=== PATIENT | male | born 1975 ===

== ENCOUNTER 2020-04-09 13:36 | Outpatient (REF) | payer OTHER, SELFPAY | END 2020-04-09 13:37 | disposition home or self-care (01) | LOC: HO.LAB 13:36 | PROVIDERS: PCP Internal Medicine; Visit Provider Internal Medicine | DX: Z20.828 Contact with and (suspected) exposure to other viral communicable diseases (principal) | CPT/HCPCS: C9803; U0003 ==

== ENCOUNTER 2020-05-11 08:52 | Outpatient (REF) | payer OTHER, SELFPAY ==
[2020-05-11 09:25] LABS: MANUAL DIFF FLAG NO
[2020-05-11 09:30] LABS: Basophils Percent Auto 0.3 % (0-2); Eosinophils Absolute Auto 0.1 X10*3/uL (0.0-0.4); Hematocrit 48.1 % (42-52); Hemoglobin 15.2 g/dl (14.0-18.0); Imm Gran Abs Auto 0.05 X10*3/uL (0.00-0.03); Imm Gran Pct Auto 0.6 % (0.0-0.4); Lymphocytes Absolute Auto 3.7 X10*3/uL (1.2-4.9); Lymphocytes Percent Auto 42.3 % (20-40); Mean Corpuscular HGB Conc 31.6 g/dl (31.0-36.0); Mean Corpuscular Hemoglobin 26.2 pg (27.0-33.0); Mean Corpuscular Volume 82.8 fL (80-98); Mean Platelet Volume 9.8 fL (9.4-12.4); Monocytes Absolute Auto 0.7 X10*3/uL (0.1-1.2); Monocytes Percent Auto 7.4 % (2-11); Neutrophils Absolute Auto 4.2 X10*3/uL (2.0-8.3); Neutrophils Percent Auto 48.4 % (45-73); Platelet Count 246 X10*3/uL (160-400); Red Blood Count 5.81 X10*6/uL (4.60-5.80); White Blood Count 8.7 X10*3/uL (4.8-10.8)
[2020-05-11 09:58] LABS: Alanine Aminotransferase 38 U/L (0-40); Albumin Level 4.7 g/dL (3.5-5.0); Alkaline Phosphatase 82 U/L (39-117); Anion Gap 16 (12-20); Aspartate Amino Transferase 23 U/L (5-37); Bilirubin Total 0.7 mg/dL (0.0-1.0); Blood Urea Nitrogen 15 mg/dL (9-16); Calcium 9.5 mg/dL (8.4-10.2); Carbon Dioxide 27 mmol/L (22-29); Chloride 100 mmol/L (96-108); Cholesterol 162 mg/dL; Estimated Glomerular Filt Rate > 60; Glucose Fasting 211 mg/dL (60-99); HDL Cholesterol 37 mg/dL; LDL Cholesterol Calculated 98 mg/dl; Potassium 4.6 mmol/l (3.3-5.1); Sodium 138 mmol/L (135-145); Total Protein 7.3 g/dL (6.5-8.0); Triglycerides 138 mg/dL
[2020-05-11 10:28] LABS: Folate 16.6 ng/mL (> or = 4.0); Vitamin B12 340 pg/mL (200-900)
== END 2020-05-11 08:53 | disposition home or self-care (01) ==
LOC: HO.LAB 08:52
PROVIDERS: Absent Provider Internal Medicine Hypertension Specialist; PCP Internal Medicine; Visit Provider Internal Medicine
DX: E53.8 Deficiency of other specified B group vitamins (principal); E78.00 Pure hypercholesterolemia, unspecified; E11.9 Type 2 diabetes mellitus without complications
CPT/HCPCS: 36415; 80053; 80061; 82607; 82746; 85025

== ENCOUNTER 2020-05-25 08:56 | Outpatient (REF) | payer OTHER, SELFPAY ==
--- NOTE | 2020-05-25 08:59 | US_ITS ---
EXAMINATION: US RETROPERITONEAL LIMITED (RENAL ONLY) CLINICAL INFORMATION: Calculi of kidney. COMPARISON: Ultrasound abdomen 04/17/2019 TECHNIQUE: Routine grayscale imaging of kidneys was performed FINDINGS: RIGHT KIDNEY: 11.3 x 6.1 x 6.5 cm (SAG x AP x TRV). The kidney is normal in size, contour, and echogenicity. Renal cortical thickness is normal. No calculi or focal parenchymal lesions. No hydronephrosis. LEFT KIDNEY: 10.9 x 5.7 x 4.3 cm (SAG x AP x TRV). The kidney is normal in size, contour, and echogenicity. Renal cortical thickness is normal. No calculi or focal parenchymal lesions. No hydronephrosis. US/US renal BI IMPRESSION: Unremarkable renal ultrasound. Echogenic stone seen previously in the lower pole right kidney is not visualized at this time.
== END 2020-05-25 08:57 | disposition home or self-care (01) ==
LOC: HO.US 08:56
PROVIDERS: PCP Internal Medicine; Visit Provider Nurse Practitioner Family
DX: N20.0 Calculus of kidney (principal)
CPT/HCPCS: 76775

== ENCOUNTER → 2020-07-29 09:02 | Outpatient (BNVA) | payer OTHER, SELFPAY | PROVIDERS: PCP Internal Medicine; Visit Provider Nurse Practitioner Gerontology | DX: E11.65 Type 2 diabetes mellitus with hyperglycemia (principal); I10 Essential (primary) hypertension; E78.00 Pure hypercholesterolemia, unspecified; E66.01 Morbid (severe) obesity due to excess calories; Z68.36 Body mass index [BMI] 36.0-36.9, adult | CPT/HCPCS: 82947; 99212 ==

== ENCOUNTER → 2020-08-26 09:42 | Outpatient (REF) | payer OTHER, SELFPAY ==
--- NOTE | 2020-08-26 09:45 | ECG_ITS ---
Test Reason : UNSPEC CHEST PAIN Blood Pressure : / mmHG Vent. Rate : 080 BPM Atrial Rate : 080 BPM P-R Int : 140 ms QRS Dur : 084 ms QT Int : 372 ms P-R-T Axes : 051 058 034 degrees QTc Int : 429 ms Sinus rhythm with marked sinus arrhythmia Otherwise normal ECG When compared with ECG of 22-APR-2018 09:45, No significant change was found Referred By: Alba Coley Electronically Signed By:Tommy Del Valle
--- NOTE | 2020-08-26 09:45 | CA_ITS ---
Transthoracic Echocardiogram Patient (Last, First, Middle): Goyo Silva, Gender: Male Date of : 1975 Age: 45 Procedure Date: 08/26/2020 Procedure Type: Transthoracic Echocardiogram Location: OP Height: 170.18 cm Weight: 103.42 kg BSA: 2.14 m2 Heart Rate: bpm BP: 124 / 82 mmHg Senior Logistics Manager: LESVIA Referring MD: Alba Coley MD Section Supervisor: Malik Solorio MD Symptoms: R06.02 - Shortness of breath Study Quality: Technically Difficult ECG Rhythm: Sinus Conclusions: - Essentially normal study Findings Left Ventricle Normal left ventricular size, thickness, and systolic function. The visually estimated ejection fraction is between 55-60%. Diastolic function is normal for age. Right Ventricle The right ventricle was not well visualized. Atria The left atrium is normal in size. Interatrial shunt cannot be excluded. The right atrium was not well visualized. Aortic Valve The aortic valve was not well visualized. There is no aortic valve stenosis. There is no aortic valve regurgitation. Mitral Valve Likely normal mitral valve structure and function. There is no mitral valve regurgitation. There is no mitral valve stenosis. Pulmonic Valve The pulmonic valve was not well visualized. Tricuspid Valve Likely normal tricuspid valve structure and function. The right ventricular systolic pressure is normal. The right ventricular systolic pressure is 23 mmHg. There is no evidence of pulmonary hypertension. Great Vessels All visible segments of the aorta are normal in size. The pulmonary artery was not well visualized. Venous The inferior vena cava was not well visualized. Pericardium/Pleural There is no evidence of pericardial effusion. Prior Study Comparison No significant change compared to prior study dated: 04/26/2018. Measurements 2D Linear Measurements IVSd: 0.95 0.6-0.9/0.6-1.0 cm LVIDd: 5.06 3.9-5.3/4.2-5.9 cm LVIDd Index: 2.36 2.4-3.2/2.2-3.1 cm/m2 LVIDs: 3.40 2.0-3.6 cm LVPWd: 1.12 0.7-1.1 cm Ao Root: 2.90 2.1-3.5 cm LA Diam: 3.60 2.7-3.8/3.0-4.0 cm LAIDs Index: 1.68 1.5-2.3 cm/m2 LV Mass: 242.07 67-162/88-224 g LV Mass Index: 113.12 43-95/49-115 g/m2 LVOT Diam: 2.00 3.0+(-)1.3 cm 2D Systolic Function EF 4C: 64.00 >55% EF 2C: 49.00 >55% EF BiP: 58.10 >55% Mitral Valve MV Pk E: 0.84 MV PK A: 0.70 MV Decel Time: 153.00 E/A: 1.20 E'Lateral: 9.48 E'Medial: 10.30 E/E' Med: 8.20 E/E' Lat: 8.90 PHT: 45.00 MVA PHT: 4.89 Decel Walker: 5.51 Aortic Valve AoV Pk Aman: 1.28 AoV Pk Grad: 7.00 LVOT LVOT Pk Aman: 0.70 LVOT Mn Aman: 0.46 LVOT VTI: 0.13 LVOT Pk Grad: 2.00 LVOT Mn Grad: 1.00 LVOT Diam: 2.00 LVOT Area: 3.14 Diastolic Function MV Pk E: 0.84 MV Pk A: 0.70 E/A: 1.20 E'Medial: 10.30 E/E' Med: 8.20 E' Laterial: 9.48 E/E' Lat: 8.90 Tricuspid Valve TR Pk Aman: 2.24 TR Pk Grad: 20.00 RA Press: 3.00 RVSP: 23.00 Great Vessels Aorta Ao Root-2D: 2.90 2.0-3.7 cm Ao Asc: 2.90 2.1-3.4 cm Ao Arch: 2.60 Updated in Other Vendor System with Status of Final Malik Solorio MD electronically signed on 08/29/2020 12:19:30 PM with status of Final
== END ==
LOC: HO.CARD 09:42
PROVIDERS: Visit Provider Internal Medicine
DX: R07.9 Chest pain, unspecified (principal); R06.02 Shortness of breath
CPT/HCPCS: 93005; 93306

== ENCOUNTER 2020-09-02 08:36 | Outpatient (REF) | payer OTHER, SELFPAY ==
--- NOTE | ~2020-09-02 | XR_ITS ---
EXAMINATION: XR CHEST CLINICAL INFORMATION: Shortness of breath COMPARISON: None TECHNIQUE: 2 views of the chest were obtained. FINDINGS: The cardiomediastinal silhouette is within normal limits. The lungs are well expanded. There is no focal consolidation, edema, or effusion. No pneumothorax. No acute osseous abnormality. XR/XR chest 2V IMPRESSION: No evidence of acute process.
[2020-09-02 09:45] LABS: Glucose Urine UA NEG (NEG); Leukocyte Esterase Urine NEG (NEG); Nitrite Urine NEG (NEG); Urine Blood NEG (NEG); Urine Ketones NEG (NEG); Urine Protein NEG (NEG-TRACE)
[2020-09-02 09:48] LABS: Appearance Urine CLEAR; Color Urine YELLOW
[2020-09-02 09:49] LABS: Alanine Aminotransferase 28 U/L (0-40); Albumin Level 4.5 g/dL (3.5-5.0); Alkaline Phosphatase 80 U/L (39-117); Anion Gap 12 (12-20); Aspartate Amino Transferase 23 U/L (5-37); Bilirubin Total 1.2 mg/dL (0.0-1.0); Blood Urea Nitrogen 16 mg/dL (9-16); Calcium 9.5 mg/dL (8.4-10.2); Carbon Dioxide 28 mmol/L (22-29); Chloride 102 mmol/L (96-108); Cholesterol 143 mg/dL; Estimated Glomerular Filt Rate > 60; Glucose Fasting 163 mg/dL (60-99); HDL Cholesterol 33 mg/dL; LDL Cholesterol Calculated 92 mg/dl; Potassium 4.7 mmol/L (3.3-5.1); Sodium 137 mmol/L (135-145); Total Protein 7.1 g/dL (6.5-8.0); Triglycerides 94 mg/dL
[2020-09-02 09:56] LABS: Estimated Average Glucose 163 mg/dL; Hemoglobin A1c % 7.3 %
[2020-09-02 10:03] LABS: Prostate Specific Antigen Scr 0.52 ng/mL (<0.05-4.0)
[2020-09-02 10:26] LABS: Creatinine Urine 150.44 mg/dL; Microalbum/Creatinine Ratio Ur 16.6 ug/mg cr
== END 2020-09-02 08:37 | disposition home or self-care (01) ==
LOC: HO.LAB 08:36
PROVIDERS: Nurse Practitioner Family; PCP Internal Medicine; Visit Provider Internal Medicine
DX: E11.9 Type 2 diabetes mellitus without complications (principal); E78.5 Hyperlipidemia, unspecified; E11.40 Type 2 diabetes mellitus with diabetic neuropathy, unspecified; R06.02 Shortness of breath; R31.9 Hematuria, unspecified; N20.0 Calculus of kidney
CPT/HCPCS: 36415; 71046; 80053; 80061; 81003; 82043; 83036; 84153

== ENCOUNTER → 2020-09-09 08:29 | Outpatient (BNVA) | payer OTHER, SELFPAY | PROVIDERS: PCP Internal Medicine; Visit Provider Nurse Practitioner Gerontology | DX: E11.65 Type 2 diabetes mellitus with hyperglycemia (principal); E66.01 Morbid (severe) obesity due to excess calories; E78.00 Pure hypercholesterolemia, unspecified; I10 Essential (primary) hypertension; Z68.36 Body mass index [BMI] 36.0-36.9, adult | CPT/HCPCS: 82947; Q3014 ==

== ENCOUNTER → 2020-09-24 08:31 | Outpatient (BNVA) | payer OTHER, SELFPAY | PROVIDERS: PCP Internal Medicine; Visit Provider Nurse Practitioner Gerontology | DX: E11.65 Type 2 diabetes mellitus with hyperglycemia (principal); I10 Essential (primary) hypertension; E78.00 Pure hypercholesterolemia, unspecified; E66.01 Morbid (severe) obesity due to excess calories; Z68.36 Body mass index [BMI] 36.0-36.9, adult | CPT/HCPCS: 82947; 99212 ==

== ENCOUNTER → 2020-09-27 10:00 | Outpatient (BNVA) | payer OTHER, SELFPAY | PROVIDERS: PCP Internal Medicine; Visit Provider Dietitian, Registered | DX: E11.65 Type 2 diabetes mellitus with hyperglycemia (principal) | CPT/HCPCS: 97802 ==

== ENCOUNTER → 2020-11-11 08:59 | Outpatient (BNVA) | payer OTHER, SELFPAY | PROVIDERS: PCP Internal Medicine; Visit Provider Dietitian, Registered | DX: E11.65 Type 2 diabetes mellitus with hyperglycemia (principal) | CPT/HCPCS: 97803 ==

== ENCOUNTER 2021-01-03 08:57 | Outpatient (REF) | payer OTHER, SELFPAY ==
--- NOTE | ~2021-01-03 | XR_ITS ---
EXAMINATION: CERVICAL SPINE 3 VIEWS CLINICAL INFORMATION: Cervicalgia. COMPARISON: Radiographs dated 12/31/2015. TECHNIQUE: Frontal, lateral, swimmer's and odontoid views are obtained. FINDINGS: Vertebral body heights and alignment are normal. The disc spaces are well-maintained. No acute fracture or spondylolisthesis is seen. There is minimal anterior spondylosis of the C5 lower endplate. The posterior elements are intact. There is no prevertebral soft tissue swelling. The dens and C7-T1 interface are normal. XR/XR cervical spine 2V IMPRESSION: There is minimal anterior spondylosis of the C5 lower endplate. The examination is otherwise unremarkable.
== END 2021-01-03 08:58 | disposition home or self-care (01) ==
LOC: HO.XRAY 08:57
PROVIDERS: Absent Provider Internal Medicine; PCP Internal Medicine; Visit Provider Nurse Practitioner Gerontology
DX: E11.65 Type 2 diabetes mellitus with hyperglycemia (principal); E66.01 Morbid (severe) obesity due to excess calories; Z68.36 Body mass index [BMI] 36.0-36.9, adult; I10 Essential (primary) hypertension; M54.2 Cervicalgia
CPT/HCPCS: 72040; 82947; 99212

== ENCOUNTER → 2021-01-13 08:57 | Outpatient (BNVA) | payer OTHER, SELFPAY | PROVIDERS: PCP Internal Medicine; Visit Provider Dietitian, Registered | DX: E11.65 Type 2 diabetes mellitus with hyperglycemia (principal); Z71.3 Dietary counseling and surveillance | CPT/HCPCS: 97803 ==

== ENCOUNTER → 2021-03-17 09:22 | Outpatient (BNVA) | payer OTHER, SELFPAY | PROVIDERS: PCP Internal Medicine; Visit Provider Dietitian, Registered | DX: E11.65 Type 2 diabetes mellitus with hyperglycemia (principal) | CPT/HCPCS: 97803 ==

== ENCOUNTER → 2021-04-07 12:57 | Outpatient (BNVA) | payer OTHER, SELFPAY | PROVIDERS: PCP Internal Medicine; Visit Provider Nurse Practitioner Family | DX: M51.36 Other intervertebral disc degeneration, lumbar region (principal); M79.18 Myalgia, other site; M96.1 Postlaminectomy syndrome, not elsewhere classified; M46.1 Sacroiliitis, not elsewhere classified | CPT/HCPCS: 99202 ==

== ENCOUNTER 2021-05-06 09:02 | Outpatient (REF) | payer OTHER, SELFPAY ==
[2021-05-06 09:11] LABS: MANUAL DIFF FLAG NO
[2021-05-06 09:56] LABS: Basophils Percent Auto 0.4 % (0-2); Eosinophils Absolute Auto 0.2 X10*3/uL (0.0-0.4); Eosinophils Percent Auto 1.8 % (0-4); Hematocrit 46.7 % (42.0-52.0); Hemoglobin 14.4 g/dl (14.0-18.0); Imm Gran Abs Auto 0.05 X10*3/uL (0.00-0.03); Imm Gran Pct Auto 0.6 % (0.0-0.4); Lymphocytes Absolute Auto 3.7 X10*3/uL (1.2-4.9); Lymphocytes Percent Auto 44.7 % (20-40); Mean Corpuscular HGB Conc 30.8 g/dl (31.0-36.0); Mean Corpuscular Hemoglobin 25.7 pg (27.0-33.0); Mean Corpuscular Volume 83.4 fL (80.0-98.0); Mean Platelet Volume 9.9 fL (9.4-12.4); Monocytes Absolute Auto 0.7 X10*3/uL (0.1-1.2); Monocytes Percent Auto 8.1 % (2-11); Neutrophils Absolute Auto 3.7 x10*3/uL (2.0-8.3); Neutrophils Percent Auto 44.4 % (45-73); Platelet Count 249 X10*3/uL (160-400); White Blood Count 8.3 X10*3/uL (4.8-10.8)
[2021-05-06 10:18] LABS: Alanine Aminotransferase 27 U/L (0-40); Albumin Level 4.4 g/dL (3.5-5.0); Alkaline Phosphatase 72 U/L (39-117); Anion Gap 10 (12-20); Aspartate Amino Transferase 18 U/L (5-37); Bilirubin Total 0.8 mg/dL (0.0-1.0); Blood Urea Nitrogen 20 mg/dL (9-16); Calcium 9.6 mg/dL (8.4-10.2); Carbon Dioxide 30 mmol/L (22-29); Chloride 103 mmol/L (96-108); Cholesterol 151 mg/dL; Estimated Glomerular Filt Rate > 60; Glucose Fasting 157 mg/dL (60-99); HDL Cholesterol 33 mg/dL; LDL Cholesterol Calculated 95 mg/dl; Potassium 4.7 mmol/L (3.3-5.1); Sodium 138 mmol/L (135-145); Triglycerides 115 mg/dL
[2021-05-06 10:52] LABS: Folate 13.5 ng/mL (> or = 4.0); Vitamin B12 282 pg/mL (200-900)
[2021-05-06 12:14] LABS: Microalbum/Creatinine Ratio Ur 36.2 ug/mg cr
[2021-05-10 16:41] LABS: Vitamin D 25-OH, D2 <4 ng/mL; Vitamin D 25-OH, D3 9 ng/mL; Vitamin D 25-OH, Total 9 ng/mL (30-100)
== END 2021-05-06 09:03 | disposition home or self-care (01) ==
LOC: HO.LAB 09:02
PROVIDERS: PCP Internal Medicine; Visit Provider Internal Medicine
DX: E55.9 Vitamin D deficiency, unspecified (principal); D64.9 Anemia, unspecified; E53.8 Deficiency of other specified B group vitamins; E78.5 Hyperlipidemia, unspecified; E11.65 Type 2 diabetes mellitus with hyperglycemia
CPT/HCPCS: 36415; 80053; 80061; 82043; 82306; 82607; 82746; 85025

== ENCOUNTER → 2021-06-08 09:31 | Outpatient (BNVA) | payer OTHER, SELFPAY | PROVIDERS: PCP Internal Medicine; Visit Provider Dietitian, Registered | DX: E11.65 Type 2 diabetes mellitus with hyperglycemia (principal) | CPT/HCPCS: 97803 ==

== ENCOUNTER → 2021-06-13 09:34 | Outpatient (BNVA) | payer OTHER, SELFPAY | PROVIDERS: PCP Internal Medicine; Visit Provider Nurse Practitioner Family | DX: M51.36 Other intervertebral disc degeneration, lumbar region (principal); M79.18 Myalgia, other site; M96.1 Postlaminectomy syndrome, not elsewhere classified; M46.1 Sacroiliitis, not elsewhere classified; M54.16 Radiculopathy, lumbar region; M48.062 Spinal stenosis, lumbar region with neurogenic claudication | CPT/HCPCS: 99212 ==

== ENCOUNTER 2021-06-21 06:04 | Outpatient (REF) | payer OTHER, SELFPAY ==
--- NOTE | ~2021-06-21 | FL_ITS ---
EXAMINATION: XR FLUOROSCOPY WITH IMAGES CLINICAL INFORMATION: Right SI joint injection. COMPARISON: None. TECHNIQUE: Fluoroscopy performed by Gladis Riddle NP. Fluoroscopy time: 0.1 minutes DAP: 0.963 Gy-cm2 Images: 1 FINDINGS: A single image demonstrates a needle overlying the lower portion of the SI joint with some surrounding contrast. FL/FL guidance in treatment room IMPRESSION: Fluoroscopy and spot films provided during SI joint injection.
== END 2021-06-21 06:05 | disposition home or self-care (01) ==
LOC: HO.RADIR 06:04
PROVIDERS: Visit Provider Anesthesiology
DX: M46.1 Sacroiliitis, not elsewhere classified (principal); M51.36 Other intervertebral disc degeneration, lumbar region; M79.18 Myalgia, other site; M96.1 Postlaminectomy syndrome, not elsewhere classified; M54.16 Radiculopathy, lumbar region; M48.062 Spinal stenosis, lumbar region with neurogenic claudication
CPT/HCPCS: 27096; J3300; Q9967

== ENCOUNTER 2021-06-28 06:02 | Outpatient (REF) | payer OTHER, SELFPAY ==
--- NOTE | ~2021-06-28 | FL_ITS ---
EXAMINATION: XR FLUOROSCOPY WITH IMAGES CLINICAL INFORMATION: Spinal stenosis, neurogenic claudication. COMPARISON: None. TECHNIQUE: Fluoroscopy performed by Gladis Riddle Fluoroscopy time: 0.5 minutes DAP: 10.8 Gycm2 Images: 1 FINDINGS: On a single PA view of lumbar spine there are bilateral L5 and S1 pedicular screws and interconnecting rods. There is needle placed adjacent to right L4 pedicle with contrast opacifying the soft tissues. FL/FL guidance in treatment room IMPRESSION: Fluoroscopy was provided to referring physician for pain management.
== END 2021-06-28 06:03 | disposition home or self-care (01) ==
LOC: HO.RADIR 06:02
PROVIDERS: Visit Provider Anesthesiology
DX: M48.062 Spinal stenosis, lumbar region with neurogenic claudication (principal); M51.36 Other intervertebral disc degeneration, lumbar region; M79.18 Myalgia, other site; M96.1 Postlaminectomy syndrome, not elsewhere classified; M46.1 Sacroiliitis, not elsewhere classified; M54.16 Radiculopathy, lumbar region
CPT/HCPCS: 64483; 64484; J3300; Q9967

== ENCOUNTER → 2021-07-04 08:27 | Outpatient (BNVA) | payer OTHER, SELFPAY | PROVIDERS: PCP Internal Medicine; Visit Provider Nurse Practitioner Gerontology | DX: E11.65 Type 2 diabetes mellitus with hyperglycemia (principal); E78.00 Pure hypercholesterolemia, unspecified; I10 Essential (primary) hypertension; E66.01 Morbid (severe) obesity due to excess calories; E55.9 Vitamin D deficiency, unspecified; Z68.36 Body mass index [BMI] 36.0-36.9, adult | CPT/HCPCS: 82947; 83036; 99212 ==

== ENCOUNTER → 2021-07-26 09:49 | Outpatient (BNVA) | payer OTHER, SELFPAY | PROVIDERS: PCP Internal Medicine; Visit Provider Nurse Practitioner Family | DX: M48.062 Spinal stenosis, lumbar region with neurogenic claudication (principal); M96.1 Postlaminectomy syndrome, not elsewhere classified; M54.16 Radiculopathy, lumbar region; M46.1 Sacroiliitis, not elsewhere classified; Z98.890 Other specified postprocedural states | CPT/HCPCS: 99212 ==

== ENCOUNTER → 2021-09-05 08:57 | Outpatient (BNVA) | payer OTHER, SELFPAY | PROVIDERS: PCP Internal Medicine; Visit Provider Dietitian, Registered | DX: E11.65 Type 2 diabetes mellitus with hyperglycemia (principal) | CPT/HCPCS: 97803 ==

== ENCOUNTER 2021-09-12 09:26 | Outpatient (REF) | payer OTHER, SELFPAY ==
--- NOTE | ~2021-09-12 | XR_ITS ---
EXAMINATION: XR SHOULDER, RIGHT CLINICAL INFORMATION: Pain right COMPARISON: None TECHNIQUE: AP external rotation, Grashey, scapular Y, and axillary views of the right shoulder. FINDINGS: The bones and soft tissues are normal. No fracture. Glenohumeral and acromioclavicular alignment is anatomic with normal joint space. No abnormal soft tissue calcifications. XR/XR shoulder RT min 2V IMPRESSION: Unremarkable right shoulder exam.
== END 2021-09-12 09:27 | disposition home or self-care (01) ==
LOC: HO.XRAY 09:26
PROVIDERS: PCP Internal Medicine; Visit Provider Nurse Practitioner Family
DX: M25.511 Pain in right shoulder (principal); M96.1 Postlaminectomy syndrome, not elsewhere classified; M54.16 Radiculopathy, lumbar region; M46.1 Sacroiliitis, not elsewhere classified; M51.36 Other intervertebral disc degeneration, lumbar region
CPT/HCPCS: 73030; 99212

== ENCOUNTER → 2021-09-22 08:30 | Outpatient (BNVA) | payer OTHER, SELFPAY | PROVIDERS: PCP Internal Medicine; Visit Provider Nurse Practitioner Family | DX: Z13.89 Encounter for screening for other disorder (principal) | CPT/HCPCS: Q3014 ==

== ENCOUNTER → 2021-09-27 08:31 | Outpatient (BNVA) | payer OTHER, SELFPAY | PROVIDERS: PCP Internal Medicine; Visit Provider Nurse Practitioner Gerontology | DX: E11.65 Type 2 diabetes mellitus with hyperglycemia (principal); E78.00 Pure hypercholesterolemia, unspecified; E55.9 Vitamin D deficiency, unspecified; E66.01 Morbid (severe) obesity due to excess calories; I10 Essential (primary) hypertension; Z68.35 Body mass index [BMI] 35.0-35.9, adult | CPT/HCPCS: 82947; 83036; 99212 ==

== ENCOUNTER 2021-09-28 09:08 | Outpatient (REF) | payer OTHER, SELFPAY ==
[2021-09-28 12:01] LABS: Vitamin D 25-OH Total 21.3 ng/mL (>30)
== END 2021-09-28 09:09 | disposition home or self-care (01) ==
LOC: HO.HMGCLDS 09:08
PROVIDERS: PCP Internal Medicine; Visit Provider Nurse Practitioner Gerontology
DX: E55.9 Vitamin D deficiency, unspecified (principal)
CPT/HCPCS: 36415; 82306

== ENCOUNTER 2021-11-16 11:43 | Day surgery (SDC) | payer OTHER, SELFPAY ==
--- NOTE | 2021-11-15 09:32 | P.CONAN_ITS ---
Documented by User: Desi Gutierrez NP 11/15/21 09:35 HPI - Anesthesia Eval Consult details Narrative: 46yo M for Lumbar Spinal Cord Stimulation Trial Chronic opioids [facility] Active Problems Active Problems: All Active Problems (Updated 09/12/21 @ 09:42 by KAHLIL Rodriguez) Right shoulder pain (Acute) Mild recurrent major depression (Acute) Vitamin D deficiency (Acute) Spinal stenosis, lumbar region with neurogenic claudication (Acute) Pre-procedural examination (Acute) Sacroiliitis (Acute) Post laminectomy syndrome (Acute) Myofascial pain (Acute) Lumbar radiculopathy (Acute) Neck pain (Acute) Diabetes mellitus (Acute) Essential hypertension (Acute) Pure hypercholesterolemia (Acute) Obesity due to excess calories (Acute) Shortness of breath (Acute) Chest pain (Acute) UTI (urinary tract infection) (Acute) Hematuria (Acute) Renal calculi (Acute) B12 deficiency due to diet (Acute) Insomnia (Acute) Depression with anxiety (Acute) GERD (gastroesophageal reflux disease) (Acute) Lumbar degenerative disc disease (Acute) Past Medical History Medical History B12 deficiency due to diet Chest pain Depression with anxiety Diabetes mellitus Essential hypertension GERD (gastroesophageal reflux disease) Hematuria Insomnia Lumbar degenerative disc disease Mild recurrent major depression Neck pain Obesity due to excess calories Pure hypercholesterolemia Renal calculi Shortness of breath UTI (urinary tract infection) Vitamin D deficiency Family History Family History Father Diabetes Mother Diabetes Hypertension Son No problems noted. Surgical History Surgical History History of lumbar laminectomy Social History Social History Household Members: None Housing: Apartment Alcohol intake: current Alcohol intake frequency: does not drink Alcohol type: beer Patient Tobacco Use Status: Never used Tobacco e-Cigarette/Vaping Use: Never Used Second Hand Smoke Exposure: No Use of substances other than those prescribed or required for medical reasons: No Are you DNR?: No Advance Directives: No Advance Directives Information Provided: Yes Advance Directives on File: No service: No Current occupational status: disabled Cognitive needs: No Hearing needs: No Vision needs: No Meds Allergies Allergy/AdvReac Type Severity Reaction Status Date / Time atorvastatin Allergy Intermediate stomach Verified 09/27/21 09:00 upset metformin Allergy Intermediate diarrhea Verified 09/27/21 09:00 latex Allergy Unknown Verified 09/27/21 09:00 Home Medications Medication Instructions Recorded Confirmed Last Taken Type blood sugar diagnostic #10 ea 03/01/20 08/03/21 Unknown History lisinopril 5 mg tablet 5 mg PO DAILY 03/01/20 09/27/21 Unknown History escitalopram oxalate 20 mg tablet 20 mg PO DAILY 09/09/20 08/03/21 Unknown History zolpidem 10 mg tablet 10 mg PO BEDTIME PRN 09/09/20 08/03/21 Unknown History gabapentin 600 mg tablet 600 mg PO TID PRN 09/24/20 09/27/21 Unknown History clonazepam 1 mg tablet 1 mg PO BID PRN 01/03/21 08/03/21 Unknown History Exam Exam Date and Time: November 15, 2021 0932 Pertinent Lab Results Pertinent Lab Results: Laboratory Tests 05/06/21 05/06/21 09:00 09:00 WBC 8.3 Hgb 14.4 Hct 46.7 Plt Count 249 Sodium 138 Potassium 4.7 Chloride 103 Carbon Dioxide 30 H BUN 20 H Creatinine 1.24 Narrative Narrative: ECHO 2020 Conclusions: - Essentially normal study ? Findings Left Ventricle Normal left ventricular size, thickness, and systolic function. The visually estimated ejection fraction is between 55-60%.? Diastolic function is normal for age. Assessment and Plan Assessment Anesthesia Assessment: Chart Reviewed Documented by User: Ingrid Solitario MD 11/16/21 12:42 [facility] Past Medical History Medical History B12 deficiency due to diet Chest pain Depression with anxiety Diabetes mellitus Essential hypertension GERD (gastroesophageal reflux disease) Hematuria Insomnia Lumbar degenerative disc disease Mild recurrent major depression Neck pain Obesity due to excess calories Pure hypercholesterolemia Renal calculi Shortness of breath UTI (urinary tract infection) Vitamin D deficiency Family History Family History Father Diabetes Mother Diabetes Hypertension Son No problems noted. Family history of problems with anesthesia: No Surgical History Surgical History History of lumbar laminectomy History of Problems with Anesthesia: No Social History Social History Household Members: None Housing: Apartment Alcohol intake: current Alcohol intake frequency: does not drink Alcohol type: beer Patient Tobacco Use Status: Never used Tobacco e-Cigarette/Vaping Use: Never Used Second Hand Smoke Exposure: No Use of substances other than those prescribed or required for medical reasons: No Are you DNR?: No Advance Directives: No Advance Directives Information Provided: Yes Advance Directives on File: No service: No Current occupational status: disabled Cognitive needs: No Hearing needs: No Vision needs: No Meds Allergies Allergy/AdvReac Type Severity Reaction Status Date / Time atorvastatin Allergy Intermediate stomach Verified 09/27/21 09:00 upset metformin Allergy Intermediate diarrhea Verified 09/27/21 09:00 latex Allergy Unknown Verified 09/27/21 09:00 Home Medications Medication Instructions Recorded Confirmed Last Taken Type blood sugar diagnostic #10 ea 03/01/20 08/03/21 Unknown History lisinopril 5 mg tablet 5 mg PO DAILY 03/01/20 09/27/21 Unknown History escitalopram oxalate 20 mg tablet 20 mg PO DAILY 09/09/20 08/03/21 Unknown History zolpidem 10 mg tablet 10 mg PO BEDTIME PRN 09/09/20 08/03/21 Unknown History gabapentin 600 mg tablet 600 mg PO TID PRN 09/24/20 09/27/21 Unknown History clonazepam 1 mg tablet 1 mg PO BID PRN 01/03/21 08/03/21 Unknown History Exam Airway Mallampati Class: II (Missing multiple teeth) TM Dist: >3cm Neck ROM: Full Heart: rrr Lungs: cta Assessment and Plan Assessment Anesthesia Assessment: Anesthesia Plan Discussed and Chart Reviewed Final Anesthetic Review Family History of Problems with Anesthesia: No History of Problems with Anesthesia: No NPO: Yes ASA Class: III Final Preanesthetic Review: No Changes in Pt Med Stat, Meds/Allgs Chart Reviewed and Consent Obtained/Reviewed Patient Risk: Intermediate Procedure Risk: Intermediate Anesthetic Plan Anesthetic Plan: MAC: Disposition: Standard PACU
--- NOTE | ~2021-11-16 | FL_ITS ---
EXAMINATION: XR FLUOROSCOPY WITH IMAGES CLINICAL INFORMATION: Stimulator. Pain management. COMPARISON: Chest radiographs 09/02/2020 TECHNIQUE: Fluoroscopy performed by Dr. Ervin Curry. Fluoroscopy time: 4.4 minutes. Cumulative Dose: 111 mGy. DAP: 16.7 Gycm2. Images: 3. FINDINGS: There are 2 spinal stimulator electrodes seen ascending the posterior spinal canal. The electrode tips are at level of mid thoracic spine. Specific spinal level difficult to accurately discern on the smaller field of view. There is no visible kinking or defect of the leads. FL/FL guidance in OR IMPRESSION: Fluoroscopy for pain management procedure.
[2021-11-16 08:48] VITALS: BMI 36.3
[2021-11-16 12:13] VITALS: BP 124/80; PULSE 88; RESP 16; TEMP 36.4; O2SAT 97
[2021-11-16 12:31] LABS: Glucose, Whole Blood 123 mg/dL (60-115)
[2021-11-16] MEDS: Lactated Ringers 1,000 ML 100 ML IVCONT (12:37)
--- NOTE | 2021-11-16 12:39 | PC.NURSE ---
per Dr. Curry MRSA result is not needed prior to procedure start.
[2021-11-16 13:42] LABS: MRSA Nasal PCR NEGATIVE (Negative); SA Nasal PCR NEGATIVE (Negative)
[2021-11-16 15:02] VITALS: BP 100/51; PULSE 91; RESP 16; TEMP 36.4; O2SAT 98
[2021-11-16 15:17] VITALS: BP 108/65; PULSE 70; RESP 16; O2SAT 98
[2021-11-16 15:33] VITALS: BP 117/65; PULSE 68; RESP 16; O2SAT 98
[2021-11-16 15:45] VITALS: BP 110/50; PULSE 73; RESP 16; O2SAT 98
[2021-11-16 16:02] VITALS: BP 115/68; PULSE 64; RESP 16; TEMP 36.3; O2SAT 98
--- NOTE | 2021-11-16 16:43 | MHC.SHP ---
Pre-Procedural Eval Section A Date of Service: 11/16/21 The patient is an INPATIENT: No Changes since office visit: Yes Patient answered all questions The History & Physical has been completed within 30 days and I have reviewed it.: Yes Section B Chief Complaint: Postlaminectomy syndrome, not elsewhere classified Present Medications: see Short Stay Collaborative assessment History of Previous Operations: Relevant previous surgery/procedure and date(s) (Lumbar fusion) Allergies: Allergies Allergy/AdvReac Type Severity Reaction Status Date / Time atorvastatin Allergy Intermediate stomach Verified 09/27/21 09:00 upset metformin Allergy Intermediate diarrhea Verified 09/27/21 09:00 latex Allergy Unknown Verified 09/27/21 09:00 Review of Systems Sugical H&P ROS: Negative: Constitution, Cardiovascular and Respiratory Exam Surgical H&P Exam: Normal: HEENT, Normal: Heart and Normal: Lungs Plan Diagnosis/Plan: Unchanged I have reviewed the history and physical and performed a pertinent physical examination on my patient. No changes have occurred unless specified.
--- NOTE | 2021-11-16 16:44 | P.BOP_ITS ---
Brief Operative Note Date of Service: 11/16/21 Pre-op diagnosis: Post-laminectomy syndrome Post-op diagnosis: same Procedure: Lumbar spinal cord stimulation trial Implants: Temporary trial leads - [employer] Surgeon: Ervin Curry MD Anesthesia: MAC Was an Java [id number] Software Engineer used for this Procedure?: No Estimated blood loss (mL): 1 Pathology: none sent Condition: stable Disposition: PACU
--- NOTE | 2021-11-16 16:45 | W.PM.OPN ---
Operative Note Operative Note Date of Service: 11/16/21 Narrative: Percutaneous Spinal Cord Stimulator Trial, Lumbar After obtaining written consent, pre-procedure blood pressure and heart rate were recorded and are in the nursing record for review. A peripheral IV was started. Antibiotics, cefazolin 2 gram, were given intraoperatively. The patient was placed in a prone position.? The patient was sedated by the anesthesiologist. The thoracolumbar area was widely prepped with ChloraPrep, allowed to dry and draped in sterile fashion. Fluoroscopy was used to identify the target interlaminar spaces and appropriate needle insertion sites. The skin and subcutaneous tissue was anesthetized with 0.5% lidocaine with epinephrine mixed with 0.25% ropivacaine. Two separate 14 gauge Tuohy epidural needles were then advanced from this point in a paramedian approach to the epidural space opening at T12/L1 interspace, where lost of resistance was found using air. No paresthesias were elicited with needle placement. No CSF or heme was present upon needle placement. The 1x8 stimulator lead wire was then threaded to the top of T8 in the right parasagittal position and in the left parasagittal position under live fluoroscopy. The leads advanced posteriorly and in midline.?The patient confirmed adequate intraoperative paresthesia coverage. The Tuohy needles were then completely removed under live fluoroscopy. The stimulator wires were then secured with 2-0 silk sutures, sterile strips, gauze and tegaderm for skin dressing. The patient tolerated the procedure well and no complications were encountered. Following the procedure the patient was brought to the PACU where his vital signs were stable. Adequate paresthesia coverage was reprogrammed and reconfirmed in the PACU. The patient was discharged home in good condition after being given discharge instructions. Time Out: Immediately prior to the procedure, the following was verbally confirmed that there is a signed consent form and that the correct patient, planned procedure, site and side are consistent with documentation and that necessary equipment and/or blood products are available prior to the start of the case. Complications: none EBL: <2 cc
== END 2021-11-16 17:14 | disposition home or self-care (01) ==
PROVIDERS: Nurse Practitioner Family; PCP Internal Medicine; Visit Provider Internal Medicine
PROC: (CPT 63650; principal; 2021-11-16 13:10)
DX: M96.1 Postlaminectomy syndrome, not elsewhere classified (principal); M51.36 Other intervertebral disc degeneration, lumbar region; M48.062 Spinal stenosis, lumbar region with neurogenic claudication; M25.511 Pain in right shoulder; M54.16 Radiculopathy, lumbar region; M79.18 Myalgia, other site; F11.20 Opioid dependence, uncomplicated; I10 Essential (primary) hypertension; E11.9 Type 2 diabetes mellitus without complications; E55.9 Vitamin D deficiency, unspecified; D51.3 Other dietary vitamin B12 deficiency anemia; F33.0 Major depressive disorder, recurrent, mild; E66.09 Other obesity due to excess calories; Z68.36 Body mass index [BMI] 36.0-36.9, adult; Z79.899 Other long term (current) drug therapy; Z88.8 Allergy status to other drugs, medicaments and biological substances; Z91.040 Latex allergy status
CPT/HCPCS: 63650 ×2; 82947; 87640; 87641; C1778; J0690; J2250; J2405; J3010

== ENCOUNTER → 2021-11-22 10:54 | Outpatient (BNVA) | payer OTHER, SELFPAY | PROVIDERS: PCP Internal Medicine; Visit Provider Nurse Practitioner Family | DX: M96.1 Postlaminectomy syndrome, not elsewhere classified (principal) | CPT/HCPCS: 99212 ==

== ENCOUNTER 2021-12-27 08:41 | Outpatient (REF) | payer OTHER, SELFPAY ==
--- NOTE | ~2021-12-27 | XR_ITS ---
EXAMINATION: XR SHOULDER, LEFT XR SHOULDER, RIGHT CLINICAL INFORMATION: Pain COMPARISON: 09/12/2021 TECHNIQUE: 4 views of each shoulder. FINDINGS: Left shoulder: No fracture or dislocation. The glenohumeral joint is well aligned. The acromioclavicular joint is intact. The visualized lung is clear. The visualized ribs are intact. Right shoulder: No fracture or dislocation. The glenohumeral joint is well aligned. The acromioclavicular joint is intact. The visualized ribs are intact. The visualized lung is clear. XR/XR shoulder RT min 2V IMPRESSION: Unremarkable appearance of both shoulders.
--- NOTE | ~2021-12-27 | XR_ITS ---
EXAMINATION: XR SHOULDER, LEFT XR SHOULDER, RIGHT CLINICAL INFORMATION: Pain COMPARISON: 09/12/2021 TECHNIQUE: 4 views of each shoulder. FINDINGS: Left shoulder: No fracture or dislocation. The glenohumeral joint is well aligned. The acromioclavicular joint is intact. The visualized lung is clear. The visualized ribs are intact. Right shoulder: No fracture or dislocation. The glenohumeral joint is well aligned. The acromioclavicular joint is intact. The visualized ribs are intact. The visualized lung is clear. XR/XR shoulder LT min 2V IMPRESSION: Unremarkable appearance of both shoulders.
[2021-12-27 09:50] LABS: Appearance Urine Clear; Color Urine Yellow; Glucose Urine UA 500 mg/dL (Negative); Leukocyte Esterase Urine Negative (Negative); Nitrite Urine Negative (Negative); PH 5.5 (5.0-8.0); Urine Blood Negative (Negative); Urine Ketones Negative (Negative); Urine Protein Negative (Neg-Trace)
[2021-12-27 10:09] LABS: Alanine Aminotransferase 28 U/L (0-40); Albumin Level 4.5 g/dL (3.5-5.0); Alkaline Phosphatase 85 U/L (39-117); Anion Gap 15 (12-20); Aspartate Amino Transferase 16 U/L (5-37); Blood Urea Nitrogen 20 mg/dL (9-16); Calcium 9.1 mg/dL (8.4-10.2); Carbon Dioxide 26 mmol/L (22-29); Chloride 101 mmol/L (96-108); Cholesterol 144 mg/dL; Estimated Glomerular Filt Rate > 60; Glucose Fasting 181 mg/dL (60-99); HDL Cholesterol 37 mg/dL; LDL Cholesterol Calculated 84 mg/dl; Potassium 4.6 mmol/L (3.3-5.1); Sodium 137 mmol/L (135-145); Total Protein 7.2 g/dL (6.5-8.0); Triglycerides 115 mg/dL
[2021-12-27 10:41] LABS: Folate 13.9 ng/mL (> or = 4.0); Vitamin B12 266 pg/mL (200-900)
[2021-12-27 11:32] LABS: Creatinine Urine 114.55 mg/dL; Microalbum/Creatinine Ratio Ur 12.2 ug/mg cr
== END 2021-12-27 08:42 | disposition home or self-care (01) ==
LOC: HO.XRAY 08:41
PROVIDERS: PCP Internal Medicine; Visit Provider Internal Medicine
DX: E11.65 Type 2 diabetes mellitus with hyperglycemia (principal); E53.8 Deficiency of other specified B group vitamins; E78.5 Hyperlipidemia, unspecified; E55.9 Vitamin D deficiency, unspecified; N20.0 Calculus of kidney; R30.0 Dysuria; M25.512 Pain in left shoulder; M25.511 Pain in right shoulder
CPT/HCPCS: 36415; 73030; 80053; 80061; 81003; 82043; 82306; 82607; 82746

== ENCOUNTER → 2022-03-08 08:56 | Outpatient (BNVA) | payer OTHER, SELFPAY | PROVIDERS: PCP Internal Medicine; Visit Provider Dietitian, Registered | DX: E11.65 Type 2 diabetes mellitus with hyperglycemia (principal) | CPT/HCPCS: 97803 ==

== ENCOUNTER 2022-03-17 07:56 | Outpatient (REF) | payer OTHER, SELFPAY ==
--- NOTE | ~2022-03-17 | US_ITS ---
EXAMINATION: US RETROPERITONEAL LIMITED (RENAL ONLY) CLINICAL INFORMATION: UTI. COMPARISON: Renal ultrasound 05/25/2020. Ultrasound abdomen complete 04/17/2019. TECHNIQUE: Real-time imaging of the kidneys. FINDINGS: RIGHT KIDNEY: 11.3 x 6.1 x 6.4 cm (SAG x AP x TRV). The kidney is normal in size, contour, and echogenicity. Renal cortical thickness is normal. No focal parenchymal lesions or hydronephrosis. There is a 0.8 cm nonobstructive calculus in the lower pole. LEFT KIDNEY: 10.9 x 6.1 x 5.5 cm (SAG x AP x TRV). The kidney is normal in size, contour, and echogenicity. Renal cortical thickness is normal. No calculi or focal parenchymal lesions. No hydronephrosis. US/US renal BI IMPRESSION: Nonobstructive 0.8 cm calculus in the lower pole of the right kidney.
== END 2022-03-17 07:57 | disposition home or self-care (01) ==
LOC: HO.US 07:56
PROVIDERS: Visit Provider Internal Medicine Hypertension Specialist
DX: N39.0 Urinary tract infection, site not specified (principal)
CPT/HCPCS: 76775

== ENCOUNTER 2022-04-27 08:12 | Outpatient (REF) | payer OTHER, SELFPAY ==
[2022-04-27 09:51] LABS: Alanine Aminotransferase 30 U/L (0-40); Albumin Level 4.4 g/dL (3.5-5.0); Alkaline Phosphatase 78 U/L (39-117); Anion Gap 12 (12-20); Aspartate Amino Transferase 18 U/L (5-37); Bilirubin Total 1.1 mg/dL (0.0-1.0); Blood Urea Nitrogen 18 mg/dL (9-16); Calcium 9.3 mg/dL (8.4-10.2); Carbon Dioxide 29 mmol/L (22-29); Chloride 103 mmol/L (96-108); Cholesterol 146 mg/dL; Estimated Glomerular Filt Rate > 60; Glucose Fasting 181 mg/dL (60-99); Glucose Random 183 mg/dL (60-115); HDL Cholesterol 34 mg/dL; LDL Cholesterol Calculated 92 mg/dl; Potassium 4.5 mmol/L (3.3-5.1); Sodium 139 mmol/L (135-145); Total Protein 6.8 g/dL (6.5-8.0); Triglycerides 100 mg/dL
[2022-04-27 10:06] LABS: Creatinine Urine 160.87 mg/dL; Protein/Creatinine Ratio, Ur 0.07 (<0.2); Total Protein Urine Random 11 mg/dL (<12)
[2022-04-27 10:07] LABS: Creatinine Urine 158.26 mg/dL; Microalbum/Creatinine Ratio Ur 20.2 ug/mg cr
[2022-04-27 10:12] LABS: Vitamin D 25-OH Total 19.6 ng/mL (>30)
== END 2022-04-27 08:13 | disposition home or self-care (01) ==
LOC: HO.LAB 08:12
PROVIDERS: Absent Provider Internal Medicine; PCP Internal Medicine; Visit Provider Internal Medicine Hypertension Specialist
DX: E55.9 Vitamin D deficiency, unspecified (principal); E78.5 Hyperlipidemia, unspecified; E11.65 Type 2 diabetes mellitus with hyperglycemia; R80.9 Proteinuria, unspecified
CPT/HCPCS: 36415; 80048; 80053; 80061; 82043; 82306; 84156

== ENCOUNTER → 2022-05-10 13:28 | Outpatient (BNVA) | payer OTHER, SELFPAY | PROVIDERS: PCP Internal Medicine; Visit Provider Internal Medicine | DX: R19.5 Other fecal abnormalities (principal) | CPT/HCPCS: 99202 ==

== ENCOUNTER 2022-06-08 16:01 | Outpatient (REF) | payer OTHER, SELFPAY | END 2022-06-08 16:02 | disposition home or self-care (01) | LOC: HO.LAB 16:01 | PROVIDERS: Visit Provider Nurse Practitioner Family | DX: N20.0 Calculus of kidney (principal); R30.0 Dysuria | CPT/HCPCS: 87086 ==

== ENCOUNTER → 2022-06-21 13:20 | Outpatient (BNVA) | payer OTHER, SELFPAY | PROVIDERS: PCP Internal Medicine; Visit Provider Surgery | DX: K42.9 Umbilical hernia without obstruction or gangrene (principal); E53.8 Deficiency of other specified B group vitamins; E55.9 Vitamin D deficiency, unspecified | CPT/HCPCS: 99202 ==

== ENCOUNTER 2022-07-06 07:00 | Day surgery (SDC) | payer OTHER, SELFPAY ==
--- NOTE | 2022-07-05 11:43 | P.CONAN_ITS ---
Documented by User: Desi Gutierrez NP 07/05/22 11:44 HPI - Anesthesia Eval Consult details Narrative: 47yo M for Colonoscopy Chronic opioids PMFSH Active Problems Active Problems: All Active Problems (Updated 06/08/22 @ 15:56 by KAHLIL Breaux) Bilateral inguinal hernia (Acute) Umbilical hernia (Acute) Bilateral hydrocele (Acute) Positive FIT (fecal immunochemical test) (Acute) Renal calculi (Acute) Fecal occult blood test positive (Acute) Left shoulder pain (Acute) Right shoulder pain (Acute) Mild recurrent major depression (Acute) Vitamin D deficiency (Acute) Spinal stenosis, lumbar region with neurogenic claudication (Acute) Pre-procedural examination (Acute) Sacroiliitis (Acute) Post laminectomy syndrome (Acute) Myofascial pain (Acute) Lumbar radiculopathy (Acute) Neck pain (Acute) Diabetes mellitus (Acute) Essential hypertension (Acute) Pure hypercholesterolemia (Acute) Obesity due to excess calories (Acute) Shortness of breath (Acute) Chest pain (Acute) UTI (urinary tract infection) (Acute) Hematuria (Acute) Renal calculi (Acute) B12 deficiency due to diet (Acute) Insomnia (Acute) Depression with anxiety (Acute) GERD (gastroesophageal reflux disease) (Acute) Lumbar degenerative disc disease (Acute) Past Medical History Medical History B12 deficiency due to diet Chest pain Depression with anxiety Diabetes mellitus Essential hypertension GERD (gastroesophageal reflux disease) Hematuria Insomnia Lumbar degenerative disc disease Mild recurrent major depression Neck pain Obesity due to excess calories Pure hypercholesterolemia Renal calculi Shortness of breath Sleep apnea UTI (urinary tract infection) Vitamin D deficiency Family History Family History Father Diabetes Mother Diabetes Hypertension Son No problems noted. Family history of problems with anesthesia: No Surgical History Surgical History History of lumbar laminectomy Hx of colonoscopy History of Problems with Anesthesia: No Social History Social History Household Members: None Housing: Apartment Alcohol intake: current Alcohol intake frequency: holidays/special occasions only Alcohol type: beer Patient Tobacco Use Status: Never used Tobacco e-Cigarette/Vaping Use: Never Used Second Hand Smoke Exposure: No Use of substances other than those prescribed or required for medical reasons: No Are you DNR?: No Advance Directives: No Advance Directives Information Provided: Yes service: No Current occupational status: disabled Cognitive needs: No Hearing needs: No Vision needs: No Meds Allergies Allergy/AdvReac Type Severity Reaction Status Date / Time atorvastatin Allergy Intermediate stomach Verified 07/06/22 07:07 upset metformin Allergy Intermediate diarrhea Verified 07/06/22 07:07 latex Allergy Unknown Verified 07/06/22 07:07 Home Medications Medication Instructions Recorded Confirmed Last Taken Type blood sugar diagnostic #10 ea 03/01/20 07/06/22 Unknown History lisinopril 5 mg tablet 5 mg PO DAILY 03/01/20 07/06/22 07/03/22 History escitalopram oxalate 20 mg tablet 20 mg PO DAILY 09/09/20 07/06/22 Unknown History zolpidem 10 mg tablet 10 mg PO BEDTIME PRN Sleep 09/09/20 07/06/22 Unknown History gabapentin 600 mg tablet 600 mg PO TID PRN pain 09/24/20 07/06/22 Unknown History clonazepam 1 mg tablet 1 mg PO BID PRN Anxiety 01/03/21 07/06/22 Unknown History sulindac 200 mg tablet 200 mg PO BID PRN Pain 05/10/22 07/06/22 05/08/22 History tamsulosin 0.4 mg capsule 0.4 mg PO DAILY 06/08/22 07/06/22 Unknown History Exam Exam Date and Time: July 05, 2022 1143 Pertinent Lab Results Pertinent Lab Results: Laboratory Tests 04/27/22 08:26 Sodium 139 Potassium 4.5 Chloride 103 Carbon Dioxide 29 BUN 18 H Creatinine 1.12 Narrative Narrative: ECHO 2020 Conclusions: - Essentially normal study ? Findings Left Ventricle Normal left ventricular size, thickness, and systolic function. The visually estimated ejection fraction is between 55-60%.? Diastolic function is normal for age. Assessment and Plan Assessment Anesthesia Assessment: Chart Reviewed Final Anesthetic Review Family History of Problems with Anesthesia: No History of Problems with Anesthesia: No Documented by User: Barbara De Santiago MD 07/06/22 08:17 [facility] Past Medical History Medical History B12 deficiency due to diet Chest pain Depression with anxiety Diabetes mellitus Essential hypertension GERD (gastroesophageal reflux disease) Hematuria Insomnia Lumbar degenerative disc disease Mild recurrent major depression Neck pain Obesity due to excess calories Pure hypercholesterolemia Renal calculi Shortness of breath Sleep apnea UTI (urinary tract infection) Vitamin D deficiency Functional capacity: independent ambulation Family History Family History Father Diabetes Mother Diabetes Hypertension Son No problems noted. Surgical History Surgical History History of lumbar laminectomy Hx of colonoscopy Social History Social History Household Members: None Housing: Apartment Alcohol intake: current Alcohol intake frequency: holidays/special occasions only Alcohol type: beer Patient Tobacco Use Status: Never used Tobacco e-Cigarette/Vaping Use: Never Used Second Hand Smoke Exposure: No Use of substances other than those prescribed or required for medical reasons: No Are you DNR?: No Advance Directives: No Advance Directives Information Provided: Yes service: No Current occupational status: disabled Cognitive needs: No Hearing needs: No Vision needs: No Meds Allergies Allergy/AdvReac Type Severity Reaction Status Date / Time atorvastatin Allergy Intermediate stomach Verified 07/06/22 07:07 upset metformin Allergy Intermediate diarrhea Verified 07/06/22 07:07 latex Allergy Unknown Verified 07/06/22 07:07 Home Medications Medication Instructions Recorded Confirmed Last Taken Type blood sugar diagnostic #10 ea 03/01/20 07/06/22 Unknown History lisinopril 5 mg tablet 5 mg PO DAILY 03/01/20 07/06/22 07/03/22 History escitalopram oxalate 20 mg tablet 20 mg PO DAILY 09/09/20 07/06/22 Unknown History zolpidem 10 mg tablet 10 mg PO BEDTIME PRN Sleep 09/09/20 07/06/22 Unknown History gabapentin 600 mg tablet 600 mg PO TID PRN pain 09/24/20 07/06/22 Unknown History clonazepam 1 mg tablet 1 mg PO BID PRN Anxiety 01/03/21 07/06/22 Unknown History sulindac 200 mg tablet 200 mg PO BID PRN Pain 05/10/22 07/06/22 05/08/22 History tamsulosin 0.4 mg capsule 0.4 mg PO DAILY 06/08/22 07/06/22 Unknown History Exam Airway Mallampati Class: IV TM Dist: >3cm Neck ROM: Full Heart: RRR Lungs: CTA Assessment and Plan Final Anesthetic Review ASA Class: III Final Preanesthetic Review: No Changes in Pt Med Stat, Meds/Allgs Chart Reviewed, Consent Obtained/Reviewed and Anes Risks/Benef Reviewed Patient Risk: Intermediate Procedure Risk: Low Anesthetic Plan Anesthetic Plan: MAC: Disposition: Standard PACU
[2022-07-06 07:08] VITALS: BMI 35.9
[2022-07-06 07:17] VITALS: BP 129/86; PULSE 81; RESP 16; TEMP 36.3; O2SAT 99
[2022-07-06 07:20] LABS: Glucose, Whole Blood 143 mg/dL (60-115)
[2022-07-06] MEDS: Lactated Ringers 1,000 ML 100 ML IVCONT (07:33)
--- NOTE | 2022-07-06 07:38 | MHC.SHP ---
Pre-Procedural Eval Section A Date of Service: 07/06/22 Section B Chief Complaint: Positive FIT test Details of Present Illness: Medical History B12 deficiency due to diet Chest pain Depression with anxiety Diabetes mellitus Essential hypertension GERD (gastroesophageal reflux disease) Hematuria Insomnia Lumbar degenerative disc disease Mild recurrent major depression Neck pain Obesity due to excess calories Pure hypercholesterolemia Renal calculi Shortness of breath UTI (urinary tract infection) Vitamin D deficiency Surgical History History of lumbar laminectomy Hx of colonoscopy Relevant Social History: None Present Medications: see Short Stay Collaborative assessment Allergies: Allergies Allergy/AdvReac Type Severity Reaction Status Date / Time atorvastatin Allergy Intermediate stomach Verified 07/06/22 07:07 upset metformin Allergy Intermediate diarrhea Verified 07/06/22 07:07 latex Allergy Unknown Verified 07/06/22 07:07 Review of Systems Review of Systems Comment: Ten point ROS negative as above Exam Exam Comment: Gen appear: No acute distress HEENT: no icterus Chest: No overt resp distress Abd: soft, nontender, nondistended Psych: Stable affect, answering questions appropriately Neuro: A/Ox3 noted to move all extremities spontaneously Ext: no peripheral edema Plan Diagnosis/Plan: Unchanged I have reviewed the history and physical and performed a pertinent physical examination on my patient. No changes have occurred unless specified. Time Spent With Patient Time: Total time managing care of this patient today ____ minutes.
--- NOTE | 2022-07-06 08:40 | P.OP_ITS ---
Operative Note Operative Note Date of Service: 07/06/22 Narrative: Procedure: Colonoscopy Indication: + FIT test Endoscopist: Sakina Barahona MD Anesthesia Provider: Dr Barbara Dorsey Anesthesia type: MAC Instrument: Olympus [id number]-[id number] Consent: Indication, risks vs benefits, and alternatives were discussed with the patient who gave written informed consent to proceed. EKG, pulse, pulse oximetry and blood pressure were monitored throughout the procedure. Please see anesthesia flowsheet. Procedure: The patient was brought to the procedure room and placed in the left lateral decubitus position. IV medications were administered by the anesthesia provider in attendance. A digital rectal exam was performed which was normal. The colonoscope was then inserted through the anus and advanced through the colon to the cecum at 75 cm. Ileocecal valve and appendiceal orifice were identified. Mucosa was carefully examined under high definition white light as the instrument was slowly withdrawn in a retrograde panoramic fashion. Retroflexion was performed in ascending colon and rectum. The procedure was not difficult. There were no immediate obvious complications. The quality of the prep was BBPS: 3+3+3 = excellent Withdrawal time 15 minutes. Limitations: No limitations. Findings: Mucosa: Normal to cecum. Protruding lesions: * 1 sessile polyp of size 3 mm in transverse colon. A captivator 10mm hot snare was utilised due to unavailability of cold snares but the polypectomy was perf ormed cold. The polyp was completely removed and retrieved. * 1 semi-pedunculated polyp of size 8 mm in sigmoid colon. Hot snare polypectomy was performed. The polyp was completely removed and retrieved. * Medium internal hemorrhoids without stigmata of recent bleeding. Impression: 1. Normal colon mucosa 2. Total of 2 polyps removed from transverse, and sigmoid colon. 3. Internal hemorrhoids Recommendations: - Follow path results. - Repeat colonoscopy in 5-7 years if polyps are adenomas.
--- NOTE | 2022-07-06 08:51 | P.CONAN_ITS ---
[facility] Active Problems Active Problems: All Active Problems (Updated 07/06/22 @ 07:21 by Joie Lui) Lumbar radiculopathy (Acute) Myofascial pain (Acute) Post laminectomy syndrome (Acute) Sacroiliitis (Acute) Pre-procedural examination (Acute) Spinal stenosis, lumbar region with neurogenic claudication (Acute) Right shoulder pain (Acute) Left shoulder pain (Acute)hu Fecal occult blood test positive (Acute) Renal calculi (Acute) Positive FIT (fecal immunochemical test) (Acute) Bilateral hydrocele (Acute) Umbilical hernia (Acute) Bilateral inguinal hernia (Acute) Mild recurrent major depression (Acute) Vitamin D deficiency (Acute) Neck pain (Acute) Diabetes mellitus (Acute) Essential hypertension (Acute) Pure hypercholesterolemia (Acute) Obesity due to excess calories (Acute) Shortness of breath (Acute) Chest pain (Acute) UTI (urinary tract infection) (Acute) Hematuria (Acute) Renal calculi (Acute) B12 deficiency due to diet (Acute) Insomnia (Acute) Depression with anxiety (Acute) GERD (gastroesophageal reflux disease) (Acute) Lumbar degenerative disc disease (Acute) Past Medical History Medical History B12 deficiency due to diet Chest pain Depression with anxiety Diabetes mellitus Essential hypertension GERD (gastroesophageal reflux disease) Hematuria Insomnia Lumbar degenerative disc disease Mild recurrent major depression Neck pain Obesity due to excess calories Pure hypercholesterolemia Renal calculi Shortness of breath Sleep apnea UTI (urinary tract infection) Vitamin D deficiency Functional capacity: independent ambulation Family History Family History Father Diabetes Mother Diabetes Hypertension Son No problems noted. Family history of problems with anesthesia: No Surgical History Surgical History History of lumbar laminectomy Hx of colonoscopy History of Problems with Anesthesia: No Social History Social History Household Members: None Housing: Apartment Alcohol intake: current Alcohol intake frequency: holidays/special occasions only Alcohol type: beer Patient Tobacco Use Status: Never used Tobacco e-Cigarette/Vaping Use: Never Used Second Hand Smoke Exposure: No Use of substances other than those prescribed or required for medical reasons: No Are you DNR?: No Advance Directives: No Advance Directives Information Provided: Yes service: No Current occupational status: disabled Cognitive needs: No Hearing needs: No Vision needs: No Meds Allergies Allergy/AdvReac Type Severity Reaction Status Date / Time atorvastatin Allergy Intermediate stomach Verified 07/06/22 07:07 upset metformin Allergy Intermediate diarrhea Verified 07/06/22 07:07 latex Allergy Unknown Verified 07/06/22 07:07 Active Medications: Current Medications Lactated Ringer's (Lr) 1,000 mls @ 100 mls/hr IVCONT .Q10H SHANNON Last Admin: 07/06/22 07:33 Dose: 100 mls/hr Home Medications Medication Instructions Recorded Confirmed Last Taken Type blood sugar diagnostic #10 ea 03/01/20 07/06/22 Unknown History lisinopril 5 mg tablet 5 mg PO DAILY 03/01/20 07/06/22 07/03/22 History escitalopram oxalate 20 mg tablet 20 mg PO DAILY 09/09/20 07/06/22 Unknown History zolpidem 10 mg tablet 10 mg PO BEDTIME PRN Sleep 09/09/20 07/06/22 Unknown History gabapentin 600 mg tablet 600 mg PO TID PRN pain 09/24/20 07/06/22 Unknown History clonazepam 1 mg tablet 1 mg PO BID PRN Anxiety 01/03/21 07/06/22 Unknown History sulindac 200 mg tablet 200 mg PO BID PRN Pain 05/10/22 07/06/22 05/08/22 History tamsulosin 0.4 mg capsule 0.4 mg PO DAILY 06/08/22 07/06/22 Unknown History Exam Exam Date and Time: July 06, 2022 0851 Height,Weight and Vital Signs: Height 5 ft 7 in Weight 103.873 kg Last Vital Signs Temp 97.3 F 07/06/22 07:17 Pulse 81 07/06/22 07:17 Resp 16 07/06/22 07:17 BP 129/86 07/06/22 07:17 Pulse Ox 99 07/06/22 07:17 O2 Del Method 07/06/22 07:17 Pertinent Lab Results Pertinent Lab Results: Laboratory Tests 07/06/22 07:11 POC Glucose 143 H Airway Mallampati Class: III TM Dist: >3cm Neck ROM: Full Heart: RRR Lungs: CTA Assessment and Plan Final Anesthetic Review Family History of Problems with Anesthesia: No History of Problems with Anesthesia: No ASA Class: III Final Preanesthetic Review: Meds/Allgs Chart Reviewed, Consent Obtained/Reviewed and Anes Risks/Benef Reviewed Patient Risk: Intermediate Procedure Risk: Low Anesthetic Plan Anesthetic Plan: MAC: Disposition: Standard PACU
[2022-07-06 09:11] VITALS: BP 105/70; PULSE 90; RESP 16; TEMP 36.2; O2SAT 94
[2022-07-06 09:26] VITALS: BP 111/78; PULSE 93; RESP 16; TEMP 36.3; O2SAT 98
--- NOTE | 2022-07-06 11:04 | HO.POSTANES ---
Post Anesthesia Evaluation Post Anesthesia Evaluation Vital Signs: Vital Signs Temp Pulse Resp BP Pulse Ox O2 Del Method 07/06/22 09:26 97.3 F 93 16 111/78 98 Room Air 07/06/22 09:11 97.2 F 90 16 105/70 94 Room Air 07/06/22 07:17 97.3 F 81 16 129/86 99 Room Air Anesthesia: Monitored Mental Status: Awake Pain Control: Satisfactory Nausea/Vomiting: None Hydration: Adequate Anesthesia-Related Issues: No Anes. Related Issues
== END 2022-07-06 10:01 | disposition home or self-care (01) ==
PROVIDERS: PCP Internal Medicine; Visit Provider Internal Medicine
PROC: 0DJD8ZZ Inspection of Lower Intestinal Tract, Via Natural or Artificial Opening Endoscopic (ICD-10-PCS; CPT 45378; principal; 2022-07-06 08:20)
DX: R19.5 Other fecal abnormalities (principal); D12.3 Benign neoplasm of transverse colon; D12.5 Benign neoplasm of sigmoid colon; K64.8 Other hemorrhoids; K21.9 Gastro-esophageal reflux disease without esophagitis; K52.9 Noninfective gastroenteritis and colitis, unspecified; I10 Essential (primary) hypertension; G47.33 Obstructive sleep apnea (adult) (pediatric); E55.9 Vitamin D deficiency, unspecified; E53.8 Deficiency of other specified B group vitamins; F33.2 Major depressive disorder, recurrent severe without psychotic features; E66.01 Morbid (severe) obesity due to excess calories; Z68.36 Body mass index [BMI] 36.0-36.9, adult; E11.9 Type 2 diabetes mellitus without complications; Z79.4 Long term (current) use of insulin; Z79.82 Long term (current) use of aspirin; Z79.899 Other long term (current) drug therapy; Z88.8 Allergy status to other drugs, medicaments and biological substances; Z91.040 Latex allergy status
CPT/HCPCS: 45385; 82947; 88305

== ENCOUNTER 2022-07-12 | Outpatient (REF) | payer OTHER, MEDICAID, SELFPAY ==
[2022-07-11 12:34] VITALS: BMI 35.9
--- NOTE | 2022-07-12 | ECG_ITS ---
Test Reason : preop Blood Pressure : / mmHG Vent. Rate : 065 BPM Atrial Rate : 065 BPM P-R Int : 146 ms QRS Dur : 084 ms QT Int : 382 ms P-R-T Axes : 043 052 026 degrees QTc Int : 397 ms Normal sinus rhythm Normal ECG No significant changes when compared with the previous EKG of 26 august 2020 Referred By: Desi Gutierrez Electronically Signed By:ANDREW MCGHEE
[2022-07-12 12:16] VITALS: BP 121/75; PULSE 81; RESP 16; O2SAT 97
--- NOTE | 2022-07-12 12:21 | P.CONAN_ITS ---
HPI - Anesthesia Eval Consult details Narrative: 47yo M for Hernia Repair Umbilical Patient describes chest pain and SOB with climbing one flight of stairs and occasionally when laying in bed. Will need medical clearance. Labs and EKG ordered today. Sent to cardiology. Nuc stress and ECHO pending. [facility] Active Problems Active Problems: All Active Problems (Updated 07/06/22 @ 07:21 by Joie Lui) Lumbar radiculopathy (Acute) Myofascial pain (Acute) Post laminectomy syndrome (Acute) Sacroiliitis (Acute) Pre-procedural examination (Acute) Spinal stenosis, lumbar region with neurogenic claudication (Acute) Right shoulder pain (Acute) Left shoulder pain (Acute) Fecal occult blood test positive (Acute) Renal calculi (Acute) Positive FIT (fecal immunochemical test) (Acute) Bilateral hydrocele (Acute) Umbilical hernia (Acute) Bilateral inguinal hernia (Acute) Mild recurrent major depression (Acute) Vitamin D deficiency (Acute) Neck pain (Acute) Diabetes mellitus (Acute) Essential hypertension (Acute) Pure hypercholesterolemia (Acute) Obesity due to excess calories (Acute) Shortness of breath (Acute) Chest pain (Acute) UTI (urinary tract infection) (Acute) Hematuria (Acute) Renal calculi (Acute) B12 deficiency due to diet (Acute) Insomnia (Acute) Depression with anxiety (Acute) GERD (gastroesophageal reflux disease) (Acute) Lumbar degenerative disc disease (Acute) Past Medical History Medical History B12 deficiency due to diet Chest pain Depression with anxiety Diabetes mellitus Essential hypertension GERD (gastroesophageal reflux disease) Hematuria Insomnia Lumbar degenerative disc disease Mild recurrent major depression Neck pain Obesity due to excess calories FRANK (obstructive sleep apnea) Pure hypercholesterolemia Renal calculi Shortness of breath Sleep apnea UTI (urinary tract infection) Vitamin D deficiency Family History Family History Father Diabetes Mother Diabetes Hypertension Son No problems noted. Family history of problems with anesthesia: No Surgical History Surgical History History of lumbar laminectomy Hx of colonoscopy History of Problems with Anesthesia: No Social History Social History Household Members: None Housing: Apartment Are you a primary neurocritical care physician to a significant other at home: No Do you presently have visiting nurse or other home services: Yes (PHARMACOLOGIST 3 hours/week) Alcohol intake: current Alcohol intake frequency: holidays/special occasions only Alcohol type: beer Patient Tobacco Use Status: Never used Tobacco e-Cigarette/Vaping Use: Never Used Second Hand Smoke Exposure: No service: No Current occupational status: disabled Cognitive needs: No Hearing needs: No Vision needs: No Meds Allergies Allergy/AdvReac Type Severity Reaction Status Date / Time latex Allergy Severe rash,swelli Verified 08/03/22 15:11 ng atorvastatin Allergy Intermediate stomach Verified 08/03/22 15:11 upset metformin Allergy Intermediate diarrhea Verified 08/03/22 15:11 Home Medications Medication Instructions Recorded Confirmed Last Taken Type blood sugar diagnostic #10 ea 03/01/20 07/13/22 Unknown History lisinopril 5 mg tablet 5 mg PO DAILY 03/01/20 08/03/22 07/03/22 History escitalopram oxalate 20 mg tablet 20 mg PO DAILY 09/09/20 08/03/22 Unknown History zolpidem 10 mg tablet 10 mg PO BEDTIME PRN Sleep 09/09/20 08/03/22 Unknown History gabapentin 600 mg tablet 600 mg PO TID PRN pain 09/24/20 08/03/22 Unknown History clonazepam 1 mg tablet 1 mg PO BID PRN Anxiety 01/03/21 08/03/22 Unknown History rosuvastatin 40 mg tablet 40 mg PO BEDTIME 07/11/22 08/03/22 Unknown History Exam Exam Date and Time: July 12, 2022 1221 Height,Weight and Vital Signs: Height 5 ft 7 in Weight 103.873 kg Last Vital Signs Pulse 81 07/12/22 12:16 Resp 16 07/12/22 12:16 BP 121/75 07/12/22 12:16 Pulse Ox 97 07/12/22 12:16 O2 Del Method 07/12/22 12:16 Airway Mallampati Class: III TM Dist: >3cm Neck ROM: Full Heart: RRR Lungs: CTAB Assessment and Plan Assessment Anesthesia Assessment: Anesthesia Plan Discussed and PAT Visit Final Anesthetic Review Family History of Problems with Anesthesia: No History of Problems with Anesthesia: No
[2022-07-12 14:11] LABS: Hematocrit 45.9 % (42.0-52.0); Hemoglobin 14.3 g/dl (14.0-18.0); Mean Corpuscular HGB Conc 31.2 g/dl (31.0-36.0); Mean Corpuscular Hemoglobin 25.7 pg (27.0-33.0); Mean Corpuscular Volume 82.4 fL (80.0-98.0); Mean Platelet Volume 10.2 fL (9.4-12.4); Platelet Count 247 X10*3/uL (160-400); Red Blood Count 5.57 X10*6/uL (4.60-5.80); White Blood Count 8.7 X10*3/uL (4.8-10.8)
[2022-07-12 14:39] LABS: Anion Gap 15 (12-20); Blood Urea Nitrogen 17 mg/dL (9-16); Calcium 9.6 mg/dL (8.4-10.2); Carbon Dioxide 26 mmol/L (22-29); Chloride 103 mmol/L (96-108); Creatinine Clr Calc Pharmacy 92.4; Estimated Glomerular Filt Rate > 60; Glucose Random 228 mg/dL (60-115); Potassium 4.5 mmol/L (3.3-5.1); Sodium 139 mmol/L (135-145)
== END 2022-07-12 00:01 | disposition home or self-care (01) ==
LOC: HO.PAT
PROVIDERS: Nurse Practitioner; PCP Internal Medicine; Visit Provider Surgery
DX: Z01.818 Encounter for other preprocedural examination (principal); K42.9 Umbilical hernia without obstruction or gangrene
CPT/HCPCS: 36415; 80048; 85027; 93005

== ENCOUNTER → 2022-07-13 13:55 | Outpatient (BNVA) | payer OTHER, SELFPAY | PROVIDERS: PCP Internal Medicine; Visit Provider Nurse Practitioner Family | DX: N20.0 Calculus of kidney (principal) | CPT/HCPCS: 99202 ==

== ENCOUNTER 2022-07-17 07:54 | Outpatient (REF) | payer OTHER, SELFPAY ==
[2022-07-17 09:23] LABS: Estimated Average Glucose 157 mg/dL; Hemoglobin A1C 201.5686 umol/L; Hemoglobin A1c % 7.1 %
[2022-07-17 10:40] LABS: ~HepC Num1 0.09 S/CO (0.00-0.79); ~Hepatitis C Antibody Nonreactive (Nonreactive)
[2022-07-19 07:34] LABS: Transglutaminase IgA <1.0 U/mL
[2022-07-19 14:33] LABS: Immunoglobulin A 201 mg/dL (47-310)
== END 2022-07-17 07:55 | disposition home or self-care (01) ==
LOC: HO.LAB 07:54
PROVIDERS: PCP Internal Medicine; Referring Provider Internal Medicine; Visit Provider Internal Medicine
DX: R19.7 Diarrhea, unspecified (principal); K74.60 Unspecified cirrhosis of liver; K21.9 Gastro-esophageal reflux disease without esophagitis; K76.0 Fatty (change of) liver, not elsewhere classified; Z86.010 Personal history of colon polyps; E11.9 Type 2 diabetes mellitus without complications
CPT/HCPCS: 36415; 82784; 83036; 86364; 86803; 99212

== ENCOUNTER → 2022-07-19 13:43 | Outpatient (BNVA) | payer OTHER, SELFPAY | PROVIDERS: PCP Internal Medicine; Visit Provider Internal Medicine Cardiovascular Disease | DX: Z01.810 Encounter for preprocedural cardiovascular examination (principal); K42.9 Umbilical hernia without obstruction or gangrene | CPT/HCPCS: 99202 ==

== ENCOUNTER → 2022-07-21 12:46 | Outpatient (REF) | payer OTHER, SELFPAY ==
--- NOTE | 2022-07-21 12:50 | CA_ITS ---
Transthoracic Echocardiogram Patient (Last, First, Middle): Goyo Kate Val Gender: Male Date of : 1975 Age: 47 Procedure Date: 07/21/2022 Procedure Type: Transthoracic Echocardiogram Location: OP Height: 170.18 cm Weight: 103.87 kg BSA: 2.14 m2 Heart Rate: bpm BP: 120 / 82 mmHg Pleating Supervisor: TO Referring MD: Malik Solorio MD Symptoms: Z01.810 - Encounter for preprocedural cardiovascular examination Study Quality: Fair Conclusions: - Normal left ventricular size, thickness, systolic function, and wall motion. The visually estimated ejection fraction is between 55-60%. Diastolic function is normal for age. - Normal right ventricular cavity size and systolic function. Findings Left Ventricle Normal left ventricular size, thickness, systolic function, and wall motion. The visually estimated ejection fraction is between 55-60%. Diastolic function is normal for age. Right Ventricle Normal right ventricular cavity size and systolic function. Atria Both atria are normal in size. Aortic Valve Normal aortic valve structure and function. There is no aortic valve stenosis. There is no aortic valve regurgitation. Mitral Valve The mitral valve appears normal. There is no mitral valve regurgitation. There is no mitral valve stenosis. Pulmonic Valve The pulmonic valve is likely normal. Tricuspid Valve Normal tricuspid valve structure and function. There is no tricuspid valve regurgitation. Normal right atrial pressure. There is no evidence of pulmonary hypertension. Great Vessels All visible segments of the aorta are normal in size. The visualized portions of the pulmonary artery and branches are normal. Venous The inferior vena cava is normal in size and collapses greater than 50% with inspiration. Pericardium/Pleural There is no evidence of pericardial effusion. Prior Study Comparison No significant change compared to prior study dated: 08/26/2020. Measurements 2D Linear Measurements IVSd: 0.82 0.6-0.9/0.6-1.0 cm LVIDd: 4.70 3.9-5.3/4.2-5.9 cm LVIDd Index: 2.20 2.4-3.2/2.2-3.1 cm/m2 LVIDs: 2.99 2.0-3.6 cm LVPWd: 0.88 0.7-1.1 cm LA Diam: 3.10 2.7-3.8/3.0-4.0 cm LAIDs Index: 1.45 1.5-2.3 cm/m2 LV Mass: 164.91 67-162/88-224 g LV Mass Index: 77.06 43-95/49-115 g/m2 LVOT Diam: 2.00 3.0+(-)1.3 cm 2D Systolic Function EF 4C: 50.50 >55% EF 2C: 50.70 >55% EF BiP: 50.30 >55% Mitral Valve MV Pk E: 0.64 MV PK A: 0.78 MV Decel Time: 163.00 E/A: 0.80 E'Lateral: 7.94 E'Medial: 7.07 E/E' Med: 9.10 E/E' Lat: 8.10 PHT: 48.00 MVA PHT: 4.58 Decel [place]: 3.93 Aortic Valve AoV Pk Aman: 1.16 AoV Mn Aman: 0.88 AoV VTI: 0.23 AoV Pk Grad: 5.00 Aov Mn Grad: 3.00 KRISTINE Cont.VTI: 2.45 LVOT LVOT Pk Aman: 0.98 LVOT Mn Aman: 0.74 LVOT VTI: 0.18 LVOT Pk Grad: 4.00 LVOT Mn Grad: 2.00 LVOT Diam: 2.00 LVOT Area: 3.14 Diastolic Function MV Pk E: 0.64 MV Pk A: 0.78 E/A: 0.80 E'Medial: 7.07 E/E' Med: 9.10 E' Laterial: 7.94 E/E' Lat: 8.10 Right Ventricle TAPSE (mm): 16.90 TVS' Aman: 12.30 Tricuspid Valve TR Pk Aman: 1.97 TR Pk Grad: 16.00 RA Press: 3.00 RVSP: 19.00 Great Vessels Aorta Sinus of Valsalva: 3.05 2.0-3.[address] [place]: 2.76 1.7-3.4 cm Ao Asc: 2.90 2.1-3.4 cm Updated in Other Vendor System with Status of Final Tommy Del Valle MD electronically signed on 07/24/2022 12:07:01 PM with status of Final
== END ==
LOC: HO.CARD 12:46
PROVIDERS: Visit Provider Internal Medicine Cardiovascular Disease
DX: Z01.810 Encounter for preprocedural cardiovascular examination (principal); R06.02 Shortness of breath; I10 Essential (primary) hypertension
CPT/HCPCS: 93306

== ENCOUNTER → 2022-07-28 07:50 | Outpatient (REF) | payer OTHER, SELFPAY ==
--- NOTE | ~2022-07-28 | NM_ITS ---
Myocardial perfusion study Indication: Preoperative cardiovascular risk stratification Technique: The patient was brought in for a Lexiscan perfusion study on 07/28/2022. Patient performed low-level exercise and was injected 0.4 mg of Lexiscan intravenously. Within a minute of injection, 35 mCi of sestamibi was given intravenously. Images were obtained using the SPECT gamma camera interlaced with the gating device. Images were obtained in supine position. Resting perfusion study was performed on 07/31/2022. Patient was administered 35 mCi of sestamibi intravenously at rest. Images were then obtained in supine position. Images obtained with and without CT attenuation. Total DLP 115 mGy-cm. Images were processed with the software and compared side to side in short axis, horizontal long axis and vertical long axis views. Findings: The stress perfusion study showed non attenuated images show normal uptake of radiotracer in all segments of LV myocardium. Attenuation corrected images show some minimal thinning and minimally reduced uptake in the septum and anterior wall of the LV myocardium.. The gated study shows normal LV systolic function with calculated LVEF of 47%. LV cavity is mildly dilated size. The gated study shows normal systolic wall thickening and contraction of segments. Resting study shows no change in perfusion pattern compared to stress perfusion study. Gating at rest reveals normal systolic wall motion with ejection fraction at 50%. The findings are consistent with likely normal myocardial perfusion with no evidence of reversible defect suggestive of ischemia. NM/NM jhonatan perf SPECT rest & str Impression: 1. Myocardial perfusion imaging study shows likely normal myocardial perfusion 2. Gated LVEF is 47% 3. Transient ischemic dilatation not present EKG is nondiagnostic for ischemia
--- NOTE | 2022-07-28 07:53 | CA_ITS ---
Acquisition Time: 2022-07-28 08:00:06 Total Exercise Time: 00:02:00 Test Indications: CP, Medications: SEE H Protocol: LEXISCAN Max HR: 126 BPM 73% of Pred: 171 BPM Max BP: 122/072 mmHG Max Work Load: 1.0 METS Pharmacological stress test with Lexiscan injection, while sitting and kicking his legs, without anginal symptoms, without arrythmia, with normotensive response to injection, with non-diagnostic EKGs for ischemia. In recovery he was treated with Aminophylline 75mg IVP to reverse Lexiscan. Nuclear images pending. Test reviewed with Dr. Solorio. Referred By: Malik Solorio Overread By: CANDELARIA MOREL
== END ==
LOC: HO.CARD 07:50
PROVIDERS: PCP Internal Medicine; Visit Provider Internal Medicine Cardiovascular Disease
DX: Z01.810 Encounter for preprocedural cardiovascular examination (principal); E11.9 Type 2 diabetes mellitus without complications
CPT/HCPCS: 78452; 93017; A9500; J0280; J2785

== ENCOUNTER 2022-08-09 05:52 | Day surgery (SDC) | payer OTHER, SELFPAY ==
--- NOTE | ~2022-08-09 | XR_ITS ---
EXAMINATION: XR ABDOMEN KUB CLINICAL INDICATION: Right renal stone. COMPARISON: None available. TECHNIQUE: 2 views of the abdomen. FINDINGS: The bowel gas pattern is normal with no evidence of ileus or obstruction. There is a 10 x 4 mm ovoid calcification projecting over the right lower sacrum, which could represent a distal calculus on the right. No additional potentially abnormal soft tissue calcification. No acute osseous abnormalities. Posterior spinal fusion at L5-S1. XR/XR KUB IMPRESSION: There is a 10 x 4 mm ovoid calcification projecting over the right lower sacrum, which could represent a distal right ureteral calculus.
[2022-08-09 06:15] VITALS: BP 146/95; PULSE 85; RESP 18; TEMP 36.1; O2SAT 97; BMI 35.6
[2022-08-09 06:16] LABS: Glucose, Whole Blood 188 mg/dL (60-115)
[2022-08-09] MEDS: Lactated Ringers 1,000 ML 50 ML IVCONT (06:31)
[2022-08-09] MEDS: Lactated Ringers 1,000 ML 999 ML IV (07:45)
--- NOTE | 2022-08-09 08:25 | P.CONAN_ITS ---
HPI - Anesthesia Eval Consult details Narrative: right lithotripsyscheduled PMFSH Active Problems Active Problems: All Active Problems (Updated 07/17/22 @ 08:47 by Sakina Barahona MD) Personal history of colonic polyps (Acute) Fatty liver (Acute) Diarrhea (Acute) Recurrent nephrolithiasis (Acute) Intermittent left-sided chest pain (Acute) Preoperative clearance (Acute) Lumbar radiculopathy (Acute) Myofascial pain (Acute) Post laminectomy syndrome (Acute) Sacroiliitis (Acute) Pre-procedural examination (Acute) Spinal stenosis, lumbar region with neurogenic claudication (Acute) Right shoulder pain (Acute) Left shoulder pain (Acute) Fecal occult blood test positive (Acute) Renal calculi (Acute) Positive FIT (fecal immunochemical test) (Acute) Bilateral hydrocele (Acute) Umbilical hernia (Acute) Bilateral inguinal hernia (Acute) Mild recurrent major depression (Acute) Vitamin D deficiency (Acute) Neck pain (Acute) Diabetes mellitus (Acute) Essential hypertension (Acute) Pure hypercholesterolemia (Acute) Obesity due to excess calories (Acute) Shortness of breath (Acute) Chest pain (Acute) UTI (urinary tract infection) (Acute) Hematuria (Acute) Renal calculi (Acute) B12 deficiency due to diet (Acute) Insomnia (Acute) Depression with anxiety (Acute) GERD (gastroesophageal reflux disease) (Acute) Lumbar degenerative disc disease (Acute) Past Medical History Medical History B12 deficiency due to diet Chest pain Depression with anxiety Diabetes mellitus Essential hypertension GERD (gastroesophageal reflux disease) Hematuria Insomnia Lumbar degenerative disc disease Mild recurrent major depression Neck pain Obesity due to excess calories FRANK (obstructive sleep apnea) Pure hypercholesterolemia Renal calculi Shortness of breath Sleep apnea UTI (urinary tract infection) Vitamin D deficiency Family History Family History Father Diabetes Mother Diabetes Hypertension Son No problems noted. Family history of problems with anesthesia: No Surgical History Surgical History History of lumbar laminectomy Hx of colonoscopy History of Problems with Anesthesia: No Social History Social History Household Members: None Housing: Apartment Are you a primary lawn care professional to a significant other at home: No Do you presently have visiting nurse or other home services: Yes ([employer] 3 hours/week) Alcohol intake: current Alcohol intake frequency: holidays/special occasions only Alcohol type: beer Patient Tobacco Use Status: Never used Tobacco e-Cigarette/Vaping Use: Never Used Second Hand Smoke Exposure: No Are you DNR?: No Advance Directives: No Advance Directives Information Provided: Yes Recently lost weight without trying: No Nutrition Risks: No Nutritional Risk service: No Current occupational status: disabled Cognitive needs: No Hearing needs: No Vision needs: No Meds Allergies Allergy/AdvReac Type Severity Reaction Status Date / Time latex Allergy Severe rash,swelli Verified 08/03/22 15:11 ng atorvastatin Allergy Intermediate stomach Verified 08/03/22 15:11 upset metformin Allergy Intermediate diarrhea Verified 08/03/22 15:11 Active Medications: Current Medications Lactated Ringer's (Lr) 1,000 mls @ 50 mls/hr IVCONT .Q20H [facility] Last Admin: 08/09/22 06:31 Dose: 50 mls/hr Lactated Ringer's (Lr) 1,000 mls @ 999 mls/hr IV .Q1H1M [facility] Stop: 08/09/22 09:00 Last Admin: 08/09/22 07:45 Dose: 999 mls/hr Sodium Chloride (0.9 % Sodium Chloride Flush 3 Ml Syringe) 3 ml IVFLUSH QSHIFT [facility] Home Medications Medication Instructions Recorded Confirmed Last Taken Type blood sugar diagnostic #10 ea 03/01/20 07/13/22 Unknown History lisinopril 5 mg tablet 5 mg PO DAILY 03/01/20 08/03/22 07/03/22 History escitalopram oxalate 20 mg tablet 20 mg PO DAILY 09/09/20 08/03/22 Unknown History zolpidem 10 mg tablet 10 mg PO BEDTIME PRN Sleep 09/09/20 08/03/22 Unknown History gabapentin 600 mg tablet 600 mg PO TID PRN pain 09/24/20 08/03/22 Unknown History clonazepam 1 mg tablet 1 mg PO BID PRN Anxiety 01/03/21 08/03/22 Unknown History rosuvastatin 40 mg tablet 40 mg PO BEDTIME 07/11/22 08/03/22 Unknown History Exam Exam Date and Time: August 09, [id number] Height,Weight and Vital Signs: Height 5 ft 7 in Weight 103.419 kg Last Vital Signs Temp 97 F 08/09/22 06:15 Pulse 85 08/09/22 06:15 Resp 18 08/09/22 06:15 BP 146/95 H 08/09/22 06:15 Pulse Ox 97 08/09/22 06:15 O2 Del Method Room Air 08/09/22 06:15 Pertinent Lab Results Pertinent Lab Results: Laboratory Tests 08/09/22 06:13 POC Glucose 188 H Airway Mallampati Class: II TM Dist: >3cm Loose/Missing/Broken Teeth: Yes, Upper and Lower Heart: rrr Lungs: cta Assessment and Plan Assessment Anesthesia Assessment: Anesthesia Plan Discussed and Chart Reviewed Final Anesthetic Review Family History of Problems with Anesthesia: No History of Problems with Anesthesia: No NPO: Yes ASA Class: III Final Preanesthetic Review: No Changes in Pt Med Stat, Meds/Allgs Chart Reviewed, Consent Obtained/Reviewed and Anes Risks/Benef Reviewed Patient Risk: Low Procedure Risk: Low Anesthetic Plan Anesthetic Plan: GA Disposition: Standard PACU
--- NOTE | 2022-08-09 08:42 | MHC.SHP ---
Pre-Procedural Eval Section A Date of Service: 08/09/22 The patient is an INPATIENT: No Changes since office visit: No Cold of Flu in the past 2 weeks, No New Medical Problems, No Changes in Medication and No Patient answered all questions The History & Physical has been completed within 30 days and I have reviewed it.: Yes Section B Chief Complaint: Calculus of kidney Allergies: Allergies Allergy/AdvReac Type Severity Reaction Status Date / Time latex Allergy Severe rash,swelli Verified 08/03/22 15:11 ng atorvastatin Allergy Intermediate stomach Verified 08/03/22 15:11 upset metformin Allergy Intermediate diarrhea Verified 08/03/22 15:11 Review of Systems Sugical H&P ROS: Negative: Constitution, Cardiovascular, Respiratory, Neurological, Psychiatric, Hem-Onc, Allergic/Immunologic, Gastrointestinal, Genitourinary, Musculoskeletal, Integumentary, Endocrine and Eyes/Ears/Nose/Throat Exam Surgical H&P Exam: Normal: HEENT, Normal: Heart, Normal: Lungs, Normal: Extremities, Normal: Abdomen, Normal: Skin and Normal: Neurological Plan Diagnosis/Plan: Unchanged (right ESWL) I have reviewed the history and physical and performed a pertinent physical examination on my patient. No changes have occurred unless specified. Time Spent With Patient Time: Total time managing care of this patient today ____ minutes.
--- NOTE | 2022-08-09 08:43 | P.OP_ITS ---
Operative Note Operative Note Date of Service: 08/09/22 Narrative: PreOperative Diagnosis: right Renal stones Post Operative Diagnosis: right ureteric stones Procedure: right ureter ESWL Surgeon: Dr Miguelito Yip Anesthesia: mac/sedation Indications for procedure: The patient understands ESWL may be a staged procedure and subsequent int ervention may be required based on imaging after ESWL. Quoted stone clearance rates for a solitary procedure are in the 70-80% range based primarily on stone location. They also understand there is a risk of bleeding to the kidney, infection, damage to adjacent organs, and stone migration following the procedure. - Imaging right renal stone - in ureter on OR Procedure: After informed consent was verified the patient was brought to the operating room and placed in a supine position. Anesthesia was performed per protocol. Safety pause time-out was performed. Imaging was displayed in the room and laterality confirmed. ESWL was performed. The 1st 500 shocks were performed at 60 hertz. These were performed with increasing power. Once maximum power was reached the rate was increased to 180 hertz. A total of 3000 shocks were given. Targeted imaging with ultrasound/fluoroscopy showed stone smudging suggestive of disintegration. The patient tolerated the procedure well and was transferred to the recovery area upon completion. Post procedure imaging will be organized. There was no evidence for flank discoloration.
[2022-08-09 08:48] VITALS: BP 116/71; PULSE 86; RESP 17; TEMP 36.2; O2SAT 98
[2022-08-09 08:52] VITALS: BP 118/71; PULSE 79; RESP 16; O2SAT 98
[2022-08-09 08:57] VITALS: BP 115/67; PULSE 70; RESP 16; O2SAT 100
[2022-08-09 09:01] VITALS: BP 105/66; PULSE 72; RESP 16; O2SAT 100
[2022-08-09 09:15] VITALS: BP 108/68; PULSE 71; RESP 16; TEMP 36.1; O2SAT 100
== END 2022-08-09 09:54 | disposition home or self-care (01) ==
PROVIDERS: PCP Internal Medicine; Visit Provider Urology
PROC: (CPT 50590; principal; 2022-08-09 07:30)
DX: N20.0 Calculus of kidney (principal); R30.0 Dysuria; G47.33 Obstructive sleep apnea (adult) (pediatric); I10 Essential (primary) hypertension; E78.00 Pure hypercholesterolemia, unspecified; F41.8 Other specified anxiety disorders; E11.9 Type 2 diabetes mellitus without complications; Z79.4 Long term (current) use of insulin; Z79.82 Long term (current) use of aspirin; Z79.899 Other long term (current) drug therapy; Z88.8 Allergy status to other drugs, medicaments and biological substances; Z91.040 Latex allergy status
CPT/HCPCS: 50590; 74018; 82947; J0131; J1100; J2370; J2405; J3010

== ENCOUNTER 2022-09-14 10:27 | Outpatient (REF) | payer OTHER, SELFPAY ==
--- NOTE | ~2022-09-14 | US_ITS ---
EXAMINATION: US RETROPERITONEAL LIMITED (RENAL ONLY) CLINICAL INFORMATION: Calculus of kidney. COMPARISON: X-ray abdomen KUB 08/09/2022. Ultrasound retroperitoneal limited (renal only) 03/17/2022 and 05/25/2020. TECHNIQUE: Real-time imaging of the kidneys. FINDINGS: RIGHT KIDNEY: 10.6 x 5.9 x 5.6 cm (SAG x AP x TRV). The kidney is normal in size, contour, and echogenicity. Renal cortical thickness is normal. No focal parenchymal lesions or hydronephrosis. At the lower pole, a 7 mm nonobstructing calculus is seen. LEFT KIDNEY: 11.7 x 6.3 x 4.8 cm (SAG x AP x TRV). The kidney is normal in size, contour, and echogenicity. Renal cortical thickness is normal. No calculi or focal parenchymal lesions. No hydronephrosis. US/US renal BI IMPRESSION: A 7 mm nonobstructing right renal lower pole calculus is seen. No left renal calculus is seen. No hydronephrosis is noted bilaterally.
== END 2022-09-14 10:28 | disposition home or self-care (01) ==
LOC: HO.US 10:27
PROVIDERS: PCP Internal Medicine; Visit Provider Urology
DX: N20.0 Calculus of kidney (principal)
CPT/HCPCS: 76775

== ENCOUNTER 2022-09-15 07:03 | Day surgery (SDC) | payer OTHER, SELFPAY ==
[2022-09-08 14:14] VITALS: BMI 35.9
--- NOTE | 2022-09-14 08:53 | P.CONAN_ITS ---
Documented by User: Desi Gutierrez NP 09/14/22 08:59 HPI - Anesthesia Eval Consult details Narrative: 47yo M for Open Hernia Repair Umbilical Sent for cardiac w/u for CP when climbing 1 flight of stairs. EKG, Echo and Nuc Stress all wnl. PMFSH Active Problems Active Problems: All Active Problems (Updated 07/17/22 @ 08:47 by Sakina Barahona MD) Lumbar radiculopathy (Acute) Myofascial pain (Acute) Post laminectomy syndrome (Acute) Sacroiliitis (Acute) Pre-procedural examination (Acute) Spinal stenosis, lumbar region with neurogenic claudication (Acute) Right shoulder pain (Acute) Left shoulder pain (Acute) Fecal occult blood test positive (Acute) Renal calculi (Acute) Positive FIT (fecal immunochemical test) (Acute) Bilateral hydrocele (Acute) Umbilical hernia (Acute) Bilateral inguinal hernia (Acute) Preoperative clearance (Acute) Intermittent left-sided chest pain (Acute) Recurrent nephrolithiasis (Acute) Diarrhea (Acute) Fatty liver (Acute) Personal history of colonic polyps (Acute) Mild recurrent major depression (Acute) Vitamin D deficiency (Acute) Neck pain (Acute) Diabetes mellitus (Acute) Essential hypertension (Acute) Pure hypercholesterolemia (Acute) Obesity due to excess calories (Acute) Shortness of breath (Acute) Chest pain (Acute) UTI (urinary tract infection) (Acute) Hematuria (Acute) Renal calculi (Acute) B12 deficiency due to diet (Acute) Insomnia (Acute) Depression with anxiety (Acute) GERD (gastroesophageal reflux disease) (Acute) Lumbar degenerative disc disease (Acute) Past Medical History Medical History B12 deficiency due to diet Chest pain Depression with anxiety Diabetes mellitus Essential hypertension GERD (gastroesophageal reflux disease) Hematuria Insomnia Lumbar degenerative disc disease Mild recurrent major depression Neck pain Obesity due to excess calories FRANK (obstructive sleep apnea) Pure hypercholesterolemia Renal calculi Shortness of breath Sleep apnea UTI (urinary tract infection) Vitamin D deficiency Family History Family History Father Diabetes Mother Diabetes Hypertension Son No problems noted. Family history of problems with anesthesia: No Surgical History Surgical History History of lithotripsy History of lumbar laminectomy Hx of colonoscopy History of Problems with Anesthesia: No Social History Social History Household Members: None Housing: Apartment Are you a primary care navigator to a significant other at home: No Do you presently have visiting nurse or other home services: Yes ([employer]) Alcohol intake: current Alcohol intake frequency: holidays/special occasions only Alcohol type: beer Patient Tobacco Use Status: Never used Tobacco e-Cigarette/Vaping Use: Never Used Second Hand Smoke Exposure: No Use of substances other than those prescribed or required for medical reasons: No Have you been hit, kicked, punched, or otherwise hurt by someone within the past year? If so, by whom?: No Are you DNR?: No Advance Directives: No Advance Directives Information Provided: Yes Advance Directives on File: No Recently lost weight without trying: No Eating poorly because of decreased appetite: No Nutrition Risks: No Nutritional Risk Poor oral hygiene: Yes (broken tooth on the top) service: No Current occupational status: disabled Cognitive needs: No Hearing needs: No Vision needs: No Meds Allergies Allergy/AdvReac Type Severity Reaction Status Date / Time latex Allergy Severe rash,swelli Verified 09/04/22 08:32 ng atorvastatin Allergy Intermediate stomach Verified 09/04/22 08:32 upset metformin Allergy Intermediate diarrhea Verified 09/04/22 08:32 Home Medications Medication Instructions Recorded Confirmed Last Taken Type blood sugar diagnostic #10 ea 03/01/20 09/04/22 Unknown History lisinopril 5 mg tablet 5 mg PO DAILY 03/01/20 09/08/22 07/03/22 History escitalopram oxalate 20 mg tablet 20 mg PO DAILY 09/09/20 09/08/22 Unknown History zolpidem 10 mg tablet 10 mg PO BEDTIME PRN Sleep 09/09/20 09/08/22 Unknown History gabapentin 600 mg tablet 600 mg PO TID PRN pain 09/24/20 09/08/22 Unknown History clonazepam 1 mg tablet 1 mg PO BID PRN Anxiety 01/03/21 09/08/22 Unknown History loratadine 10 mg tablet 10 mg PO DAILY 09/08/22 09/08/22 Unknown History Exam Exam Date and Time: September 14, 2022 0853 Height,Weight and Vital Signs: Height 5 ft 7 in Weight 103.873 kg Pertinent Lab Results Pertinent Lab Results: Laboratory Tests 07/12/22 07/12/22 12:43 12:43 WBC 8.7 Hgb 14.3 Hct 45.9 Plt Count 247 Sodium 139 Potassium 4.5 Chloride 103 Carbon Dioxide 26 BUN 17 H Creatinine 1.11 Narrative Narrative: EKG 07/2022 Vent. Rate : 065 BPM ? ? Atrial Rate : 065 BPM ?? P-R Int : 146 ms? QRS Dur : 084 ms ? ? QT Int : 382 ms ? ? ? P-R-T Axes : 043 052 026 degrees ?? QTc Int : 397 ms ? Normal sinus rhythm Normal ECG No significant changes when compared with the previous EKG? of 26 august 2020 ECHO 07/2022 Conclusions: - Normal left ventricular size, thickness, systolic function, and wall motion. The visually estimated ejection fraction is between 55-60%.? Diastolic function is normal for age. ? - Normal right ventricular cavity size and systolic function.?? NM jhonatan perf SPECT rest & str 07/2022 Impression: ? 1.? Myocardial perfusion imaging study shows likely normal myocardial perfusion 2.? Gated LVEF is 47% 3. Transient ischemic dilatation not present ? EKG is nondiagnostic for ischemia Assessment and Plan Assessment Anesthesia Assessment: Chart Reviewed Final Anesthetic Review Family History of Problems with Anesthesia: No History of Problems with Anesthesia: No Documented by User: Birgit Martinez MD 09/15/22 09:02 [facility] Past Medical History Medical History B12 deficiency due to diet Chest pain Depression with anxiety Diabetes mellitus Essential hypertension GERD (gastroesophageal reflux disease) Hematuria Insomnia Lumbar degenerative disc disease Mild recurrent major depression Neck pain Obesity due to excess calories FRANK (obstructive sleep apnea) Pure hypercholesterolemia Renal calculi Shortness of breath Sleep apnea UTI (urinary tract infection) Vitamin D deficiency Family History Family History Father Diabetes Mother Diabetes Hypertension Son No problems noted. Surgical History Surgical History History of lithotripsy History of lumbar laminectomy Hx of colonoscopy Social History Social History Household Members: None Housing: Apartment Are you a primary care navigator to a significant other at home: No Do you presently have visiting nurse or other home services: Yes ([employer]) Alcohol intake: current Alcohol intake frequency: holidays/special occasions only Alcohol type: beer Patient Tobacco Use Status: Never used Tobacco e-Cigarette/Vaping Use: Never Used Second Hand Smoke Exposure: No Use of substances other than those prescribed or required for medical reasons: No Have you been hit, kicked, punched, or otherwise hurt by someone within the past year? If so, by whom?: No Are you DNR?: No Advance Directives: No Advance Directives Information Provided: Yes Advance Directives on File: No Recently lost weight without trying: No Eating poorly because of decreased appetite: No Nutrition Risks: No Nutritional Risk Poor oral hygiene: Yes (broken tooth on the top) service: No Current occupational status: disabled Cognitive needs: No Hearing needs: No Vision needs: No Meds Allergies Allergy/AdvReac Type Severity Reaction Status Date / Time latex Allergy Severe rash,swelli Verified 09/04/22 08:32 ng atorvastatin Allergy Intermediate stomach Verified 09/04/22 08:32 upset metformin Allergy Intermediate diarrhea Verified 09/04/22 08:32 Home Medications Medication Instructions Recorded Confirmed Last Taken Type blood sugar diagnostic #10 ea 03/01/20 09/04/22 Unknown History lisinopril 5 mg tablet 5 mg PO DAILY 03/01/20 09/08/22 07/03/22 History escitalopram oxalate 20 mg tablet 20 mg PO DAILY 09/09/20 09/08/22 Unknown History zolpidem 10 mg tablet 10 mg PO BEDTIME PRN Sleep 09/09/20 09/08/22 Unknown History gabapentin 600 mg tablet 600 mg PO TID PRN pain 09/24/20 09/08/22 Unknown History clonazepam 1 mg tablet 1 mg PO BID PRN Anxiety 01/03/21 09/08/22 Unknown History loratadine 10 mg tablet 10 mg PO DAILY 09/08/22 09/08/22 Unknown History Exam Airway Mallampati Class: III TM Dist: >3cm Neck ROM: Full Loose/Missing/Broken Teeth: No Heart: RRR Lungs: CTA Assessment and Plan Assessment Anesthesia Assessment: Anesthesia Plan Discussed Final Anesthetic Review NPO: Yes ASA Class: III Final Preanesthetic Review: Meds/Allgs Chart Reviewed, Consent Obtained/Reviewed and Anes Risks/Benef Reviewed Patient Risk: Intermediate Procedure Risk: Low Anesthetic Plan Anesthetic Plan: MAC: Disposition: Standard PACU
--- NOTE | 2022-09-14 14:24 | MHC.SHP ---
Pre-Procedural Eval Section A Date of Service: 09/14/22 The patient is an INPATIENT: No Changes since office visit: No Cold of Flu in the past 2 weeks, No New Medical Problems, No Changes in Medication and No Patient answered all questions The History & Physical has been completed within 30 days and I have reviewed it.: Yes Section B Chief Complaint: Umbilical hernia without obstruction or gangrene Allergies: Allergies Allergy/AdvReac Type Severity Reaction Status Date / Time latex Allergy Severe rash,swelli Verified 09/04/22 08:32 ng atorvastatin Allergy Intermediate stomach Verified 09/04/22 08:32 upset metformin Allergy Intermediate diarrhea Verified 09/04/22 08:32 Plan I have reviewed the history and physical and performed a pertinent physical examination on my patient. No changes have occurred unless specified. Time Spent With Patient Time: Total time managing care of this patient today ____ minutes.
[2022-09-15] VITALS (7 sets, daily range): BP systolic 108–141; BP diastolic 63–78; PULSE 74–85; RESP 15–18; TEMP 36.1–36.4; O2SAT 96–99
[2022-09-15] MEDS: Lactated Ringers 1,000 ML 100 ML IVCONT (07:49)
[2022-09-15 07:50] LABS: Glucose, Whole Blood 260 mg/dL (60-115)
--- NOTE | 2022-09-15 08:04 | PC.NURSE ---
Dr. Martinez aware of POC. no interventions at this time.
--- NOTE | 2022-09-15 11:10 | P.OP_ITS ---
Operative Note Operative Note Date of Service: 09/15/22 Narrative: Preoperative diagnosis: [] Incarcerated umbilical hernia S Postop diagnosis: [] Same Procedure [] repair of incarcerated umbilical hernia with Bard mesh Surgeon: [] Jett [employer] Supervisor: [] Type of Anesthesi [] MAC Indication for surgery: [] Small incarcerated umbilical omental contents. Findings: [] Patient brought to operating room, placed on operative table supine position, after adequate level of MAC anesthesia was induced, patient underwent infiltration with 0.5% Marcaine and 1% lidocaine to the operative field, and a small supraumbilical curvilinear incision was made and carried down through skin, subcutaneous tissue, where hernia sac was identified and circumferentially dissected away from the posterior aspect of the umbilicus. Sac was opened were incarcerated omental contents were reduced. Redundant sac was amputated using Bovie . Fascia margins were circumferentially cleared and a Bard mesh placed in the defect. Superficial layer of the mesh was circumferentially sutured to the surrounding fascia using interrupted 0 Ethibond sutures. A completion the procedure, mesh was in good position with no tension. Wound was irrigated, secured for hemostasis, and closed in the following manner; posterior aspect of the umbilicus was tacked to the wound floor using interrupted 3-0 Vicryl sutures. Wound was closed using interrupted inverted dermal 3-0 Vicryl sutures followed by Steri-Strips and sterile dressings. Sponge, needle, and instrument counts reported to be correct. Patient tolerated the procedure well and emerged anesthesia stable condition. EBL minimal
== END 2022-09-15 12:20 | disposition home or self-care (01) ==
PROVIDERS: PCP Internal Medicine; Visit Provider Surgery
PROC: (CPT 49592; principal; 2022-09-15 08:50)
DX: K42.0 Umbilical hernia with obstruction, without gangrene (principal); E11.9 Type 2 diabetes mellitus without complications; I10 Essential (primary) hypertension; Z79.4 Long term (current) use of insulin; Z79.82 Long term (current) use of aspirin; Z88.8 Allergy status to other drugs, medicaments and biological substances; Z91.040 Latex allergy status
CPT/HCPCS: 49592; 82947; C1781; J0690; J1100; J1170; J2250; J2405; J2795

== ENCOUNTER → 2022-09-22 10:10 | Outpatient (BNVA) | payer OTHER, SELFPAY | PROVIDERS: PCP Internal Medicine; Referring Provider Internal Medicine; Visit Provider Surgery ==

== ENCOUNTER → 2022-09-25 08:58 | Outpatient (BNVA) | payer OTHER, SELFPAY | PROVIDERS: PCP Internal Medicine; Visit Provider Internal Medicine | DX: K21.9 Gastro-esophageal reflux disease without esophagitis (principal); R19.7 Diarrhea, unspecified; K76.0 Fatty (change of) liver, not elsewhere classified; E11.9 Type 2 diabetes mellitus without complications; Z86.010 Personal history of colon polyps; Z79.899 Other long term (current) drug therapy | CPT/HCPCS: 99212 ==

== ENCOUNTER → 2022-10-06 14:15 | Outpatient (BNVA) | payer OTHER, SELFPAY | PROVIDERS: PCP Internal Medicine; Visit Provider Urology | DX: N20.0 Calculus of kidney (principal); E11.69 Type 2 diabetes mellitus with other specified complication; N52.1 Erectile dysfunction due to diseases classified elsewhere | CPT/HCPCS: Q3014 ==

== ENCOUNTER 2022-10-20 09:55 | Outpatient (REF) | payer OTHER, MEDICAID, SELFPAY ==
[2022-10-20 11:19] LABS: Estimated Average Glucose 183 mg/dL
[2022-10-20 11:54] LABS: Creatinine Urine 70.21 mg/dL; Microalbum/Creatinine Ratio Ur 38.4 ug/mg cr
[2022-10-20 12:12] LABS: Alanine Aminotransferase 33 U/L (0-40); Albumin Level 4.6 g/dL (3.5-5.0); Alkaline Phosphatase 85 U/L (39-117); Anion Gap 14 (12-20); Aspartate Amino Transferase 22 U/L (5-37); Bilirubin Total 1.3 mg/dL (0.0-1.0); Blood Urea Nitrogen 13 mg/dL (9-16); Calcium 9.6 mg/dL (8.4-10.2); Carbon Dioxide 25 mmol/L (22-29); Chloride 102 mmol/L (96-108); Cholesterol 156 mg/dL; Estimated Glomerular Filt Rate > 60; Glucose Fasting 214 mg/dL (60-99); HDL Cholesterol 36 mg/dL; LDL Cholesterol Calculated 99 mg/dl; Sodium 137 mmol/L (135-145); Total Protein 7.5 g/dL (6.5-8.0); Triglycerides 106 mg/dL
[2022-10-20 12:19] LABS: Vitamin D 25-OH Total 27.2 ng/mL (>30)
== END 2022-10-20 09:56 | disposition home or self-care (01) ==
LOC: HO.LAB 09:55
PROVIDERS: PCP Internal Medicine; Visit Provider Internal Medicine
DX: E11.65 Type 2 diabetes mellitus with hyperglycemia (principal); E78.5 Hyperlipidemia, unspecified; E55.9 Vitamin D deficiency, unspecified
CPT/HCPCS: 36415; 80053; 80061; 82043; 82306; 83036

== ENCOUNTER 2023-02-05 11:18 | Outpatient (AMB) | payer OTHER, MEDICAID, SELFPAY ==
--- NOTE | 2023-02-05 11:23 | MHC.PC.OV ---
Vital Signs 02/05/23 11:24 Height 5 ft 7 in Weight 230 lb 8 oz BMI 36.1 BP 140/80 H Blood Pressure Location Lt brachial Position Sitting Pulse 96 Pulse Source Pulse Oximeter Pulse Oximetry (%) 96 Oxygen Delivery Method Room Air Intake Visit Reasons: PE Intake Note: Patient is here today for a physical. Complaint of back pain, nauseous, headaches dizziness, SOB. Per ER he has inflammation of the Pancreas. Filter Helper Required: No Hydraulic Lift Operator: Not Required per policy Accompanied by: Self / Same As Patient Allergies latex Allergy (Severe, Verified 02/05/23 11:49) rash,swelling atorvastatin Allergy (Intermediate, Verified 02/05/23 11:49) stomach upset metformin Allergy (Intermediate, Verified 02/05/23 11:49) diarrhea Medication List - Last Reconciled 02/05/23 by KAHLIL Laws aspirin 81 mg PO DAILY blood sugar diagnostic As directed blood sugar diagnostic (FreeStyle Lite Strips) As directed three times a day cholecalciferol (vitamin D3) 50 mcg PO DAILY clonazepam 1 mg PO BID PRN dulaglutide (Trulicity) 3 mg (0.5 mL) subcut QWEEK escitalopram oxalate 20 mg PO DAILY flash glucose scanning reader (FreeStyle Shaheed 2 [place]) As directed flash glucose sensor (FreeStyle Shaheed 2 Sensor kit) As directed every 2 weeks gabapentin 600 mg PO TID PRN insulin degludec (Tresiba FlexTouch U-100 insulin) 24 units (0.24 mL) subcut BEDTIME 30 days insulin syringe-needle U-100 (BD Insulin Syringe Ultra-Fine) Use 1 pen needle once a day lancets As directed lidocaine 5% 1 appl topical TID PRN 30 days lisinopril 5 mg PO DAILY loratadine 10 mg PO DAILY meclizine 25 mg PO TID PRN 30 days omeprazole 20 mg PO DAILY oxycodone-acetaminophen 5-325 mg 1 tab PO Q6H PRN 30 days pen needle, diabetic (BD Ultra-Fine Short Pen Needle) USE 1 PEN NEEDLE ONCE A DAY pyridoxine (vitamin B6) 50 mg PO DAILY 90 days rosuvastatin 40 mg PO BEDTIME tadalafil 5 mg PO DAILY 90 days [wipes, aloe touch As directed] zolpidem 10 mg PO BEDTIME PRN Tobacco use date assessed: 02/05/23 Dental Screening Dental Screen Date: 02/05/23 Did you have a dental visit in the last 12 months?: Yes Did you have a dental problem in the last 6 months where you did not have access to dental care?: No Was dental information given to patient?: Patient has dentist HPI HPI Comments History of Present Illness Details [age] year male past medical history significant for GERD depression anxiety insomnia, hypertension type 2 diabetes mellitus vitamin-D deficiency, postlaminectomy syndrome and hypercholesteremia. Patient of Dr. William presents today for physical exam. Patient was admitted to [facility] couple months ago as patient reports that he ran out of his Trulicity and his Tresiba patient was experiencing sugars in the 500s, polydipsia, polyuria and blurred vision. Patient was started back on his insulins, hemoglobin A1c in office today 6.6%, goal < 6.5%. Patient reports ongoing chronic back pain related to his post laminectomy syndrome requesting prescription for Lidoderm patches, Rx sent patient made aware not to use Lidoderm patches and creams at the same time. Patient verbalized understanding patient requesting prescription for blood pressure machine, Rx sent Recommended Flu shot Eye exam: Dr. Atwood, Diabetic eye exam UTD Colonoscopy: Dr. Jun Presley, 2 polyps removed showed tubular adenoma 07/2022, recommended 5 year follow up. [facility] Medical History (Updated 02/05/23 @ 13:43 by KAHLIL Laws) Tubular adenoma of colon FRANK (obstructive sleep apnea) Sleep apnea Mild recurrent major depression Vitamin D deficiency Neck pain Obesity due to excess calories Shortness of breath Chest pain UTI (urinary tract infection) Hematuria Renal calculi B12 deficiency due to diet Insomnia Depression with anxiety GERD (gastroesophageal reflux disease) Pure hypercholesterolemia Essential hypertension Diabetes mellitus Lumbar degenerative disc disease Surgical History H/O umbilical hernia repair (09/15/22) History of lithotripsy Hx of colonoscopy History of lumbar laminectomy Family History Father Diabetes Mother Diabetes Hypertension Son No problems noted. 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 Anibal Singh, Ebony Liu, Gerald Moura and colleagues, with an educational ethel from [employer]. Review of Systems Const Denies chills, Denies fatigue, Denies fever(s) and Denies poor appetite Eyes Denies no additional complaints ENT Reports Normal hearing present Card Denies chest pain, Denies syncope, Denies rapid heart rate and Denies dyspnea Resp Denies cough and Denies dyspnea GI Denies change in stool character, Denies constipation, Denies diarrhea, Denies nausea and Denies vomiting Denies dysuria, Denies urinary frequency and Denies urinary urgency Neuro Reports Normal hearing present, Denies confusion and Denies syncope Psych Denies confusion Endo Denies fatigue Physical exam (Primary Care) Vital Signs: Last Vital Signs Pulse 96 02/05/23 11:24 BP 140/80 H 02/05/23 11:24 Pulse Ox 96 02/05/23 11:24 Oxygen Delivery Method Room Air 02/05/23 11:24 BMI result Body Mass Index 36.1 Tobacco/Smoking Status: Tobacco use Status Tobacco use date assessed 02/05/23 02/05/23 11:38 Patient Tobacco Use Status Never used Tobacco 02/05/23 11:38 e-Cigarette/Vaping Use Never Used 02/05/23 11:38 Thrive Assessment: Date of Thrive Assessment Date Thrive assessed 09/04/22 02/05/23 11:38 Const General: No confusion Orientation/consciousness: No confusion HENMT Head: Yes normocephalic and Yes atraumatic Eyes Conjunctivae: conjunctivae normal Chest Chest palpation & inspection: normal inspection of the chest Resp Effort & Inspection: normal respiratory effort Auscultation: clear to auscultation bilaterally, no crackles, no rhonchi and no wheezes Cardio Rate: regular rate Rhythm: regular rhythm Heart sounds: S1 normal heart sound present and S2 normal heart sound present GI Inspection: Yes normal to inspection Neuro General: No confusion Cranial nerves: Yes Normal hearing present Extrem General: No edema Office Procedures Flu Questionnaire Does the patient have a severe egg allergy?: No Does the patient have severe life threatening allergies?: No Does the patient have a fever or illness today?: No Has the patient ever had Guillain-Sagola Syndrome?: No Has the patient ever had any past reaction to a flu shot?: No Comment: afebrile. consented for flu shot today. has received flu shots in the past with no reactions. Results AMB Hemoglobin A1c AMB Hemoglobin A1c 6.6 % Last Edit by MIKE Rolle on 02/05/23 11:39 Immunizations flu vacc [id number] 6mos up(PF) 60 mcg(15 mcgx4)/0.5 mL IM syringe Performing Provider: KAHLIL Laws [facility] Administered by: Lavell Edgar RN on 02/05/23 12:00 Dose Route Admin Location Dispensed Lot Number Expiration Date NDC Keller Machine Operator 0.5 mL IM Left Deltoid 0.5 mL [id number] 11/04/23 93221-032-19 [employer] VIS Given Date VIS Provided VIS Publication Date 02/05/23 Single Vaccine 20 Eligibility Eligibility Date Funding Source Not [facility] Eligible 02/05/23 Private Administration Comments: tolerated flu shot well. Results Reviewed Results Reviewed: Laboratory Last Values Hgb A1c (Clinic) 6.6 % (4.0-6.0) H 02/05/23 11:23 Assessment and Plan Assessment & Plan (1) Mild recurrent major depression: Code(s): F33.0 - Major depressive disorder, recurrent, mild Plan: Declines counseling referral (2) Diabetes mellitus: Code(s): E11.9 - Type 2 diabetes mellitus without complications Qualifiers: Diabetes mellitus complication status: with hyperglycemia Diabetes mellitus jail insulin use: without middle or intermediate school principal use Diabetes mellitus type: type 2 Qualified Code(s): E11.65 - Type 2 diabetes mellitus with hyperglycemia Plan: Continue on current medications. Hemoglobin A1c 6.6%, goal < 6.5% Patient educated to decrease the amount of carbohydrate intake such as pasta, bread, rice and potatoes are all sugar in addition to the sweet stuff. Remember that fruits are good but they also have sugar. (3) Post laminectomy syndrome: Code(s): M96.1 - Postlaminectomy syndrome, not elsewhere classified Plan: lidoderm patched sent to patients pharmacy. Patient reports previous followed by Pain Management home of however he had a stimulator in the past that did not work and he no longer follows up with them. Plan Follow-up in 3 months with PCP Follow-up in 1 year for physical exam. Orders: Orders Comprehensive [place]. Panel Fast Today E11.9 - Type 2 diabetes mellitus without complications, F33.0 - Major depressive disorder, recurrent, mild Lipid Panel Today E78.00 - Pure hypercholesterolemia, unspecified Influenza [id number] Immunization Today Z23 - Encounter for immunization AMB Hemoglobin A1c Today E11.9 - Type 2 diabetes mellitus without complications Complete Blood Count Auto Diff Today Z13.0 - Encounter for screening for diseases of the blood and blood-forming organs and certain disorders involving the immune mechanism TSH reflex Free T4 Today Z13.29 - Encounter for screening for other suspected endocrine disorder Medications: New blood pressure test kit-medium As directed 1 ea 0RF lidocaine 5% (Lidoderm) leave on most painful area for up to 12 hrs 1 patch topical DAILY 30 ea 0RF M96.1 - Postlaminectomy syndrome, not elsewhere classified Refilled flash glucose scanning reader (FreeStyle Shaheed 2 [place]) As directed 1 ea 0RF E11.65 - Type 2 diabetes mellitus with hyperglycemia flash glucose sensor (FreeStyle Shaheed 2 Sensor kit) As directed every 2 weeks 2 ea 0RF lidocaine 5% 1 appl topical TID 30 days PRN 35.44 grams 2RF pain M96.1 - Postlaminectomy syndrome, not elsewhere classified Coding Level of Care Code Est Pt Prev Care 40-64y(22056) Diagnoses Mild recurrent major depression F33.0 Type 2 diabetes mellitus with hyperglycemia, without long-term current use of insulin E11.65 Diabetes mellitus complication status: with hyperglycemia Diabetes mellitus middle or intermediate school principal insulin use: without jail use Diabetes mellitus type: type 2 Post laminectomy syndrome M96.1
[2023-02-05 11:24] VITALS: BP 140/80; PULSE 96; O2SAT 96; BMI 36.1
== END 2023-02-05 12:06 | disposition home or self-care (01) ==
PROVIDERS: PCP Internal Medicine; Visit Provider Nurse Practitioner Family
DX: Z00.00 Encounter for general adult medical examination without abnormal findings (principal); F33.0 Major depressive disorder, recurrent, mild; E11.65 Type 2 diabetes mellitus with hyperglycemia; Z23 Encounter for immunization; E11.9 Type 2 diabetes mellitus without complications; M96.1 Postlaminectomy syndrome, not elsewhere classified
CPT/HCPCS: 83036; 90471; 90686; 99396

== ENCOUNTER 2023-02-08 08:01 | Outpatient (REF) | payer OTHER, SELFPAY | END 2023-02-08 08:02 | disposition home or self-care (01) | LOC: HO.LAB 08:01 | PROVIDERS: PCP Internal Medicine; Visit Provider Nurse Practitioner Family | DX: E11.9 Type 2 diabetes mellitus without complications (principal); F33.0 Major depressive disorder, recurrent, mild; E78.00 Pure hypercholesterolemia, unspecified; Z13.0 Encounter for screening for diseases of the blood and blood-forming organs and certain disorders involving the immune mechanism; Z13.29 Encounter for screening for other suspected endocrine disorder | CPT/HCPCS: 36415; 80053; 80061; 84443; 85025 ==

== ENCOUNTER 2023-03-13 09:56 | Outpatient (AMB) | payer OTHER, MEDICAID, SELFPAY ==
--- NOTE | 2023-03-13 09:57 | A.OFFVIS_ITS ---
Intake Vital Signs 03/13/23 09:58 Height 5 ft 7 in Weight 234 lb 2.095 oz BMI 36.7 BP 130/88 Blood Pressure Location Lt brachial Position Sitting Pulse 112 H Pulse Source Pulse Oximeter Intake Visit Reasons: Type 2 DM Intake Note: New patient to Dr. Dubon present today for Type 2 Diabetes Mellitus. Previously followed by PCP. Last Diabetic Eye exam: 05/2022 Last Podiatry Visit: None Random Glucose: 255 mg/dl HgA1C: 6.6% 02/05/2023 Photo Stylist Required: Yes Photo Stylist Language: Career Orientation Teacher Name: [facility] Information Interpreted: non-clinical & clinical Accompanied by: Self / Same As Patient Allergies latex Allergy (Severe, Verified 03/13/23 10:11) rash,swelling atorvastatin Allergy (Intermediate, Verified 03/13/23 10:11) stomach upset metformin Allergy (Intermediate, Verified 03/13/23 10:11) diarrhea Medication List - Last Reconciled 03/13/23 by Anibal Dubon MD aspirin 81 mg PO DAILY blood pressure test kit-medium As directed blood sugar diagnostic As directed blood sugar diagnostic (FreeStyle Lite Strips) As directed three times a day cholecalciferol (vitamin D3) 50 mcg PO DAILY clonazepam 1 mg PO BID PRN dulaglutide (Trulicity) 3 mg (0.5 mL) subcut QWEEK empagliflozin (Jardiance) 10 mg PO DAILY escitalopram oxalate 20 mg PO DAILY flash glucose scanning reader (FreeStyle Shaheed 2 [place]) As directed flash glucose sensor (FreeStyle Shaheed 2 Sensor kit) As directed every 2 weeks flash glucose sensor (FreeStyle Shaheed 2 Sensor kit) As directed change every 14 days gabapentin 600 mg PO TID PRN insulin degludec (Tresiba FlexTouch U-100 insulin) 24 units (0.24 mL) subcut BEDTIME 30 days insulin syringe-needle U-100 (BD Insulin Syringe Ultra-Fine) Use 1 pen needle once a day lancets As directed lidocaine 5% 1 appl topical TID PRN 30 days lidocaine 5% (Lidoderm) 1 patch topical DAILY lisinopril 5 mg PO DAILY loratadine 10 mg PO DAILY PRN 90 days meclizine 25 mg PO TID PRN 30 days omeprazole 20 mg PO DAILY oxycodone-acetaminophen 5-325 mg 1 tab PO Q6H PRN 30 days pen needle, diabetic (BD Ultra-Fine Short Pen Needle) USE 1 PEN NEEDLE ONCE A DAY pyridoxine (vitamin B6) 50 mg PO DAILY 90 days rosuvastatin 40 mg PO BEDTIME tadalafil 5 mg PO DAILY 90 days [wipes, aloe touch As directed] zolpidem 10 mg PO BEDTIME PRN HPI HPI Comments History of Present Illness Details Patient is a 47 year male with DM type 2 diagnosed around 2001 who presents for management of diabetes. Patient was last seen 09/27/2021 by Carla Yeboah NP Past medical history: DM2, HTN, HLD, lumbar disc disease. Micro and macrovascular complications: none known Diabetes medications: Tresiba 24 units. Trulicity 3.0mg/week. Jardiance 10 mg not taking . Metformin caused diarrhea Blood glucose readings: The last 2 weeks average 192, 1.1 readings per day, range 144-255. Symptoms reported: + numbness, and burning in legs. No tingling, cramping in lower extremities Hypoglycemia: denies Hyperglycemia: + urinary frequency, +nocturia, +polydypsia, Exercise: walking 45 minutes on days when back is not hurting, also walks dogs. 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, Saw optho 05/2021 has appt 05/2022 Laboratory Tests 05/06/21 05/06/21 05/06/21 09:00 09:00 09:00 Creatinine 1.24 Estimated GFR > 60 Triglycerides 115 Cholesterol 151 LDL Cholesterol, C alc 95 HDL Cholesterol 33 Vitamin B12 282 25-OH Vitamin D To kodak 9 L Microalb/Creat Rat io 05/06/21 Unknown Creatinine Estimated GFR Triglycerides Cholesterol LDL Cholesterol, C alc HDL Cholesterol Vitamin B12 25-OH Vitamin D To kodak Microalb/Creat Rat io 36.2 PFSH Medical History (Updated 02/05/23 @ 13:43 by KAHLIL Laws) Tubular adenoma of colon FRANK (obstructive sleep apnea) Sleep apnea Mild recurrent major depression Vitamin D deficiency Neck pain Obesity due to excess calories Shortness of breath Chest pain UTI (urinary tract infection) Hematuria Renal calculi B12 deficiency due to diet Insomnia Depression with anxiety GERD (gastroesophageal reflux disease) Pure hypercholesterolemia Essential hypertension Diabetes mellitus Lumbar degenerative disc disease Surgical History H/O umbilical hernia repair (09/15/22) History of lithotripsy Hx of colonoscopy History of lumbar laminectomy Family History Father Diabetes Mother Diabetes Hypertension Son No problems noted. 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 Absence of acromegalic features. Neck exam reveals nl size thyroid about 15 gms. No thyroid nodules palpable. No carotid bruits present. Lungs CTA. Heart S1 S2, Reg R/R. No M/R/ G. Skin exam reveals absence of vitiligo or acanthosis nigricans. Abdominal exam reveals Soft NT/ND with NA BS. No organomegaly present. Neck Other: . Extrem Other: Visual exam of foot performed. No ulcerations or open lesions. No onchomycosis, no callouses.Pulses 2 + distally Sensation intact to monofilament exam. 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 Will also obtain Shaheed 2 for patient. Have patient scan frequently. Will have patient see ems educator. Orders: Referrals Diabetes Education Referral E11.9 - Type 2 diabetes mellitus without complications Medications: New empagliflozin (Jardiance) 10 mg PO DAILY 30 tabs 5RF flash glucose sensor (FreeStyle Shaheed 2 Sensor kit) As directed change every 14 days 2 ea 4RF flash glucose scanning reader ([place] PowerStyle Shaheed 2 [place]) As directed 1 ea 0RF Coding Level of Care Code Est Pt Level 4 (49441) Diagnoses Type 2 diabetes mellitus with hyperglycemia, without long-term current use of insulin E11.65 Diabetes mellitus type: type 2 Diabetes mellitus alf insulin use: without alf use Diabetes mellitus complication status: with hyperglycemia
[2023-03-13 09:58] VITALS: BP 130/88; PULSE 112; BMI 36.7
[2023-03-13 10:13] LABS: Glucose, Whole Blood 255 mg/dL (60-115)
== END 2023-03-13 10:31 | disposition home or self-care (01) ==
PROVIDERS: PCP Internal Medicine; Visit Provider Internal Medicine Endocrinology, Diabetes & Metabolism
DX: E11.65 Type 2 diabetes mellitus with hyperglycemia (principal)
CPT/HCPCS: 99214

== ENCOUNTER → 2023-03-13 09:56 | Outpatient (BNVA) | payer OTHER, MEDICAID, SELFPAY | PROVIDERS: PCP Internal Medicine; Visit Provider Internal Medicine Endocrinology, Diabetes & Metabolism | DX: E11.65 Type 2 diabetes mellitus with hyperglycemia (principal); Z79.4 Long term (current) use of insulin | CPT/HCPCS: 82947; 99212 ==

== ENCOUNTER 2023-03-20 09:34 | Outpatient (AMB) | payer OTHER, SELFPAY ==
--- NOTE | 2023-03-20 09:40 | MHC.OFFVIS ---
Intake Vital Signs 03/20/23 09:43 Height 5 ft 7 in Weight 233 lb 11.04 oz BMI 36.6 BP 131/85 Blood Pressure Location Lt brachial Position Sitting Pulse 81 Intake Visit Reasons: 6 mnth follow up Intake Note: Goyo presents in the office as a 6 month follow up. CC: He states that he is having pains but he has a hernia surgery and he also is passing kidney stones. Epigastric pains. Allergies latex Allergy (Severe, Verified 04/17/23 09:50) rash,swelling atorvastatin Allergy (Intermediate, Verified 04/17/23 09:50) stomach upset metformin Allergy (Intermediate, Verified 04/17/23 09:50) diarrhea HPI HPI Comments History of Present Illness Details This is a 47 y.o M with PMH of obesity, T2DM, nephrolithiasis who is here for follow up after colonoscopy Initial visit 05/10/22 Reports chronic diarrhea ongoing for almost 10 years which he describes as loose BMs 4-5 times a day, no blood, no night time sx, no tenesmus. Otherwise, no other GI complaints to include abdominal pain, N,V. Reports FIT was done as routine screening for CRC. No fam hx of CRC in first degree relatives. No anemia in most recent labs. 07/06/22 - [place]: Impression: 1. Normal colon mucosa 2. Total of 2 polyps removed from transverse, and sigmoid?colon. 3. Internal hemorrhoids Path: A.? Colon, transverse, polypectomy:? Tubular adenoma; negative for high-grade dysplasia or carcinoma. B.? Colon, sigmoid, polypectomy:? Fragments of tubular adenoma; negative for high-grade dysplasia or carcinoma 07/17/22: Main complaint today is intermittent heartburn postprandially that resolves by itself in a few hours or with Tums. Also takes omeprazole 10mg but uses it PRN. Pt also reports frequent BMs aaron within one hour of eating, reports BMs are soft to loose. Has known diabetes which is not optimally controlled FSG this morning was 219. As above, normal colonic mucosa noted on colonoscopy. 09/25/22: Cont to have postprandial urgency and lose BMs. BG remains very uncontrolled. Fasting BG yest was 380! Underwent umbilical hernia repair recently (Dr Frausto) so has some discomfort around incision otherwise no abd pain, N,V. Heartburn is well controlled on 20mg omeprazole. Labs reviewed. HCV Ab negative. Fib-4: 0.65, low likelihood of advanced fibrosis. 03/20/23: Here for follow up of fatty liver. Fib 4 based on Oct labs 0.73. Has not been able to make much change in terms of BMI but reports some improvement in glycemic control. A1c 6.6 per PCP's note. [facility] Medical History Tubular adenoma of colon FRANK (obstructive sleep apnea) Sleep apnea Mild recurrent major depression Vitamin D deficiency Neck pain Obesity due to excess calories Shortness of breath Chest pain UTI (urinary tract infection) Hematuria Renal calculi B12 deficiency due to diet Insomnia Depression with anxiety GERD (gastroesophageal reflux disease) Pure hypercholesterolemia Essential hypertension Diabetes mellitus Lumbar degenerative disc disease Surgical History H/O umbilical hernia repair (09/15/22) History of lithotripsy Hx of colonoscopy History of lumbar laminectomy Family History Father Diabetes Mother Diabetes Hypertension Son No problems noted. Social History Household Members: None Housing: Apartment Are you a primary pet care worker to a significant other at home: No Do you presently have visiting nurse or other home services: Yes (FITNESS SERVICES MANAGER) Alcohol intake: current Alcohol intake frequency: holidays/special occasions only Alcohol type: beer Patient Tobacco Use Status: Never used Tobacco e-Cigarette/Vaping Use: Never Used Second Hand Smoke Exposure: No service: No Current occupational status: disabled Cognitive needs: No Hearing needs: No Vision needs: No Review of Systems Const All systems reviewed & are unremarkable except as noted in HPI and below Physical Exam Vital Signs: Last Vital Signs Pulse 81 03/20/23 09:43 BP 131/85 03/20/23 09:43 BMI result Body Mass Index 36.6 Gen appear: No acute distress, well nourished HEENT: no icterus, no cervical lymphadenopathy Chest: No overt resp distress CVS: S1/S2, regular Abd: soft, nontender Psych: Stable affect, answering questions appropriately Neuro: A/Ox3 noted to move all extremities spontaneously Ext: no peripheral edema Assessment & Plan Assessment & Plan (1) Fatty liver: Code(s): K76.0 - Fatty (change of) liver, not elsewhere classified Plan: Noted incidentally on chart review, based on CT Abd/pel 05/2022 at [facility]. Likely being contributed by obesity and metabolic risk factors such as T2DM. LFTs and Fib-4 reassuring i.e no evidence of advance fibrosis While diabetes control has improved, BMI is unchanged, and pt was again counseled on at least 10% TBW weight loss in 6 months Mod intensity activity 150 mins/week Continued control of DM and other metabolic risk factors is paramount. Pt will be discharged back to PCP's care with recommendation to check LFTs at least 1-2 times a year. He can follow up as needed for any concerns that may arise or for Fib-4 that exceeds 1.3. (2) Diabetes mellitus: Code(s): E11.9 - Type 2 diabetes mellitus without complications Qualifiers: Diabetes mellitus type: type 2 Diabetes mellitus jail insulin use: without remote computer terminal operator use Diabetes mellitus complication status: with hyperglycemia Qualified Code(s): E11.65 - Type 2 diabetes mellitus with hyperglycemia (3) Obesity due to excess calories: Code(s): E66.09 - Other obesity due to excess calories Qualifiers: Obesity classification: adult class 2 (BMI 35 - 39.9) Serious obesity comorbidity presence: with serious comorbidity Body mass index: BMI 36.0-36.9 Qualified Code(s): E66.01 - Morbid (severe) obesity due to excess calories; Z68.36 - Body mass index [BMI] 36.0-36.9, adult (4) Personal history of colonic polyps: Code(s): Z86.010 - Personal history of colonic polyps Plan: Recommend repeat colonoscopy in 2024 years due to polyp size. Coding Level of Care Code Est Pt Level 4 (83976) Diagnoses Fatty liver K76.0 Type 2 diabetes mellitus with hyperglycemia, without long-term current use of insulin E11.65 Diabetes mellitus type: type 2 Diabetes mellitus remote computer terminal operator insulin use: without jail use Diabetes mellitus complication status: with hyperglycemia Class 2 severe obesity due to excess calories with serious comorbidity and body mass index (BMI) of 36.0 to 36.9 in adult E66.01; Z68.36 Obesity classification: adult class 2 (BMI 35 - 39.9) Serious obesity comorbidity presence: with serious comorbidity Body mass index: BMI 36.0-36.9 Personal history of colonic polyps Z86.010
[2023-03-20 09:43] VITALS: BP 131/85; PULSE 81; BMI 36.6
== END 2023-03-20 10:21 | disposition home or self-care (01) ==
PROVIDERS: Visit Provider Internal Medicine
DX: K76.0 Fatty (change of) liver, not elsewhere classified (principal); E11.65 Type 2 diabetes mellitus with hyperglycemia; E66.01 Morbid (severe) obesity due to excess calories; Z68.36 Body mass index [BMI] 36.0-36.9, adult; Z86.010 Personal history of colon polyps
CPT/HCPCS: 99214

== ENCOUNTER → 2023-03-20 09:34 | Outpatient (BNVA) | payer OTHER, SELFPAY | PROVIDERS: Visit Provider Internal Medicine | DX: K76.0 Fatty (change of) liver, not elsewhere classified (principal); E11.65 Type 2 diabetes mellitus with hyperglycemia; E66.01 Morbid (severe) obesity due to excess calories; Z86.010 Personal history of colon polyps; Z68.36 Body mass index [BMI] 36.0-36.9, adult | CPT/HCPCS: 99212 ==

== ENCOUNTER 2023-04-02 07:50 | Outpatient (REF) | payer OTHER, SELFPAY ==
--- NOTE | ~2023-04-02 | US_ITS ---
EXAMINATION: US RETROPERITONEAL LIMITED (RENAL ONLY) CLINICAL INFORMATION: Calculus of kidney. COMPARISON: Ultrasound retroperitoneal limited 09/14/2022. X-ray abdomen KUB 08/09/2022. Ultrasound retroperitoneal limited 03/17/2022. TECHNIQUE: Real-time imaging of the kidneys. FINDINGS: RIGHT KIDNEY: 10.7 x 6.1 x 6.8 cm (SAG x AP x TRV). The kidney is normal in size, contour, and echogenicity. Renal cortical thickness is normal. No focal parenchymal lesions or hydronephrosis. 0.6 x 0.4 x 0.6 cm lower pole echogenic focus previously measured 0.7 x 0.4 x 0.7 cm. LEFT KIDNEY: 12.0 x 6.4 x 6.0 cm (SAG x AP x TRV). The kidney is normal in size, contour, and echogenicity. Renal cortical thickness is normal. No calculi or focal parenchymal lesions. No hydronephrosis. US/US renal BI IMPRESSION: 6 mm lower pole nonobstructing renal calculus.
== END 2023-04-02 07:51 | disposition home or self-care (01) ==
LOC: HO.US 07:50
PROVIDERS: PCP Internal Medicine; Visit Provider Urology
DX: N20.0 Calculus of kidney (principal)
CPT/HCPCS: 76775

== ENCOUNTER 2023-04-04 08:56 | Outpatient (AMB) | payer OTHER, MEDICAID, SELFPAY ==
--- NOTE | 2023-04-04 09:31 | A.OFFVIS_ITS ---
Intake Intake Visit Reasons: dm Power Systems Engineer Required: No Accompanied by: Self / Same As Patient Allergies latex Allergy (Severe, Verified 03/20/23 09:44) rash,swelling atorvastatin Allergy (Intermediate, Verified 03/20/23 09:44) stomach upset metformin Allergy (Intermediate, Verified 03/20/23 09:44) diarrhea HPI Comprehensive Diabetes Asmnt Most Recent Diabetes Results: Microalb/Creat Ratio 38.4 ug/mg cr 10/20/22 Cholesterol 155 mg/dL (<200) 02/08/23 HDL Cholesterol 37 mg/dL (>40) L 02/08/23 Triglycerides 96 mg/dL (<150) 02/08/23 Creatinine 1.02 mg/dL (0.5-1.4) 02/08/23 Blood Urea Nitrogen 17 mg/dL (9-16) H 02/08/23 Sodium 138 mmol/L (135-145) 02/08/23 Potassium 4.5 mmol/L (3.3-5.1) 02/08/23 Chloride 102 mmol/L (96-108) 02/08/23 Carbon Dioxide 27 mmol/L (22-29) 02/08/23 Calcium 9.8 mg/dL (8.4-10.2) 02/08/23 AST 17 U/L (5-37) 02/08/23 ALT 24 U/L (0-40) 02/08/23 Total Protein 7.2 g/dL (6.5-8.0) 02/08/23 Albumin 4.4 g/dL (3.5-5.0) 02/08/23 [facility] Medical History Tubular adenoma of colon FRANK (obstructive sleep apnea) Sleep apnea Mild recurrent major depression Vitamin D deficiency Neck pain Obesity due to excess calories Shortness of breath Chest pain UTI (urinary tract infection) Hematuria Renal calculi B12 deficiency due to diet Insomnia Depression with anxiety GERD (gastroesophageal reflux disease) Pure hypercholesterolemia Essential hypertension Diabetes mellitus Lumbar degenerative disc disease Surgical History H/O umbilical hernia repair (09/15/22) History of lithotripsy Hx of colonoscopy History of lumbar laminectomy Family History Father Diabetes Mother Diabetes Hypertension Son No problems noted. 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 ANALYST) Alcohol intake: current Alcohol intake frequency: holidays/special occasions only Alcohol type: beer Patient Tobacco Use Status: Never used Tobacco e-Cigarette/Vaping Use: Never Used Second Hand Smoke Exposure: No service: No Current occupational status: disabled Cognitive needs: No Hearing needs: No Vision needs: No Assessment & Plan Assessment & Plan (1) Diabetes mellitus: Code(s): E11.9 - Type 2 diabetes mellitus without complications Qualifiers: Diabetes mellitus type: type 2 Diabetes mellitus terminologist insulin use: without nursing home use Diabetes mellitus complication status: with hyperglycemia Qualified Code(s): E11.65 - Type 2 diabetes mellitus with hyperglycemia Plan: Diabetes self-management education and support participation record Assessment/scale: 1= needs instructed? 2= needs review? 3= comprehend keep point? 4= demonstrates understanding/ competent? NC= Not Covered Topics Learning Objective: Initial visit Initial or post srvc Initial or post srvc Initial or post srvc Initial or post srvc Initial or post srvc Post srvc Comments Pre Edu-assessment/plan Outcome or reassess Outcome or reassess Outcome or reassess Outcome or reassess Outcome or reassess Outcome or reassess Diabetes pathophysiology 1 Healthy eating 2 A Being active Taking medication 1 Monitoring glucose 1 Acute complication Chronic complicated 1 Lifestyle and healthy coping Diabetes distress in support ?Diabetes pathophysiology: ?Defined diabetes med identify own type of diabetes; list 3 options for treating diabetes Healthy eating: ?Described effect of type, amount and ?timing of food on blood glucose; list 3 methods for planning meal Being active: ?State effect of exercise on blood glucose level Taking medication: ?State effect of diabetes medications on diabetes; name diabetes medications taking, action and side effects Monitoring glucose: ?Identify recommended blood glucose targets and personal target Acute complication: ?List symptoms and treatment of hyper and hypoglycemia, DKA, sick day guidelines and guidelines for severe weather or situations of crisis and diabetes supply manage Chronic complication: ?To find the relationship of blood glucose levels to long- term complications of diabetes in screening and preventative measures Lifestyle and healthy coping: ?Described lifestyle and healthy coping strategies to rule out diabetes self-management Diabetes to stress and support: ?Recognize Diabetes to stress and be able to identified support options Learning objectives: The patient was provided with verbal and written education on the following topics as outlined below. The patient met all learning objectives and was able to verbalize understanding and provide teach back of education topics discussed . The patient was provided with the opportunity to ask questions and all questions were answered. Patient Assessment Assess patient education level/literacy/barriers Patient questions/concerns, patient's last A1c 6.6% 02/2023, down from 8% in October 2022. patient is currently only testing blood sugars sporadically with glucometer waiting on prescriptions for Shaheed 2 to be filled at pharmacy patient is taking Jardiance 10 mg daily Tresiba 24 units daily Trulicity 3 mg weekly patient denies missing medication What is Diabetes? Pathophysiology How the body produces and uses insulin Identify type of DM Risk factors Signs of Diabetes Brief overview of Diabetes Management Monitoring blood sugar Following a meal plan Regular exercise Maintaining a healthy weight Taking medication as needed Members of the care team (PCP, RN, MA, RD, CDE, merchandise complaint adjuster) Blood glucose monitoring When/how often to test Target blood sugar ranges patient did not bring meter to today's visit Introduction to Nutrition Importance of healthy diet in managing DM Diet is personalized to individual preference Review patient?s regular diet/food preferences Who prepares meals/does food shopping/ Dining out?/ Barriers? How diet effects glucose Eating 3 balanced meals a day with small, healthy snacks between meals Review food groups Carbohydrates: What is a carbohydrate/Which food/food groups are considered carbohydrates Effect of carbohydrates on blood glucose Portion sizes Reading food labels Basic carb counting (if applicable per nursing assessment) Plate method Meal planning Recommendations: Follow plate method, consistent carbs and read nutritional labels. Smart Goal: patient will keep meals 45-60 g of carbohydrate per meal Educational Materials: The patient was provided with the following written educational materials: Planning Healthy Meals Handout Patient Response to instructions: Comprehension of Instructions: Fair Readiness to make changes: Contemplation How confident they feel about making changes: Positive Patient Instructions: Include regular daily activity. ADA recommends 30 minutes of exercise 5 days a week. Weight loss talk to PCP or Manager Investment Banking before starting new plan. Test blood sugar as directed; Fasting and 2hpp largest meal. Watch trends in results. Utilize results and to assess how food, physical activity and medications affect blood sugar results. Bring glucometer or CGM to next visit. Be knowledgeable about diabetes medication, its action, side effects, efficacy, toxicity, prescribed dosage, appropriate timing and frequency of administration, effect of missed and delayed doses and instructions for storage, travel and safety. Problem solving techniques to monitor hypo/hyperglycemia episodes and treatments. Reduce risk reduction behaviors, smoking cessation, regular eye, foot and dental examinations. patient will follow-up with conservation educator in 4 months, instructed patient if he needs assistance setting up [employer] 2 call to make appointment with Diabetes Education Coding Level of Care Code Est Pt Level 1 (29205) Diagnoses Type 2 diabetes mellitus with hyperglycemia, without long-term current use of insulin E11.65 Diabetes mellitus type: type 2 Diabetes mellitus terminologist insulin use: without terminologist use Diabetes mellitus complication status: with hyperglycemia
== END 2023-04-04 09:34 | disposition home or self-care (01) ==
PROVIDERS: PCP Internal Medicine; Visit Provider Registered Nurse Diabetes Educator
DX: E11.65 Type 2 diabetes mellitus with hyperglycemia (principal)

== ENCOUNTER → 2023-04-04 08:56 | Outpatient (BNVA) | payer OTHER, MEDICAID, SELFPAY | PROVIDERS: PCP Internal Medicine; Visit Provider Registered Nurse Diabetes Educator | DX: E11.65 Type 2 diabetes mellitus with hyperglycemia (principal) | CPT/HCPCS: 99211 ==

== ENCOUNTER 2023-04-05 10:42 | Outpatient (AMB) | payer OTHER, SELFPAY ==
--- NOTE | 2023-04-05 10:42 | HO.NEPHOV ---
HPI HPI Comments History of Present Illness Details Middle-aged man with a history of longstanding diabetes mellitus and nephrolithiasis. He was accompanied by his today. Blood sugar seems to be better controlled. Hemoglobin A1c has decreased to 6.6 from 8.5. He has history of renal stones. Back in 2021 he had a right-sided stone measuring 8 mm. Follow-up ultrasound in September of 2022 showed same stone measuring 7 mm. He underwent extracorporeal shockwave lithotripsy. A recent ultrasonogram done about a week ago showed stone measuring 6 mm. He continues to have flank pain on and off. He takes oxycodone. He follows with Dr. Yip [facility] Medical History Tubular adenoma of colon FRANK (obstructive sleep apnea) Sleep apnea Mild recurrent major depression Vitamin D deficiency Neck pain Obesity due to excess calories Shortness of breath Chest pain UTI (urinary tract infection) Hematuria Renal calculi B12 deficiency due to diet Insomnia Depression with anxiety GERD (gastroesophageal reflux disease) Pure hypercholesterolemia Essential hypertension Diabetes mellitus Lumbar degenerative disc disease Surgical History H/O umbilical hernia repair (09/15/22) History of lithotripsy Hx of colonoscopy History of lumbar laminectomy Family History Father Diabetes Mother Diabetes Hypertension Son No problems noted. 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 INSTRUCTOR) Alcohol intake: current Alcohol intake frequency: holidays/special occasions only Alcohol type: beer Patient Tobacco Use Status: Never used Tobacco e-Cigarette/Vaping Use: Never Used Second Hand Smoke Exposure: No service: No Current occupational status: disabled Cognitive needs: No Hearing needs: No Vision needs: No Vital Signs 04/05/23 10:43 Height 5 ft 7 in Weight 232 lb BMI 36.3 BP 120/90 H Blood Pressure Location Lt brachial Position Sitting Pulse 79 Pulse Source Pulse Oximeter Pulse Oximetry (%) 97 Oxygen Delivery Method Room Air Physical Exam Vital Signs: Last Vital Signs Pulse 79 04/05/23 10:43 BP 120/90 H 04/05/23 10:43 Pulse Ox 97 04/05/23 10:43 Oxygen Delivery Method Room Air 04/05/23 10:43 BMI result Body Mass Index 36.3 Const General: comfortable; No acute distress Orientation/consciousness: patient oriented x3 Eyes General: appearance normal, both eyes and all related structures Visual Bradford: normal visual bradford by confrontation Neck Neck: Yes supple and Yes no JVD Resp Effort & Inspection: normal respiratory effort and respiratory effort not decreased Auscultation: rhonchi Cardio Palpation: no palpable S3 and no palpable S4 Heart sounds: no rubs GI Inspection: Yes normal to inspection Palpation (GI): Soft to palpation Percussion: Yes normal to percussion Auscultation: normal bowel sounds General: Yes no CVA tenderness Back/Spine/Pelvis Back: no CVA tenderness Skin General skin exam: no petechiae and no purpura Neuro General: patient oriented x3 and no focal motor deficits Extrem General: No clubbing and No edema Results Reviewed Results Reviewed: Renal ultrasonogram done on April 02 was reviewed as 6 mm stone on the right kidney no obstruction Serum creatinine of 0.97. Urine microalbumin creatinine ratio of 38.4 Assessment & Plan Assessment & Plan (1) Renal calculi: Code(s): N20.0 - Calculus of kidney Plan: He has a 6 mm stone on the right kidney. No obstruction. He follows with Urology. Increased to stand low-sodium diet Increase fluid intake to maintain urine output of 2 L. Okay to drink lemonade. (2) CKD (chronic kidney disease): Code(s): N18.9 - Chronic kidney disease, unspecified Plan: Mild CKD in a setting of diabetes mellitus. Goal is to slow the progression of renal disease. Continue with low-dose EVONNE-inhibitor. Continue with the Jardiance for cardiorenal protection Plan She probably has obstructive sleep apnea. I will refer him back for a sleep evaluation. Last sleep study was done about 5 years ago. Orders: Orders Total Protein Urine Random 6 Months N18.9 - Chronic kidney disease, unspecified, N20.0 - Calculus of kidney Electrolytes 6 Months N18.9 - Chronic kidney disease, unspecified, N20.0 - Calculus of kidney Blood Urea Nitrogen 6 Months N18.9 - Chronic kidney disease, unspecified, N20.0 - Calculus of kidney Creatinine 6 Months N18.9 - Chronic kidney disease, unspecified, N20.0 - Calculus of kidney Creatinine Urine 6 Months N18.9 - Chronic kidney disease, unspecified, N20.0 - Calculus of kidney Calcium 6 Months N18.9 - Chronic kidney disease, unspecified, N20.0 - Calculus of kidney Referrals Sleep Medicine Referral E66.09 - Other obesity due to excess calories, I10 - Essential (primary) hypertension, K21.9 - Gastro-esophageal reflux disease without esophagitis Coding Level of Care Code Est Pt Level 4 (08220) Diagnoses Renal calculi N20.0 CKD (chronic kidney disease) N18.9
[2023-04-05 10:43] VITALS: BP 120/90; PULSE 79; O2SAT 97; BMI 36.3
== END 2023-04-05 11:01 | disposition home or self-care (01) ==
PROVIDERS: PCP Internal Medicine; Visit Provider Internal Medicine Hypertension Specialist
DX: N20.0 Calculus of kidney (principal); N18.9 Chronic kidney disease, unspecified
CPT/HCPCS: 99214

== ENCOUNTER → 2023-04-05 10:43 | Outpatient (BNVA) | payer OTHER, MEDICAID, SELFPAY | PROVIDERS: PCP Internal Medicine; Visit Provider Internal Medicine Hypertension Specialist | DX: I12.9 Hypertensive chronic kidney disease with stage 1 through stage 4 chronic kidney disease, or unspecified chronic kidney disease (principal); N18.9 Chronic kidney disease, unspecified; N20.0 Calculus of kidney | CPT/HCPCS: 99212 ==

== ENCOUNTER 2023-04-17 09:14 | Outpatient (AMB) | payer OTHER, SELFPAY ==
--- NOTE | 2023-04-17 09:48 | A.OFFVIS_ITS ---
Intake Intake Visit Reasons: 3m follow up Intake Note: Patient is Present for Follow Up Urology Medication: Vitamin B6, Tadalafil Antibiotic Allergies: None Blood Thinners: Aspirin Allergies latex Allergy (Severe, Verified 04/17/23 09:50) rash,swelling atorvastatin Allergy (Intermediate, Verified 04/17/23 09:50) stomach upset metformin Allergy (Intermediate, Verified 04/17/23 09:50) diarrhea HPI HPI Comments History of Present Illness Details Goyo is a pleasant Italian-speaking male. He is a patient of Dr. William. Presents for the following urologic conditions - nephrolithiasis - lower urinary tract symptoms backgroun d of diabetes - insulin therapy - erectile dysfunction background of [place]iana [place] Follow-up Discussed ultrasound finding Right stone smaller Continue vitamin B6 Discussed tadalafil Thinks he had some palpitations when he started Encourage to repeat Erectile dysfunction Background diabetes Trial of daily tadalafil Nephrolithiasis Prior presentation to [facility] with right-sided flank pain Imaging - 03/28 renal ultrasound right-sided low 8 mm - 05/29 CT 8 mm right UPJ - 09/26 right lower pole 7 mm - 04/28 Renal US right 4mm Intervention - 08/27 R [facility]SWL [facility] Medical History Tubular adenoma of colon FRANK (obstructive sleep apnea) Sleep apnea Mild recurrent major depression Vitamin D deficiency Neck pain Obesity due to excess calories Shortness of breath Chest pain UTI (urinary tract infection) Hematuria Renal calculi B12 deficiency due to diet Insomnia Depression with anxiety GERD (gastroesophageal reflux disease) Pure hypercholesterolemia Essential hypertension Diabetes mellitus Lumbar degenerative disc disease Surgical History H/O umbilical hernia repair (09/15/22) History of lithotripsy Hx of colonoscopy History of lumbar laminectomy Family History Father Diabetes Mother Diabetes Hypertension Son No problems noted. 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) Alcohol intake: current Alcohol intake frequency: holidays/special occasions only Alcohol type: beer Patient Tobacco Use Status: Never used Tobacco e-Cigarette/Vaping Use: Never Used Second Hand Smoke Exposure: No service: No Current occupational status: disabled Cognitive needs: No Hearing needs: No Vision needs: No Review of Systems Const Denies chills and Denies fever(s) Card Reports no additional complaints and Denies syncope Resp Denies cough GI Denies abdominal pain and Denies heartburn Reports as per HPI and Denies change in libido Neuro Denies syncope Psych Denies change in libido Endo Denies change in libido Physical Exam Const General: cooperative, healthy appearing, comfortable and no acute distress Orientation/consciousness: patient oriented x3 HEENT Face and sinus: Yes normal facial exam Mouth: moist mucous membranes Neck Neck: Yes normal visual inspection, Yes full ROM and Yes trachea midline Chest Chest palpation & inspection: normal inspection of the chest Resp Effort & Inspection: normal respiratory effort, able to speak in complete sentences and no respiratory distress GI Inspection: Yes normal to inspection Back/Spine/Pelvis Cervical Spine: normal cervical lordosis Thoracic/Lumbar Spine: thoracic and lumbar spine normal to inspection Skin General skin exam: no rashes or lesions noted Neuro General: patient oriented x3, gait normal, tone normal and moves all extremities Extrem General: Yes normal to inspection and Yes capillary refill normal Assessment & Plan Assessment & Plan (1) Erectile dysfunction due to diabetes mellitus: Code(s): E11.69 - Type 2 diabetes mellitus with other specified complication; N52.1 - Erectile dysfunction due to diseases classified elsewhere (2) Renal calculi: Code(s): N20.0 - Calculus of kidney Plan Three month follow-up tele visit Orders: Orders AMB Urinalysis Automated Today N39.0 - Urinary tract infection, site not specified, R31.9 - Hematuria, unspecified, Z13.9 - Encounter for screening, unspecified Medications: Refilled pyridoxine (vitamin B6) 50 mg PO DAILY 90 days 90 tabs 1RF Patient Instructions: Imaging studies, laboratory and physical exam results were discussed and reviewed in detail. No major barriers to patient understanding were identified. An opportunity to ask questions regarding the treatment plan was provided. All questions were answered. The patient expressed understanding and agreement with the above treatment plan. The patient is aware they should contact our office by phone for worsening of their current condition or the appearance of new urologic symptoms. Compliance is encouraged with any medications and followup testing that is ordered. It is a privilege to participate in the urologic care of your patient. If you have any questions or concerns regarding treatment for the above conditions, or other urologic issues, please do not hesitate to contact me. The office telephone contact is [phone]. This note is constructed using voice recognition software. While every effort has been made to ensure accuracy aerial applicator pilot errors may have been included. Yours sincerely, Dr Miguelito Yip MD, [facility] - Urology Providers of Expert, Compassionate Care for the Genitourinary System Coding Level of Care Code Est Pt Level 3 (58849) Diagnoses Erectile dysfunction due to diabetes mellitus E11.69; N52.1 Renal calculi N20.0
== END 2023-04-17 10:22 | disposition home or self-care (01) ==
PROVIDERS: PCP Internal Medicine; Visit Provider Urology
DX: E11.69 Type 2 diabetes mellitus with other specified complication (principal); N52.1 Erectile dysfunction due to diseases classified elsewhere; N20.0 Calculus of kidney
CPT/HCPCS: 99213

== ENCOUNTER → 2023-04-17 09:14 | Outpatient (BNVA) | payer OTHER, SELFPAY | PROVIDERS: PCP Internal Medicine; Visit Provider Urology | DX: E11.69 Type 2 diabetes mellitus with other specified complication (principal); N52.1 Erectile dysfunction due to diseases classified elsewhere; N20.0 Calculus of kidney | CPT/HCPCS: 99212 ==

== ENCOUNTER 2023-05-30 10:56 | Outpatient (AMB) | payer OTHER, MEDICAID, SELFPAY ==
--- NOTE | 2023-05-30 11:00 | MHC.PC.OV ---
Vital Signs 05/30/23 11:06 Height 5 ft 7 in Weight 233 lb BMI 36.5 BP 126/72 Blood Pressure Location Lt brachial Position Sitting Intake Visit Reasons: DM, post laminectomy syndrome, hypercholestermia Intake Note: Patient here for a follow up DM, post laminectomy syndrome, hypercholesterolemia Probate Paralegal Required: No Accompanied by: Self / Same As Patient Allergies latex Allergy (Severe, Verified 05/30/23 11:12) rash,swelling atorvastatin Allergy (Intermediate, Verified 05/30/23 11:12) stomach upset metformin Allergy (Intermediate, Verified 05/30/23 11:12) diarrhea Medication List - Last Reconciled 05/30/23 by Alba Coley MD aspirin 81 mg PO DAILY blood pressure test kit-medium As directed blood sugar diagnostic As directed blood sugar diagnostic (FreeStyle Lite Strips) As directed three times a day cholecalciferol (vitamin D3) 50 mcg PO DAILY clonazepam 1 mg PO BID PRN dulaglutide (Trulicity) 3 mg (0.5 mL) subcut QWEEK empagliflozin (Jardiance) 10 mg PO DAILY escitalopram oxalate 20 mg PO DAILY flash glucose scanning reader (FreeStyle Shaheed 2 Hallie) As directed flash glucose sensor (FreeStyle Shaheed 2 Sensor kit) DIRECTED CHANGE EVERY 14 DAYS flash glucose sensor (FreeStyle Shaheed 2 Sensor kit) As directed every 2 weeks gabapentin 600 mg PO TID PRN insulin degludec (Tresiba FlexTouch U-100 insulin) 24 units (0.24 mL) subcut BEDTIME 30 days insulin syringe-needle U-100 (BD Insulin Syringe Ultra-Fine) Use 1 pen needle once a day lancets As directed lidocaine 5% (Lidoderm) 1 patch topical DAILY lidocaine 5% 1 appl topical TID PRN 30 days lisinopril 5 mg PO DAILY loratadine 10 mg PO DAILY PRN 90 days meclizine 25 mg PO TID PRN 30 days omeprazole 20 mg PO DAILY oxycodone-acetaminophen 5-325 mg 1 tab PO Q6H PRN 30 days pen needle, diabetic (BD Ultra-Fine Short Pen Needle) USE 1 PEN NEEDLE ONCE A DAY pyridoxine (vitamin B6) 50 mg PO DAILY 90 days rosuvastatin 40 mg PO BEDTIME tadalafil 5 mg PO DAILY 90 days [wipes, aloe touch As directed] zolpidem ER 12.5 mg PO BEDTIME PRN Tobacco use date assessed: 05/30/23 Dental Screening Dental Screen Date: 05/30/23 Did you have a dental visit in the last 12 months?: Yes Did you have a dental problem in the last 6 months where you did not have access to dental care?: No Was dental information given to patient?: Patient has dentist HPI HPI Comments History of Present Illness Details This is a 48-year-old male with hypertension, pure hypercholesterolemia, mild recurrent major depression and diabetes mellitus type 2 that comes today for follow-up on his conditions. Blood pressure stable. A1c within goal. Lipid panel will be order and his LDL goal should be less than 70. Depression has improved with escitalopram. No chest pain or shortness of breath. Has chronic kidney disease follow by Nephrology. Has nephrolithiasis follow by Urology. [facility] Medical History Tubular adenoma of colon FRANK (obstructive sleep apnea) Sleep apnea Mild recurrent major depression Vitamin D deficiency Neck pain Obesity due to excess calories Shortness of breath Chest pain UTI (urinary tract infection) Hematuria Renal calculi B12 deficiency due to diet Insomnia Depression with anxiety GERD (gastroesophageal reflux disease) Pure hypercholesterolemia Essential hypertension Diabetes mellitus Lumbar degenerative disc disease Surgical History H/O umbilical hernia repair (09/15/22) History of lithotripsy Hx of colonoscopy History of lumbar laminectomy Family History Father Diabetes Mother Diabetes Hypertension Son No problems noted. 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 1. Little interest or pleasure in doing things: more than half the days 2. Feeling down, depressed, or hopeless: more than half the days 3. Trouble falling or staying asleep, or sleeping too much: nearly every day 4. Feeling tired or having little energy: nearly every day 5. Poor appetite or overeating: several days 6. Feeling bad about yourself - or that you are a failure or have let yourself or your family down: several days 7. Trouble concentrating on things, such as reading the newspaper or watching television: several days 8. Moving or speaking so slowly that other people could have noticed. Or the opposite - being so fidgety or restless that you have been moving around a lot more than usual: several days 9. Thoughts that you would be better off or of hurting yourself in some way: not at all Total score: 14 Depression Screening Interpretation: Positive Depression Screening Follow-up: Existing condition and In treatment Depression Screening Done: Yes 33601 - PHQ-9 Billing: Yes Source: Developed by Drs. Anibal Singh, Ebony Liu, Gerald Moura and colleagues, with an educational ethel from [employer]. Thrive Questionnaire Date Thrive assessed: 05/30/23 I am a: Patient What is your living situation today?: I have a steady place to live Within the past 12 months, did the food you bought not last and you didn't have the money to get more?: Never true Within the past 12 months, did you worry whether your food would run out before you got money to buy more?: Never true Do you have trouble paying for medicines?: No Do you have trouble getting transportation to medical appointments?: No Do you have trouble paying your heating and electricity bill?: No Do you have trouble taking care of your child, family member or friend?: No Do you have trouble with day-to-day activities such as bathing, preparing meals, shopping, managing finances, etc.?: No Are you currently unemployed and looking for a job?: No Are you interested in more education?: No Please select the resources that you would like help with: None Currently or been in a relationship where the following occur: no concerns reported THRIVE Score: 0 AUDIT C Alcohol Use Questionnaire (AUDIT-C) 1. How often do you have a drink containing alcohol?: Monthly or less 2. How many drinks containing alcohol do you have on a typical day when you are drinking?: 1 or 2 3. How often do you have six or more drinks on one occasion?: Never Total Score: 1 MITCHEL-7 AMB Questionnaire MITCHEL-7 Date MITCHEL - 7 assessed: 05/30/23 Feeling nervous, anxious, or on edge: 3 = Nearly every day Not being able to stop or control worryin = Not at all Worrying too much about different things: 1 = Several days Trouble relaxin = Several days Being so restless that it is hard to sit still: 1 = Several days Becoming easily annoyed or irritable: 2 = More than half the days Feeling afraid as if something awful might happen: 1 = Several days Total MITCHEL-7 score (0-4 normal; 5-9 mild; 10-14 moderate; 15-21 severe): 9 Source: Developed by Drs. Anibal Singh, Ebony Liu, Gerald Moura and colleagues, with an educational ethel from [employer]. MITCHEL-7 Assessment Billing MITCHEL-7 Assessment Tool: MITCHEL-7 Assessment 68582 Review of Systems Const All systems reviewed & are unremarkable except as noted in HPI and below Eyes Reports no additional complaints, Denies change in vision and Denies other visual disturbances Card Denies chest pain at rest, Denies chest pain with activity, Denies edema, Denies irregular heart rhythm, Denies claudication, Denies dyspnea, Denies dyspnea on exertion, Denies orthopnea, Denies paroxysmal nocturnal dyspnea and Denies slow heart rate Resp Denies cough, Denies dyspnea and Denies dyspnea on exertion GI Denies abdominal pain, Denies change in bowel habits, Denies excessive flatus, Denies nausea and Denies vomiting Denies urinary hesitancy, Denies urinary incontinence and Denies urinary urgency Musc Denies abnormal gait, Denies atrophy, Denies deformity and Denies limited range of motion Skin/Breast Denies bleeding lesions, Denies changing lesions and Denies rash Neuro Denies abnormal gait, Denies behavioral changes and Denies lack of coordination Psych Denies behavioral changes Physical exam (Primary Care) Vital Signs: Last Vital Signs BP 126/72 05/30/23 11:06 BMI result Body Mass Index 36.5 Tobacco/Smoking Status: Tobacco use Status Tobacco use date assessed 05/30/23 05/30/23 11:10 Patient Tobacco Use Status Never used Tobacco 05/30/23 11:00 e-Cigarette/Vaping Use Never Used 05/30/23 11:00 PHQ-9: PHQ-9 Score PHQ-9: Total score 14 05/30/23 11:10 Depression Screening Interpretation: Positive Depression Screening Follow-up: Existing condition and In treatment Thrive Assessment: Date of Thrive Assessment Date Thrive assessed 05/30/23 05/30/23 11:10 Currently or been in a relationship where the following occur: no concerns reported Eyes General: appearance normal, both eyes and all related structures Eyelids: Yes eyelids normal Conjunctivae: conjunctivae normal Neck Neck: Yes normal visual inspection and Yes supple Resp Effort & Inspection: normal respiratory effort Auscultation: clear to auscultation bilaterally Cardio Jugular venous distension: no JVD Rate: regular rate Rhythm: regular rhythm Heart sounds: S1 normal heart sound present and S2 normal heart sound present Extrem General: Yes full ROM Results AMB Hemoglobin A1c AMB Hemoglobin A1c 6.5 % Last Edit by MIKE Edwards on 05/30/23 11:10 Results Reviewed Results Reviewed: Laboratory Last Values Hgb A1c (Clinic) 6.5 % (4.0-6.0) H 05/30/23 11:01 Assessment and Plan Assessment & Plan (1) Mild recurrent major depression: Code(s): F33.0 - Major depressive disorder, recurrent, mild Plan: Continue escitalopram. (2) Diabetes mellitus: Code(s): E11.9 - Type 2 diabetes mellitus without complications Qualifiers: Diabetes mellitus type: type 2 Diabetes mellitus senior living insulin use: without long term acute care registered nurse use Diabetes mellitus complication status: with hyperglycemia Qualified Code(s): E11.65 - Type 2 diabetes mellitus with hyperglycemia Plan: Continue Trulicity, Tresiba and Januvia. A1c goal is equal or less than 7%. (3) Essential hypertension: Code(s): I10 - Essential (primary) hypertension Plan: Continue lisinopril. Blood pressure goal is equal or less than 130/80. (4) Pure hypercholesterolemia: Code(s): E78.00 - Pure hypercholesterolemia, unspecified Plan: Continue statins. Repeat lipid panel. LDL goal is less than 70. Orders: Orders Lipid Panel Today E78.5 - Hyperlipidemia, unspecified Microalbumin, Random (w Creat) Today E11.9 - Type 2 diabetes mellitus without complications Vitamin D 25-OH Total Today E55.9 - Vitamin D deficiency, unspecified Comprehensive [place]. Panel Fast Today N18.9 - Chronic kidney disease, unspecified AMB Hemoglobin A1c Today E11.9 - Type 2 diabetes mellitus without complications XR KUB Today N20.0 - Calculus of kidney Medications: Refilled oxycodone-acetaminophen 5-325 mg Partial Fill upon patient request. 1 tab PO Q6H 30 days PRN 120 tabs 0RF pain Coding Level of Care Code Est Pt Level 4 (70805) Diagnoses Mild recurrent major depression F33.0 Type 2 diabetes mellitus with hyperglycemia, without long-term current use of insulin E11.65 Diabetes mellitus type: type 2 Diabetes mellitus long term acute care registered nurse insulin use: without long term acute care registered nurse use Diabetes mellitus complication status: with hyperglycemia Essential hypertension I10 Pure hypercholesterolemia E78.00 Additional Codes MITCHEL-7 Assessment Billing - MITCHEL-7 Assessment Tool: MITCHEL-7 Assessment 05196 ([id number]) Time Spent (min) 22
[2023-05-30 11:06] VITALS: BP 126/72; BMI 36.5
== END 2023-05-30 11:18 | disposition home or self-care (01) ==
PROVIDERS: PCP Internal Medicine; Visit Provider Internal Medicine
DX: E11.65 Type 2 diabetes mellitus with hyperglycemia (principal); F33.0 Major depressive disorder, recurrent, mild; I10 Essential (primary) hypertension; E78.00 Pure hypercholesterolemia, unspecified
CPT/HCPCS: 83036; 99214

== ENCOUNTER 2023-05-31 10:50 | Outpatient (REF) | payer OTHER, SELFPAY ==
--- NOTE | ~2023-05-31 | XR_ITS ---
EXAMINATION: XR ABDOMEN KUB CLINICAL INDICATION: Renal calculi. COMPARISON: Abdominal radiograph 08/09/2022. Renal ultrasound 04/02/2023. TECHNIQUE: AP view of the abdomen. FINDINGS: Faint subcentimeter radiopacity projecting over the lower aspect of the right renal shadow could correlate with the subcentimeter calculus described on the prior ultrasound. No discrete additional renal calculi. Nonobstructive bowel gas pattern. Redemonstration of lower lumbar fusion hardware. No acute osseous findings. Lung bases are clear. XR/XR KUB IMPRESSION: Faint subcentimeter radiopacity projecting over the lower aspect of the right renal shadow could correlate with the subcentimeter calculus described on the prior ultrasound.
[2023-05-31 12:44] LABS: Alanine Aminotransferase 30 U/L (0-40); Albumin Level 4.6 g/dL (3.5-5.0); Alkaline Phosphatase 80 U/L (39-117); Anion Gap 14 (12-20); Aspartate Amino Transferase 18 U/L (5-37); Bilirubin Total 0.9 mg/dL (0.0-1.0); Blood Urea Nitrogen 18 mg/dL (9-16); Calcium 9.9 mg/dL (8.4-10.2); Carbon Dioxide 26 mmol/L (22-29); Chloride 104 mmol/L (96-108); Cholesterol 164 mg/dL (<200); Estimated Glomerular Filt Rate > 60; Glucose Fasting 144 mg/dL (60-99); HDL Cholesterol 44 mg/dL (>40); LDL Cholesterol Calculated 104 mg/dL (<100); Potassium 4.1 mmol/L (3.3-5.1); Sodium 140 mmol/L (135-145); Total Protein 7.6 g/dL (6.5-8.0); Triglycerides 83 mg/dL (<150)
[2023-05-31 12:54] LABS: Vitamin D 25-OH Total 15.5 ng/mL (>30)
[2023-05-31 16:05] LABS: Creatinine Urine 89.03 mg/dL; Microalbum/Creatinine Ratio Ur 29.2 ug/mg cr (<30)
== END 2023-05-31 10:51 | disposition home or self-care (01) ==
LOC: HO.XRAY 10:50
PROVIDERS: PCP Internal Medicine; Visit Provider Internal Medicine
DX: E11.9 Type 2 diabetes mellitus without complications (principal); N18.9 Chronic kidney disease, unspecified; N20.0 Calculus of kidney; E78.5 Hyperlipidemia, unspecified; E55.9 Vitamin D deficiency, unspecified
CPT/HCPCS: 36415; 74018; 80053; 80061; 82043; 82306; 82570

== ENCOUNTER 2023-06-21 12:58 | Outpatient (AMB) | payer OTHER, SELFPAY ==
--- NOTE | 2023-06-21 13:06 | A.OFFVIS_ITS ---
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 Pt reports he was diagnosed with sleep apnea many years ago. He tried CPAP, not compliant at that time and returned the CPAP. He reports difficulty sleeping and feels can't breathe well. He uses jack to get some air or he can't sleep. He snores loudly, gasping and having non refreshing sleep. Sleep questionnaire: Have you ever been diagnosed with a sleep disorder? Yes, FRANK. Have you ever had a sleep study in the past? Yes. Have you ever been treated for a sleep disorder? Yes CPAP, but not compliant. Do you take medications for a sleep disorder? Ambien ER. Do you snore? Yes. Do you wake up gasping at night? Yes Do you have episodes of apneas? Yes. If yes, are they witnessed? Yes. Do you have episodes of nocturnal chest pain or dyspnea? Yes. Do you have difficulty initiating sleep? Yes. Do you have difficulty maintaining sleep? Yes. Do you wake up tired? Yes. Do you have headaches upon awakening? Yes. Do you wake up with dry mouth or throat? Yes. Do you have GERD? Yes. Do you have nocturia? Yes. Do you have nocturnal leg cramps? Yes. Do you have symptoms of restless legs?No. Do you act out your dreams? No. Sleep hygiene questionnaire: What is your usual sleep routine? No. Usual bedtime is at ; Usual wake up time is at . Do you take naps? No. Is your sleep environment cool, dark, and quiet? Yes. Do you exercise? No. Do you take caffeine or other stimulants? No. Do you use electronics in bed? Yes. What is your work schedule? N/A. Hypersomnolence questionnaire: Do you have daytime tiredness or fatigue? Yes. Do you easily fall asleep when inactive? Yes. Have you ever had episodes of sudden weakness? No. Have you ever had episodes of sudden weakness associated with strong emotions? No. PFSH Medical History (Updated 06/21/23 @ 13:41 by Harry Blanca CNP) Tubular adenoma of colon FRANK (obstructive sleep apnea) Sleep apnea Mild recurrent major depression Vitamin D deficiency Neck pain Obesity due to excess calories Shortness of breath Chest pain UTI (urinary tract infection) Hematuria Renal calculi B12 deficiency due to diet Insomnia Depression with anxiety GERD (gastroesophageal reflux disease) Pure hypercholesterolemia Essential hypertension Diabetes mellitus Lumbar degenerative disc disease Surgical History H/O umbilical hernia repair (09/15/22) History of lithotripsy Hx of colonoscopy History of lumbar laminectomy Family History Father Diabetes Mother Diabetes Hypertension Son No problems noted. 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) Alcohol intake: current Alcohol intake frequency: holidays/special occasions only Alcohol type: beer Patient Tobacco Use Status: Never used Tobacco e-Cigarette/Vaping Use: Never Used Second Hand Smoke Exposure: No service: No Current occupational status: disabled Cognitive needs: No Hearing needs: No Vision needs: No Review of Systems Const All systems reviewed & are unremarkable except as noted in HPI and below Physical Exam Vital Signs: Last Vital Signs Pulse 97 06/21/23 13:18 BP 130/70 06/21/23 13:18 Pulse Ox 98 06/21/23 13:18 Oxygen Delivery Method Room Air 06/21/23 13:18 BMI result Body Mass Index 36.8 Const General: cooperative and tired appearing Nutritional Appearance: obese Orientation/consciousness: patient oriented x3 Neck Neck: Yes full ROM and Yes supple Resp Effort & Inspection: normal respiratory effort and able to speak in complete sentences Neuro General: patient oriented x3 and moves all extremities Cranial nerves: Yes CN's II-XII intact bilaterally Cognition (Neuro): normal cognition Motor exam (neuro): 5/5 motor strength present throughout Psych Appearance: grossly normal Mental Status: mental status grossly normal Speech and movement: Normal speech and movement present Affect: normal affect Attitude: cooperative Assessment & Plan Assessment & Plan (1) FRANK (obstructive sleep apnea): Comment: not using CPAP Code(s): G47.33 - Obstructive sleep apnea (adult) (pediatric) Plan Pt is advised to undergo home sleep study to assess for sleep apnea. Will f/u with pt after study to discuss results and appropriate treatment options. Advsied patient to try routine sleep schedule, increase daily activities. Wt reduction advised. Pt to call with any worsening concerns or questions. Orders: Orders RT home sleep study 06/21/23 G47.33 - Obstructive sleep apnea (adult) (pediatric) Coding Level of Care Code New Pt Level 3 (73390) Diagnoses FRANK (obstructive sleep apnea) G47.33
[2023-06-21 13:18] VITALS: BP 130/70; PULSE 97; O2SAT 98; BMI 36.8
== END 2023-06-21 13:46 | disposition home or self-care (01) ==
PROVIDERS: PCP Internal Medicine; Visit Provider Nurse Practitioner Family
DX: G47.33 Obstructive sleep apnea (adult) (pediatric) (principal)
CPT/HCPCS: 99203

== ENCOUNTER → 2023-06-21 12:58 | Outpatient (BNVA) | payer OTHER, SELFPAY | PROVIDERS: PCP Internal Medicine; Visit Provider Nurse Practitioner Family | DX: G47.33 Obstructive sleep apnea (adult) (pediatric) (principal) | CPT/HCPCS: 99202 ==

== ENCOUNTER 2023-07-12 09:58 | Outpatient (AMB) | payer OTHER, MEDICAID, SELFPAY ==
[2023-07-12 10:00] VITALS: BP 110/83; PULSE 97; BMI 36.5
--- NOTE | 2023-07-12 10:00 | MHC.OFFVIS ---
Intake Vital Signs 07/12/23 10:00 Height 5 ft 7 in Weight 233 lb 0.458 oz BMI 36.5 BP 110/83 Blood Pressure Location Lt brachial Position Sitting Pulse 97 Pulse Source Pulse Oximeter Intake Visit Reasons: f/u Type 2 DM-confirmed Intake Note: Patient presents today to follow up on D2MT. Last Diabetic Eye exam: 08/2022 Last Podiatry Visit: Doesn't have one. Random Glucose: 167 mg/dl HgA1c: 6.5% 05/30/23 Welding Machine Operator Required: No Accompanied by: Self / Same As Patient Allergies latex Allergy (Severe, Verified 07/12/23 10:08) rash,swelling atorvastatin Allergy (Intermediate, Verified 07/12/23 10:08) stomach upset metformin Allergy (Intermediate, Verified 07/12/23 10:08) diarrhea Medication List - Last Reconciled 07/12/23 by Anibal Dubon MD aspirin 81 mg PO DAILY blood pressure test kit-medium As directed blood sugar diagnostic As directed blood sugar diagnostic (FreeStyle Lite Strips) As directed three times a day cholecalciferol (vitamin D3) 50 mcg PO DAILY clonazepam 1 mg PO BID PRN empagliflozin (Jardiance) 10 mg PO DAILY escitalopram oxalate 20 mg PO DAILY flash glucose scanning reader (FreeStyle Shaheed 2 [place]) As directed flash glucose sensor (FreeStyle Shaheed 2 Sensor kit) DIRECTED CHANGE EVERY 14 DAYS flash glucose sensor (FreeStyle Shaheed 2 Sensor kit) As directed every 2 weeks gabapentin 600 mg PO TID PRN insulin degludec (Tresiba FlexTouch U-100 insulin) 24 units (0.24 mL) subcut BEDTIME 30 days insulin syringe-needle U-100 (BD Insulin Syringe Ultra-Fine) Use 1 pen needle once a day lancets As directed lidocaine 5% (Lidoderm) 1 patch topical DAILY lidocaine 5% 1 appl topical TID PRN 30 days lisinopril 5 mg PO DAILY loratadine 10 mg PO DAILY PRN 90 days meclizine 25 mg PO TID PRN 30 days omeprazole 20 mg PO DAILY oxycodone-acetaminophen 5-325 mg 1 tab PO Q6H PRN 30 days pen needle, diabetic (BD Ultra-Fine Short Pen Needle) USE 1 PEN NEEDLE ONCE A DAY pyridoxine (vitamin B6) 50 mg PO DAILY 90 days rosuvastatin 40 mg PO BEDTIME tadalafil 5 mg PO DAILY 90 days tirzepatide (Mounjaro) 2.5 mg (0.5 mL) subcut QWEEK 4 weeks [wipes, aloe touch As directed] zolpidem ER 12.5 mg PO BEDTIME PRN HPI HPI Comments History of Present Illness Details Patient is a 48 year male with DM type 2 diagnosed around 2001 who presents for management of diabetes. Past medical history: DM2, HTN, HLD, lumbar disc disease. Micro and macrovascular complications: none known Diabetes medications: Tresiba 24 units. Trulicity 3.0mg/week. Jardiance 10 mg . Metformin caused diarrhea Blood glucose readings: Shaheed download from 06/29/2023 to July 11 shows average point of care 207 with G mi of 8.3% and variability 19.1. 33% range with 68% hyperglycemia no hypoglycemia. %. Pen shows persistent hyperglycemia throughout the day with a slight increase after breakfast Symptoms reported: + numbness, and burning in legs. No tingling, cramping in lower extremities Hypoglycemia: denies Hyperglycemia: + urinary frequency, +nocturia, +polydypsia, Exercise: walking 45 minutes on days when back is not hurting, also walks dogs. Other specialists: extractor filler, Eliot jeffers has appt next mo Laboratory Tests 05/06/21 05/06/21 05/06/21 09:00 09:00 09:00 Creatinine 1.24 Estimated GFR > 60 Triglycerides 115 Cholesterol 151 LDL Cholesterol, C alc 95 HDL Cholesterol 33 Vitamin B12 282 25-OH Vitamin D To kodak 9 L Microalb/Creat Rat io 05/06/21 Unknown Creatinine Estimated GFR Triglycerides Cholesterol LDL Cholesterol, C alc HDL Cholesterol Vitamin B12 25-OH Vitamin D To kodak Microalb/Creat Rat io 36.2 PFSH Medical History (Updated 06/21/23 @ 13:41 by Harry Blanca CNP) Tubular adenoma of colon FRANK (obstructive sleep apnea) Sleep apnea Mild recurrent major depression Vitamin D deficiency Neck pain Obesity due to excess calories Shortness of breath Chest pain UTI (urinary tract infection) Hematuria Renal calculi B12 deficiency due to diet Insomnia Depression with anxiety GERD (gastroesophageal reflux disease) Pure hypercholesterolemia Essential hypertension Diabetes mellitus Lumbar degenerative disc disease Surgical History H/O umbilical hernia repair (09/15/22) History of lithotripsy Hx of colonoscopy History of lumbar laminectomy Family History Father Diabetes Mother Diabetes Hypertension Son No problems noted. 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 Absence of acromegalic features. Neck exam reveals nl size thyroid about 15 gms. No thyroid nodules palpable. No carotid bruits present. Lungs CTA. Heart S1 S2, Reg R/R. No M/R/ G. Skin exam reveals absence of vitiligo or acanthosis nigricans. Abdominal exam reveals Soft NT/ND with NA BS. No organomegaly present. Neck Other: . Extrem Other: Visual exam of foot performed. No ulcerations or open lesions. No onchomycosis, no callouses.Pulses 2 + distally Sensation intact to monofilament exam. Vibratory sensation sensed is intact with 128 Hz tuning fork Assessment & Plan Assessment & Plan (1) Diabetes mellitus: Code(s): E11.9 - Type 2 diabetes mellitus without complications Qualifiers: Diabetes mellitus type: type 2 Diabetes mellitus [facility] insulin use: without ocean transportation intermediary use Diabetes mellitus complication status: with hyperglycemia Qualified Code(s): E11.65 - Type 2 diabetes mellitus with hyperglycemia Plan: This is a 47-year-old male with history of type 2 diabetes being treated with Trulicity, basal-bolus insulin with poor deteriorated glycemic control and no known microvascular or macrovascular complications . A1c is not reflective of the last 2 week blood sugars that seen on the Shaheed Plan is to increase Tresiba to 30 units and change Trulicity to Mounjaro 2.5 mg Qwkly . Went over side effects of Mounjaro including but not limited to nausea, vomiting and rare risk of pancreatitis. Will have patient follow up with staff development educator. Also refer patient to Podiatry because of neuropathic pain in the lower extremities Orders: Referrals Podiatry Referral E11.9 - Type 2 diabetes mellitus without complications Medications: New tirzepatide (Mounjaro) 2.5 mg (0.5 mL) subcut QWEEK 2 mL 4RF 4 weeks Discontinued dulaglutide (Trulicity) Discontinued Reason: Doctor's Order 3 mg (0.5 mL) subcut QWEEK 6 mL 6RF E11.65 - Type 2 diabetes mellitus with hyperglycemia Coding Level of Care Code Est Pt Level 4 (21650) Diagnoses Type 2 diabetes mellitus with hyperglycemia, without long-term current use of insulin E11.65 Diabetes mellitus type: type 2 Diabetes mellitus ocean transportation intermediary insulin use: without ocean transportation intermediary use Diabetes mellitus complication status: with hyperglycemia
[2023-07-12 10:15] LABS: Glucose, Whole Blood 167 mg/dL (60-115)
== END 2023-07-12 10:23 | disposition home or self-care (01) ==
PROVIDERS: PCP Internal Medicine; Visit Provider Internal Medicine Endocrinology, Diabetes & Metabolism
DX: E11.65 Type 2 diabetes mellitus with hyperglycemia (principal)
CPT/HCPCS: 99214

== ENCOUNTER → 2023-07-12 09:58 | Outpatient (BNVA) | payer OTHER, MEDICAID, SELFPAY | PROVIDERS: PCP Internal Medicine; Visit Provider Internal Medicine Endocrinology, Diabetes & Metabolism | DX: E11.65 Type 2 diabetes mellitus with hyperglycemia (principal); Z79.85 Long-term (current) use of injectable non-insulin antidiabetic drugs; Z79.4 Long term (current) use of insulin | CPT/HCPCS: 82947; 99212 ==

== ENCOUNTER 2023-07-18 09:03 | Outpatient (AMB) | payer OTHER, MEDICAID, SELFPAY ==
--- NOTE | 2023-07-18 09:04 | A.OFFVIS_ITS ---
Intake Intake Visit Reasons: 3m follow up(Erectile Dys) Confirmed Intake Note: Patient presents today for a follow-up on Erectile Dysfunction Meds- Vitamin B6, Tadalafil Allergies to Antibiotic- No Known Allergies Blood Thinner- Aspirin Patient Symptoms: Patient stated that the medication Tadalafil is causing stomach pain, and headache. 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 He is a patient of Dr. William. Presents for the following urologic conditions - nephrolithiasis - lower urinary tract symptoms backgroun d of diabetes - insulin therapy with SGLT2 - erectile dysfunction background of diana francisco Telemedicine Evaluation 15 min Consultation TELOS Ned Video attempted Daily tadalafil follow-up - had headache Recommend trial 20 mg on demand Discussed KUB Has had pain on right side with possible stone Will organized repeat ESWL Erectile dysfunction Background diabetes Daily tadalafil caused headache Nephrolithiasis Prior presentation to [facility] with right-sided flank pain Imaging - 03/28 renal ultrasound right-sided low 8 mm - 05/29 CT 8 mm right UPJ - 09/26 right lower pole 7 mm - 04/28 Renal US right 4mm - 07/28 KUB question right small stone Intervention - 08/27 R ESWL [facility] Medical History Tubular adenoma of colon FRANK (obstructive sleep apnea) Sleep apnea Mild recurrent major depression Vitamin D deficiency Neck pain Obesity due to excess calories Shortness of breath Chest pain UTI (urinary tract infection) Hematuria Renal calculi B12 deficiency due to diet Insomnia Depression with anxiety GERD (gastroesophageal reflux disease) Pure hypercholesterolemia Essential hypertension Diabetes mellitus Lumbar degenerative disc disease Surgical History H/O umbilical hernia repair (09/15/22) History of lithotripsy Hx of colonoscopy History of lumbar laminectomy Family History Father Diabetes Mother Diabetes Hypertension Son No problems noted. 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) Alcohol intake: current Alcohol intake frequency: holidays/special occasions only Alcohol type: beer Patient Tobacco Use Status: Never used Tobacco e-Cigarette/Vaping Use: Never Used Second Hand Smoke Exposure: No service: No Current occupational status: disabled Cognitive needs: No Hearing needs: No Vision needs: No Review of Systems Const All systems reviewed & are unremarkable except as noted in HPI and below Reports no additional complaints Resp Reports no additional complaints GI Reports no additional complaints Reports as per HPI Musc Reports no additional complaints Physical Exam Telemedicine evaluation Appropriate responses Regular breathing rate and rhythm HEENT Head: Yes normal to inspection Ears: hearing grossly normal bilaterally Eyes General: appearance normal, both eyes and all related structures Neck Neck: Yes normal visual inspection Chest Chest palpation & inspection: normal inspection of the chest Resp Effort & Inspection: normal respiratory effort and able to speak in complete sentences Assessment & Plan Assessment & Plan (1) Recurrent nephrolithiasis: Code(s): N20.0 - Calculus of kidney (2) Erectile dysfunction due to diabetes mellitus: Code(s): E11.69 - Type 2 diabetes mellitus with other specified complication; N52.1 - Erectile dysfunction due to diseases classified elsewhere Plan Extracorporeal Shock Wave Lithotripsy We discussed the nature of the decision and reasonable alternatives for performing the above surgery. Interventions include chemical dissolution, ESWL, ureteroscopy with laser lithotripsy and stent placement, PCNL. Options such as medical therapy were discussed. The relative uncertainties and benefits related to each alternate procedure were adequately discussed. General surgical risks including, but not limited to, pain, bleeding, infection, myocardial infarction, pulmonary embolus, deep vein thrombosis and cerebrovascular accident which may result in further hospitalization were discussed. Full disclosure of the procedure as well as all major risks, benefits and complications were discussed including but not limited to risks of bleeding, injury to the kidney with hematoma or shanae-hematoma, failure to fragments stone, potential for ureteric obstruction from stone passage and need for secondary procedures. There is a small long-term risk of hypertension and a question uvaldo of diabetes. Success rate of fragmentation and passage is approximately 70- 75%. This is compared to the risks and benefits for ureteroscopy which has a higher success rate but is a more invasive procedure. The success rate of the procedure was discussed. Success of the procedure in the short-term does not necessarily guarantee that long-term success will be maintained. Suitable follow up will need to be maintained. The patient showed understanding of the discussion as well as the typical recovery time, and the outpatient nature of this procedure. Opportunity was given for questions. Repeat-back protocol used to confirm understanding. They wish to proceed with right ESWL Trial tadalafil 20 mg on demand Medications: New tadalafil On demand medication take 60 minutes before intended activity 20 mg PO ONCE PRN 30 tabs 0RF sexual activity 30 days E11.69 - Type 2 diabetes mellitus with o ther specified complication, N52.1 - Erectile dysfunction due to diseases classified elsewhere Discontinued tadalafil Discontinued Reason: Patient Completed Course 5 mg PO DAILY 90 tabs 1RF sexual activity 90 days E11.69 - Type 2 diabetes mellitus with other specified complication, N52.1 - Erectile dysfunction due to diseases classified elsewhere Patient Instructions: Imaging studies, laboratory and physical exam results were discussed and reviewed in detail. No major barriers to patient understanding were identified. An opportunity to ask questions regarding the treatment plan was provided. All questions were answered. The patient expressed understanding and agreement with the above treatment plan. The patient is aware they should contact our office by phone for worsening of their current condition or the appearance of new urologic symptoms. Compliance is encouraged with any medications and followup testing that is ordered. It is a privilege to participate in the urologic care of your patient. If you have any questions or concerns regarding treatment for the above conditions, or other urologic issues, please do not hesitate to contact me. The office telephone contact is [phone]. This note is constructed using voice recognition software. While every effort has been made to ensure accuracy scow derrick operator errors may have been included. Yours sincerely, Dr Miguelito Yip MD, [facility] - Urology Providers of Expert, Compassionate Care for the Genitourinary System Telehealth Telehealth Location of provider rendering services: practice address Location of patient: address on file Patient Identification confirmed using: Name, : Yes Telehealth method: video Patient verbally consented to treatment: Yes Patient verbally consented to billing insurance company: Yes Patient informed of any privacy concerns related to visit: Yes Coding Level of Care Code Tele Est Pt Level 4 (71669) Diagnoses Recurrent nephrolithiasis N20.0 Erectile dysfunction due to diabetes mellitus E11.69; N52.1
== END 2023-07-18 09:33 | disposition home or self-care (01) ==
LOC: HO.HUSH 09:04
PROVIDERS: PCP Internal Medicine; Visit Provider Urology
DX: N20.0 Calculus of kidney (principal); E11.69 Type 2 diabetes mellitus with other specified complication; N52.1 Erectile dysfunction due to diseases classified elsewhere
CPT/HCPCS: 99214

== ENCOUNTER → 2023-07-18 09:03 | Outpatient (BNVA) | payer OTHER, MEDICAID, SELFPAY | PROVIDERS: PCP Internal Medicine; Visit Provider Urology ==

== ENCOUNTER 2023-08-02 09:30 | Outpatient (AMB) | payer OTHER, MEDICAID, SELFPAY ==
--- NOTE | 2023-08-02 09:49 | A.OFFVIS_ITS ---
Intake Intake Visit Reasons: 60 min-confirmed Machine Clothing Man Required: No Accompanied by: Self / Same As Patient Allergies latex Allergy (Severe, Verified 07/18/23 09:07) rash,swelling atorvastatin Allergy (Intermediate, Verified 07/18/23 09:07) stomach upset metformin Allergy (Intermediate, Verified 07/18/23 09:07) diarrhea HPI Comprehensive Diabetes Asmnt Most Recent Diabetes Results: Microalb/Creat Ratio 29.2 ug/mg cr (<30) H 05/31/23 Cholesterol 164 mg/dL (<200) 05/31/23 HDL Cholesterol 44 mg/dL (>40) 05/31/23 Triglycerides 83 mg/dL (<150) 05/31/23 Creatinine 1.15 mg/dL (0.5-1.4) 05/31/23 Blood Urea Nitrogen 18 mg/dL (9-16) H 05/31/23 Sodium 140 mmol/L (135-145) 05/31/23 Potassium 4.1 mmol/L (3.3-5.1) 05/31/23 Chloride 104 mmol/L (96-108) 05/31/23 Carbon Dioxide 26 mmol/L (22-29) 05/31/23 Calcium 9.9 mg/dL (8.4-10.2) 05/31/23 AST 18 U/L (5-37) 05/31/23 ALT 30 U/L (0-40) 05/31/23 Total Protein 7.6 g/dL (6.5-8.0) 05/31/23 Albumin 4.6 g/dL (3.5-5.0) 05/31/23 [facility] Medical History Tubular adenoma of colon FRANK (obstructive sleep apnea) Sleep apnea Mild recurrent major depression Vitamin D deficiency Neck pain Obesity due to excess calories Shortness of breath Chest pain UTI (urinary tract infection) Hematuria Renal calculi B12 deficiency due to diet Insomnia Depression with anxiety GERD (gastroesophageal reflux disease) Pure hypercholesterolemia Essential hypertension Diabetes mellitus Lumbar degenerative disc disease Surgical History H/O umbilical hernia repair (09/15/22) History of lithotripsy Hx of colonoscopy History of lumbar laminectomy Family History Father Diabetes Mother Diabetes Hypertension Son No problems noted. 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) Alcohol intake: current Alcohol intake frequency: holidays/special occasions only Alcohol type: beer Patient Tobacco Use Status: Never used Tobacco e-Cigarette/Vaping Use: Never Used Second Hand Smoke Exposure: No service: No Current occupational status: disabled Cognitive needs: No Hearing needs: No Vision needs: No Assessment & Plan Assessment & Plan (1) Diabetes mellitus: Code(s): E11.9 - Type 2 diabetes mellitus without complications Qualifiers: Diabetes mellitus type: type 2 Diabetes mellitus terminal manager insulin use: without terminal manager use Diabetes mellitus complication status: with hyperglycemia Qualified Code(s): E11.65 - Type 2 diabetes mellitus with hyperglycemia Plan: Diabetes self-management education and support participation record Assessment/scale: 1= needs instructed? 2= needs review? 3= comprehend keep point? 4= demonstrates understanding/ competent? NC= Not Covered Topics Learning Objective: Initial visit Initial or post srvc Initial or post srvc Initial or post srvc Initial or post srvc Initial or post srvc Post srvc Comments Pre Edu-assessment/plan Outcome or reassess Outcome or reassess Outcome or reassess Outcome or reassess Outcome or reassess Outcome or reassess Diabetes pathophysiology 1 3 Healthy eating 2 3 Being active Taking medication 1 Monitoring glucose 1 3 Acute complication 2 Chronic complicated 1 Lifestyle and healthy coping 2 Diabetes distress in support 1 ?Diabetes pathophysiology: ?Defined diabetes med identify own type of diabetes; list 3 options for treating diabetes Healthy eating: ?Described effect of type, amount and ?timing of food on blood glucose; list 3 methods for planning meal Being active: ?State effect of exercise on blood glucose level Taking medication: ?State effect of diabetes medications on diabetes; name diabetes medications taking, action and side effects Monitoring glucose: ?Identify recommended blood glucose targets and personal target Acute complication: ?List symptoms and treatment of hyper and hypoglycemia, DKA, sick day guidelines and guidelines for severe weather or situations of crisis and diabetes supply manage Chronic complication: ?To find the relationship of blood glucose levels to long- term complications of diabetes in screening and preventative measures Lifestyle and healthy coping: ?Described lifestyle and healthy coping strategies to rule out diabetes self-management Diabetes to stress and support: ?Recognize Diabetes to stress and be able to identified support optionsLearning objectives: The patient was provided with verbal and written education on the following topics as outlined below. Assess patient education level/literacy/barriers Patient questions/concerns, patient using GruupMeet to review glucose Patient's average glucose for the past 2 weeks 219 mg/dL Patient above target 75% Patient at target 25% Patient below target 0% Patient's last A1c in May 2019 for 6.5% Patient reports in the past 2 weeks he has had increased pain in his back due to kidney stones Reviewed with patient the effects that pain and anxiety can have on glucose le vels The patient met all learning objectives and was able to verbalize understanding and provide teach back of education topics discussed . The patient was provided with the opportunity to ask questions and all questions were answered. Topics covered in today?s session included: Medications (If applicable) * Name of medication? * Dosing/administration instructions? * Mechanism of action? * Potential side effects? * Potential adverse reaction and appropriate treatment? * Review onset, peak, duration Assess for concerns re: insurance coverage, cost, barriers to compliance Insulin/Injectables (If applicable) * Storage/care of insulin?? * Injection sites? * Site rotation? * Onset, peak, duration * Drawing up insulin? * Injecting insulin/other injectables? * Sharps disposal Continuous blood glucose monitoring (if applicable) Hypoglycemia and Hyperglycemia * Signs and symptoms? * Causes?? * Treatment? * Preventing hypoglycemia? * When to seek medical attention * Blood glucose targets and how you feel when your blood glucose is in and out of your target ranges. * Monitoring and knowing your A1C. * What can make blood glucose go up and down and preventing high and low blood glucose. * Review of blood sugar targets in expected goal range and outside of expected goal range. * Problem solving and preventing hyper/hypoglycemia. * Sick day management of diabetes. * Using blood sugar results in decision making process in managing diabetes. ?Patient was receptive to information provided and participated in the discussion. Asked?appropriate questions and demonstrated good understanding of the topics discussed.? ? Educational Materials: The patient was provided with the following written educational materials: Target Goal handout Smart Goal Assessment:? Patient will keep carbohydrate portion at meals to 45-60 g per meal Pt met goal more than 50% New Smart Goal: Patient will continue to work on same smart goal Patient Response to instructions: Comprehension of Instructions: fair Readiness to make changes:? Contemplation How confident they feel about making changes: Positive Coding Level of Care Code Est Pt Level 1 (55351) Diagnoses Type 2 diabetes mellitus with hyperglycemia, without long-term current use of insulin E11.65 Diabetes mellitus type: type 2 Diabetes mellitus terminal manager insulin use: without fpc use Diabetes mellitus complication status: with hyperglycemia
== END 2023-08-02 09:59 | disposition home or self-care (01) ==
PROVIDERS: PCP Internal Medicine; Visit Provider Registered Nurse Diabetes Educator
DX: E11.65 Type 2 diabetes mellitus with hyperglycemia (principal)

== ENCOUNTER → 2023-08-02 09:30 | Outpatient (BNVA) | payer OTHER, MEDICAID, SELFPAY | PROVIDERS: PCP Internal Medicine; Visit Provider Registered Nurse Diabetes Educator | DX: E11.65 Type 2 diabetes mellitus with hyperglycemia (principal); N18.9 Chronic kidney disease, unspecified | CPT/HCPCS: 99211 ==

== ENCOUNTER → 2023-08-09 07:56 | Outpatient (REF) | payer OTHER, MEDICAID, SELFPAY | LOC: HO.SL 07:56 | PROVIDERS: PCP Internal Medicine; Visit Provider Nurse Practitioner Family | DX: G47.33 Obstructive sleep apnea (adult) (pediatric) (principal) | CPT/HCPCS: 95806 ==

== ENCOUNTER → 2023-08-09 08:07 | Outpatient (BNV) | payer OTHER, MEDICAID, SELFPAY | PROVIDERS: PCP Internal Medicine; Visit Provider Internal Medicine | DX: R06.83 Snoring (principal) | CPT/HCPCS: 95806 ==

== ENCOUNTER 2023-09-05 08:52 | Outpatient (AMB) | payer OTHER, SELFPAY ==
--- NOTE | 2023-09-05 08:54 | A.OFFVIS_ITS ---
Intake Visit Reasons: H&P ESWL([id number]) Intake Note: Patient is Present for Telephone Follow Up Urology Med: Vitamin B6, Tadalafil Antibiotic Allergy: None Blood Thinner: Aspirin Allergies latex Allergy (Severe, Verified 09/05/23 08:56) rash,swelling atorvastatin Allergy (Intermediate, Verified 09/05/23 08:56) stomach upset metformin Allergy (Intermediate, Verified 09/05/23 08:56) diarrhea Medication List - Last Reconciled 09/05/23 by Miguelito Yip MD aspirin 81 mg PO DAILY blood pressure test kit-medium As directed blood sugar diagnostic As directed blood sugar diagnostic (FreeStyle Lite Strips) As directed three times a day cholecalciferol (vitamin D3) 50 mcg PO DAILY clonazepam 1 mg PO BID PRN empagliflozin (Jardiance) 10 mg PO DAILY escitalopram oxalate 20 mg PO DAILY flash glucose scanning reader (FreeStyle Shaheed 2 Lyerly) As directed flash glucose sensor (FreeStyle Shaheed 2 Sensor kit) DIRECTED CHANGE EVERY 14 DAYS flash glucose sensor (FreeStyle Shaheed 2 Sensor kit) As directed every 2 weeks gabapentin 600 mg PO TID PRN insulin degludec (Tresiba FlexTouch U-100 insulin) 24 units (0.24 mL) subcut BEDTIME 30 days insulin syringe-needle U-100 (BD Insulin Syringe Ultra-Fine) Use 1 pen needle once a day lancets As directed lidocaine 5% 1 appl topical TID PRN 30 days lidocaine 5% (Lidoderm) 1 patch topical DAILY lisinopril 5 mg PO DAILY loratadine 10 mg PO DAILY PRN 90 days meclizine 25 mg PO TID PRN 30 days omeprazole 20 mg PO DAILY oxycodone-acetaminophen 5-325 mg 1 tab PO Q6H PRN 30 days pen needle, diabetic (BD Ultra-Fine Short Pen Needle) USE 1 PEN NEEDLE ONCE A DAY pyridoxine (vitamin B6) 50 mg PO DAILY 90 days rosuvastatin 40 mg PO BEDTIME tadalafil 20 mg PO ONCE PRN 30 days tirzepatide (Mounjaro) 5 mg (0.5 mL) subcut QWEEK [wipes, aloe touch As directed] zolpidem ER 12.5 mg PO BEDTIME PRN HPI Comments Details: Goyo is a pleasant Egyptian-speaking male. He is a patient of Dr. William. Presents for the following urologic conditions - nephrolithiasis - lower urinary tract symptoms background of diabetes - insulin therapy with SGLT2 - erectile dysfunction background of diabetes Telemedicine Evaluation 15 min Consultation DoximTDI Bassline Ned Video attempted Discussed upcoming surgery Knows to avoid nonsteroidals and aspirin for 10 days Has Mounjaro injection on Sunday evening and will skip week of procedure Right-sided ESWL Trial prescription sildenafil 100 mg Erectile dysfunction Background diabetes Daily tadalafil caused headache On demand Nephrolithiasis Prior presentation to [facility] with right-sided flank pain Imaging - 03/28 renal ultrasound right-sided low 8 mm - 05/29 CT 8 mm right UPJ - 09/26 right lower pole 7 mm - 04/28 Renal US right 4mm - 07/28 KUB question right small stone Intervention - 08/27 R ESWL [facility] Medical History Tubular adenoma of colon FRANK (obstructive sleep apnea) Sleep apnea Mild recurrent major depression Vitamin D deficiency Neck pain Obesity due to excess calories Shortness of breath Chest pain UTI (urinary tract infection) Hematuria Renal calculi B12 deficiency due to diet Insomnia Depression with anxiety GERD (gastroesophageal reflux disease) Pure hypercholesterolemia Essential hypertension Diabetes mellitus Lumbar degenerative disc disease Surgical History H/O umbilical hernia repair (09/15/22) History of lithotripsy Hx of colonoscopy History of lumbar laminectomy Family History Father Diabetes Mother Diabetes Hypertension Son No problems noted. 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) Alcohol intake: current Alcohol intake frequency: holidays/special occasions only Alcohol type: beer Patient Tobacco Use Status: Never used Tobacco e-Cigarette/Vaping Use: Never Used Second Hand Smoke Exposure: No service: No Current occupational status: disabled Cognitive needs: No Hearing needs: No Vision needs: No Review of Systems Const All systems reviewed & are unremarkable except as noted in HPI and below Reports no additional complaints Resp Reports no additional complaints GI Reports no additional complaints Reports as per HPI Musc Reports no additional complaints Physical Exam Telemedicine evaluation Appropriate responses Regular breathing rate and rhythm HEENT Head: Yes normal to inspection Ears: hearing grossly normal bilaterally Eyes General: appearance normal, both eyes and all related structures Neck Neck: Yes normal visual inspection Chest Chest palpation & inspection: normal inspection of the chest Resp Effort & Inspection: normal respiratory effort and able to speak in complete sentences Telehealth Telehealth Telehealth Platform: Telephone Location of provider rendering services: practice address Location of patient: address on file Patient Identification confirmed using: Name, : Yes Telehealth method: voice only Patient verbally consented to treatment: Yes Patient verbally consented to billing insurance company: Yes Patient informed of any privacy concerns related to visit: Yes Minutes spent on Phone/Video with Pt.: 15 Assessment & Plan Assessment & Plan (1) Erectile dysfunction due to diabetes mellitus: Code(s): E11.69 - Type 2 diabetes mellitus with other specified complication; N52.1 - Erectile dysfunction due to diseases classified elsewhere Category: Medical (2) Renal calculi: Code(s): N20.0 - Calculus of kidney Category: Medical Plan Risks, benefits and alternatives to therapy were discussed. These include but are not limited to infection, bleeding, damage to local organs and tissues, need for further interventions. Anesthetic risks regarding cardiac arrhythmia, blood clots, and potential mortality were discussed. The patient understands the typical recovery time and the outpatient nature of the procedure. After consideration of these risks the patient gives full informed consent and they wish to move ahead with the procedure. Right ESWL Medications: New sildenafil administer 60 minutes before intended activity 100 mg PO ONCE 30 days PRN 30 tabs 1RF sexual activity E11.69 - Type 2 diabetes mellitus with other specified complication, N52.1 - Erectile dysfunction due to diseases classified elsewhere Discontinued tadalafil On demand medication take 60 minutes before intended activity Discontinued Reason: Doctor's Order 20 mg PO ONCE 30 days PRN 30 tabs 0RF sexual activity E11.69 - Type 2 diabetes mellitus with other specified complication, N52.1 - Erectile dysfunction due to diseases classified elsewhere Patient Instructions: Imaging studies, laboratory and physical exam results were discussed and reviewed in detail. No major barriers to patient understanding were identified. An opportunity to ask questions regarding the treatment plan was provided. All questions were answered. The patient expressed understanding and agreement with the above treatment plan. The patient is aware they should contact our office by phone for worsening of their current condition or the appearance of new urologic symptoms. Compliance is encouraged with any medications and followup testing that is ordered. It is a privilege to participate in the urologic care of your patient. If you have any questions or concerns regarding treatment for the above conditions, or other urologic issues, please do not hesitate to contact me. The office telephone contact is [phone]. This note is constructed using voice recognition software. While every effort has been made to ensure accuracy awning hanger helper errors may have been included. Yours sincerely, Dr Miguelito Yip MD, [facility] - Urology Providers of Expert, Compassionate Care for the Genitourinary System Coding Level of Care Code Tele Est Pt Level 4 (56928) Diagnoses Erectile dysfunction due to diabetes mellitus E11.69; N52.1 Renal calculi N20.0
== END 2023-09-05 09:19 | disposition home or self-care (01) ==
LOC: HO.HUSH 08:52
PROVIDERS: PCP Internal Medicine; Visit Provider Urology
DX: E11.69 Type 2 diabetes mellitus with other specified complication (principal); N52.1 Erectile dysfunction due to diseases classified elsewhere; N20.0 Calculus of kidney
CPT/HCPCS: 99442

== ENCOUNTER → 2023-09-05 08:52 | Outpatient (BNVA) | payer OTHER, SELFPAY | PROVIDERS: PCP Internal Medicine; Visit Provider Urology ==

== ENCOUNTER → 2023-09-13 20:30 | Outpatient (REF) | payer OTHER, SELFPAY | LOC: HO.SL 20:30 | PROVIDERS: PCP Internal Medicine; Visit Provider Nurse Practitioner Family | DX: Z13.89 Encounter for screening for other disorder (principal) ==

== ENCOUNTER 2023-09-19 07:03 | Day surgery (SDC) | payer OTHER, SELFPAY ==
--- NOTE | 2023-09-18 10:13 | HO.ANESPROP2 ---
Documented by User: Desi Gutierrez NP 09/18/23 10:16 HPI - Anesthesia Eval Consult details Narrative: 48yo M for Right ESWL Anesthesia Pre-Procedure Meds Is the patient on any of the following meds?: GLP1/DPP4 and SGLT2 Inhib PMFSH Active Problems Active Problems: All Active Problems FRANK (obstructive sleep apnea) (Acute) CKD (chronic kidney disease) (Acute) Erectile dysfunction due to diabetes mellitus (Acute) Urinary incontinence (Acute) Lumbar radiculopathy (Acute) Myofascial pain (Acute) Post laminectomy syndrome (Acute) Sacroiliitis (Acute) Pre-procedural examination (Acute) Spinal stenosis, lumbar region with neurogenic claudication (Acute) Right shoulder pain (Acute) Left shoulder pain (Acute) Fecal occult blood test positive (Acute) Renal calculi (Acute) Positive FIT (fecal immunochemical test) (Acute) Bilateral hydrocele (Acute) Umbilical hernia (Acute) Bilateral inguinal hernia (Acute) Preoperative clearance (Acute) Intermittent left-sided chest pain (Acute) Recurrent nephrolithiasis (Acute) Diarrhea (Acute) Fatty liver (Acute) Personal history of colonic polyps (Acute) Mild recurrent major depression (Acute) Vitamin D deficiency (Acute) Neck pain (Acute) Diabetes mellitus (Acute) Essential hypertension (Acute) Pure hypercholesterolemia (Acute) Obesity due to excess calories (Acute) Shortness of breath (Acute) Chest pain (Acute) UTI (urinary tract infection) (Acute) Hematuria (Acute) Renal calculi (Acute) B12 deficiency due to diet (Acute) Insomnia (Acute) Depression with anxiety (Acute) GERD (gastroesophageal reflux disease) (Acute) Lumbar degenerative disc disease (Acute) Past Medical History Medical History Tubular adenoma of colon FRANK (obstructive sleep apnea) Sleep apnea Mild recurrent major depression Vitamin D deficiency Neck pain Obesity due to excess calories Shortness of breath Chest pain UTI (urinary tract infection) Hematuria Renal calculi B12 deficiency due to diet Insomnia Depression with anxiety GERD (gastroesophageal reflux disease) Pure hypercholesterolemia Essential hypertension Diabetes mellitus Lumbar degenerative disc disease Family History Family History Father Diabetes Mother Diabetes Hypertension Son No problems noted. 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) Alcohol intake: current Alcohol intake frequency: holidays/special occasions only Alcohol type: beer Patient Tobacco Use Status: Never used Tobacco e-Cigarette/Vaping Use: Never Used Second Hand Smoke Exposure: No Use of substances other than those prescribed or required for medical reasons: No Are you DNR?: No Advance Directives: No Advance Directives Information Provided: Yes service: No Current occupational status: disabled Cognitive needs: No Hearing needs: No Vision needs: No Meds Allergies Allergy/AdvReac Type Severity Reaction Status Date / Time latex Allergy Severe rash,swelli Verified 09/19/23 07:50 ng atorvastatin Allergy Intermediate stomach Verified 09/19/23 07:50 upset metformin Allergy Intermediate diarrhea Verified 09/19/23 07:50 Home Medications ?Medication ?Instructions ?Recorded ?Confirmed ?Last Taken ?Type blood sugar diagnostic #10 ea 03/01/20 09/19/23 Unknown History lisinopril 5 mg tablet 5 mg PO DAILY 03/01/20 09/19/23 07/03/22 History escitalopram oxalate 20 mg tablet 20 mg PO DAILY 09/09/20 09/19/23 Unknown History gabapentin 600 mg tablet 600 mg PO TID PRN pain 09/24/20 09/19/23 Unknown History clonazepam 1 mg tablet 1 mg PO BID PRN Anxiety 01/03/21 09/19/23 Unknown History zolpidem 12.5 mg tablet,extended 12.5 mg PO BEDTIME PRN Insomnia 03/20/23 09/19/23 Unknown History release,multiphase Assessment and Plan Assessment Anesthesia Assessment: Chart Reviewed Final Anesthetic Review Family History of Problems with Anesthesia: No History of Problems with Anesthesia: No Documented by User: Quinton De Santiago MD 09/19/23 08:23 [facility] Past Medical History Medical History Tubular adenoma of colon FRANK (obstructive sleep apnea) Sleep apnea Mild recurrent major depression Vitamin D deficiency Neck pain Obesity due to excess calories Shortness of breath Chest pain UTI (urinary tract infection) Hematuria Renal calculi B12 deficiency due to diet Insomnia Depression with anxiety GERD (gastroesophageal reflux disease) Pure hypercholesterolemia Essential hypertension Diabetes mellitus Lumbar degenerative disc disease Family History Family History Father Diabetes Mother Diabetes Hypertension Son No problems noted. 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) Alcohol intake: current Alcohol intake frequency: holidays/special occasions only Alcohol type: beer Patient Tobacco Use Status: Never used Tobacco e-Cigarette/Vaping Use: Never Used Second Hand Smoke Exposure: No Use of substances other than those prescribed or required for medical reasons: No Are you DNR?: No Advance Directives: No Advance Directives Information Provided: Yes service: No Current occupational status: disabled Cognitive needs: No Hearing needs: No Vision needs: No Meds Allergies Allergy/AdvReac Type Severity Reaction Status Date / Time latex Allergy Severe rash,swelli Verified 09/19/23 07:50 ng atorvastatin Allergy Intermediate stomach Verified 09/19/23 07:50 upset metformin Allergy Intermediate diarrhea Verified 09/19/23 07:50 Home Medications ?Medication ?Instructions ?Recorded ?Confirmed ?Last Taken ?Type blood sugar diagnostic #10 ea 03/01/20 09/19/23 Unknown History lisinopril 5 mg tablet 5 mg PO DAILY 03/01/20 09/19/23 07/03/22 History escitalopram oxalate 20 mg tablet 20 mg PO DAILY 09/09/20 09/19/23 Unknown History gabapentin 600 mg tablet 600 mg PO TID PRN pain 09/24/20 09/19/23 Unknown History clonazepam 1 mg tablet 1 mg PO BID PRN Anxiety 01/03/21 09/19/23 Unknown History zolpidem 12.5 mg tablet,extended 12.5 mg PO BEDTIME PRN Insomnia 03/20/23 09/19/23 Unknown History release,multiphase Exam Airway Mallampati Class: III TM Dist: >3cm Neck ROM: Full Assessment and Plan Assessment Anesthesia Assessment: Anesthesia Plan Discussed Final Anesthetic Review NPO: Yes ASA Class: III Final Preanesthetic Review: No Changes in Pt Med Stat, Meds/Allgs Chart Reviewed, Consent Obtained/Reviewed and Anes Risks/Benef Reviewed Patient Risk: Intermediate Procedure Risk: Low Anesthetic Plan Anesthetic Plan: GA Disposition: Standard PACU
--- NOTE | ~2023-09-19 | XR_ITS ---
EXAMINATION: XR ABDOMEN KUB CLINICAL INDICATION: Renal stone. COMPARISON: Abdominal radiograph dated 05/31/2023. TECHNIQUE: AP views of the abdomen. FINDINGS: Redemonstration of a right lower pole renal stone measuring up to 0.3 cm, not significantly changed when compared to the prior examination. No new radiopaque renal stone. Nonobstructive bowel gas pattern. Orthopedic hardware redemonstrated within the lower lumbar spine. XR/XR KUB IMPRESSION: Right lower pole renal stone measuring up to 0.3 cm, not significantly changed when compared to the prior examination.
[2023-09-19 07:56] VITALS: BMI 36.2
[2023-09-19 08:11] LABS: Glucose, Whole Blood 248 mg/dL (60-115)
--- NOTE | 2023-09-19 08:11 | MHC.SHP ---
Pre-Procedural Eval Section A - 24 Hr Update-Section A only Date of Service: 09/19/23 The patient is an INPATIENT: No Changes since office visit: No Cold of Flu in the past 2 weeks, No New Medical Problems, No Changes in Medication and No Patient answered all questions The patient has been examined within 24 hours of the surgical procedure. The History & Physical has been completed within 30 days and I have reviewed it.: Yes Section B - Complete if H&P > 30 days Chief Complaint: Calculus of kidney Allergies: Allergies Allergy/AdvReac Type Severity Reaction Status Date / Time latex Allergy Severe rash,swelli Verified 09/19/23 07:50 ng atorvastatin Allergy Intermediate stomach Verified 09/19/23 07:50 upset metformin Allergy Intermediate diarrhea Verified 09/19/23 07:50 Plan Diagnosis/Plan: Unchanged (right ESWL) I have reviewed the history and physical and performed a pertinent physical examination on my patient. No changes have occurred unless specified. Time Spent With Patient Time: Total time managing care of this patient today ____ minutes.
[2023-09-19 08:26] VITALS: BP 113/76; PULSE 87; RESP 18; TEMP 36.2; O2SAT 98
--- NOTE | 2023-09-19 09:29 | W.PM.OPN ---
Operative Note Operative Note Date of Service: 09/19/23 Narrative: PreOperative Diagnosis: right Renal stones Post Operative Diagnosis: right Renal stones Procedure: right ESWL Surgeon: Dr Miguelito Yip Anesthesia: mac/sedation Indications for procedure: The patient understands ESWL may be a staged procedure and subsequent intervention may be required based on imaging after ESWL. Quoted stone clearance rates for a solitary procedure are in the 70-80% range based primarily on stone location. They also understand there is a risk of bleeding to the kidney, infection, damage to adjacent organs, and stone migration following the procedure. - Imaging 6m right lower pole Procedure optimization has been performed with IV acetaminophen given in the holding area and 1 L of lactated Ringer's to be given in order to optimize the fluid-stone interface. 20 mg of IV Lasix will be given in the last 5 minutes of the procedure to optimize stone clearance. Procedure: After informed consent was verified the patient was brought to the operating room and placed in a supine position. Anesthesia was performed per protocol. Safety pause time-out was performed. Imaging was displayed in the room and laterality confirmed. ESWL was performed. The 1st 500 shocks were performed at 60 hertz. These were performed with increasing power. Once maximum power was reached the rate was increased to 180 hertz. A total of 2500 shocks were given. Targeted imaging with ultrasound/fluoroscopy showed stone smudging suggestive of disintegration. The patient tolerated the procedure well and was transferred to the recovery area upon completion. Post procedure imaging will be organized. There was no evidence for flank discoloration.
[2023-09-19 09:40] VITALS: BP 103/59; PULSE 96; RESP 16; TEMP 36.2; O2SAT 100
[2023-09-19 09:45] VITALS: BP 113/57; PULSE 101; RESP 16; O2SAT 98
[2023-09-19 09:50] VITALS: BP 111/61; PULSE 88; RESP 16; O2SAT 96
[2023-09-19 09:55] VITALS: BP 107/65; PULSE 96; RESP 16; O2SAT 97
[2023-09-19] MEDS: Phenazopyridine HCL 100 MG TABLET PO (10:01)
[2023-09-19 10:10] VITALS: BP 100/67; PULSE 83; RESP 16; TEMP 36.2; O2SAT 98
== END 2023-09-19 10:56 | disposition home or self-care (01) ==
PROVIDERS: PCP Internal Medicine; Visit Provider Urology
PROC: (CPT 50590; principal; 2023-09-19 08:10)
DX: N20.0 Calculus of kidney (principal); E11.9 Type 2 diabetes mellitus without complications; I10 Essential (primary) hypertension; Z79.4 Long term (current) use of insulin; Z79.82 Long term (current) use of aspirin; Z79.899 Other long term (current) drug therapy; Z88.8 Allergy status to other drugs, medicaments and biological substances; Z91.040 Latex allergy status
CPT/HCPCS: 50590; 74018; 82947; J0131; J1100; J1940; J2250; J2405; J2704; J3010

== ENCOUNTER → 2023-09-19 07:03 | Outpatient (BNV) | payer OTHER, SELFPAY | PROVIDERS: PCP Internal Medicine; Visit Provider Urology | DX: N20.0 Calculus of kidney (principal) | CPT/HCPCS: 50590 ==

== ENCOUNTER 2023-10-03 09:53 | Outpatient (REF) | payer OTHER, SELFPAY ==
[2023-10-03 12:33] LABS: Creatinine Urine 146.38 mg/dL; Total Protein Urine Random 12 mg/dL (<12)
[2023-10-03 12:40] LABS: Anion Gap 12 (12-20); Blood Urea Nitrogen 18 mg/dL (9-16); Calcium 9.6 mg/dL (8.4-10.2); Carbon Dioxide 27 mmol/L (22-29); Chloride 105 mmol/L (96-108); Estimated Glomerular Filt Rate > 60; Potassium 4.2 mmol/L (3.3-5.1); Sodium 140 mmol/L (135-145)
== END 2023-10-03 09:54 | disposition home or self-care (01) ==
LOC: HO.LAB 09:53
PROVIDERS: Absent Provider Internal Medicine Hypertension Specialist; PCP Internal Medicine; Visit Provider Registered Nurse Diabetes Educator
DX: E11.65 Type 2 diabetes mellitus with hyperglycemia (principal); E11.22 Type 2 diabetes mellitus with diabetic chronic kidney disease; N18.9 Chronic kidney disease, unspecified; N20.0 Calculus of kidney; Z71.89 Other specified counseling
CPT/HCPCS: 36415; 80051; 82310; 82565; 82570; 84156; 84520; 99211

== ENCOUNTER 2023-10-03 09:53 | Outpatient (AMB) | payer OTHER, MEDICAID, SELFPAY ==
--- NOTE | 2023-10-03 10:29 | A.OFFVIS_ITS ---
Intake Intake Visit Reasons: DM/CONFIRMED Media Relations Specialist Required: No Accompanied by: Self / Same As Patient Allergies latex Allergy (Severe, Verified 09/19/23 07:50) rash,swelling atorvastatin Allergy (Intermediate, Verified 09/19/23 07:50) stomach upset metformin Allergy (Intermediate, Verified 09/19/23 07:50) diarrhea HPI Comprehensive Diabetes Asmnt Most Recent Diabetes Results: Microalb/Creat Ratio 29.2 ug/mg cr (<30) H 05/31/23 Cholesterol 164 mg/dL (<200) 05/31/23 HDL Cholesterol 44 mg/dL (>40) 05/31/23 Triglycerides 83 mg/dL (<150) 05/31/23 Creatinine 1.15 mg/dL (0.5-1.4) 05/31/23 Blood Urea Nitrogen 18 mg/dL (9-16) H 05/31/23 Sodium 140 mmol/L (135-145) 05/31/23 Potassium 4.1 mmol/L (3.3-5.1) 05/31/23 Chloride 104 mmol/L (96-108) 05/31/23 Carbon Dioxide 26 mmol/L (22-29) 05/31/23 Calcium 9.9 mg/dL (8.4-10.2) 05/31/23 AST 18 U/L (5-37) 05/31/23 ALT 30 U/L (0-40) 05/31/23 Total Protein 7.6 g/dL (6.5-8.0) 05/31/23 Albumin 4.6 g/dL (3.5-5.0) 05/31/23 [facility] Medical History Tubular adenoma of colon FRANK (obstructive sleep apnea) Sleep apnea Mild recurrent major depression Vitamin D deficiency Neck pain Obesity due to excess calories Shortness of breath Chest pain UTI (urinary tract infection) Hematuria Renal calculi B12 deficiency due to diet Insomnia Depression with anxiety GERD (gastroesophageal reflux disease) Pure hypercholesterolemia Essential hypertension Diabetes mellitus Lumbar degenerative disc disease Surgical History H/O umbilical hernia repair (09/15/22) History of lithotripsy Hx of colonoscopy History of lumbar laminectomy Family History Father Diabetes Mother Diabetes Hypertension Son No problems noted. Social History Household Members: None Housing: Apartment Are you a primary health care coach to a significant other at home: No Do you presently have visiting nurse or other home services: Yes (RAIL FILLER) Alcohol intake: current Alcohol intake frequency: holidays/special occasions only Alcohol type: beer Patient Tobacco Use Status: Never used Tobacco e-Cigarette/Vaping Use: Never Used Second Hand Smoke Exposure: No service: No Current occupational status: disabled Cognitive needs: No Hearing needs: No Vision needs: No Assessment & Plan Assessment & Plan (1) Diabetes mellitus: Code(s): E11.9 - Type 2 diabetes mellitus without complications Qualifiers: Diabetes mellitus type: type 2 Diabetes mellitus assisted insulin use: without creative services producer use Diabetes mellitus complication status: with hyperglycemia Qualified Code(s): E11.65 - Type 2 diabetes mellitus with hyperglycemia Plan: Diabetes self-management education and support participation record Assessment/scale: 1= needs instructed? 2= needs review? 3= comprehend keep point? 4= demonstrates understanding/ competent? NC= Not Covered Topics Learning Objective: Initial visit Initial or post srvc Initial or post srvc Initial or post srvc Initial or post srvc Initial or post srvc Post srvc Comments Pre Edu-assessment/plan Outcome or reassess Outcome or reassess Outcome or reassess Outcome or reassess Outcome or reassess Outcome or reassess Diabetes pathophysiology 1 3 Healthy eating 2 3 Being active Taking medication 1 3 Monitoring glucose 1 3 Acute complication 2 Chronic complicated 1 4 Lifestyle and healthy coping 2 3 Diabetes distress in support 1 3 ?Diabetes pathophysiology: ?Defined diabetes med identify own type of diabetes; list 3 options for treating diabetes Healthy eating: ?Described effect of type, amount and ?timing of food on blood glucose; list 3 methods for planning meal Being active: ?State effect of exercise on blood glucose level Taking medication: ?State effect of diabetes medications on diabetes; name diabetes medications taking, action and side effects Monitoring glucose: ?Identify recommended blood glucose targets and personal target Acute complication: ?List symptoms and treatment of hyper and hypoglycemia, DKA, sick day guidelines and guidelines for severe weather or situations of crisis and diabetes supply manage Chronic complication: ?To find the relationship of blood glucose levels to long- term complications of diabetes in screening and preventative measures Lifestyle and healthy coping: ?Described lifestyle and healthy coping strategies to rule out diabetes self-management Diabetes to stress and support: ?Recognize Diabetes to stress and be able to identified support options Learning objectives: The patient was provided with verbal and written education on the following topics as outlined below. The patient met all learning objectives and was able to verbalize understanding and provide teach back of education topics discussed . The patient was provided with the opportunity to ask questions and all questions were answered. Patient Assessment Assess patient education level/literacy/barriers, patient able to identify foods that contain carbohydrates off list of [place] foods that was given today Patient questions/concerns, patient's glucose is running well above target. Patient reports approximately 2 weeks ago he had to stop diabetes medications as instructed to for a procedure related to his kidney stones. Patient has now restarted diabetes medications. Reviewed patient's Shaheed data Patient above target 87% Patient at target 13% Patient below target 0% Exercise Medical clearance Effect of exercise on blood sugar Start slowly and gradually increase pace/duration over time Goal amount of exercise Checking blood glucose/have a source of carbs with you Medications (If applicable) * Name of medication * Dosing/administration instructions * Mechanism of action * Potential side effects * Potential adverse reaction and appropriate treatment * Review onset, peak, duration Assess for concerns re: insurance coverage, cost, barriers to compliance Insulin/Injectables (If applicable) * Storage/care of insulin * Injection sites * Site rotation * Onset, peak, duration * Drawing up insulin * Injecting insulin/other injectables * Sharps disposal Continuous blood glucose monitoring (if applicable) Hypoglycemia and Hyperglycemia * Signs and symptoms * Causes * Treatment * Preventing hypoglycemia * When to seek medical attention Medical alert bracelet Lifestyle * Work * Travel * Stress management * Problem solving Know your goals * A1C * Blood sugar targets * Blood pressure * Cholesterol/LDL Urine microalbumin Smart Goal Assessment: Patient will keep meals between 45-60 g of carbohydrate Pt met goal:Pt 50% of the time: New Goal:? Patient will increase physical activity to 15 minutes a day Educational Materials: The patient was provided with the following written educational materials: ADCES 7 Healthy Behaviors Reducing Risks handout Patient Response to instructions: Comprehension of Instructions: Fair Readiness to make changes: Contemplation How confident they feel about making changes: Fair Letter of completion of diabetes patient will have A1c drawn before next visit Portions of this note were created using voice recognition software, please excuse any words or phrases that may have been misinterpreted. Patient Instructions: Include regular daily activity. ADA recommends 30 minutes of exercise 5 days a week. Weight loss talk to PCP or Exchange Mechanic before starting new plan. Test blood sugar as directed; Fasting and 2hpp largest meal. Watch trends in results. Utilize results and to assess how food, physical activity and medications affect blood sugar results. Bring glucometer or CGM to next visit. Be knowledgeable about diabetes medication, its action, side effects, efficacy, toxicity, prescribed dosage, appropriate timing and frequency of administration, effect of missed and delayed doses and instructions for storage, travel and safety. Problem solving techniques to monitor hypo/hyperglycemia episodes and treatments. Reduce risk reduction behaviors, smoking cessation, regular eye, foot and dental examinations. Follow-up with early childhood special educator in 3 months Coding Level of Care Code Est Pt Level 1 (12421) Diagnoses Type 2 diabetes mellitus with hyperglycemia, without long-term current use of insulin E11.65 Diabetes mellitus type: type 2 Diabetes mellitus assisted insulin use: without creative services producer use Diabetes mellitus complication status: with hyperglycemia
== END 2023-10-03 10:31 | disposition home or self-care (01) ==
PROVIDERS: PCP Internal Medicine; Visit Provider Registered Nurse Diabetes Educator
DX: E11.65 Type 2 diabetes mellitus with hyperglycemia (principal)

== ENCOUNTER 2023-10-04 10:59 | Outpatient (AMB) | payer OTHER, MEDICAID, SELFPAY ==
[2023-10-04 11:01] VITALS: BP 116/76; PULSE 98; O2SAT 99
--- NOTE | 2023-10-04 11:01 | HO.NEPHOV_ITS ---
Vital Signs 10/04/23 11:01 Weight 231 lb BP 116/76 Blood Pressure Location Lt brachial Position Sitting Pulse 98 Pulse Source Pulse Oximeter Pulse Oximetry (%) 99 Oxygen Delivery Method Room Air Intake Visit Reasons: CKD/ Confirmed Information Security Analyst Required: No Accompanied by: Self / Same As Patient Allergies latex Allergy (Severe, Verified 10/04/23 11:03) rash,swelling atorvastatin Allergy (Intermediate, Verified 10/04/23 11:03) stomach upset metformin Allergy (Intermediate, Verified 10/04/23 11:03) diarrhea Medication List - Last Reconciled 10/04/23 by Trent Johnson MD aspirin 81 mg PO DAILY blood pressure test kit-medium As directed blood sugar diagnostic As directed blood sugar diagnostic (FreeStyle Lite Strips) As directed three times a day cholecalciferol (vitamin D3) 50 mcg PO DAILY clonazepam 1 mg PO BID PRN empagliflozin (Jardiance) 10 mg PO DAILY escitalopram oxalate 20 mg PO DAILY flash glucose scanning reader (FreeStyle Shaheed 2 [place]) As directed flash glucose sensor (FreeStyle Shaheed 2 Sensor kit) DIRECTED CHANGE EVERY 14 DAYS flash glucose sensor (FreeStyle Shaheed 2 Sensor kit) As directed every 2 weeks gabapentin 600 mg PO TID PRN insulin degludec (Tresiba FlexTouch U-100 insulin) 24 units (0.24 mL) subcut BEDTIME 30 days insulin syringe-needle U-100 (BD Insulin Syringe Ultra-Fine) Use 1 pen needle once a day lancets As directed lidocaine 5% 1 appl topical TID PRN 30 days lidocaine 5% (Lidoderm) 1 patch topical DAILY lisinopril 5 mg PO DAILY loratadine 10 mg PO DAILY PRN 90 days meclizine 25 mg PO TID PRN 30 days naproxen 500 mg PO BID PRN 7 days omeprazole 20 mg PO DAILY oxycodone-acetaminophen 5-325 mg 1 tab PO Q6H PRN 30 days oxycodone-acetaminophen 5-325 mg 1 tab PO Q4H PRN 7 days pen needle, diabetic (BD Ultra-Fine Short Pen Needle) USE 1 PEN NEEDLE ONCE A DAY phenazopyridine (Pyridium) 100 mg PO TID PRN 4 days pyridoxine (vitamin B6) 50 mg PO DAILY 90 days rosuvastatin 40 mg PO BEDTIME sildenafil 100 mg PO ONCE PRN 30 days tamsulosin 0.4 mg PO BEDTIME 14 days tirzepatide (Mounjaro) 5 mg (0.5 mL) subcut QWEEK [wipes, aloe touch As directed] zolpidem ER 12.5 mg PO BEDTIME PRN HPI Comments Details: Middle-aged man with a history of longstanding diabetes mellitus and nephrolithiasis. He was accompanied by his today. Blood sugar seems to be better controlled. Hemoglobin A1c has decreased to 6.6 from 8.5. He has history of renal stones. Back in 2021 he had a right-sided stone measuring 8 mm. Follow-up ultrasound in September of 2022 showed same stone measuring 7 mm. He underwent extracorporeal shockwave lithotripsy. A recent ultrasonogram done about a week ago showed stone measuring 6 mm. He underwent ESWL on 09/13/2023. He has a follow-up ultrasonogram on October 14 [facility] Medical History Tubular adenoma of colon FRANK (obstructive sleep apnea) Sleep apnea Mild recurrent major depression Vitamin D deficiency Neck pain Obesity due to excess calories Shortness of breath Chest pain UTI (urinary tract infection) Hematuria Renal calculi B12 deficiency due to diet Insomnia Depression with anxiety GERD (gastroesophageal reflux disease) Pure hypercholesterolemia Essential hypertension Diabetes mellitus Lumbar degenerative disc disease Surgical History H/O umbilical hernia repair (09/15/22) History of lithotripsy Hx of colonoscopy History of lumbar laminectomy Family History Father Diabetes Mother Diabetes Hypertension Son No problems noted. Social History Household Members: None Housing: Apartment Are you a primary health care assistant to a significant other at home: No Do you presently have visiting nurse or other home services: Yes (SMOKE AND FLAME SPECIALIST) Alcohol intake: current Alcohol intake frequency: holidays/special occasions only Alcohol type: beer Patient Tobacco Use Status: Never used Tobacco e-Cigarette/Vaping Use: Never Used Second Hand Smoke Exposure: No service: No Current occupational status: disabled Cognitive needs: No Hearing needs: No Vision needs: No Physical Exam Vital Signs: Last Vital Signs Pulse 98 05/30/24 11:01 BP 116/76 10/04/23 11:01 Pulse Ox 99 10/04/23 11:01 Oxygen Delivery Method Room Air 10/04/23 11:01 Const General: comfortable; No acute distress Orientation/consciousness: patient oriented x3 Eyes General: appearance normal, both eyes and all related structures Visual Olmedo: normal visual olmedo by confrontation Neck Neck: Yes supple and Yes no JVD Resp Effort & Inspection: normal respiratory effort and respiratory effort not decreased Auscultation: rhonchi Cardio Palpation: no palpable S3 and no palpable S4 Heart sounds: no rubs GI Inspection: Yes normal to inspection Palpation (GI): Soft to palpation Percussion: Yes normal to percussion Auscultation: normal bowel sounds General: Yes no CVA tenderness Back/Spine/Pelvis Back: no CVA tenderness Skin General skin exam: no petechiae and no purpura Neuro General: patient oriented x3 and no focal motor deficits Extrem General: No clubbing and No edema Results Reviewed Nephrology Results: Sodium 140 mmol/L (135-145) 10/03/23 Potassium 4.2 mmol/L (3.3-5.1) 10/03/23 Chloride 105 mmol/L (96-108) 10/03/23 Carbon Dioxide 27 mmol/L (22-29) 10/03/23 BUN 18 mg/dL (9-16) H 10/03/23 Creatinine 1.13 mg/dL (0.5-1.4) 10/03/23 Calcium 9.6 mg/dL (8.4-10.2) 10/03/23 Urine Creatinine 146.38 mg/dL 10/03/23 Assessment & Plan Assessment & Plan (1) Renal calculi: Code(s): N20.0 - Calculus of kidney Category: Medical Plan: Status post ESWL on 09/13/2023. Awaiting follow up ultrasonogram on October 14 and urology follow up on 10/29. Increased to stand low-sodium diet Increase fluid intake to maintain urine output of 2 L. Okay to drink lemonade. We will obtain 24 urine collection prior to next visit . (2) CKD (chronic kidney disease): Code(s): N18.9 - Chronic kidney disease, unspecified Category: Medical Plan: Mild CKD in a setting of diabetes mellitus. Goal is to slow the progression of renal disease. Continue with low-dose EVONNE-inhibitor. Continue with the Jardiance for cardiorenal protection. . Plan . Orders: Orders Creatinine, 24 Hr Group Today N18.9 - Chronic kidney disease, unspecified, N20.0 - Calculus of kidney Oxalate, 24 Hr Today N18.9 - Chronic kidney disease, unspecified, N20.0 - Calculus of kidney Citric Acid 24hr Urine Today N18.9 - Chronic kidney disease, unspecified, N20.0 - Calculus of kidney Sodium, 24Hr Urine Group 5 Months N18.9 - Chronic kidney disease, unspecified, N20.0 - Calculus of kidney Calcium, 24 Hr Ur Today N18.9 - Chronic kidney disease, unspecified, N20.0 - Calculus of kidney Uric Acid, 24Hr Urine Group Today N18.9 - Chronic kidney disease, unspecified, N20.0 - Calculus of kidney Complete Blood Count Auto Diff 5 Months N18.30 - Chronic kidney disease, stage 3 unspecified Comprehensive Met. Panel 5 Months N18.9 - Chronic kidney disease, unspecified Coding Level of Care Code Est Pt Level 4 (71734) Diagnoses Renal calculi N20.0 CKD (chronic kidney disease) N18.9
== END 2023-10-04 11:16 | disposition home or self-care (01) ==
PROVIDERS: PCP Internal Medicine; Visit Provider Internal Medicine Hypertension Specialist
DX: N20.0 Calculus of kidney (principal); N18.9 Chronic kidney disease, unspecified
CPT/HCPCS: 99214

== ENCOUNTER → 2023-10-04 10:59 | Outpatient (BNVA) | payer OTHER, MEDICAID, SELFPAY | PROVIDERS: PCP Internal Medicine; Visit Provider Internal Medicine Hypertension Specialist | DX: N20.0 Calculus of kidney (principal); N18.9 Chronic kidney disease, unspecified | CPT/HCPCS: 99212 ==

== ENCOUNTER 2023-10-10 09:58 | Outpatient (AMB) | payer OTHER, SELFPAY ==
--- NOTE | 2023-10-10 10:03 | MHC.PC.OV ---
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 Required: No Accompanied by: Self / Same As Patient Allergies latex Allergy (Severe, Verified 10/10/23 10:20) rash,swelling atorvastatin Allergy (Intermediate, Verified 10/10/23 10:20) stomach upset metformin Allergy (Intermediate, Verified 10/10/23 10:20) diarrhea Medication List - Last Reconciled 10/10/23 by Alba Coley MD aspirin 81 mg PO DAILY blood pressure test kit-medium As directed blood sugar diagnostic As directed blood sugar diagnostic (FreeStyle Lite Strips) As directed three times a day cholecalciferol (vitamin D3) 50 mcg PO DAILY clonazepam 1 mg PO BID PRN empagliflozin (Jardiance) 10 mg PO DAILY escitalopram oxalate 20 mg PO DAILY flash glucose scanning reader (FreeStyle Shaheed 2 [place]) As directed flash glucose sensor (FreeStyle Shaheed 2 Sensor kit) DIRECTED CHANGE EVERY 14 DAYS flash glucose sensor (FreeStyle Shaheed 2 Sensor kit) As directed every 2 weeks gabapentin 600 mg PO TID PRN insulin degludec (Tresiba FlexTouch U-100 insulin) 24 units (0.24 mL) subcut BEDTIME 30 days insulin syringe-needle U-100 (BD Insulin Syringe Ultra-Fine) Use 1 pen needle once a day lancets As directed lidocaine 5% 1 appl topical TID PRN 30 days lidocaine 5% (Lidoderm) 1 patch topical DAILY lisinopril 5 mg PO DAILY loratadine 10 mg PO DAILY PRN 90 days meclizine 25 mg PO TID PRN 30 days naproxen 500 mg PO BID PRN 7 days omeprazole 20 mg PO DAILY oxycodone-acetaminophen 5-325 mg 1 tab PO Q4H PRN 7 days pen needle, diabetic (BD Ultra-Fine Short Pen Needle) USE 1 PEN NEEDLE ONCE A DAY phenazopyridine (Pyridium) 100 mg PO TID PRN 4 days pyridoxine (vitamin B6) 50 mg PO DAILY 90 days rosuvastatin 40 mg PO BEDTIME sildenafil 100 mg PO ONCE PRN 30 days tamsulosin 0.4 mg PO BEDTIME 14 days tirzepatide (Mounjaro) 5 mg (0.5 mL) subcut QWEEK [wipes, aloe touch As directed] zolpidem ER 12.5 mg PO BEDTIME PRN Tobacco use date assessed: 05/30/23 Dental Screening Dental Screen Date: 05/30/23 HPI HPI Comments History of Present Illness Details This is a 48-year-old male with diabetes mellitus type 2 on long-term current use of insulin, hypertension, pure hypercholesterolemia, GERD and mild major depression that comes today for follow-up on his conditions. A1c still elevated and I will increase Jardiance from 10 mg to 25 mg. I will also increase Tresiba to 25 units. Lipid panel was order and his LDL goal should be less than 70. Blood pressure stable. GERD stable with PPIs. Depression well controlled with escitalopram and this is follow by Psychiatry. Complains of constipation I will start him on docusate as needed. Had 2 episodes of rectal bleeding of fresh blood and will be referred to Gastroenterology for this matter. [facility] Medical History (Updated 10/10/23 @ 10:27 by Alba Coley MD) Tubular adenoma of colon FRANK (obstructive sleep apnea) Sleep apnea Mild recurrent major depression Vitamin D deficiency Neck pain Obesity due to excess calories Shortness of breath Chest pain UTI (urinary tract infection) Hematuria Renal calculi B12 deficiency due to diet Insomnia Depression with anxiety GERD (gastroesophageal reflux disease) Pure hypercholesterolemia Essential hypertension Diabetes mellitus Lumbar degenerative disc disease Surgical History H/O umbilical hernia repair (09/15/22) History of lithotripsy Hx of colonoscopy History of lumbar laminectomy Family History Father Diabetes Mother Diabetes Hypertension Son No problems noted. Social History Household Members: None Housing: Apartment Are you a primary hospice care transitions coordinator to a significant other at home: No Do you presently have visiting nurse or other home services: Yes ([employer]) Alcohol intake: current Alcohol intake frequency: holidays/special occasions only Alcohol type: beer Patient Tobacco Use Status: Never used Tobacco e-Cigarette/Vaping Use: Never Used Second Hand Smoke Exposure: No service: No Current occupational status: disabled Cognitive needs: No Hearing needs: No Vision needs: No Questionnaire PHQ-9 Over the last 2 weeks, how often have you been bothered by any of the following problems? 1. Little interest or pleasure in doing things: several days 2. Feeling down, depressed, or hopeless: several days 3. Trouble falling or staying asleep, or sleeping too much: several days 4. Feeling tired or having little energy: several days 5. Poor appetite or overeating: several days 6. Feeling bad about yourself - or that you are a failure or have let yourself or your family down: not at all 7. Trouble concentrating on things, such as reading the newspaper or watching television: not at all 8. Moving or speaking so slowly that other people could have noticed. Or the opposite - being so fidgety or restless that you have been moving around a lot more than usual: not at all 9. Thoughts that you would be better off or of hurting yourself in some way: not at all Total score: 5 Depression Screening Interpretation: Positive Depression Screening Follow-up: Existing condition, In treatment, Community Mental Health Worker F/U and Follow-up Visit Requested Depression Screening Done: Yes 84036 - PHQ-9 Billing: Yes Source: Developed by Drs. Anibal Singh, Gerald Henson and colleagues, with an educational ethel from [employer]. Thrive Questionnaire Date Thrive assessed: 05/30/23 MITCHEL-7 AMB Questionnaire MITCHEL-7 Date MITCHEL - 7 assessed: 05/30/23 Source: Developed by Ebony Putnam Kurt Kroenke and colleagues, with an educational ethel from [employer]. Review of Systems Const All systems reviewed & are unremarkable except as noted in HPI and below Card Denies chest pain at rest, Denies chest pain with activity, Denies edema, Denies irregular heart rhythm, Denies claudication, Denies dyspnea, Denies dyspnea on exertion, Denies orthopnea, Denies paroxysmal nocturnal dyspnea and Denies slow heart rate Resp Denies cough, Denies dyspnea and Denies dyspnea on exertion GI Reports hematochezia Physical exam (Primary Care) Vital Signs: Last Vital Signs BP 120/76 10/10/23 10:04 BMI result Body Mass Index 35.7 Tobacco/Smoking Status: Tobacco use Status Tobacco use date assessed 05/30/23 10/10/23 10:12 Patient Tobacco Use Status Never used Tobacco 10/10/23 10:12 e-Cigarette/Vaping Use Never Used 10/10/23 10:12 Depression Screening Interpretation: Positive Depression Screening Follow-up: Existing condition, In treatment, Community Mental Health Worker F/U and Follow-up Visit Requested Thrive Assessment: Date of Thrive Assessment Date Thrive assessed 05/30/23 10/10/23 10:12 Resp Effort & Inspection: normal respiratory effort Auscultation: clear to auscultation bilaterally Cardio Jugular venous distension: no JVD Rate: regular rate Rhythm: regular rhythm Heart sounds: S1 normal heart sound present and S2 normal heart sound present Extrem General: Yes full ROM Results AMB Hemoglobin A1c AMB Hemoglobin A1c 7.1 % Last Edit by MIKE Edwards on 10/10/23 10:16 Results Reviewed Results Reviewed: Laboratory Last Values Hgb A1c (Clinic) 7.1 % (4.0-6.0) H 10/10/23 10:03 Assessment and Plan Assessment & Plan (1) Diabetes mellitus: Code(s): E11.9 - Type 2 diabetes mellitus without complications Qualifiers: Diabetes mellitus type: type 2 Diabetes mellitus terminal worker insulin use: without terminal worker use Diabetes mellitus complication status: with hyperglycemia Qualified Code(s): E11.65 - Type 2 diabetes mellitus with hyperglycemia Plan: Increase Jardiance to 25 mg once a day. Increase Tresiba from 24 units to 25 units once a day. Follow-up with endocrinology. A1c goal is equal or less than 7%. (2) Mild recurrent major depression: Code(s): F33.0 - Major depressive disorder, recurrent, mild Plan: Continue escitalopram. Follow-up with psychiatry. (3) Essential hypertension: Code(s): I10 - Essential (primary) hypertension Plan: Continue lisinopril. Blood pressure goal is equal or less than 130/80. (4) Pure hypercholesterolemia: Code(s): E78.00 - Pure hypercholesterolemia, unspecified Plan: Continue statins. Repeat lipid panel. LDL goal is less than 70. (5) GERD (gastroesophageal reflux disease): Code(s): K21.9 - Gastro-esophageal reflux disease without esophagitis Qualifiers: Esophagitis presence: esophagitis presence not specified Qualified Code(s): K21.9 - Gastro-esophageal reflux disease without esophagitis Plan: Continue PPIs Orders: Orders IRON PROFILE Today D64.9 - Anemia, unspecified, K62.5 - Hemorrhage of anus and rectum Lipid Panel Today E78.5 - Hyperlipidemia, unspecified Microalbumin, Random (w Creat) Today E11.9 - Type 2 diabetes mellitus without complications Vitamin D 25-OH Total Today E55.9 - Vitamin D deficiency, unspecified AMB Hemoglobin A1c Today E11.65 - Type 2 diabetes mellitus with hyperglycemia Complete Blood Count Auto Diff Today D64.9 - Anemia, unspecified, K62.5 - Hemorrhage of anus and rectum Comprehensive [place]. Panel Fast Today N18.9 - Chronic kidney disease, unspecified Referrals Gastroenterology Referral K62.5 - Hemorrhage of anus and rectum Medications: New docusate calcium 240 mg PO BEDTIME PRN 90 caps 0RF constipation 90 days empagliflozin (Jardiance) 25 mg PO DAILY 90 tabs 1RF 90 days Changed From insulin degludec (Tresiba FlexTouch U-100 insulin) 24 units (0.24 mL) subcut BEDTIME 30 days 15 mL 6RF E11.9 - Type 2 diabetes mellitus without complications To insulin degludec (Tresiba FlexTouch U-100 insulin) 25 units (0.25 mL) subcut BEDTIME 7.5 mL 6RF 30 days E11.9 - Type 2 diabetes mellitus without complications Discontinued naproxen Discontinued Reason: Patient Completed Course 500 mg PO BID 7 days PRN 14 tabs 0RF pain empagliflozin (Jardiance) Discontinued Reason: Patient Completed Course 10 mg PO DAILY 30 tabs 5RF E11.65 - Type 2 diabetes mellitus with hyperglycemia Coding Level of Care Code Est Pt Level 4 (79210) Complex EM visit Add On G2211 Diagnoses Type 2 diabetes mellitus with hyperglycemia, without long-term current use of insulin E11.65 Diabetes mellitus type: type 2 Diabetes mellitus care home insulin use: without care home use Diabetes mellitus complication status: with hyperglycemia Mild recurrent major depression F33.0 Essential hypertension I10 Pure hypercholesterolemia E78.00 Gastroesophageal reflux disease, unspecified whether esophagitis present K21.9 Esophagitis presence: esophagitis presence not specified Time Spent (min) 23
[2023-10-10 10:04] VITALS: BP 120/76; BMI 35.7
== END 2023-10-10 10:28 | disposition home or self-care (01) ==
PROVIDERS: PCP Internal Medicine; Visit Provider Internal Medicine
DX: E11.65 Type 2 diabetes mellitus with hyperglycemia (principal); F33.0 Major depressive disorder, recurrent, mild; I10 Essential (primary) hypertension; E78.00 Pure hypercholesterolemia, unspecified; K21.9 Gastro-esophageal reflux disease without esophagitis
CPT/HCPCS: 83036; 99214; G2211

== ENCOUNTER 2023-10-15 09:28 | Outpatient (REF) | payer OTHER, SELFPAY ==
--- NOTE | ~2023-10-15 | US_ITS ---
EXAMINATION: US RETROPERITONEAL LIMITED (RENAL ONLY) CLINICAL INFORMATION: Calculus of kidney. COMPARISON: Renal ultrasound 04/02/2023 and 09/14/2022. TECHNIQUE: Real-time imaging of the kidneys. FINDINGS: RIGHT KIDNEY: 11.2 x 5.6 x 6.0 cm (SAG x AP x TRV). The kidney is normal in size, contour, and echogenicity. Renal cortical thickness is normal. No focal parenchymal lesions or hydronephrosis. 4 mm nonobstructing calculus in the lower pole. LEFT KIDNEY: 11.3 x 5.4 x 5.2 cm (SAG x AP x TRV). The kidney is normal in size, contour, and echogenicity. Renal cortical thickness is normal. No calculi or focal parenchymal lesions. No hydronephrosis. US/US renal BI IMPRESSION: 4 mm nonobstructing calculus in the right lower kidney.
[2023-10-15 10:40] LABS: MANUAL DIFF FLAG NO
[2023-10-15 11:06] LABS: Basophils Percent Auto 0.5 % (0-2); Eosinophils Absolute Auto 0.2 X10*3/uL (0.0-0.4); Eosinophils Percent Auto 2.2 % (0-4); Hematocrit 48.5 % (42.0-52.0); Hemoglobin 14.9 g/dl (14.0-18.0); Imm Gran Abs Auto 0.05 X10*3/uL (0.00-0.03); Imm Gran Pct Auto 0.6 % (0.0-0.4); Lymphocytes Absolute Auto 3.2 X10*3/uL (1.2-4.9); Lymphocytes Percent Auto 40.5 % (20-40); Mean Corpuscular HGB Conc 30.7 g/dl (31.0-36.0); Mean Corpuscular Hemoglobin 25.8 pg (27.0-33.0); Mean Corpuscular Volume 84.1 fL (80.0-98.0); Mean Platelet Volume 9.6 fL (9.4-12.4); Monocytes Absolute Auto 0.6 X10*3/uL (0.1-1.2); Monocytes Percent Auto 7.4 % (2-11); Neutrophils Absolute Auto 3.8 x10*3/uL (2.0-8.3); Neutrophils Percent Auto 48.8 % (45-73); Platelet Count 225 X10*3/uL (160-400); Red Blood Count 5.77 X10*6/uL (4.60-5.80); Red Cell Distribution Width 13.1 % (11.0-16.0); White Blood Count 7.9 X10*3/uL (4.8-10.8)
[2023-10-15 11:40] LABS: Alanine Aminotransferase 23 U/L (0-40); Albumin Level 4.6 g/dL (3.5-5.0); Alkaline Phosphatase 74 U/L (39-117); Anion Gap 18 (12-20); Aspartate Amino Transferase 16 U/L (5-37); Bilirubin Total 0.6 mg/dL (0.0-1.0); Blood Urea Nitrogen 20 mg/dL (9-16); Calcium 9.9 mg/dL (8.4-10.2); Carbon Dioxide 26 mmol/L (22-29); Chloride 102 mmol/L (96-108); Cholesterol 160 mg/dL (<200); Estimated Glomerular Filt Rate > 60; Glucose Fasting 190 mg/dL (60-99); HDL Cholesterol 43 mg/dL (>40); Iron 79 mcg/dL (45-160); LDL Cholesterol Calculated 100 mg/dL (<100); Percent Iron Saturation 28 % (15-50); Potassium 4.6 mmol/L (3.3-5.1); Sodium 141 mmol/L (135-145); Total Iron Binding Capacity 285 mcg/dL (228-428); Total Protein 7.3 g/dL (6.5-8.0); Triglycerides 86 mg/dL (<150); Unsaturated Iron Binding 206 ug/dL
[2023-10-15 11:59] LABS: Vitamin D 25-OH Total 19.4 ng/mL (>30)
[2023-10-15 12:30] LABS: Microalbum/Creatinine Ratio Ur 21.8 ug/mg cr (<30)
== END 2023-10-15 09:29 | disposition home or self-care (01) ==
LOC: HO.US 09:28
PROVIDERS: Absent Provider Internal Medicine; PCP Internal Medicine; Visit Provider Urology
DX: N20.0 Calculus of kidney (principal); D64.9 Anemia, unspecified; K62.5 Hemorrhage of anus and rectum; N18.9 Chronic kidney disease, unspecified; E11.9 Type 2 diabetes mellitus without complications; E55.9 Vitamin D deficiency, unspecified; E78.5 Hyperlipidemia, unspecified
CPT/HCPCS: 36415; 76775; 80053; 80061; 82043; 82306; 82570; 83540; 85025

== ENCOUNTER 2023-10-30 15:22 | Outpatient (AMB) | payer OTHER, SELFPAY ==
--- NOTE | 2023-10-30 15:52 | MHC.OFFVIS ---
Intake Visit Reasons: [facility]- follow up/US(10/14)pending Intake Note: Patient is Present for Follow Up [facility] Urology Medication: Vitamin b6, Tamsulosin (No longer on sildenafil) Antibiotic Allergies: None Blood Thinners: Aspirin Allergies latex Allergy (Severe, Verified 10/30/23 15:59) rash,swelling atorvastatin Allergy (Intermediate, Verified 10/30/23 15:59) stomach upset metformin Allergy (Intermediate, Verified 10/30/23 15:59) diarrhea Medication List - Last Reconciled 10/30/23 by Miguelito Yip MD aspirin 81 mg PO DAILY blood pressure test kit-medium As directed blood sugar diagnostic As directed blood sugar diagnostic (FreeStyle Lite Strips) As directed three times a day cholecalciferol (vitamin D3) 50 mcg PO DAILY clonazepam 1 mg PO BID PRN docusate calcium 240 mg PO BEDTIME PRN 90 days empagliflozin (Jardiance) 25 mg PO DAILY 90 days escitalopram oxalate 20 mg PO DAILY flash glucose scanning reader (FreeStyle Shaheed 2 [place]) As directed flash glucose sensor (FreeStyle Shaheed 2 Sensor kit) DIRECTED CHANGE EVERY 14 DAYS flash glucose sensor (FreeStyle Shaheed 2 Sensor kit) As directed every 2 weeks gabapentin 600 mg PO TID PRN insulin degludec (Tresiba FlexTouch U-100 insulin) 25 units (0.25 mL) subcut BEDTIME 30 days insulin syringe-needle U-100 (BD Insulin Syringe Ultra-Fine) Use 1 pen needle once a day lancets As directed lidocaine 5% (Lidoderm) 1 patch topical DAILY lidocaine 5% 1 appl topical TID PRN 30 days lisinopril 5 mg PO DAILY loratadine 10 mg PO DAILY PRN 90 days meclizine 25 mg PO TID PRN 30 days omeprazole 20 mg PO DAILY oxycodone-acetaminophen 5-325 mg 1 tab PO Q4H PRN 7 days pen needle, diabetic (BD Ultra-Fine Short Pen Needle) USE 1 PEN NEEDLE ONCE A DAY phenazopyridine (Pyridium) 100 mg PO TID PRN 4 days pyridoxine (vitamin B6) 50 mg PO DAILY 90 days rosuvastatin 40 mg PO BEDTIME sildenafil 100 mg PO ONCE PRN 30 days tirzepatide (Mounjaro) 5 mg (0.5 mL) subcut QWEEK [wipes, aloe touch As directed] zolpidem ER 12.5 mg PO BEDTIME PRN HPI Comments Details: Goyo is a pleasant Cuban-speaking male. He is a patient of Dr. William. Presents for the following urologic conditions - nephrolithiasis - lower urinary tract symptoms background of diabetes - insulin therapy with SGLT2 - erectile dysfunction background of diabetes Follow-up from [facility] Small fragment remains Encourage fluids with vitamin B6 and allopurinol Erectile dysfunction Background diabetes Daily tadalafil caused headache On demand sildenafil 100 mg Nephrolithiasis Prior presentation to [facility] with right-sided flank pain Imaging - 03/28 renal ultrasound right-sided low 8 mm - 05/29 CT 8 mm right UPJ - 09/26 right lower pole 7 mm - 04/28 Renal US right 4mm - 07/28 KUB question right small stone Intervention - 08/27 R [facility], 10/28 right [facility] Background diabetic PFSH Medical History Tubular adenoma of colon FRANK (obstructive sleep apnea) Sleep apnea Mild recurrent major depression Vitamin D deficiency Neck pain Obesity due to excess calories Shortness of breath Chest pain UTI (urinary tract infection) Hematuria Renal calculi B12 deficiency due to diet Insomnia Depression with anxiety GERD (gastroesophageal reflux disease) Pure hypercholesterolemia Essential hypertension Diabetes mellitus Lumbar degenerative disc disease Surgical History H/O umbilical hernia repair (09/15/22) History of lithotripsy Hx of colonoscopy History of lumbar laminectomy Family History Father Diabetes Mother Diabetes Hypertension Son No problems noted. Social History Household Members: None Housing: Apartment Are you a primary career development specialist to a significant other at home: No Do you presently have visiting nurse or other home services: Yes (CLINICAL CARE MANAGER) Alcohol intake: current Alcohol intake frequency: holidays/special occasions only Alcohol type: beer Patient Tobacco Use Status: Never used Tobacco e-Cigarette/Vaping Use: Never Used Second Hand Smoke Exposure: No service: No Current occupational status: disabled Cognitive needs: No Hearing needs: No Vision needs: No Review of Systems Const Denies chills and Denies fever(s) Card Reports no additional complaints and Denies syncope Resp Denies cough GI Denies abdominal pain and Denies heartburn Reports as per HPI and Denies change in libido Neuro Denies syncope Psych Denies change in libido Endo Denies change in libido Physical Exam Const General: cooperative, healthy appearing, comfortable and no acute distress Orientation/consciousness: patient oriented x3 HEENT Face and sinus: Yes normal facial exam Mouth: moist mucous membranes Neck Neck: Yes normal visual inspection, Yes full ROM and Yes trachea midline Chest Chest palpation & inspection: normal inspection of the chest Resp Effort & Inspection: normal respiratory effort, able to speak in complete sentences and no respiratory distress GI Inspection: Yes normal to inspection Back/Spine/Pelvis Cervical Spine: normal cervical lordosis Thoracic/Lumbar Spine: thoracic and lumbar spine normal to inspection Skin General skin exam: no rashes or lesions noted Neuro General: patient oriented x3, gait normal, tone normal and moves all extremities Extrem General: Yes normal to inspection and Yes capillary refill normal Results AMB Urinalysis, Automated UA Leukoctes 0 Leigh Ann/uL Last Edit by Chiquis Briggs [facility] on 10/30/23 16:04 UA Nitrite Negative Last Edit by Chiquis Briggs [facility] on 10/30/23 16:04 UA Urobilinogen 0.2 mg/dL Last Edit by Chiquis Briggs [facility] on 10/30/23 16:04 UA Protein 0 mg/dL Last Edit by Chiquis Briggs [facility] on 10/30/23 16:04 UA pH 6.0 Last Edit by Chiquis Briggs [facility] on 10/30/23 16:04 UA Blood 0 Alan/uL Last Edit by Chiquis Briggs [facility] on 10/30/23 16:04 UA Specific [place] 1.015 Last Edit by Chiquis Briggs [facility] on 10/30/23 16:04 UA Ketone Negative Last Edit by Chiquis Briggs [facility] on 10/30/23 16:04 UA Bilirubin 0 mg/dL Last Edit by Chiquis Briggs [facility] on 10/30/23 16:04 UA Glucose 0 mg/dL Last Edit by Chiquis Briggs [facility] on 10/30/23 16:04 Results Reviewed Results Reviewed: Laboratory Last Values Urine pH (Auto) 6.0 10/30/23 15:59 Specific [place] (Auto) 1.015 10/30/23 15:59 Urine Protein (Auto) 0 mg/dL 10/30/23 15:59 Glucose (UA)(Auto) 0 mg/dL 10/30/23 15:59 Urine Ketones (Auto) Negative 10/30/23 15:59 Urine Blood (Auto) 0 Alan/uL 10/30/23 15:59 Urine Nitrite (Auto) Negative 10/30/23 15:59 Urine Bilirubin (Auto) 0 mg/dL 10/30/23 15:59 Urine Urobilinogen (Auto) 0.2 mg/dL 10/30/23 15:59 Leukocyte Esterase (Auto) 0 Leigh Ann/uL 10/30/23 15:59 Assessment & Plan Assessment & Plan (1) Renal calculi: Code(s): N20.0 - Calculus of kidney Category: Medical Plan Six-month follow-up imaging Orders: Orders US renal BI 6 Months N20.0 - Calculus of kidney Testosterone, Total 6 Months E11.69 - Type 2 diabetes mellitus with other specified complication, N52.1 - Erectile dysfunction due to diseases classified elsewhere AMB Urinalysis Automated Today Z13.9 - Encounter for screening, unspecified Prostate Specific Antigen 6 Months E11.69 - Type 2 diabetes mellitus with other specified complication, N52.1 - Erectile dysfunction due to diseases classified elsewhere Patient Instructions: Imaging studies, laboratory and physical exam results were discussed and reviewed in detail. No major barriers to patient understanding were identified. An opportunity to ask questions regarding the treatment plan was provided. All questions were answered. The patient expressed understanding and agreement with the above treatment plan. The patient is aware they should contact our office by phone for worsening of their current condition or the appearance of new urologic symptoms. Compliance is encouraged with any medications and followup testing that is ordered. It is a privilege to participate in the urologic care of your patient. If you have any questions or concerns regarding treatment for the above conditions, or other urologic issues, please do not hesitate to contact me. The office telephone contact is [phone]. This note is constructed using voice recognition software. While every effort has been made to ensure accuracy nut picker errors may have been included. Yours sincerely, Dr Miguelito Yip MD, [facility] - Urology Providers of Expert, Compassionate Care for the Genitourinary System Coding Level of Care Code Est Pt Level 3 (87990) Diagnoses Renal calculi N20.0
== END 2023-10-30 16:19 | disposition home or self-care (01) ==
PROVIDERS: PCP Internal Medicine; Visit Provider Urology
DX: N20.0 Calculus of kidney (principal); Z13.9 Encounter for screening, unspecified
CPT/HCPCS: 99024

== ENCOUNTER → 2023-10-30 15:22 | Outpatient (BNVA) | payer OTHER, MEDICAID, SELFPAY | PROVIDERS: PCP Internal Medicine; Visit Provider Urology | DX: N20.0 Calculus of kidney (principal) | CPT/HCPCS: 81003; 99212 ==

== ENCOUNTER 2023-11-12 09:29 | Outpatient (AMB) | payer OTHER, SELFPAY ==
--- NOTE | 2023-11-12 09:32 | A.OFFVIS_ITS ---
Vital Signs 11/12/23 09:38 Height 5 ft 7 in Weight 229 lb 4.492 oz BMI 35.9 BP 118/80 Blood Pressure Location Rt brachial Position Sitting Pulse 79 Pulse Source Pulse Oximeter Intake Visit Reasons: [id number] Intake Note: New Patient presents today to established treatment for Diabetes Type 2 : Last Diabetic Eye Exam: 05/2023 Last Podiatry Exam- Does not see a Product Technology Scientist Random Glucose- 127 mg/dL, Today Most recent HbA1c- 7.1%, 10/10/2023 Behavioral Health Case Manager Required: No Accompanied by: Self / Same As Patient Allergies latex Allergy (Severe, Verified 10/30/23 15:59) rash,swelling atorvastatin Allergy (Intermediate, Verified 10/30/23 15:59) stomach upset metformin Allergy (Intermediate, Verified 10/30/23 15:59) diarrhea Medication List - Last Reconciled 11/12/23 by Birdie Duong PA-C aspirin 81 mg PO DAILY blood pressure test kit-medium As directed blood sugar diagnostic As directed blood sugar diagnostic (FreeStyle Lite Strips) As directed three times a day cholecalciferol (vitamin D3) 50 mcg PO DAILY clonazepam 1 mg PO BID PRN docusate calcium 240 mg PO BEDTIME PRN 90 days empagliflozin (Jardiance) 25 mg PO DAILY 90 days escitalopram oxalate 20 mg PO DAILY gabapentin 600 mg PO TID PRN insulin degludec (Tresiba FlexTouch U-100 insulin) 30 units subcut BEDTIME insulin syringe-needle U-100 (BD Insulin Syringe Ultra-Fine) Use 1 pen needle once a day lancets As directed lidocaine 5% (Lidoderm) 1 patch topical DAILY lidocaine 5% 1 appl topical TID PRN 30 days lisinopril 5 mg PO DAILY loratadine 10 mg PO DAILY PRN 90 days meclizine 25 mg PO TID PRN 30 days omeprazole 20 mg PO DAILY oxycodone-acetaminophen 5-325 mg 1 tab PO Q4H PRN 7 days pen needle, diabetic (BD Ultra-Fine Short Pen Needle) USE 1 PEN NEEDLE ONCE A DAY phenazopyridine (Pyridium) 100 mg PO TID PRN 4 days pyridoxine (vitamin B6) 50 mg PO DAILY 90 days rosuvastatin 40 mg PO BEDTIME sildenafil 100 mg PO ONCE PRN 30 days tirzepatide (Mounjaro) 5 mg (0.5 mL) subcut QWEEK [wipes, aloe touch As directed] zolpidem ER 12.5 mg PO BEDTIME PRN HPI HPI [id number]: Details: Patient is a 48-year-old male with a significant past medical history of type 2 diabetes, hypertension, hyperlipidemia, ED, FRANK, CKD presenting today for diabetic follow-up. Endo: Last followed with Dr. Dubon in July. Saw PCP last month and had the tresiba increased along with his Jardiance. He is currently on Tresiba 30 units nightly, Jardiance 25 mg, and Mounjaro 5 mg weekly. He states that he did have some dietary indiscretions the last couple weeks. He had Gabonese food a couple times which did elevate his blood sugar to 400. He states that he is now carol iding Gabonese food and limiting his Nepali food. He is increasing his walking. freestyle 2, cgm- use age 57%, average glucose 172, 7.4 present, glucose variability 22.3%. Very high 5%, high 29%, in range 66%, hypoglycemic 0% He does have peripheral neuropathy (right worse than left), nephropathy, glaucoma and ED. He is on gabapentin at night for neuropathy. He has eye surgeon, portable machine cutter and urologist. CV: Blood pressure today in the office is 118/80. He is on lisinopril 5 mg. Cholesterol is controlled with Crestor 40 mg. Nephro: Follows with Nephrology. He is on an EVONNE-inhibitor, Jardiance and mounjaro. avoids nsaids. [facility] Medical History Tubular adenoma of colon FRANK (obstructive sleep apnea) Sleep apnea Mild recurrent major depression Vitamin D deficiency Neck pain Obesity due to excess calories Shortness of breath Chest pain UTI (urinary tract infection) Hematuria Renal calculi B12 deficiency due to diet Insomnia Depression with anxiety GERD (gastroesophageal reflux disease) Pure hypercholesterolemia Essential hypertension Diabetes mellitus Lumbar degenerative disc disease Surgical History H/O umbilical hernia repair (09/15/22) History of lithotripsy Hx of colonoscopy History of lumbar laminectomy Family History Father Diabetes Mother Diabetes Hypertension Son No problems noted. Social History Household Members: None Housing: Apartment Are you a primary director of healthcare systems to a significant other at home: No Do you presently have visiting nurse or other home services: Yes (JAVA J2EE ARCHITECT) Alcohol intake: current Alcohol intake frequency: holidays/special occasions only Alcohol type: beer Patient Tobacco Use Status: Never used Tobacco e-Cigarette/Vaping Use: Never Used Second Hand Smoke Exposure: No service: No Current occupational status: disabled Cognitive needs: No Hearing needs: No Vision needs: No Physical Exam Vital Signs: BMI result Body Mass Index 35.9 Const Orientation/consciousness: patient oriented x3 Neck Neck: Yes no lymphadenopathy Thyroid: Thyroid normal Carotids: no bruits Resp Auscultation: clear to auscultation bilaterally Cardio Rate: regular rate Rhythm: regular rhythm Heart sounds: S1 normal heart sound present and S2 normal heart sound present Peripheral pulses: dorsalis pedis present Neuro General: patient oriented x3, gait normal and no focal motor deficits Extrem Other: Monofilament sensation reduced on right foot, absent vibratory sensation to right foot. Vibratory sensation diminished on left. Monofilament sensation intact on left. Skin intact. DP pulses 2+. General: Yes normal to inspection and Yes capillary refill normal Results Reviewed Results Reviewed: Laboratory Tests 10/10/23 10/15/23 10:03 10:39 Sodium 141 Potassium 4.6 Chloride 102 Carbon Dioxide 26 Anion Gap 18 BUN 20 H Creatinine 1.05 Estimated GFR > 60 Fasting Glucose 190 H Hgb A1c (Clinic) 7.1 H Calcium 9.9 AST 16 ALT 23 Alkaline Phosphatase 74 Triglycerides 86 Cholesterol 160 LDL Cholesterol, Calc 100 H HDL Cholesterol 43 Assessment & Plan Assessment & Plan (1) Uncontrolled type 2 diabetes mellitus with hyperglycemia, with long-term current use of insulin: Code(s): E11.65 - Type 2 diabetes mellitus with hyperglycemia; Z79.4 - snf (current) use of insulin Category: Medical Plan: A1c not quite at goal however has improvement of his glucose readings. We will continue this current regimen and have him follow-up in 3 months. Labs prior to appointment. He will follow up sooner if anything worsens or changes. We did discuss increasing the mounjaro but he wants to wait on this as he is making diet changes. We will switch glucose reader to the freestyle Shaheed 3. (2) Essential hypertension: Code(s): I10 - Essential (primary) hypertension Category: Medical Plan: Continue current regimen. (3) Pure hypercholesterolemia: Code(s): E78.00 - Pure hypercholesterolemia, unspecified Category: Medical Plan: Continue Crestor. We discussed reducing his fatty food intake. Will monitor his cholesterol. Orders: Orders Microalbumin, Random (w Creat) Today E11.65 - Type 2 diabetes mellitus with hyperglycemia, E78.00 - Pure hypercholesterolemia, unspecified, I10 - Essential (primary) hypertension, Z79.4 - medical terminologist (current) use of insulin Hemoglobin A1c Today E11.65 - Type 2 diabetes mellitus with hyperglycemia, E78.00 - Pure hypercholesterolemia, unspecified, I10 - Essential (primary) hypertension, Z79.4 - medical terminologist (current) use of insulin Medications: New insulin degludec (Tresiba FlexTouch U-100 insulin) 30 units (0.3 mL) subcut BEDTIME 15 mL 6RF E11.9 - Type 2 diabetes mellitus without complications blood-glucose meter,continuous (FreeStyle Shaheed 3 [place]) As directed 1 ea 0RF E11.65 - Type 2 diabetes mellitus with hyperglycemia, N18.9 - Chronic kidney disease, unspecified, Z79.4 - medical terminologist (current) use of insulin blood-glucose sensor (FreeStyle Shaheed 3 Sensor device) Apply every 14 days As directed 6 ea 3RF E11.9 - Type 2 diabetes mellitus without complications, Z79.4 - medical terminologist (current) use of insulin Refilled tirzepatide (Mounjaro) 5 mg (0.5 mL) subcut QWEEK 2 mL 4RF Coding Level of Care Code Est Pt Level 4 (92905) Complex EM visit Add On G2211 Diagnoses Uncontrolled type 2 diabetes mellitus with hyperglycemia, with long-term current use of insulin E11.65; Z79.4 Essential hypertension I10 Pure hypercholesterolemia E78.00
[2023-11-12 09:38] VITALS: BP 118/80; PULSE 79; BMI 35.9
[2023-11-12 09:49] LABS: Glucose, Whole Blood 127 mg/dL (60-115)
== END 2023-11-12 10:15 | disposition home or self-care (01) ==
PROVIDERS: PCP Internal Medicine; Visit Provider Physician Assistant
DX: E11.65 Type 2 diabetes mellitus with hyperglycemia (principal); Z79.4 Long term (current) use of insulin; I10 Essential (primary) hypertension; E78.00 Pure hypercholesterolemia, unspecified
CPT/HCPCS: 99214; G2211

== ENCOUNTER → 2023-11-12 09:29 | Outpatient (BNVA) | payer OTHER, SELFPAY | PROVIDERS: PCP Internal Medicine; Visit Provider Physician Assistant | DX: E11.65 Type 2 diabetes mellitus with hyperglycemia (principal); I10 Essential (primary) hypertension; E78.00 Pure hypercholesterolemia, unspecified; Z79.4 Long term (current) use of insulin | CPT/HCPCS: 82947; 99212 ==

== ENCOUNTER 2024-01-03 09:56 | Outpatient (AMB) | payer OTHER, MEDICAID, SELFPAY ==
--- NOTE | 2024-01-03 10:11 | MHC.AMDMED ---
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 Required: No Accompanied by: Self / Same As Patient Allergies latex Allergy (Severe, Verified 10/30/23 15:59) rash,swelling atorvastatin Allergy (Intermediate, Verified 10/30/23 15:59) stomach upset metformin Allergy (Intermediate, Verified 10/30/23 15:59) diarrhea HPI Comprehensive Diabetes Asmnt Most Recent Diabetes Results: Microalb/Creat Ratio 21.8 ug/mg cr (<30) 10/15/23 Cholesterol 160 mg/dL (<200) 10/15/23 HDL Cholesterol 43 mg/dL (>40) 10/15/23 Triglycerides 86 mg/dL (<150) 10/15/23 Creatinine 1.05 mg/dL (0.5-1.4) 10/15/23 Blood Urea Nitrogen 20 mg/dL (9-16) H 10/15/23 Sodium 141 mmol/L (135-145) 10/15/23 Potassium 4.6 mmol/L (3.3-5.1) 10/15/23 Chloride 102 mmol/L (96-108) 10/15/23 Carbon Dioxide 26 mmol/L (22-29) 10/15/23 Calcium 9.9 mg/dL (8.4-10.2) 10/15/23 AST 16 U/L (5-37) 10/15/23 ALT 23 U/L (0-40) 10/15/23 Total Protein 7.3 g/dL (6.5-8.0) 10/15/23 Albumin 4.6 g/dL (3.5-5.0) 10/15/23 [facility] Medical History Tubular adenoma of colon FRANK (obstructive sleep apnea) Sleep apnea Mild recurrent major depression Vitamin D deficiency Neck pain Obesity due to excess calories Shortness of breath Chest pain UTI (urinary tract infection) Hematuria Renal calculi B12 deficiency due to diet Insomnia Depression with anxiety GERD (gastroesophageal reflux disease) Pure hypercholesterolemia Essential hypertension Diabetes mellitus Lumbar degenerative disc disease Surgical History H/O umbilical hernia repair (09/15/22) History of lithotripsy Hx of colonoscopy History of lumbar laminectomy Family History Father Diabetes Mother Diabetes Hypertension Son No problems noted. Social History Household Members: None Housing: Apartment Are you a primary career services manager to a significant other at home: No Do you presently have visiting nurse or other home services: Yes (DENTAL SERVICE TECHNICIAN) Alcohol intake: current Alcohol intake frequency: holidays/special occasions only Alcohol type: beer Patient Tobacco Use Status: Never used Tobacco e-Cigarette/Vaping Use: Never Used Second Hand Smoke Exposure: No service: No Current occupational status: disabled Cognitive needs: No Hearing needs: No Vision needs: No Assessment & Plan Assessment & Plan (1) Uncontrolled type 2 diabetes mellitus with hyperglycemia, with long-term current use of insulin: Code(s): E11.65 - Type 2 diabetes mellitus with hyperglycemia; Z79.4 - long-term (current) use of insulin Plan: Personal Continuous Glucose Monitor: Patients CGM information reviewed Reviewed patient's sensor data: Hypoglycemia: ? 0% Hyperglycemia:? 16% Time in Range:? 84% Average glucose for the last 2 weeks? 149 mg/dL Patient's glucose is well controlled at this time. Patient's last A1c on 10/10/2023 7.1 % Patient will be due for next A1c in January 2024, Patient reports he has an upcoming appointment with his PCP At last visit we discussed patient increasing physical activity, patient reports that 2-3 days a week he does go to [employer] to walk. Encourage patient to continue physical activity to assist in glucose control Patient denies episodes of hypoglycemia Patient had downloaded Power Efficiency 3 jono onto his phone, will begin using smart phone to see glucose numbers when current sensor expires Connected patient's smart phone to upload to our Power Efficiency review account Reviewed how to interpret trend arrows Reminded patient that to check finger sticks if symptoms do not match sensor reading. Discussed lag time between finger stick and sensor data.? Patient able to insert sensor independently at home without issue.? Portions of this note were created using voice recognition software, please excuse any words or phrases that may have been misinterpreted. Patient Instructions: Patient will follow-up as needed Coding Level of Care Code Est Pt Level 1 (73947) Diagnoses Uncontrolled type 2 diabetes mellitus with hyperglycemia, with long-term current use of insulin E11.65; Z79.4
== END 2024-01-03 11:10 | disposition home or self-care (01) ==
PROVIDERS: PCP Internal Medicine; Visit Provider Registered Nurse Diabetes Educator
DX: E11.65 Type 2 diabetes mellitus with hyperglycemia (principal); Z79.4 Long term (current) use of insulin

== ENCOUNTER → 2024-01-03 09:56 | Outpatient (BNVA) | payer OTHER, MEDICAID, SELFPAY | PROVIDERS: PCP Internal Medicine; Visit Provider Registered Nurse Diabetes Educator | DX: E11.65 Type 2 diabetes mellitus with hyperglycemia (principal); Z79.4 Long term (current) use of insulin | CPT/HCPCS: 99211 ==

== ENCOUNTER 2024-02-11 09:55 | Outpatient (AMB) | payer OTHER, MEDICAID, SELFPAY ==
--- NOTE | 2024-02-11 10:07 | MHC.OFFVIS ---
Vital Signs 02/11/24 10:11 Height 5 ft 7 in Weight 229 lb 11.547 oz BMI 36.0 BP 108/72 Blood Pressure Location Rt brachial Position Sitting Pulse 97 Pulse Source Pulse Oximeter Intake Visit Reasons: T2DM/LVM Intake Note: Patient presents today for D2MT follow up visit. Last Diabetic Eye exam: 08/2023 Last Podiatry Visit: Doesn't have one Random Glucose: 156 mg/dl HgA1c: Bead Forming Machine Operator Required: No Accompanied by: Self / Same As Patient Allergies latex Allergy (Severe, Verified 02/11/24 10:16) rash,swelling atorvastatin Allergy (Intermediate, Verified 02/11/24 10:16) stomach upset metformin Allergy (Intermediate, Verified 02/11/24 10:16) diarrhea Medication List - Last Reconciled 02/11/24 by Birdie Duong PA-C aspirin 81 mg PO DAILY blood pressure test kit-medium As directed blood sugar diagnostic As directed blood sugar diagnostic (FreeStyle Lite Strips) As directed three times a day blood-glucose meter,continuous (FreeStyle Shaheed 3 [place]) As directed blood-glucose sensor (FreeStyle Shaheed 3 Sensor device) Apply every 14 days As directed cholecalciferol (vitamin D3) 50 mcg PO DAILY clonazepam 1 mg PO BID PRN docusate calcium 240 mg PO BEDTIME PRN 90 days empagliflozin (Jardiance) 25 mg PO DAILY 90 days escitalopram oxalate 20 mg PO DAILY gabapentin 600 mg PO TID PRN insulin degludec (Tresiba FlexTouch U-100 insulin) 30 units (0.3 mL) subcut BEDTIME insulin syringe-needle U-100 (BD Insulin Syringe Ultra-Fine) Use 1 pen needle once a day lancets As directed lidocaine 5% 1 appl topical TID PRN 30 days lidocaine 5% (Lidoderm) 1 patch topical DAILY lisinopril 5 mg PO DAILY loratadine 10 mg PO DAILY PRN 90 days meclizine 25 mg PO TID PRN 30 days omeprazole 20 mg PO DAILY oxycodone-acetaminophen 5-325 mg 1 tab PO Q6H PRN 30 days pen needle, diabetic (BD Ultra-Fine Short Pen Needle) USE 1 PEN NEEDLE ONCE A DAY phenazopyridine (Pyridium) 100 mg PO TID PRN 4 days pyridoxine (vitamin B6) 50 mg PO DAILY 90 days rosuvastatin 40 mg PO BEDTIME sildenafil 100 mg PO ONCE PRN 30 days [wipes, aloe touch As directed] zolpidem ER 12.5 mg PO BEDTIME PRN HPI HPI T2DM/LVM: Details: Patient is a 48-year-old male with a significant past medical history of type 2 diabetes, hypertension, hyperlipidemia, ED, FRANK, CKD presenting today for diabetic follow-up. -Forgot to do labs prior to appointment Endo: Last A1c was 7.1. He A1c today is 6.7. He is currently on Tresiba 30 units nightly, Jardiance 25 mg, and Mounjaro 5 mg weekly. -he has not noticed any real weight loss with the Mounjaro. He does notice that his blood sugars are elevated when he eats lunch and supper. It is mostly elevated with his increased carbohydrate intake at that time. He tries hard to avoid carbs. freestyle 2, cgm- use age 89%, average glucose 182, 7.7%, glucose variability 20.3%. Very high 6%, high 39%, in range 55%, hypoglycemic 0% He does have peripheral neuropathy (right worse than left), nephropathy, glaucoma and ED. He is on gabapentin at night for neuropathy. He has adjudication specialist, content publisher and urologist. CV: Blood pressure today in the office is 108/72. He is on lisinopril 5 mg. Cholesterol is controlled with Crestor 40 mg. Nephro: Follows with Nephrology. He is on an EVONNE-inhibitor, Jardiance and mounjaro. avoids nsaids. [facility] Medical History (Updated 02/11/24 @ 10:34 by Birdie Duong PA-C) Tubular adenoma of colon FRANK (obstructive sleep apnea) Sleep apnea Mild recurrent major depression Vitamin D deficiency Neck pain Obesity due to excess calories Shortness of breath Chest pain UTI (urinary tract infection) Hematuria Renal calculi B12 deficiency due to diet Insomnia Depression with anxiety GERD (gastroesophageal reflux disease) Pure hypercholesterolemia Essential hypertension Diabetes mellitus Lumbar degenerative disc disease Surgical History H/O umbilical hernia repair (09/15/22) History of lithotripsy Hx of colonoscopy History of lumbar laminectomy Family History Father Diabetes Mother Diabetes Hypertension Son No problems noted. Social History Household Members: None Housing: Apartment Are you a primary intensive care unit registered nurse to a significant other at home: No Do you presently have visiting nurse or other home services: Yes (CLIMATOLOGY PROFESSOR) Alcohol intake: current Alcohol intake frequency: holidays/special occasions only Alcohol type: beer Patient Tobacco Use Status: Never used Tobacco e-Cigarette/Vaping Use: Never Used Second Hand Smoke Exposure: No service: No Current occupational status: disabled Cognitive needs: No Hearing needs: No Vision needs: No Physical Exam Const Orientation/consciousness: patient oriented x3 Neck Neck: Yes no lymphadenopathy Thyroid: Thyroid normal Carotids: no bruits Resp Auscultation: clear to auscultation bilaterally Cardio Rate: regular rate Rhythm: regular rhythm Heart sounds: S1 normal heart sound present and S2 normal heart sound present Peripheral pulses: dorsalis pedis present Neuro General: patient oriented x3, gait normal and no focal motor deficits Extrem Other: Monofilament sensation reduced on right foot, absent vibratory sensation to right foot. Vibratory sensation diminished on left. Monofilament sensation intact on left. Skin intact. DP pulses 2+. General: Yes normal to inspection and Yes capillary refill normal Results Reviewed Results Reviewed: Laboratory Tests 10/10/23 10/15/23 11/12/23 10:03 10:39 09:45 Creatinine 1.05 Estimated GFR > 60 Glucose (Clinic) 127 H Fasting Glucose 190 H Hgb A1c (Clinic) 7.1 H AST 16 ALT 23 Alkaline Phosphatase 74 Triglycerides 86 Cholesterol 160 LDL Cholesterol, Calc 100 H HDL Cholesterol 43 Assessment & Plan Assessment & Plan (1) Controlled type 2 diabetes mellitus with insulin therapy: Code(s): E11.9 - Type 2 diabetes mellitus without complications; Z79.4 - intermediate frame tender (current) use of insulin Category: Medical Plan: We will increase Mounjaro. We will start on Humalog 2 units with lunch and supper. Continue with the Tresiba 30 units. Reviewed signs and symptoms of hypoglycemia that would require emergent medical treatment. Reviewed rule of 15. Continue with the Jardiance. Follow up in 3 months. Sooner if needed. Labs ordered to complete prior to appointment. (2) Essential hypertension: Code(s): I10 - Essential (primary) hypertension Category: Medical Plan: WNL. Continue current regimen (3) Pure hypercholesterolemia: Code(s): E78.00 - Pure hypercholesterolemia, unspecified Category: Medical Plan: As above. Orders: Orders AMB Hemoglobin A1c Today E11.65 - Type 2 diabetes mellitus with hyperglycemia, Z13.9 - Encounter for screening, unspecified, Z79.4 - intermediate frame tender (current) use of insulin Medications: New tirzepatide (Mounjaro) 7.5 mg (0.5 mL) subcut QWEEK 2 mL 3RF insulin lispro (Humalog KwikPen (U-100) Insulin) with lunch and supper. 2 units (0.02 mL) subcut BID 15 mL 2RF Coding Level of Care Code Est Pt Level 4 (32060) Complex EM visit Add On G2211 Diagnoses Controlled type 2 diabetes mellitus with insulin therapy E11.9; Z79.4 Essential hypertension I10 Pure hypercholesterolemia E78.00
[2024-02-11 10:11] VITALS: BP 108/72; PULSE 97; BMI 36.0
[2024-02-11 10:22] LABS: Glucose, Whole Blood 156 mg/dL (60-115)
== END 2024-02-11 10:33 | disposition home or self-care (01) ==
PROVIDERS: PCP Internal Medicine; Visit Provider Physician Assistant
DX: E11.9 Type 2 diabetes mellitus without complications (principal); Z79.4 Long term (current) use of insulin; I10 Essential (primary) hypertension; E78.00 Pure hypercholesterolemia, unspecified; Z13.9 Encounter for screening, unspecified; E11.65 Type 2 diabetes mellitus with hyperglycemia

== ENCOUNTER 2024-02-11 09:55 | Outpatient (REF) | payer OTHER, SELFPAY ==
[2024-02-11 10:55] LABS: MANUAL DIFF FLAG NO
[2024-02-11 11:46] LABS: Basophils Percent Auto 0.4 % (0-2); Eosinophils Absolute Auto 0.1 X10*3/uL (0.0-0.4); Hematocrit 46.3 % (42.0-52.0); Imm Gran Abs Auto 0.04 X10*3/uL (0.00-0.03); Imm Gran Pct Auto 0.5 % (0.0-0.4); Lymphocytes Absolute Auto 3.4 X10*3/uL (1.2-4.9); Lymphocytes Percent Auto 42.8 % (20-40); Mean Corpuscular HGB Conc 32.4 g/dl (31.0-36.0); Mean Corpuscular Hemoglobin 26.6 pg (27.0-33.0); Mean Corpuscular Volume 82.2 fL (80.0-98.0); Mean Platelet Volume 10.2 fL (9.4-12.4); Monocytes Absolute Auto 0.6 X10*3/uL (0.1-1.2); Monocytes Percent Auto 7.7 % (2-11); Neutrophils Absolute Auto 3.8 x10*3/uL (2.0-8.3); Neutrophils Percent Auto 47.6 % (45-73); Platelet Count 237 X10*3/uL (160-400); Red Blood Count 5.63 X10*6/uL (4.60-5.80); Red Cell Distribution Width 12.4 % (11.0-16.0); White Blood Count 7.9 X10*3/uL (4.8-10.8)
[2024-02-11 11:56] LABS: Estimated Average Glucose 137 mg/dL; Hemoglobin A1C 163.6825 umol/L; Hemoglobin A1c % 6.4 % (<6.0); Total Hemoglobin (HGBA1C) 3563.7515 umol/L
[2024-02-11 12:57] LABS: Creatinine Urine 129.93 mg/dL
== END 2024-02-11 09:56 | disposition home or self-care (01) ==
LOC: HO.LAB 09:55
PROVIDERS: Internal Medicine; PCP Internal Medicine; Referring Provider Internal Medicine Hypertension Specialist; Visit Provider Physician Assistant
DX: E11.65 Type 2 diabetes mellitus with hyperglycemia (principal); Z79.4 Long term (current) use of insulin; I10 Essential (primary) hypertension; E78.00 Pure hypercholesterolemia, unspecified; K62.5 Hemorrhage of anus and rectum
CPT/HCPCS: 36415; 82043; 82570; 82947; 83036; 85025; 99212

== ENCOUNTER 2024-02-29 11:21 | Outpatient (REF) | payer OTHER, MEDICAID, SELFPAY ==
[2024-02-29 12:39] LABS: Creatinine, mg/dL 68.68
[2024-02-29 12:40] LABS: Creatinine, mg/dL 69.03; Uric Acid, mg/dL 33.5 mg/dL
[2024-02-29 12:46] LABS: Creatinine, 24Hr Urine 1.8 G/Day (1.0-2.0); Sodium 24 Hr Urine 331.5 mmol/Day (40-220); Total Volume 24 Hour Urine 2550 mL; Uric Acid, 24 Hr Urine 854.3 mg/Day (250-750)
[2024-03-03 16:13] LABS: Calcium, 24 Hr Urine 143 mg/24 h; Calcium/Creatinine Ratio 84 mg/g creat (30-210); Creatinine 24Hr Urine 1.71 g/24 h (0.50-2.15)
[2024-03-06 07:48] LABS: 24hr Urine Total Volume 2550 mL; Citric Acid, 24hr Urine 722 mg/24 h (100-1300); Citric Acid/Creat Ratio 24U 406 mg/g creat (60-660); Creatinine, 24U 1.78 g/24 h (0.50-2.15)
[2024-03-10 21:34] LABS: 24hr Urine Total Volume 2550 mL; Oxalic Acid 24 Urine 26.8 mg/24 h (3.6-38.0)
== END 2024-02-29 11:22 | disposition home or self-care (01) ==
LOC: HO.LNP 11:21
PROVIDERS: Visit Provider Internal Medicine Hypertension Specialist
DX: N18.9 Chronic kidney disease, unspecified (principal); N20.0 Calculus of kidney
CPT/HCPCS: 82340; 82507; 83945; 84300; 84560

== ENCOUNTER 2024-03-04 10:56 | Outpatient (AMB) | payer OTHER, MEDICAID, SELFPAY ==
[2024-03-04 11:07] VITALS: BP 120/84; PULSE 98; O2SAT 99; BMI 34.9
--- NOTE | 2024-03-04 11:07 | HO.NEPHOV ---
Vital Signs 03/04/24 11:07 Height 5 ft 7 in Weight 223 lb BMI 34.9 BP 120/84 Blood Pressure Location Lt brachial Position Sitting Pulse 98 Pulse Source Pulse Oximeter Pulse Oximetry (%) 99 Oxygen Delivery Method Room Air Intake Visit Reasons: 5 mon follow up/ Conf Terminal Makeup Operator Required: No Accompanied by: Self / Same As Patient Allergies latex Allergy (Severe, Verified 03/04/24 11:09) rash,swelling atorvastatin Allergy (Intermediate, Verified 03/04/24 11:09) stomach upset metformin Allergy (Intermediate, Verified 03/04/24 11:09) diarrhea Medication List - Last Reconciled 03/04/24 by Trent Johnson MD aspirin 81 mg PO DAILY blood pressure test kit-medium As directed blood sugar diagnostic As directed blood sugar diagnostic (FreeStyle Lite Strips) As directed three times a day blood-glucose meter,continuous (FreeStyle Shaheed 3 [place]) As directed blood-glucose sensor (FreeStyle Shaheed 3 Sensor device) Apply every 14 days As directed cholecalciferol (vitamin D3) 50 mcg PO DAILY clonazepam 1 mg PO BID PRN docusate calcium 240 mg PO BEDTIME PRN 90 days empagliflozin (Jardiance) 25 mg PO DAILY 90 days escitalopram oxalate 20 mg PO DAILY gabapentin 600 mg PO TID PRN insulin degludec (Tresiba FlexTouch U-100 insulin) 30 units (0.3 mL) subcut BEDTIME insulin syringe-needle U-100 (BD Insulin Syringe Ultra-Fine) Use 1 pen needle once a day lancets As directed lidocaine 5% 1 appl topical TID PRN 30 days lidocaine 5% (Lidoderm) 1 patch topical DAILY lisinopril 5 mg PO DAILY loratadine 10 mg PO DAILY PRN 90 days meclizine 25 mg PO TID PRN 30 days omeprazole 20 mg PO DAILY oxycodone-acetaminophen 5-325 mg 1 tab PO Q6H PRN 30 days pen needle, diabetic (BD Ultra-Fine Short Pen Needle) USE 1 PEN NEEDLE ONCE A DAY phenazopyridine (Pyridium) 100 mg PO TID PRN 4 days pyridoxine (vitamin B6) 50 mg PO DAILY 90 days rosuvastatin 40 mg PO BEDTIME sildenafil 100 mg PO ONCE PRN 30 days tirzepatide (Mounjaro) 7.5 mg (0.5 mL) subcut QWEEK [wipes, aloe touch As directed] zolpidem ER 12.5 mg PO BEDTIME PRN HPI Comments Details: Middle-aged man with a history of longstanding diabetes mellitus and nephrolithiasis. He was accompanied by his today. Blood sugar seems to be better controlled. Hemoglobin A1c has decreased to 6.6 from 8.5. He has history of renal stones. Back in 2021 he had a right-sided stone measuring 8 mm. Follow-up ultrasound in September of 2022 showed same stone measuring 7 mm. He underwent extracorporeal shockwave lithotripsy. A recent ultrasonogram done about a week ago showed stone measuring 6 mm. He underwent ESWL on 09/13/2023. He has a follow-up ultrasonogram on October 14 [facility] Medical History (Updated 02/11/24 @ 10:34 by Birdie Duong PA-C) Tubular adenoma of colon FRANK (obstructive sleep apnea) Sleep apnea Mild recurrent major depression Vitamin D deficiency Neck pain Obesity due to excess calories Shortness of breath Chest pain UTI (urinary tract infection) Hematuria Renal calculi B12 deficiency due to diet Insomnia Depression with anxiety GERD (gastroesophageal reflux disease) Pure hypercholesterolemia Essential hypertension Diabetes mellitus Lumbar degenerative disc disease Surgical History H/O umbilical hernia repair (09/15/22) History of lithotripsy Hx of colonoscopy History of lumbar laminectomy Family History Father Diabetes Mother Diabetes Hypertension Son No problems noted. 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) Alcohol intake: current Alcohol intake frequency: holidays/special occasions only Alcohol type: beer Patient Tobacco Use Status: Never used Tobacco e-Cigarette/Vaping Use: Never Used Second Hand Smoke Exposure: No service: No Current occupational status: disabled Cognitive needs: No Hearing needs: No Vision needs: No Physical Exam Vital Signs: Last Vital Signs Pulse 98 03/04/24 11:07 BP 120/84 03/04/24 11:07 Pulse Ox 99 10/29/24 11:07 Oxygen Delivery Method Room Air 03/04/24 11:07 BMI result Body Mass Index 34.9 Const General: comfortable; No acute distress Orientation/consciousness: patient oriented x3 Eyes General: appearance normal, both eyes and all related structures Visual Olmedo: normal visual olmedo by confrontation Neck Neck: Yes supple and Yes no JVD Resp Effort & Inspection: normal respiratory effort and respiratory effort not decreased Auscultation: rhonchi Cardio Palpation: no palpable S3 and no palpable S4 Heart sounds: no rubs GI Inspection: Yes normal to inspection Palpation (GI): Soft to palpation Percussion: Yes normal to percussion Auscultation: normal bowel sounds General: Yes no CVA tenderness Back/Spine/Pelvis Back: no CVA tenderness Skin General skin exam: no petechiae and no purpura Neuro General: patient oriented x3 and no focal motor deficits Extrem General: No clubbing and No edema Results Reviewed Nephrology Results: Hgb 15.0 g/dl (14.0-18.0) 02/11/24 WBC 7.9 X10*3/uL (4.8-10.8) 02/11/24 Plt Count 237 X10*3/uL (160-400) 02/11/24 Sodium 141 mmol/L (135-145) 10/15/23 Potassium 4.6 mmol/L (3.3-5.1) 10/15/23 Chloride 102 mmol/L (96-108) 10/15/23 Carbon Dioxide 26 mmol/L (22-29) 10/15/23 BUN 20 mg/dL (9-16) H 10/15/23 Creatinine 1.05 mg/dL (0.5-1.4) 10/15/23 Calcium 9.9 mg/dL (8.4-10.2) 10/15/23 Urine Creatinine 129.93 mg/dL 02/11/24 Renal US 10/15/23 Assessment & Plan Assessment & Plan (1) Renal calculi: Code(s): N20.0 - Calculus of kidney Category: Medical Plan: Status post ESWL on 09/13/2023. 24 urine collection showed a volume of > 2L But increased Sodium and uric acid excretion stay on low-sodium diet Cut back on red meat and animal protein Keep fluid intake to maintain urine output of 2 L. Okay to drink lemonade. . (2) CKD (chronic kidney disease): Code(s): N18.9 - Chronic kidney disease, unspecified Category: Medical Plan: Mild CKD in a setting of diabetes mellitus. Goal is to slow the progression of renal disease. Continue with low-dose EVONNE-inhibitor. Continue with the Jardiance for cardiorenal protection. . Plan . Orders: Orders Blood Urea Nitrogen 4 Months N18.9 - Chronic kidney disease, unspecified Creatinine 4 Months N18.9 - Chronic kidney disease, unspecified Electrolytes 4 Months N18.9 - Chronic kidney disease, unspecified Coding Level of Care Code Est Pt Level 4 (00891) Diagnoses Renal calculi N20.0 CKD (chronic kidney disease) N18.9
== END 2024-03-04 11:22 | disposition home or self-care (01) ==
LOC: HO.HKA 10:57
PROVIDERS: PCP Internal Medicine; Visit Provider Internal Medicine Hypertension Specialist
DX: N20.0 Calculus of kidney (principal); E11.22 Type 2 diabetes mellitus with diabetic chronic kidney disease; N18.2 Chronic kidney disease, stage 2 (mild)
CPT/HCPCS: 99214

== ENCOUNTER → 2024-03-04 10:56 | Outpatient (BNVA) | payer OTHER, MEDICAID, SELFPAY | PROVIDERS: PCP Internal Medicine; Visit Provider Internal Medicine Hypertension Specialist | DX: E11.22 Type 2 diabetes mellitus with diabetic chronic kidney disease (principal); N20.0 Calculus of kidney; N18.9 Chronic kidney disease, unspecified | CPT/HCPCS: 99212 ==

== ENCOUNTER 2024-03-31 07:52 | Outpatient (REF) | payer OTHER, MEDICAID, SELFPAY | END 2024-03-31 07:53 | disposition home or self-care (01) | LOC: HO.US 07:52 | PROVIDERS: PCP Internal Medicine; Visit Provider Urology | DX: N20.0 Calculus of kidney (principal) | CPT/HCPCS: 76775 ==

== ENCOUNTER 2024-04-01 09:59 | Outpatient (AMB) | payer OTHER, MEDICAID, SELFPAY ==
[2024-04-01 10:14] VITALS: BP 124/80; BMI 35.2
--- NOTE | 2024-04-01 10:14 | A.OFFPC_ITS ---
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 Accompanied by: Self / Same As Patient Allergies latex Allergy (Severe, Verified 04/01/24 10:44) rash,swelling atorvastatin Allergy (Intermediate, Verified 04/01/24 10:44) stomach upset metformin Allergy (Intermediate, Verified 04/01/24 10:44) diarrhea Medication List - Last Reconciled 04/01/24 by Alba Coley MD aspirin 81 mg PO DAILY blood pressure test kit-medium As directed blood sugar diagnostic As directed blood sugar diagnostic (FreeStyle Lite Strips) As directed three times a day blood-glucose meter,continuous (FreeStyle Shaheed 3 [place]) As directed blood-glucose sensor (FreeStyle Shaheed 3 Sensor device) Apply every 14 days As directed cholecalciferol (vitamin D3) 50 mcg PO DAILY clonazepam 1 mg PO BID PRN docusate calcium 240 mg PO BEDTIME PRN 90 days empagliflozin (Jardiance) 25 mg PO DAILY 90 days escitalopram oxalate 20 mg PO DAILY gabapentin 600 mg PO TID PRN insulin aspart U-100 (Novolog FlexPen U-100 Insulin aspart) 2 units (0.02 mL) subcut BID insulin degludec (Tresiba FlexTouch U-100 insulin) 30 units (0.3 mL) subcut BEDTIME insulin syringe-needle U-100 (BD Insulin Syringe Ultra-Fine) Use 1 pen needle once a day lancets As directed lidocaine 5% 1 appl topical TID PRN 30 days lidocaine 5% (Lidoderm) 1 patch topical DAILY lisinopril 5 mg PO DAILY loratadine 10 mg PO DAILY PRN 90 days meclizine 25 mg PO TID PRN 30 days omeprazole 20 mg PO DAILY oxycodone-acetaminophen 5-325 mg 1 tab PO Q6H PRN 30 days pen needle, diabetic (BD Ultra-Fine Short Pen Needle) USE 1 PEN NEEDLE ONCE A DAY phenazopyridine (Pyridium) 100 mg PO TID PRN 4 days pyridoxine (vitamin B6) 50 mg PO DAILY 90 days rosuvastatin 40 mg PO BEDTIME sildenafil 100 mg PO ONCE PRN 30 days tirzepatide (Mounjaro) 7.5 mg (0.5 mL) subcut QWEEK [wipes, aloe touch As directed] zolpidem ER 12.5 mg PO BEDTIME PRN Tobacco use date assessed: 05/30/23 Dental Screening Dental Screen Date: 04/01/24 Did you have a dental visit in the last 12 months?: No Did you have a dental problem in the last 6 months where you did not have access to dental care?: No Was dental information given to patient?: Patient has dentist HPI HPI Comments History of Present Illness Details The patient is a 48-year-old male presenting for a follow-up of his type 2 diabetes mellitus and associated symptoms of headaches, dizziness, and episodes of near syncope. Previously on Humalog, the patient reports expe riencing dizziness and headaches with its use, prompting a change in his insulin regimen. He now awaits insurance approval for Aspart insulin initiation. Insulin-related dizziness has led to episodes where he felt faint and needed to rest. The patient also manages hypertension, controlled with lisinopril, and depression with anxiety, managed by psychiatry. Additional concurrent issues include neuropathy treated with gabapentin, chronic back pain from lumbar spondylosis managed with Percocet, and insomnia. His latest HbA1c was 6.4%, indicating well-controlled diabetes. A vitamin D deficiency was noted, and low cholesterol levels have prompted dietary changes. The patient denies smoking and reports minimal alcohol consumption. [facility] Medical History (Updated 04/01/24 @ 11:02 by Abla Coley MD) Sacroiliitis Tubular adenoma of colon FRANK (obstructive sleep apnea) Sleep apnea Mild recurrent major depression Vitamin D deficiency Neck pain Obesity due to excess calories Shortness of breath Chest pain UTI (urinary tract infection) Hematuria Renal calculi B12 deficiency due to diet Insomnia Depression with anxiety GERD (gastroesophageal reflux disease) Pure hypercholesterolemia Essential hypertension Diabetes mellitus Lumbar degenerative disc disease Surgical History H/O umbilical hernia repair (09/15/22) History of lithotripsy Hx of colonoscopy History of lumbar laminectomy Family History Father Diabetes Mother Diabetes Hypertension Son No problems noted. 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 Anibal Singh, Ebony Liu, Gerald Moura and colleagues, with an educational ethel from [employer] Review of Systems Const All systems reviewed & are unremarkable except as noted in HPI and below Card Denies chest pain at rest, Denies chest pain with activity, Denies edema, Denies irregular heart rhythm, Denies claudication, Denies dyspnea, Denies dyspnea on exertion, Denies orthopnea, Denies paroxysmal nocturnal dyspnea and Denies slow heart rate Resp Denies cough, Denies dyspnea and Denies dyspnea on exertion GI Denies abdominal pain, Denies change in bowel habits, Denies excessive flatus, Denies nausea and Denies vomiting Musc Reports back pain Neuro Denies lack of coordination Physical exam (Primary Care) Vital Signs: Last Vital Signs BP 124/80 04/01/24 10:14 BMI result Body Mass Index 35.2 BMI Assessment/Plan discussion: High BMI High, discussed plan: lifestyle, weight reduction, dietary, physical activity and alcohol moderation Tobacco/Smoking Status: Tobacco use Status Tobacco use date assessed 05/30/23 04/01/24 10:19 Patient Tobacco Use Status Never used Tobacco 04/01/24 10:19 e-Cigarette/Vaping Use Never Used 04/01/24 10:19 Thrive Assessment: Date of Thrive Assessment Date Thrive assessed 05/30/23 04/01/24 10:19 Resp Effort & Inspection: normal respiratory effort Auscultation: clear to auscultation bilaterally Cardio Jugular venous distension: no JVD Rate: regular rate Rhythm: regular rhythm Heart sounds: S1 normal heart sound present and S2 normal heart sound present Extrem General: Yes full ROM Office Procedures Flu Questionnaire Does the patient have a severe egg allergy?: No Does the patient have severe life threatening allergies?: No Does the patient have a fever or illness today?: No Has the patient ever had Guillain-[place] Syndrome?: No Has the patient ever had any past reaction to a flu shot?: No Immunizations Fluarix Triv [id number] (PF) 45 mcg (15 mcg x 3)/0.5 mL IM syringe Performing Provider: Alba Coley MD [place] [facility] Administered by: MIKE Edwards on 04/01/24 10:20 Dose Route Admin Location Dispensed Lot Number Expiration Date [facility] Registered Pharmacy Technician 0.5 mL IM Left Deltoid 0.5 mL [id number] 11/03/24 [id number] [email or web address] VIS Given Date VIS Provided VIS Publication Date 04/01/24 Single Vaccine 20 Eligibility Eligibility Date Funding Source Not [facility] Eligible 04/01/24 Private Coding Level of Care Code Est Pt Level 4 (43691) Complex EM visit Add On G2211 Diagnoses Controlled type 2 diabetes mellitus with insulin therapy E11.9; Z79.4 Lumbar radiculopathy M54.16 Mild recurrent major depression F33.0 Vitamin D deficiency E55.9 Essential hypertension I10 Pure hypercholesterolemia E78.00 Time Spent (min) 23 Assessment & Plan Assessment & Plan (1) Controlled type 2 diabetes mellitus with insulin therapy: Code(s): E11.9 - Type 2 diabetes mellitus without complications; Z79.4 - 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 Diabetes Mellitus: Awaiting insurance approval for Aspart insulin. Review A1c in four months and maintain dietary moderation. 2. Neuropathy: Continue gabapentin. 3. Hypertension: Continue lisinopril. 4. Depression with Anxiety: Maintain current psychiatric management and clonazepam use. 5. Chronic Back Pain: Consider referral to [facility] for further pain management; continue current analgesic management. 6. Hypercholesterolemia: Maintain rosuvastatin and monitor cholesterol levels; dietary modifications are advised. 7. Vitamin D Deficiency: Continue daily vitamin D supplements. 8. Monitor for urinary symptoms and investigate potential urinary tract infections specifically considering urological involvement. Patient was informed and verbally consented to the use of an ambient scribe for clinic note documentation during this visit. During the visit, we discussed the importance of maintaining control over diabetes and the impact of insulin on his symptoms. I clarified the management of dizziness likely due to medication adjustments. We noted the successful control of his diabetes as evidenced by his recent A1c results, despite experiencing hypoglycemic symptoms with previous insulin regimens. We also considered a referral for his chronic back pain given ongoing symptomatology despite analgesic use. The patient was receptive to ongoing therapy and ac knowledged understanding potential medication side effects, such as sedation from benzodiazepines. For his hypercholesterolemia, we discussed the goal of achieving an LDL below 70, emphasizing adherence to dietary changes and current statin therapy. We set follow-up for repeat labs in four months. Orders: Orders Lipid Panel 4 Months E78.5 - Hyperlipidemia, unspecified Microalbumin, Random (w Creat) 4 Months R80.9 - Proteinuria, unspecified Influenza [id number] Immunization Today Z23 - Encounter for immunization Vitamin D 25-OH Total 4 Months E55.9 - Vitamin D deficiency, unspecified Comprehensive [place]. Panel Fast 4 Months E11.9 - Type 2 diabetes mellitus without complications, Z79.4 - detention (current) use of insulin Medications: Refilled oxycodone-acetaminophen 5-325 mg Partial Fill upon patient request. 1 tab PO Q6H 30 days PRN 120 tabs 0RF pain (scale score 4-6) Discontinued sildenafil administer 60 minutes before intended activity Discontinued Reason: Patient Completed Course 100 mg PO ONCE 30 days PRN 30 tabs 1RF sexual activity E11.69 - Type 2 diabetes mellitus with other specified complication, N52.1 - Erectile dysfunction due to diseases classified elsewhere Patient Instructions: - Await insurance approval and start Aspart insulin therapy once approved. - Continue with current medications for blood pressure, cholesterol, and n europathy. - Follow a low-cholesterol diet and maintain regular physical activity. - Monitor urinary symptoms, and seek care if symptoms persist or worsen to rule out infections. - Follow up with [facility] or any recommended specialist for back pain management.
== END 2024-04-01 11:00 | disposition home or self-care (01) ==
LOC: HO.HMCH 09:59
PROVIDERS: PCP Internal Medicine; Visit Provider Internal Medicine
DX: E11.9 Type 2 diabetes mellitus without complications (principal); Z79.4 Long term (current) use of insulin; M54.16 Radiculopathy, lumbar region; F33.0 Major depressive disorder, recurrent, mild; E55.9 Vitamin D deficiency, unspecified; I10 Essential (primary) hypertension; E78.00 Pure hypercholesterolemia, unspecified; Z23 Encounter for immunization; R30.0 Dysuria

== ENCOUNTER → 2024-04-01 09:59 | Outpatient (BNVA) | payer OTHER, MEDICAID, SELFPAY | PROVIDERS: PCP Internal Medicine; Visit Provider Internal Medicine | DX: Z23 Encounter for immunization (principal); E11.9 Type 2 diabetes mellitus without complications; Z79.4 Long term (current) use of insulin; M54.16 Radiculopathy, lumbar region; F33.0 Major depressive disorder, recurrent, mild; E55.9 Vitamin D deficiency, unspecified; I10 Essential (primary) hypertension; E78.00 Pure hypercholesterolemia, unspecified | CPT/HCPCS: 81003; 90471; 90656; 99212 ==

== ENCOUNTER 2024-04-09 13:23 | Outpatient (AMB) | payer OTHER, SELFPAY ==
--- NOTE | 2024-04-09 13:27 | A.OFFVIS_ITS ---
Vital Signs 04/09/24 13:27 Height 5 ft 7 in Intake Visit Reasons: Follow Up Intake Note: patient presents for follow up. Allergies latex Allergy (Severe, Verified 04/09/24 13:30) rash,swelling atorvastatin Allergy (Intermediate, Verified 04/09/24 13:30) stomach upset metformin Allergy (Intermediate, Verified 04/09/24 13:30) diarrhea HPI Comments Details: 48 y/o male patient presents for follow up of sleep apnea.His repeat home sleep test was inconclusive an dhe was scheudled for in lab sleep study. But he had a panic attack and could not do the study. He took clonazepam 1mg that night and still had panic attack Pt reports he was diagnosed with sleep apnea many years ago. He tried CPAP, not compliant at that time and returned the CPAP. He reports difficulty sleeping and feels can't breathe well. He snores loudly, gasping and having non refreshing sleep. [facility] Medical History Sacroiliitis Tubular adenoma of colon FRANK (obstructive sleep apnea) Sleep apnea Mild recurrent major depression Vitamin D deficiency Neck pain Obesity due to excess calories Shortness of breath Chest pain UTI (urinary tract infection) Hematuria Renal calculi B12 deficiency due to diet Insomnia Depression with anxiety GERD (gastroesophageal reflux disease) Pure hypercholesterolemia Essential hypertension Diabetes mellitus Lumbar degenerative disc disease Surgical History H/O umbilical hernia repair (09/15/22) History of lithotripsy Hx of colonoscopy History of lumbar laminectomy Family History Father Diabetes Mother Diabetes Hypertension Son No problems noted. 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) Alcohol intake: current Alcohol intake frequency: holidays/special occasions only Alcohol type: beer Patient Tobacco Use Status: Never used Tobacco e-Cigarette/Vaping Use: Never Used Second Hand Smoke Exposure: No service: No Current occupational status: disabled Cognitive needs: No Hearing needs: No Vision needs: No Physical Exam Const General: cooperative and tired appearing Nutritional Appearance: obese Orientation/consciousness: patient oriented x3 Neck Neck: Yes full ROM and Yes supple Resp Effort & Inspection: normal respiratory effort and able to speak in complete sentences Neuro General: patient oriented x3 and moves all extremities Cranial nerves: Yes CN's II-XII intact bilaterally Cognition (Neuro): normal cognition Motor exam (neuro): 5/5 motor strength present throughout Psych Appearance: grossly normal Mental Status: mental status grossly normal Speech and movement: Normal speech and movement present Affect: normal affect Attitude: cooperative Assessment & Plan Assessment & Plan (1) FRANK (obstructive sleep apnea): Comment: not using CPAP Code(s): G47.33 - Obstructive sleep apnea (adult) (pediatric) Category: Medical Plan I will repeat home sleep study to assess for sleep apnea. Will f/u with pt after study to discuss results and appropriate treatment options. Advsied patient to try routine sleep schedule, increase daily activities. Wt reduction advised. Pt to call with any worsening concerns or questions. Orders: Orders RT home sleep study Today G47.33 - Obstructive sleep apnea (adult) (pediatric) Coding Level of Care Code Est Pt Level 4 (05731) Diagnoses FRANK (obstructive sleep apnea) G47.33
== END 2024-04-09 13:47 | disposition home or self-care (01) ==
PROVIDERS: PCP Internal Medicine; Visit Provider Psychiatry & Neurology Neurology
DX: G47.33 Obstructive sleep apnea (adult) (pediatric) (principal)
CPT/HCPCS: 99214

== ENCOUNTER → 2024-04-09 13:23 | Outpatient (BNVA) | payer OTHER, SELFPAY | PROVIDERS: PCP Internal Medicine; Visit Provider Psychiatry & Neurology Neurology | DX: G47.33 Obstructive sleep apnea (adult) (pediatric) (principal) | CPT/HCPCS: 99212 ==

== ENCOUNTER 2024-04-17 10:10 | Outpatient (AMB) | payer OTHER, SELFPAY ==
--- NOTE | 2024-04-17 10:24 | MHC.OFFVIS ---
Intake Visit Reasons: 6M Ultrasound(set) Intake Note: Patient is present for 6M ULTRASOUND Urology Medication:VITAMIN B6,PYRIDIUM Antibiotic Allergy:ATROVASTATIN,METFORMIN Blood Thinner:ASPIRIN Astronomy Department Chair Required: No Allergies latex Allergy (Severe, Verified 04/17/24 10:25) rash,swelling atorvastatin Allergy (Intermediate, Verified 04/17/24 10:25) stomach upset metformin Allergy (Intermediate, Verified 04/17/24 10:25) diarrhea HPI Comments Details: Goyo is a pleasant Greek-speaking male. He is a patient of Dr. William. Presents for the following urologic conditions - nephrolithiasis - lower urinary tract symptoms background of diabetes - insulin therapy with SGLT2 - erectile dysfunction background of diabetes Stone follow-up Does have weakness of stream Trial alpha-diane Two month follow-up Erectile dysfunction Background diabetes Daily tadalafil caused headache On demand sildenafil 100 mg Nephrolithiasis Prior presentation to [facility] with right-sided flank pain Imaging - 03/28 renal ultrasound right-sided low 8 mm - 05/29 CT 8 mm right UPJ - 09/26 right lower pole 7 mm - 04/28 Renal US right 4mm - 07/28 KUB question right small stone - 04/29 renal ultrasound no stones Intervention - 08/27 R ESWL, 10/28 right ESWL Background diabetic [facility] Medical History Sacroiliitis Tubular adenoma of colon FRANK (obstructive sleep apnea) Sleep apnea Mild recurrent major depression Vitamin D deficiency Neck pain Obesity due to excess calories Shortness of breath Chest pain UTI (urinary tract infection) Hematuria Renal calculi B12 deficiency due to diet Insomnia Depression with anxiety GERD (gastroesophageal reflux disease) Pure hypercholesterolemia Essential hypertension Diabetes mellitus Lumbar degenerative disc disease Surgical History H/O umbilical hernia repair (09/15/22) History of lithotripsy Hx of colonoscopy History of lumbar laminectomy Family History Father Diabetes Mother Diabetes Hypertension Son No problems noted. 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) Alcohol intake: current Alcohol intake frequency: holidays/special occasions only Alcohol type: beer Patient Tobacco Use Status: Never used Tobacco e-Cigarette/Vaping Use: Never Used Second Hand Smoke Exposure: No service: No Current occupational status: disabled Cognitive needs: No Hearing needs: No Vision needs: No Review of Systems Const Denies chills and Denies fever(s) Card Reports no additional complaints and Denies syncope Resp Denies cough GI Denies abdominal pain and Denies heartburn Reports as per HPI and Denies change in libido Neuro Denies syncope Psych Denies change in libido Endo Denies change in libido Physical Exam Const General: cooperative, healthy appearing, comfortable and no acute distress Orientation/consciousness: patient oriented x3 HEENT Face and sinus: Yes normal facial exam Mouth: moist mucous membranes Neck Neck: Yes normal visual inspection, Yes full ROM and Yes trachea midline Chest Chest palpation & inspection: normal inspection of the chest Resp Effort & Inspection: normal respiratory effort, able to speak in complete sentences and no respiratory distress GI Inspection: Yes normal to inspection Back/Spine/Pelvis Cervical Spine: normal cervical lordosis Thoracic/Lumbar Spine: thoracic and lumbar spine normal to inspection Skin General skin exam: no rashes or lesions noted Neuro General: patient oriented x3, gait normal, tone normal and moves all extremities Extrem General: Yes normal to inspection and Yes capillary refill normal Assessment & Plan Assessment & Plan (1) Bladder instability: Code(s): N32.89 - Other specified disorders of bladder Category: Medical (2) Renal calculi: Code(s): N20.0 - Calculus of kidney Category: Medical Plan Two month follow-up tele Orders: Orders AMB Urinalysis Automated Today Z13.9 - Encounter for screening, unspecified Medications: New tamsulosin 0.4 mg PO BEDTIME 30 days 30 caps 1RF N32.89 - Other specified disorders of bladder, N40.1 - Benign prostatic hyperplasia with lower urinary tract symptoms, R35.1 - Nocturia Patient Instructions: Imaging studies, laboratory and physical exam results were discussed and reviewed in detail. No major barriers to patient understanding were identified. An opportunity to ask questions regarding the treatment plan was provided. All questions were answered. The patient expressed understanding and agreement with the above treatment plan. The patient is aware they should contact our office by phone for worsening of their current condition or the appearance of new urologic symptoms. Compliance is encouraged with any medications and followup testing that is ordered. It is a privilege to participate in the urologic care of your patient. If you have any questions or concerns regarding treatment for the above conditions, or other urologic issues, please do not hesitate to contact me. The office telephone contact is [phone]. This note is constructed using voice recognition software. While every effort has been made to ensure accuracy property portfolio officer errors may have been included. Yours sincerely, Dr Miguelito Yip MD, [facility] - Urology Providers of Expert, Compassionate Care for the Genitourinary System Coding Level of Care Code Est Pt Level 4 (07156) Diagnoses Bladder instability N32.89 Renal calculi N20.0
== END 2024-04-17 10:58 | disposition home or self-care (01) ==
PROVIDERS: PCP Internal Medicine; Visit Provider Urology
DX: N32.89 Other specified disorders of bladder (principal); N20.0 Calculus of kidney; Z13.9 Encounter for screening, unspecified
CPT/HCPCS: 99214

== ENCOUNTER → 2024-04-17 10:10 | Outpatient (BNVA) | payer OTHER, SELFPAY | PROVIDERS: PCP Internal Medicine; Visit Provider Urology | DX: N32.89 Other specified disorders of bladder (principal); N20.0 Calculus of kidney | CPT/HCPCS: 81003; 99212 ==

== ENCOUNTER 2024-05-12 09:56 | Outpatient (AMB) | payer OTHER, MEDICAID, SELFPAY ==
--- NOTE | 2024-05-12 10:09 | A.OFFVIS_ITS ---
Vital Signs 05/12/24 10:12 Height 5 ft 7 in Weight 220 lb 7.396 oz BMI 34.5 BP 118/78 Blood Pressure Location Rt brachial Position Sitting Pulse 82 Pulse Source Pulse Oximeter Intake Visit Reasons: DM/Confirmed Intake Note: Patient presents today for D2AR follow up visit. Last Diabetic Eye exam: 08/2023 Last Podiatry Visit: Doesn't have one Most Recent HgA1c: 6.9%, 05/12/2024 Random Glucose: 214 mg/dL, Today Affirmative Action Officer Required: No Accompanied by: Self / Same As Patient Allergies latex Allergy (Severe, Verified 05/12/24 10:14) rash,swelling atorvastatin Allergy (Intermediate, Verified 05/12/24 10:14) stomach upset metformin Allergy (Intermediate, Verified 05/12/24 10:14) diarrhea Medication List - Last Reconciled 05/12/24 by Birdie Duong PA-C aspirin 81 mg PO DAILY blood pressure test kit-medium As directed blood sugar diagnostic As directed blood sugar diagnostic (FreeStyle Lite Strips) As directed three times a day blood-glucose meter,continuous (FreeStyle Shaheed 3 [place]) As directed blood-glucose sensor (FreeStyle Shaheed 3 Sensor device) Apply every 14 days As directed cholecalciferol (vitamin D3) 50 mcg PO DAILY clonazepam 1 mg PO BID PRN docusate calcium 240 mg PO BEDTIME PRN 90 days escitalopram oxalate 20 mg PO DAILY gabapentin 600 mg PO TID PRN insulin aspart U-100 (Novolog FlexPen U-100 Insulin aspart) 2 units (0.02 mL) subcut BID insulin degludec (Tresiba FlexTouch U-100 insulin) 30 units (0.3 mL) subcut BEDTIME insulin syringe-needle U-100 (BD Insulin Syringe Ultra-Fine) Use 1 pen needle once a day lancets As directed lidocaine 5% 1 appl topical TID PRN 30 days lidocaine 5% (Lidoderm) 1 patch topical DAILY lisinopril 5 mg PO DAILY loratadine 10 mg PO DAILY PRN 90 days meclizine 25 mg PO TID PRN 30 days omeprazole 20 mg PO DAILY oxycodone-acetaminophen 5-325 mg 1 tab PO Q6H PRN 30 days pen needle, diabetic (BD Ultra-Fine Short Pen Needle) USE 1 PEN NEEDLE ONCE A DAY phenazopyridine (Pyridium) 100 mg PO TID PRN 4 days pyridoxine (vitamin B6) 50 mg PO DAILY 90 days rosuvastatin 40 mg PO BEDTIME tamsulosin 0.4 mg PO BEDTIME 30 days tirzepatide (Mounjaro) 10 mg (0.5 mL) subcut QWEEK [wipes, aloe touch As directed] zolpidem ER 12.5 mg PO BEDTIME PRN HPI HPI DM/Confirmed: Details: Patient is a 48-year-old male with a significant past medical history of type 2 diabetes, hypertension, hyperlipidemia, ED, FRANK, CKD presenting today for diabetic follow-up. -Forgot to do labs prior to appointment Endo: Last A1c was 7.1. He A1c today is 6.9. He is currently on Tresiba 30 units nightly, Jardiance 25 mg, and Mounjaro 7.5 mg weekly. -he has noticed some weight loss with the Mounjaro. He states that he would like to lose a few more lb. He does notice that his blood sugars are elevated when he eats lunch and supper. It is mostly elevated with his increased carbohydrate intake at that time. He tries hard to avoid carbs. -he has been having some urinary symptoms and he has followed with Urology for bladder instability. He states that his PCP ruled out a UTI. It is very frustrating for him because over the weekend he states that he had to urinate about 8 times in 2 hours. He denies any burning, abnormal discharge, flank pain or abdominal pain currently. No fevers or chills. heyle 2, cgm- use age 62%, average glucose 197, 8%, glucose variability 18.8%. Very high 11%, high 50%, in range 39%, hypoglycemic 0% He does have peripheral neuropathy (right worse than left), nephropathy, glaucoma and ED. He is on gabapentin at night for neuropathy. 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 CV: Blood pressure today in the office is 118/78. He is on lisinopril 5 mg. Cholesterol is controlled with Crestor 40 mg. Nephro: Follows with Nephrology. He is on an EVONNE-inhibitor, Jardiance and mounjaro. avoids nsaids. [facility] Medical History Sacroiliitis Tubular adenoma of colon FRANK (obstructive sleep apnea) Sleep apnea Mild recurrent major depression Vitamin D deficiency Neck pain Obesity due to excess calories Shortness of breath Chest pain UTI (urinary tract infection) Hematuria Renal calculi B12 deficiency due to diet Insomnia Depression with anxiety GERD (gastroesophageal reflux disease) Pure hypercholesterolemia Essential hypertension Diabetes mellitus Lumbar degenerative disc disease Surgical History H/O umbilical hernia repair (09/15/22) History of lithotripsy Hx of colonoscopy History of lumbar laminectomy Family History Father Diabetes Mother Diabetes Hypertension Son No problems noted. 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) Alcohol intake: current Alcohol intake frequency: holidays/special occasions only Alcohol type: beer Patient Tobacco Use Status: Never used Tobacco e-Cigarette/Vaping Use: Never Used Second Hand Smoke Exposure: No service: No Current occupational status: disabled Cognitive needs: No Hearing needs: No Vision needs: No Physical Exam Vital Signs: Last Vital Signs Pulse 82 05/12/24 10:12 BP 118/78 05/12/24 10:12 BMI result Body Mass Index 34.5 Const Orientation/consciousness: patient oriented x3 HEENT Ears: hearing grossly normal bilaterally Neck Thyroid: Thyroid normal Lymphatic: no lymphadenopathy noted Resp Auscultation: clear to auscultation bilaterally Cardio Rate: regular rate Rhythm: regular rhythm Heart sounds: S1 normal heart sound present and S2 normal heart sound present Skin General skin exam: no rashes or lesions noted Neuro General: patient oriented x3, gait normal and no focal motor deficits Results AMB Hemoglobin A1c AMB Hemoglobin A1c 6.9 % Last Edit by MIKE Sam on 05/12/24 10:33 Results Reviewed Results Reviewed: Laboratory Last Values Glucose (Clinic) 214 mg/dL (60-115) H 05/12/24 10:18 Laboratory Tests 10/15/23 02/11/24 05/12/24 10:39 10:54 10:18 Creatinine 1.05 Estimated GFR > 60 Glucose (Clinic) 214 H Hemoglobin A1c % 6.4 H AST 16 ALT 23 Triglycerides 86 Cholesterol 160 LDL Cholesterol, Calc 100 H HDL Cholesterol 43 Assessment & Plan Assessment & Plan (1) Controlled type 2 diabetes mellitus with insulin therapy: Code(s): E11.9 - Type 2 diabetes mellitus without complications; Z79.4 - half-way (current) use of insulin Category: Medical Plan: Increase Mounjaro to 10 mg. Continue the Tresiba 30 units. Advised patient to start the NovoLog 2 units with lunch and supper. We will discontinue Jardiance as he reports having increased urinary frequency and urgency. He has been ruled out for UTI. We will see if this helps resolve some of his symptoms. Advised short term follow up in 1-2 months. Sooner if needed. (2) Essential hypertension: Code(s): I10 - Essential (primary) hypertension Category: Medical Plan: WNL. Continue current regimen (3) Pure hypercholesterolemia: Code(s): E78.00 - Pure hypercholesterolemia, unspecified Category: Medical Plan: WNL. Continue current regimen Orders: Orders AMB Hemoglobin A1c Today E11.9 - Type 2 diabetes mellitus without complications, Z79.4 - half-way (current) use of insulin Medications: New tirzepatide (Mounjaro) 10 mg (0.5 mL) subcut QWEEK 2 mL 4RF lancets (FreeStyle Lancets) use BID as directed to check blood glucose 100 ea 3RF blood-glucose sensor (FreeStyle Shaheed 3 Plus Sensor device) Use daily As directed to monitor glucose 2 ea 5RF E08.29 - Diabetes mellitus due to underlying condition with other diabetic kidney complication, R80.9 - Proteinuria, unspecified, Z79.4 - half-way (current) use of insulin Refilled insulin aspart U-100 (Novolog FlexPen U-100 Insulin aspart) with meals 2 units (0.02 mL) subcut BID 15 mL 1RF insulin syringe-needle U-100 (BD Insulin Syringe Ultra-Fine) Use 1 pen needle once a day 100 ea 3RF E11.65 - Type 2 diabetes mellitus with hyperglycemia Discontinued lancets Discontinued Reason: Doctor's Order As directed 100 ea 11RF tirzepatide (Mounjaro) Discontinued Reason: Doctor's Order 7.5 mg (0.5 mL) subcut QWEEK 2 mL 3RF empagliflozin (Jardiance) Discontinued Reason: Doctor's Order 25 mg PO DAILY 90 days 90 tabs 1RF Patient Instructions: stop jardiance -due to urinary symptoms increase mounjaro to 10 mg weekly start novolog continue tresiba 30 units f/u 1-2 months or sooner prn Coding Level of Care Code Est Pt Level 4 (71113) Complex EM visit Add On G2211 Diagnoses Controlled type 2 diabetes mellitus with insulin therapy E11.9; Z79.4 Essential hypertension I10 Pure hypercholesterolemia E78.00
[2024-05-12 10:12] VITALS: BP 118/78; PULSE 82; BMI 34.5
[2024-05-12 10:22] LABS: Glucose, Whole Blood 214 mg/dL (60-115)
== END 2024-05-12 10:44 | disposition home or self-care (01) ==
PROVIDERS: PCP Internal Medicine; Visit Provider Physician Assistant
DX: E11.9 Type 2 diabetes mellitus without complications (principal); Z79.4 Long term (current) use of insulin; I10 Essential (primary) hypertension; E78.00 Pure hypercholesterolemia, unspecified

== ENCOUNTER → 2024-05-12 09:56 | Outpatient (BNVA) | payer OTHER, MEDICAID, SELFPAY | PROVIDERS: PCP Internal Medicine; Visit Provider Physician Assistant | DX: E11.9 Type 2 diabetes mellitus without complications (principal); I10 Essential (primary) hypertension; E78.00 Pure hypercholesterolemia, unspecified; Z79.4 Long term (current) use of insulin | CPT/HCPCS: 82947; 83036; 99212 ==

== ENCOUNTER → 2024-05-20 08:55 | Outpatient (REF) | payer OTHER, SELFPAY | LOC: HO.SL 08:55 | PROVIDERS: PCP Internal Medicine; Visit Provider Psychiatry & Neurology Neurology | DX: G47.33 Obstructive sleep apnea (adult) (pediatric) (principal); R06.83 Snoring | CPT/HCPCS: 95806 ==

== ENCOUNTER → 2024-05-20 09:08 | Outpatient (BNV) | payer OTHER, SELFPAY | PROVIDERS: PCP Internal Medicine; Visit Provider Psychiatry & Neurology Neurology | DX: R06.83 Snoring (principal) | CPT/HCPCS: 95806 ==

== ENCOUNTER 2024-06-17 09:46 | Outpatient (AMB) | payer OTHER, SELFPAY ==
--- NOTE | 2024-06-17 09:47 | A.OFFVIS_ITS ---
Intake Visit Reasons: 2M Med Review(Tamsulosin) Intake Note: Patient is present for 2M MED REVIEW Urology Medication:TAMSULOSIN,VITAMIN B6 Antibiotic Allergy:ATORVASTATIN,METFORMIN Blood Thinner:ASPIRIN [employer] Buffer Required: No Allergies latex Allergy (Severe, Verified 07/08/24 10:43) rash,swelling atorvastatin Allergy (Intermediate, Verified 07/08/24 10:43) stomach upset metformin Allergy (Intermediate, Verified 07/08/24 10:43) diarrhea HPI Comments Details: Goyo is a pleasant Setswana-speaking male. He is a patient of Dr. William. Presents for the following urologic conditions - nephrolithiasis - lower urinary tract symptoms background of diabetes - insulin therapy with SGLT2 - erectile dysfunction background of diabetes follow-up from 2 month trial of alpha-diane has some improvement given diabetic status recommend check of testosterone would also benefit from starting potassium citrate Erectile dysfunction Background diabetes Daily tadalafil caused headache On demand sildenafil 100 mg Nephrolithiasis Prior presentation to [facility] with right-sided flank pain Imaging - 03/28 renal ultrasound right-sided low 8 mm - 05/29 CT 8 mm right UPJ - 09/26 right lower pole 7 mm - 04/28 Renal US right 4mm - 07/28 KUB question right small stone - 04/29 renal ultrasound no stones Intervention - 08/27 R ESWL, 10/28 right ESWL Background diabetic PFSH Medical History Sacroiliitis Tubular adenoma of colon FRANK (obstructive sleep apnea) Sleep apnea Mild recurrent major depression Vitamin D deficiency Neck pain Obesity due to excess calories Shortness of breath Chest pain UTI (urinary tract infection) Hematuria Renal calculi B12 deficiency due to diet Insomnia Depression with anxiety GERD (gastroesophageal reflux disease) Pure hypercholesterolemia Essential hypertension Diabetes mellitus Lumbar degenerative disc disease Surgical History H/O umbilical hernia repair (09/15/22) History of lithotripsy Hx of colonoscopy History of lumbar laminectomy Family History Father Diabetes Mother Diabetes Hypertension Son No problems noted. 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) Alcohol intake: current Alcohol intake frequency: holidays/special occasions only Alcohol type: beer Patient Tobacco Use Status: Never used Tobacco e-Cigarette/Vaping Use: Never Used Second Hand Smoke Exposure: No service: No Current occupational status: disabled Cognitive needs: No Hearing needs: No Vision needs: No Review of Systems Const Denies chills and Denies fever(s) Card Reports no additional complaints and Denies syncope Resp Denies cough GI Denies abdominal pain and Denies heartburn Reports as per HPI and Denies change in libido Neuro Denies syncope Psych Denies change in libido Endo Denies change in libido Physical Exam Const General: cooperative, healthy appearing, comfortable and no acute distress Orientation/consciousness: patient oriented x3 HEENT Face and sinus: Yes normal facial exam Mouth: moist mucous membranes Neck Neck: Yes normal visual inspection, Yes full ROM and Yes trachea midline Chest Chest palpation & inspection: normal inspection of the chest Resp Effort & Inspection: normal respiratory effort, able to speak in complete sentences and no respiratory distress GI Inspection: Yes normal to inspection Back/Spine/Pelvis Cervical Spine: normal cervical lordosis Thoracic/Lumbar Spine: thoracic and lumbar spine normal to inspection Skin General skin exam: no rashes or lesions noted Neuro General: patient oriented x3, gait normal, tone normal and moves all extremities Extrem General: Yes normal to inspection and Yes capillary refill normal Assessment & Plan Assessment & Plan (1) Hematuria: Code(s): R31.9 - Hematuria, unspecified Category: Medical (2) Erectile dysfunction due to diabetes mellitus: Code(s): E11.69 - Type 2 diabetes mellitus with other specified complication; N52.1 - Erectile dysfunction due to diseases classified elsewhere Category: Medical (3) Bladder instability: Code(s): N32.89 - Other specified disorders of bladder Category: Medical (4) Low energy: Code(s): R53.83 - Other fatigue Category: Medical Plan baseline testosterone labs Patient Instructions: This note is constructed using voice recognition software. 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 Imaging studies, laboratory and physical exam results were discussed and reviewed in detail. No major barriers to patient understanding were identified. An opportunity to ask questions regarding the treatment plan was provided. All questions were answered. The patient expressed understanding and agreement with the above treatment plan. The patient is aware they should contact our office by phone for worsening of their current condition or the appearance of new urologic symptoms. Compliance is encouraged with any medications and followup testing that is ordered. It is a privilege to participate in the urologic care of your patient. If you have any questions or concerns regarding treatment for the above conditions, or other urologic issues, please do not hesitate to contact me. The office telepho ne contact is [phone]. Sincerely, Dr Miguelito Yip MD, [facility] - Urology Compassionate Specialist Care for the Genitourinary System Coding Level of Care Code Est Pt Level 3 (21034) Diagnoses Hematuria R31.9 Erectile dysfunction due to diabetes mellitus E11.69; N52.1 Bladder instability N32.89 Low energy R53.83
--- OUTSIDE RECORDS SUMMARY | 2024-06-17 10:54 | XMS_ITS | Clinical Summary ---
Author Organization [facility] Facility Address [address] [address] Care Team Providers Care Hide Dropper Name Role Phone Alba Khan MD Primary Care Provider [phone] Allergies No known active allergies Medications omeprazole (PriLOSEC) [address] capsule Take 1 capsule by mouth 1 (one) time each day Active aspirin (ST JITENDRA) 81 MG EC tablet Take 1 tablet by mouth 1 (one) time each day Active atorvastatin (LIPITOR) 40 MG tablet Take 1 tablet by mouth 1 (one) time each day Active Dulaglutide (Trulicity) 0.75 MG/0.5ML solution pen-injector 1 (one) time per week Active loratadine (CLARITIN) 10 MG tablet Take 1 tablet by mouth 1 (one) time each day Active LORazepam (ATIVAN) 1 MG tablet Take 1 tablet by mouth 1 (one) time each day Active oxyCODONE-acet aminophen (PERCOCET) 5-325 MG per tablet Take 1 tablet by mouth 2 (two) times a day Active alpha tocopherol (VITAMIN E) 400 units capsule Take 1 capsule by mouth 1 (one) time each day Active zolpidem CR (AMBIEN CR) 12.5 MG CR tablet Take 1 tablet by mouth at bed time Active clonazePAM (KlonoPIN) 1 MG tablet Take 1 mg by mouth 1 (one) time each day if needed 2 Active escitalopram (LEXAPRO) 20 MG tablet Take 20 mg by mouth 1 (one) time each day in the morning 2 Active gabapentin (NEURONTIN) 600 MG tablet Take 600 mg by mouth 2 Active rosuvastatin (CRESTOR) 40 MG tablet Take 40 mg by mouth 1 (one) time each day 2 Active meclizine (ANTIVERT) 25 MG tablet Take 1 tablet by mouth in the morning and 1 tablet at noon and 1 tablet in the evening. 2 Active Tresiba FlexTouch 100 UNIT/ML injection INJECT 24 UNITS SUBCUTANEOUSLY AT BEDTIME FOR 30 DAYS 2 Active lisinopril 5 MG tablet TAKE 1 TABLET BY MOUTH EVERY DAY 90 tablet 3 3 Active Active Problems Problem Noted Date Diagnosed Date Microalbuminuria 07/28/2020 Renal disorder due to type 2 diabetes mellitus 0 07/28/2020 Family History Medical History Relation Comments Diabetes Father Diabetes Mother Hypertension Mother Relation Status Comments Father Mother Social History Tobacco Use Types Packs/Day Years Used Date Smoking Tobacco: Never Smokeless Tobacco: Never Tobacco Cessation:Counseling Given: Not Answered Alcohol Use Standard Drinks/Week Comments Yes 0 (1 standard drink = 0.6 oz pure alcohol) Alcoholic Drinks/day: Occasional social drink Sex and Gender Information Value Date Recorded Sex Assigned at Not on file Legal Sex Male 4:41 PM EST Gender Identity Not on file Sexual Orientation Not on file Last Filed Vital Signs Vital Sign Reading Time Taken Comments Blood Pressure 124/90 09/06/2022 1:17 PM EDT Pulse 82 09/06/2022 1:17 PM EDT Temperature - - Respiratory Rate - - Oxygen Saturation 98% 09/06/2022 1:17 PM EDT Inhaled Oxygen Concentration - - Weight 106 kg (232 lb 9.6 oz) 09/06/2022 1:17 PM EDT Height 170.2 cm (5' 7 ) 09/06/2022 1:17 PM EDT Body Mass Index 36.43 09/06/2022 1:17 PM EDT Plan of Treatment Health Maintenance Due Date Last Done Comments Hepatitis B Vaccine (1 of 3 - 19+ 3-dose series) 05/02 Pneumococcal Vaccine: Pediat rics (0 to 5 Years) and At-Risk Patients (6 to 64 Years) (2 of 2 - PCV) 06/18/2016 06/18/2015 Diabetes: Hemoglobin A1C 06/06/2020 Diabetes: Ophthalmology Exam 06/06/2020 Diabetes: Pedal Pulse Checked 06/06/2020 Diabetes: Sensory Foot Exam 06/06/2020 Diabetes: Visual Foot Exam 06/06/2020 Colorectal Cancer Screening: Annual FOBT 2022 Colorectal Cancer Screening: Colonoscopy 2022 Colorectal Cancer Screening: Sigmoidoscopy 2022 Influenza Vaccine (#1) 2024 Insurance [facility] ([id number]) [address] [place] [id number] [facility] ([id number]) Care Teams Hide Dropper Relationship Specialty Start Date End Date Alba Khan MD [address] [place], [place] PCP - General 05/17/20
== END 2024-06-17 14:39 | disposition home or self-care (01) ==
LOC: HO.HUSH 09:46
PROVIDERS: PCP Internal Medicine; Visit Provider Urology
DX: R31.9 Hematuria, unspecified (principal); E11.69 Type 2 diabetes mellitus with other specified complication; N52.1 Erectile dysfunction due to diseases classified elsewhere; N32.89 Other specified disorders of bladder; R53.83 Other fatigue
CPT/HCPCS: 99213

== ENCOUNTER → 2024-06-17 09:46 | Outpatient (BNVA) | payer OTHER, SELFPAY | PROVIDERS: PCP Internal Medicine; Visit Provider Urology | DX: E11.69 Type 2 diabetes mellitus with other specified complication (principal); N52.1 Erectile dysfunction due to diseases classified elsewhere; N32.89 Other specified disorders of bladder; R31.9 Hematuria, unspecified; R53.83 Other fatigue | CPT/HCPCS: 99212 ==

== ENCOUNTER 2024-06-27 09:57 | Outpatient (AMB) | payer OTHER, MEDICAID, SELFPAY ==
[2024-06-27 10:08] VITALS: BP 98/86; PULSE 86; O2SAT 91; BMI 35.3
--- NOTE | 2024-06-27 10:08 | A.OFFVIS_ITS ---
Vital Signs 06/27/24 10:08 Height 5 ft 7 in Weight 225 lb 8.526 oz BMI 35.3 BP 98/86 Blood Pressure Location Rt brachial Position Sitting Pulse 86 Pulse Source Pulse Oximeter Pulse Oximetry (%) 91 L Oxygen Delivery Method Room Air Intake Visit Reasons: DM Intake Note: Patient present today for Type 2 Diabetes Mellitus Last Diabetic eye exam: 06/2023 Last Podiatry Visit: Doesn't have one Random Glucose: 155 mg/dl HgA1C: 6.9% 05/12/24 International Logistics Manager Required: No Accompanied by: Self / Same As Patient Allergies latex Allergy (Severe, Verified 06/27/24 10:13) rash,swelling atorvastatin Allergy (Intermediate, Verified 06/27/24 10:13) stomach upset metformin Allergy (Intermediate, Verified 06/27/24 10:13) diarrhea HPI HPI DM: Details: Patient is a 49-year-old male with a significant past medical history of type 2 diabetes, hypertension, hyperlipidemia, ED, FRANK, CKD presenting today for diabetic follow-up. -Forgot to do labs prior to appointment Endo: Last A1c was 6.9. He is currently on Tresiba 30 units nightly, novolog 2 units with meals and Mounjaro 10 mg weekly. -he states that he has been out of the Mounjaro for the last few weeks. He states [facility] has tried ordering this and has been unable to get it. -he also received a cortisone injection in the spine and states that happened about 10 days ago and his numbers are coming down now. At our last visit I discontinued the Jardiance due to UTIs and frequent urinary symptoms. He states that resolved. Metformin caused GI upset. he has trialed Trulicity and Ozempic. freestyle 3 cgm- use age 94% %, average glucose 242, 9.1 %, glucose variability 24 %. Very high 39 %, high 45 %, in range 16 %, hypoglycemic 0% He does have peripheral neuropathy (right worse than left), nephropathy, glaucoma and ED. He is on gabapentin at night for neuropathy. 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 CV: Blood pressure today in the office is 98/86. He is on lisinopril 5 mg. Cholesterol is controlled with Crestor 40 mg. Nephro: Follows with Nephrology. He is on an EVONNE-inhibitor and mounjaro. avoids nsaids. [facility] Medical History Sacroiliitis Tubular adenoma of colon FRANK (obstructive sleep apnea) Sleep apnea Mild recurrent major depression Vitamin D deficiency Neck pain Obesity due to excess calories Shortness of breath Chest pain UTI (urinary tract infection) Hematuria Renal calculi B12 deficiency due to diet Insomnia Depression with anxiety GERD (gastroesophageal reflux disease) Pure hypercholesterolemia Essential hypertension Diabetes mellitus Lumbar degenerative disc disease Surgical History H/O umbilical hernia repair (09/15/22) History of lithotripsy Hx of colonoscopy History of lumbar laminectomy Family History Father Diabetes Mother Diabetes Hypertension Son No problems noted. Social History Household Members: None Housing: Apartment Are you a primary day care supervisor to a significant other at home: No Do you presently have visiting nurse or other home services: Yes (PAYROLL DIRECTOR) Alcohol intake: current Alcohol intake frequency: holidays/special occasions only Alcohol type: beer Patient Tobacco Use Status: Never used Tobacco e-Cigarette/Vaping Use: Never Used Second Hand Smoke Exposure: No service: No Current occupational status: disabled Cognitive needs: No Hearing needs: No Vision needs: No Physical Exam Vital Signs: Last Vital Signs Pulse 86 06/27/24 10:08 BP 98/86 06/27/24 10:08 Pulse Ox 91 L 06/27/24 10:08 Oxygen Delivery Method Room Air 06/27/24 10:08 BMI result Body Mass Index 35.3 Assessment & Plan Assessment & Plan (1) Uncontrolled type 2 diabetes mellitus with hyperglycemia: Code(s): E11.65 - Type 2 diabetes mellitus with hyperglycemia Category: Medical Plan: increase Humalog to 5 units, Tresiba increase to 35 units, advised to call me if he finds the Mounjaro is still out of stock. We did send this to a different pharmacy. I will have him follow up in 3 months and complete labs prior to appointment. He will follow up sooner if anything changes. Patient understands and agrees with this plan. (2) Essential hypertension: Code(s): I10 - Essential (primary) hypertension Category: Medical Plan: Continue lisinopril (3) Pure hypercholesterolemia: Code(s): E78.00 - Pure hypercholesterolemia, unspecified Category: Medical Plan: Continue Crestor Medications: Changed From insulin degludec (Tresiba FlexTouch U-100 insulin) 30 units (0.3 mL) subcut BEDTIME 15 mL 6RF E11.9 - Type 2 diabetes mellitus without complications To insulin degludec (Tresiba FlexTouch U-100 insulin) 35 units (0.35 mL) subcut BEDTIME 15 mL 6RF E11.9 - Type 2 diabetes mellitus without complications From insulin aspart U-100 (Novolog FlexPen U-100 Insulin aspart) with meals 2 units (0.02 mL) subcut BID 15 mL 1RF To insulin aspart U-100 (Novolog FlexPen U-100 Insulin aspart) with meals 5 units (0.05 mL) subcut BID 15 mL 1RF Refilled tirzepatide (Mounjaro) 10 mg (0.5 mL) subcut QWEEK 2 mL 4RF Patient Instructions: increase novolog to 5 units with meals increase tresiba to 35 units daily start mounjaro- call me if out of stock Coding Level of Care Code Est Pt Level 4 (00912) Complex EM visit Add On G2211 Diagnoses Uncontrolled type 2 diabetes mellitus with hyperglycemia E11.65 Essential hypertension I10 Pure hypercholesterolemia E78.00
[2024-06-27 10:18] LABS: Glucose, Whole Blood 155 mg/dL (60-115)
--- OUTSIDE RECORDS SUMMARY | 2024-06-27 10:40 | XMS_ITS | Clinical Summary ---
Author Organization [facility] Facility Address [address] [address] Care Team Providers Care Drapery Hemmer Automatic Name Role Phone Alba Khan MD Primary Care Provider [phone] Allergies No known active allergies Medications omeprazole [...] Sigmoidoscopy 2022 Influenza Vaccine (#1) 2024 Insurance [facility] ([id number]) [address] [place] [id number] [facility] ([id number]) Care Teams Drapery Hemmer Automatic Relationship Specialty Start Date End Date Alba Khan MD [address] [place], [place] PCP - General 05/17/20
== END 2024-06-27 10:33 | disposition home or self-care (01) ==
PROVIDERS: PCP Internal Medicine; Visit Provider Physician Assistant
DX: E11.65 Type 2 diabetes mellitus with hyperglycemia (principal); I10 Essential (primary) hypertension; E78.00 Pure hypercholesterolemia, unspecified

== ENCOUNTER → 2024-06-27 09:57 | Outpatient (BNVA) | payer OTHER, SELFPAY | PROVIDERS: PCP Internal Medicine; Visit Provider Physician Assistant | DX: E11.65 Type 2 diabetes mellitus with hyperglycemia (principal); E78.00 Pure hypercholesterolemia, unspecified; I10 Essential (primary) hypertension | CPT/HCPCS: 82947; 99212 ==

== ENCOUNTER → 2024-07-03 20:30 | Outpatient (REF) | payer OTHER, SELFPAY ==
--- OUTSIDE RECORDS SUMMARY | 2024-07-03 21:17 | XMS_ITS | Clinical Summary ---
Author Organization [facility] Facility Address [address] [address] Care Team Providers Care Aged Or Disabled Care Worker Name Role Phone Alba Khan MD Primary Care Provider [phone] Allergies No known active allergies Medications omeprazole [...] Sigmoidoscopy 2022 Influenza Vaccine (#1) 2024 Insurance [facility] ([id number]) [address] [place] [id number] [facility] ([id number]) Care Teams Aged Or Disabled Care Worker Relationship Specialty Start Date End Date Alba Khan MD [address] [place], [place] PCP - General 05/17/20
== END ==
LOC: HO.SL 20:30
PROVIDERS: PCP Internal Medicine; Visit Provider Psychiatry & Neurology Neurology
DX: G47.33 Obstructive sleep apnea (adult) (pediatric) (principal)
CPT/HCPCS: 95810

== ENCOUNTER → 2024-07-03 21:29 | Outpatient (BNV) | payer OTHER, SELFPAY | PROVIDERS: PCP Internal Medicine; Visit Provider Internal Medicine | DX: G47.33 Obstructive sleep apnea (adult) (pediatric) (principal) | CPT/HCPCS: 95810 ==

== ENCOUNTER 2024-07-04 09:04 | Outpatient (REF) | payer OTHER, SELFPAY ==
--- OUTSIDE RECORDS SUMMARY | 2024-07-04 09:37 | XMS_ITS | Clinical Summary ---
Author Organization [facility] Facility Address [address] [address] Care Team Providers Care Hydroelectric Plant Structural Engineer Name Role Phone Alba Khan MD Primary Care Provider [phone] Allergies No known active allergies Medications omeprazole [...] Sigmoidoscopy 2022 Influenza Vaccine (#1) 2024 Insurance [facility] ([id number]) [address] [place] [id number] [facility] ([id number]) Care Teams Hydroelectric Plant Structural Engineer Relationship Specialty Start Date End Date Alba Khan MD [address] [place], [place] PCP - General 05/17/20
[2024-07-04 09:39] LABS: MANUAL DIFF FLAG NO
[2024-07-04 10:19] LABS: Basophils Absolute Auto 0.1 X10*3/uL (0.0-0.2); Basophils Percent Auto 0.6 % (0-2); Eosinophils Absolute Auto 0.1 X10*3/uL (0.0-0.4); Hematocrit 48.6 % (42.0-52.0); Hemoglobin 15.1 g/dl (14.0-18.0); Imm Gran Abs Auto 0.05 X10*3/uL (0.00-0.03); Imm Gran Pct Auto 0.6 % (0.0-0.4); Lymphocytes Percent Auto 34.2 % (20-40); Mean Corpuscular HGB Conc 31.1 g/dl (31.0-36.0); Mean Corpuscular Hemoglobin 25.9 pg (27.0-33.0); Mean Corpuscular Volume 83.4 fL (80.0-98.0); Mean Platelet Volume 9.6 fL (9.4-12.4); Monocytes Absolute Auto 0.7 X10*3/uL (0.1-1.2); Monocytes Percent Auto 8.3 % (2-11); Neutrophils Absolute Auto 4.8 x10*3/uL (2.0-8.3); Neutrophils Percent Auto 55.3 % (45-73); Platelet Count 215 X10*3/uL (160-400); Red Blood Count 5.83 X10*6/uL (4.60-5.80); Red Cell Distribution Width 12.6 % (11.0-16.0); White Blood Count 8.7 X10*3/uL (4.8-10.8)
[2024-07-04 11:05] LABS: Alanine Aminotransferase 30 U/L (0-40); Albumin Level 4.4 g/dL (3.5-5.0); Alkaline Phosphatase 80 U/L (39-117); Anion Gap 12 (12-20); Aspartate Amino Transferase 22 U/L (5-37); Bilirubin Total 1.1 mg/dL (0.0-1.0); Blood Urea Nitrogen 11 mg/dL (9-16); Calcium 9.4 mg/dL (8.4-10.2); Carbon Dioxide 28 mmol/L (22-29); Chloride 104 mmol/L (96-108); Estimated Glomerular Filt Rate > 60; Glucose Random 178 mg/dL (60-115); Potassium 4.6 mmol/L (3.3-5.1); Sodium 139 mmol/L (135-145); Total Protein 7.6 g/dL (6.5-8.0)
[2024-07-04 11:24] LABS: Prostate Specific Antigen 0.75 ng/mL (<0.05-4.0)
[2024-07-10 06:30] LABS: Testosterone, Total 245 ng/dL (250-1100)
== END 2024-07-04 09:05 | disposition home or self-care (01) ==
LOC: HO.LAB 09:04
PROVIDERS: Urology; Absent Provider Internal Medicine Hypertension Specialist; PCP Internal Medicine; Visit Provider Internal Medicine
DX: N18.30 Chronic kidney disease, stage 3 unspecified (principal); E11.69 Type 2 diabetes mellitus with other specified complication; N52.1 Erectile dysfunction due to diseases classified elsewhere; Z12.5 Encounter for screening for malignant neoplasm of prostate
CPT/HCPCS: 36415; 80053; 84153; 84403; 85025

== ENCOUNTER 2024-07-08 10:41 | Outpatient (AMB) | payer OTHER, MEDICAID, SELFPAY ==
[2024-07-08 10:43] VITALS: BP 110/78; PULSE 98; O2SAT 99; BMI 35.5
--- NOTE | 2024-07-08 10:43 | HO.NEPHOV_ITS ---
Vital Signs 07/08/24 10:43 Height 5 ft 7 in Weight 227 lb BMI 35.5 BP 110/78 Blood Pressure Location Lt brachial Position Sitting Pulse 98 Pulse Source Pulse Oximeter Pulse Oximetry (%) 99 Oxygen Delivery Method Room Air Intake Visit Reasons: CKD/ Conf Children'S Literature Professor Required: No Accompanied by: Self / Same As Patient Allergies latex Allergy (Severe, Verified 07/08/24 10:43) rash,swelling atorvastatin Allergy (Intermediate, Verified 07/08/24 10:43) stomach upset metformin Allergy (Intermediate, Verified 07/08/24 10:43) diarrhea Medication List - Last Reconciled 07/08/24 by Trent Johnson MD aspirin 81 mg PO DAILY blood pressure test kit-medium As directed blood sugar diagnostic As directed blood sugar diagnostic (FreeStyle Lite Strips) As directed three times a day blood-glucose meter,continuous (FreeStyle Shaheed 3 Merkel) As directed blood-glucose sensor (FreeStyle Shaheed 3 Plus Sensor device) Use daily As directed to monitor glucose cholecalciferol (vitamin D3) 50 mcg PO DAILY clonazepam 1 mg PO BID PRN docusate calcium 240 mg PO BEDTIME PRN 90 days escitalopram oxalate 20 mg PO DAILY gabapentin 600 mg PO TID PRN insulin aspart U-100 (Novolog FlexPen U-100 Insulin aspart) 5 units (0.05 mL) subcut BID insulin degludec (Tresiba FlexTouch U-100 insulin) 35 units (0.35 mL) subcut BEDTIME insulin syringe-needle U-100 (BD Insulin Syringe Ultra-Fine) Use 1 pen needle once a day lancets (FreeStyle Lancets) use BID as directed to check blood glucose lidocaine 5% 1 appl topical TID PRN 30 days lidocaine 5% (Lidoderm) 1 patch topical DAILY lisinopril 5 mg PO DAILY loratadine 10 mg PO DAILY PRN 90 days meclizine 25 mg PO TID PRN 30 days omeprazole 20 mg PO DAILY oxycodone-acetaminophen 5-325 mg 1 tab PO Q6H PRN 30 days pen needle, diabetic (BD Ultra-Fine Short Pen Needle) USE 1 PEN NEEDLE ONCE A DAY phenazopyridine (Pyridium) 100 mg PO TID PRN 4 days pyridoxine (vitamin B6) 50 mg PO DAILY 90 days rosuvastatin 40 mg PO BEDTIME tamsulosin 0.4 mg PO BEDTIME 30 days tirzepatide (Mounjaro) 10 mg (0.5 mL) subcut QWEEK [wipes, aloe touch As directed] zolpidem ER 12.5 mg PO BEDTIME PRN HPI Comments Details: Middle-aged man with a history of longstanding diabetes mellitus and nephrolithiasis. He was accompanied by his today. Blood sugar seems to be better controlled. Hemoglobin A1c has decreased to 6.6 from 8.5. He has history of renal stones. Back in 2021 he had a right-sided stone measuring 8 mm. Follow-up ultrasound in September of 2022 showed same stone measuring 7 mm. He underwent extracorporeal shockwave lithotripsy. A recent ultrasonogram done about a week ago showed stone measuring 6 mm. He underwent ESWL on 09/13/2023. He has a follow-up ultrasonogram on October 14 [facility] Medical History Sacroiliitis Tubular adenoma of colon FRANK (obstructive sleep apnea) Sleep apnea Mild recurrent major depression Vitamin D deficiency Neck pain Obesity due to excess calories Shortness of breath Chest pain UTI (urinary tract infection) Hematuria Renal calculi B12 deficiency due to diet Insomnia Depression with anxiety GERD (gastroesophageal reflux disease) Pure hypercholesterolemia Essential hypertension Diabetes mellitus Lumbar degenerative disc disease Surgical History H/O umbilical hernia repair (09/15/22) History of lithotripsy Hx of colonoscopy History of lumbar laminectomy Family History Father Diabetes Mother Diabetes Hypertension Son No problems noted. Social History Household Members: None Housing: Apartment Are you a primary child care education coordinator to a significant other at home: No Do you presently have visiting nurse or other home services: Yes (SOLE PAINTER) Alcohol intake: current Alcohol intake frequency: holidays/special occasions only Alcohol type: beer Patient Tobacco Use Status: Never used Tobacco e-Cigarette/Vaping Use: Never Used Second Hand Smoke Exposure: No service: No Current occupational status: disabled Cognitive needs: No Hearing needs: No Vision needs: No Physical Exam Vital Signs: Last Vital Signs Pulse 98 07/08/24 10:43 BP 110/78 07/08/24 10:43 Pulse Ox 99 07/08/24 10:43 Oxygen Delivery Method Room Air 07/08/24 10:43 BMI result Body Mass Index 35.5 Const General: comfortable; No acute distress Orientation/consciousness: patient oriented x3 Eyes General: appearance normal, both eyes and all related structures Visual Olmedo: normal visual olmedo by confrontation Neck Neck: Yes supple and Yes no JVD Resp Effort & Inspection: normal respiratory effort and respiratory effort not decreased Auscultation: rhonchi Cardio Palpation: no palpable S3 and no palpable S4 Heart sounds: no rubs GI Inspection: Yes normal to inspection Palpation (GI): Soft to palpation Percussion: Yes normal to percussion Auscultation: normal bowel sounds General: Yes no CVA tenderness Back/Spine/Pelvis Back: no CVA tenderness Skin General skin exam: no petechiae and no purpura Neuro General: patient oriented x3 and no focal motor deficits Extrem General: No clubbing and No edema Results Reviewed Nephrology Results: Hgb 15.1 g/dl (14.0-18.0) 07/04/24 WBC 8.7 X10*3/uL (4.8-10.8) 07/04/24 Plt Count 215 X10*3/uL (160-400) 07/04/24 Sodium 139 mmol/L (135-145) 07/04/24 Potassium 4.6 mmol/L (3.3-5.1) 07/04/24 Chloride 104 mmol/L (96-108) 07/04/24 Carbon Dioxide 28 mmol/L (22-29) 07/04/24 BUN 11 mg/dL (9-16) 07/04/24 Creatinine 0.94 mg/dL (0.5-1.4) 07/04/24 Calcium 9.4 mg/dL (8.4-10.2) 07/04/24 Assessment & Plan Assessment & Plan (1) Renal calculi: Code(s): N20.0 - Calculus of kidney Category: Medical Plan: Status post ESWL on 09/13/2023. 24 urine collection showed a volume of > 2L But increased Sodium and uric acid excretion stay on low-sodium diet Cut back on red meat and animal protein Keep fluid intake to maintain urine output of 2 L. Okay to drink lemonade. . (2) CKD (chronic kidney disease): Onset Date: ~06/09/24 Code(s): N18.9 - Chronic kidney disease, unspecified Category: Medical Plan: Mild CKD in a setting of diabetes mellitus. Goal is to slow the progression of renal disease. Continue with low-dose EVONNE-inhibitor. Continue with the Jardiance for cardiorenal protection. . Plan . Orders: Orders Basic Metabolic Panel 1 Year N18.9 - Chronic kidney disease, unspecified Sodium Urine Random 1 Year N18.9 - Chronic kidney disease, unspecified UA and rflx microscopic 1 Year N18.9 - Chronic kidney disease, unspecified Total Protein Urine Random 1 Year N18.9 - Chronic kidney disease, unspecified Creatinine Urine 1 Year N18.9 - Chronic kidney disease, unspecified Medications: New lisinopril 5 mg PO DAILY 90 tabs 3RF Coding Level of Care Code Est Pt Level 4 (75712) Diagnoses Renal calculi N20.0 CKD (chronic kidney disease) N18.9
--- OUTSIDE RECORDS SUMMARY | 2024-07-08 13:02 | XMS_ITS | Clinical Summary ---
Author Organization [facility] Facility Address [address] [address] Care Team Providers Care Correspondence Coordinator Name Role Phone Alba Khan MD Primary Care Provider [phone] Allergies No known active allergies Medications omeprazole [...] Sigmoidoscopy 2022 Influenza Vaccine (#1) 2024 Insurance [facility] ([id number]) [address] [place] [id number] [facility] ([id number]) Care Teams Correspondence Coordinator Relationship Specialty Start Date End Date Alba Khan MD [address] [place], [place] PCP - General 05/17/20
== END 2024-07-08 10:55 | disposition home or self-care (01) ==
PROVIDERS: PCP Internal Medicine; Visit Provider Internal Medicine Hypertension Specialist
DX: N20.0 Calculus of kidney (principal); N18.9 Chronic kidney disease, unspecified
CPT/HCPCS: 99214

== ENCOUNTER → 2024-07-08 10:41 | Outpatient (BNVA) | payer OTHER, SELFPAY | PROVIDERS: PCP Internal Medicine; Visit Provider Internal Medicine Hypertension Specialist | DX: N20.0 Calculus of kidney (principal); N18.9 Chronic kidney disease, unspecified | CPT/HCPCS: 99212 ==

== ENCOUNTER 2024-08-18 10:57 | Outpatient (AMB) | payer OTHER, SELFPAY ==
--- NOTE | 2024-08-18 11:02 | A.OFFVIS_ITS ---
Vital Signs 08/18/24 11:04 Height 5 ft 7 in Weight 226 lb 4 oz BMI 35.4 BP 110/80 Blood Pressure Location Lt brachial Position Sitting Pulse 102 H Pulse Source Pulse Oximeter Pulse Oximetry (%) 97 Oxygen Delivery Method Room Air Intake Visit Reasons: Follow Up Intake Note: Patient presents follow up FRANK. Non compliant with CPAP. Patient does not have not have CPAP. Patient states that he he has good nights and then some nights he cant sleep(get dizzy) Allergies latex Allergy (Severe, Verified 08/18/24 11:07) rash,swelling atorvastatin Allergy (Intermediate, Verified 08/18/24 11:07) stomach upset metformin Allergy (Intermediate, Verified 08/18/24 11:07) diarrhea HPI Comments Details: 49 y/o r. handed male presents for a follow up of sleep apnea. His repeat home sleep test was inconclusive and he was scheduled for an in lab sleep study on 07/07/2024, and he had a panic attack and he was unable to complete the study so he took a Clonazepam, to complete the sleep study. His AHI was 3 and Oxygen Peewee to 83%, he did have frequent periodic limb movements. He has a history of LBP and spiinal fusion at [facility] (L5/S1) in 2000, he is followed by [facility] for pain management and regularly scheduled cortisone shots. He tosses and turns a lot at night, he reports he was diagnosed with sleep apnea many years ago, and he tried CPAP, and due to the Low Back Pain he was non compliant at that time so he returned the CPAP. He snores loudly, gasps for air and continues to have fragmented sleep, he must have a fan on to sleep or else he feels claustrophobic. He has T2DM and uses short acting and long acting insulin, along with Monjarou once a week. He c/o daily bilateral headaches lasting for 40min, he goes outside for some fresh air, or opens the window and the headache goes away. He has photophobia, phonophobia, smells and heat trigger his headache. He starts to sweat and gets dizzy which lasts 30min with nausea, no vomiting, just gagging. He has panic attacks with claustrophobia in traffic and confined spaces so he avoids these scenarios, especially driving. RLS: He has burning pain bilaterally more so in R>L from the plantar surface of the foot to calf, with muscle cramps and spasms that cause him to stand up and stretch the feet while in deep sleep, this makes his LBP gets worse as he jerks to get out of bed. The gabapentin 600mg PO TID does help with the legs. [facility] Medical History Sacroiliitis Tubular adenoma of colon FRANK (obstructive sleep apnea) Sleep apnea Mild recurrent major depression Vitamin D deficiency Neck pain Obesity due to excess calories Shortness of breath Chest pain UTI (urinary tract infection) Hematuria Renal calculi B12 deficiency due to diet Insomnia Depression with anxiety GERD (gastroesophageal reflux disease) Pure hypercholesterolemia Essential hypertension Diabetes mellitus Lumbar degenerative disc disease Surgical History H/O umbilical hernia repair (09/15/22) History of lithotripsy Hx of colonoscopy History of lumbar laminectomy Family History Father Diabetes Mother Diabetes Hypertension Son No problems noted. Social History Household Members: None Housing: Apartment Are you a primary nanny caregiver to a significant other at home: No Do you presently have visiting nurse or other home services: Yes (UX RESEARCHER) Alcohol intake: current Alcohol intake frequency: holidays/special occasions only Alcohol type: beer Patient Tobacco Use Status: Never used Tobacco e-Cigarette/Vaping Use: Never Used Second Hand Smoke Exposure: No service: No Current occupational status: disabled Cognitive needs: No Hearing needs: No Vision needs: No Physical Exam Vital Signs: Last Vital Signs Pulse 102 H 08/18/24 11:04 BP 110/80 08/18/24 11:04 Pulse Ox 97 08/18/24 11:04 Oxygen Delivery Method Room Air 08/18/24 11:04 BMI result Body Mass Index 35.4 Const General: cooperative and tired appearing Nutritional Appearance: obese Orientation/consciousness: patient oriented x3 Neck Neck: Yes full ROM and Yes supple Resp Effort & Inspection: normal respiratory effort and able to speak in complete sentences Neuro General: patient oriented x3 and moves all extremities Cranial nerves: Yes CN's II-XII intact bilaterally Cognition (Neuro): normal cognition Motor exam (neuro): 5/5 motor strength present throughout Psych Appearance: grossly normal Mental Status: mental status grossly normal Speech and movement: Normal speech and movement present Affect: normal affect Attitude: cooperative Results Reviewed Results Reviewed: PSG AHI was 3 and Oxygen Peewee to 83% with Frequent Limb Movements. Labs Random and fasting Glucose elevated. A1c is elevated. Assessment & Plan Assessment & Plan (1) Chronic headaches: Code(s): R51.9 - Headache, unspecified; G89.29 - Other chronic pain Category: Medical (2) History of difficulty sleeping: Code(s): Z72.821 - Inadequate sleep hygiene Category: Medical (3) Panic attacks: Code(s): F41.0 - Panic disorder [episodic paroxysmal anxiety] Category: Medical (4) FRANK (obstructive sleep apnea): Comment: not using CPAP Code(s): G47.33 - Obstructive sleep apnea (adult) (pediatric) Category: Medical Plan PSG Completed no evidence of Sleep apnea, discussed mouth guard and positional therapy. Sleep Hygiene provided. Bilateral Headaches will start him on Sumtriptan 50mg po prn headache may repeat up to 4 times in a 24 hour period. Wt reduction advised. Will f/u in 3 months to monitor headaches and RLS symptoms, will consider NCS/EMG if symptoms. Patient Instructions: Sleep Hygiene provided: set a scheduled bedtime and wake time to help regulate the circadian rhythm and balance the release of pituitary hormones. Sleep in a dark room, temperatures below 68 degrees, and no devices n bed. Limit caffeinated products 6 hours prior to bed, and limit fluids 2-4 hours prior to bed. Gentle night yoga, diffusing essential oils, and playing soft music can be relaxing. Bilateral Headaches may take Sumatriptan at onset of headache, may take one additional tablet within 2 hours if headache does not subside, do not exceed more than 4 tablets in a 24 hour period. Will monitor RLS symptoms and consider NCS / EMG in future. Coding Level of Care Code Est Pt Level 4 (10553) Diagnoses Chronic headaches R51.9; G89.29 History of difficulty sleeping Z72.821 Panic attacks F41.0 FRANK (obstructive sleep apnea) G47.33 Time Spent (min) 30
[2024-08-18 11:04] VITALS: BP 110/80; PULSE 102; O2SAT 97; BMI 35.4
--- OUTSIDE RECORDS SUMMARY | 2024-08-18 12:54 | XMS_ITS | Clinical Summary ---
Author Organization [facility] Facility Address [address] [address] Care Team Providers Care Woodworking Machine Setter Name Role Phone Alba Khan MD Primary Care Provider [phone] Allergies No known active allergies Medications omeprazole [...] - 19+ 3-dose series) 05/02 Pneumococcal Vaccine: 50+ Years (2 of 2 - PCV) 017 06/18/2015 Diabetes: Hemoglobin A1C 06/06/2020 Diabetes: Ophthalmology Exam 06/06/2020 Diabetes: Pedal Pulse Checked 06/06/2020 Diabetes: Sensory Foot Exam 06/06/2020 Diabetes: Visual Foot Exam 06/06/2020 Colorectal Cancer Screening: Annual FOBT 2022 Colorectal Cancer Screening: Colonoscopy 2022 Colorectal Cancer Screening: Sigmoidoscopy 2022 Influenza Vaccine (Season Ended) 2025 Pneumococcal Vaccine: Peds ( 0 to 5 Years) and At-Risk Patients (6 to 49 Years) Discontinued 06/18/2015 Insurance [facility] ([id number]) [place] [id number] [facility] ([id number]) [place] [id number] Care Teams Woodworking Machine Setter Relationship Specialty Start Date End Date Alba Khan MD [address] [place], [place] PCP - General 05/17/20
== END 2024-08-18 11:59 | disposition home or self-care (01) ==
LOC: HO.HSMS 10:57
PROVIDERS: PCP Internal Medicine; Visit Provider Physician Assistant Medical
DX: R51.9 Headache, unspecified (principal); G89.29 Other chronic pain; Z72.821 Inadequate sleep hygiene; F41.0 Panic disorder [episodic paroxysmal anxiety]; G47.33 Obstructive sleep apnea (adult) (pediatric)
CPT/HCPCS: 99214

== ENCOUNTER → 2024-08-18 10:57 | Outpatient (BNVA) | payer OTHER, SELFPAY | PROVIDERS: PCP Internal Medicine; Visit Provider Physician Assistant Medical | DX: G47.33 Obstructive sleep apnea (adult) (pediatric) (principal); F41.0 Panic disorder [episodic paroxysmal anxiety]; R51.9 Headache, unspecified; G89.29 Other chronic pain; Z72.821 Inadequate sleep hygiene; Z91.199 Patient's noncompliance with other medical treatment and regimen due to unspecified reason | CPT/HCPCS: 99212 ==

== ENCOUNTER 2024-08-20 09:01 | Outpatient (AMB) | payer OTHER, SELFPAY ==
[2024-08-20 09:16] VITALS: BP 128/84; BMI 35.1
--- NOTE | 2024-08-20 09:16 | A.OFFPC_ITS ---
Vital Signs 08/20/24 09:16 Height 5 ft 7 in Weight 224 lb BMI 35.1 BP 128/84 Blood Pressure Location Lt brachial Position Sitting Intake Visit Reasons: pe Intake Note: Patient here for a physical exam Booth Operator Required: No Accompanied by: Self / Same As Patient Allergies latex Allergy (Severe, Verified 08/20/24 09:29) rash,swelling atorvastatin Allergy (Intermediate, Verified 08/20/24 09:29) stomach upset metformin Allergy (Intermediate, Verified 08/20/24 09:29) diarrhea Medication List - Last Reconciled 08/20/24 by Alba Coley MD aspirin 81 mg PO DAILY blood pressure test kit-medium As directed blood sugar diagnostic As directed blood sugar diagnostic (FreeStyle Lite Strips) As directed three times a day blood-glucose sensor (FreeStyle Shaheed 3 Plus Sensor device) Use daily As directed to monitor glucose blood-glucose,surgical asst,cont (FreeStyle Shaheed 3 [place]) As directed cholecalciferol (vitamin D3) 50 mcg PO DAILY clonazepam 1 mg PO BID PRN docusate calcium 240 mg PO BEDTIME PRN 90 days escitalopram oxalate 20 mg PO DAILY gabapentin 600 mg PO TID PRN insulin aspart U-100 (Novolog FlexPen U-100 Insulin aspart) 5 units (0.05 mL) subcut BID insulin degludec (Tresiba FlexTouch U-100 insulin) 35 units (0.35 mL) subcut BEDTIME insulin syringe-needle U-100 (BD Insulin Syringe Ultra-Fine) Use 1 pen needle once a day lancets (FreeStyle Lancets) use BID as directed to check blood glucose lidocaine 5% 1 appl topical TID PRN 30 days lidocaine 5% (Lidoderm) 1 patch topical DAILY lisinopril 5 mg PO DAILY loratadine 10 mg PO DAILY PRN 90 days meclizine 25 mg PO TID PRN 30 days omeprazole 20 mg PO DAILY oxycodone-acetaminophen 5-325 mg 1 tab PO Q6H PRN 30 days pen needle, diabetic (BD Ultra-Fine Short Pen Needle) USE 1 PEN NEEDLE ONCE A DAY phenazopyridine (Pyridium) 100 mg PO TID PRN 4 days pyridoxine (vitamin B6) 50 mg PO DAILY 90 days rosuvastatin 40 mg PO BEDTIME sumatriptan succinate 50 mg orally; only with the onset of headache, may take one additional within 2 hours of the first dose, and not to exceed 4 doses in a 24 hour period. tamsulosin 0.4 mg PO BEDTIME 30 days tirzepatide (Mounjaro) 10 mg (0.5 mL) subcut QWEEK [wipes, aloe touch As directed] zolpidem ER 12.5 mg PO BEDTIME PRN Tobacco use date assessed: 08/20/24 Dental Screening Dental Screen Date: 08/20/24 Did you have a dental visit in the last 12 months?: Yes Did you have a dental problem in the last 6 months where you did not have access to dental care?: No Was dental information given to patient?: Patient has dentist HPI HPI Comments History of Present Illness Details The patient is a 49-year-old male presenting with management concerns for his chronic conditions, specifically diabetes, hypertension, and lumbar spondylosis, as well as a review of medications. His diabetes is controlled with an HbA1c of 6.4%, and his hypertension is managed with antihypertensives. The patient reports longstanding back pain attributed to lumbar spondylosis and post-operative changes involving the lumbar spine, with an MRI conducted in April 2024. His pain management includes the usage of Percocet, which has led to constipation issues. The patient has a noteworthy history of adenomatous polyps for which surveillance colonoscopy was conducted in 2022. Gaining insights from this, the next procedure is anticipated for 2024, attributed to polyp size. Dizziness is being addressed with as-needed Meclizine. Seasonal allergic rhinitis is noted, with loratadine intake planned as spring approaches. Untreated sleep apnea remains a concern, pending CPAP device acquisition. He is also monitored for depression with insomnia under psychiatric guidance, with citalopram 20 mg and clonazepam administered for symptom management. The patient's BMI categorizes him as Class 2 obese, with supplementary use of vitamin D and rosuvastatin to manage underlying conditions. [facility] Medical History (Updated 08/20/24 @ 09:52 by Alba Coley MD) Sacroiliitis Tubular adenoma of colon FRANK (obstructive sleep apnea) Sleep apnea Mild recurrent major depression Vitamin D deficiency Neck pain Obesity due to excess calories Shortness of breath Chest pain UTI (urinary tract infection) Hematuria Renal calculi B12 deficiency due to diet Insomnia Depression with anxiety GERD (gastroesophageal reflux disease) Pure hypercholesterolemia Essential hypertension Diabetes mellitus Lumbar degenerative disc disease Surgical History H/O umbilical hernia repair (09/15/22) History of lithotripsy Hx of colonoscopy History of lumbar laminectomy Family History Father Diabetes Mother Diabetes Hypertension Son No problems noted. 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 1. Little interest or pleasure in doing things: not at all 2. Feeling down, depressed, or hopeless: not at all 3. Trouble falling or staying asleep, or sleeping too much: several days 4. Feeling tired or having little energy: more than half the days 5. Poor appetite or overeating: several days 6. Feeling bad about yourself - or that you are a failure or have let yourself or your family down: several days 7. Trouble concentrating on things, such as reading the newspaper or watching television: several days 8. Moving or speaking so slowly that other people could have noticed. Or the opposite - being so fidgety or restless that you have been moving around a lot more than usual: several days 9. Thoughts that you would be better off or of hurting yourself in some way: not at all Total score: 7 Depression Screening Interpretation: Positive Depression Screening Follow-up: Existing condition, In treatment, Community Mental Health Worker F/U and Follow- up Visit Requested Depression Screening Done: Yes 88124 - PHQ-9 Billing: Yes Source: Developed by Drs. Anibal Singh, Ebony Liu, Gerald Moura and colleagues, with an educational ethel from [email or web address]. Thrive Questionnaire Date Thrive assessed: 08/20/24 I am a: Patient What is your living situation today?: I have a steady place to live Within the past 12 months, did the food you bought not last and you didn't have the money to get more?: Sometimes True Within the past 12 months, did you worry whether your food would run out before you got money to buy more?: Sometimes True Do you have trouble paying for medicines?: No Do you have trouble getting transportation to medical appointments?: No Do you have trouble paying your heating and electricity bill?: No Do you have trouble taking care of your child, family member or friend?: No Do you have trouble with day-to-day activities such as bathing, preparing meals, shopping, managing finances, etc.?: I choose not to answer this question Are you currently unemployed and looking for a job?: I choose not to answer this question Are you interested in more education?: I choose not to answer this question Please select the resources that you would like help with: None Currently or been in a relationship where the following occur: I choose not to answer THRIVE Score: 2 AUDIT C Alcohol Use Questionnaire (AUDIT-C) 1. How often do you have a drink containing alcohol?: Monthly or less 2. How many drinks containing alcohol do you have on a typical day when you are drinking?: 1 or 2 3. How often do you have six or more drinks on one occasion?: Never Total Score: 1 Score Reviewed/Action Taken: No MITCHEL-7 AMB Questionnaire MITCHEL-7 Date MITCHEL - 7 assessed: 08/20/24 Feeling nervous, anxious, or on edge: 3 = Nearly every day Not being able to stop or control worryin = More than half the days Worrying too much about different things: 2 = More than half the days Trouble relaxin = More than half the days Being so restless that it is hard to sit still: 2 = More than half the days Becoming easily annoyed or irritable: 2 = More than half the days Feeling afraid as if something awful might happen: 2 = More than half the days Total MITCHEL-7 score (0-4 normal; 5-9 mild; 10-14 moderate; 15-21 severe): 15 Source: Developed by Drs. Anibal Singh, Ebony Liu, Gerald Moura and colleagues, with an educational ethel from [email or web address]. MITCHEL-7 Assessment Billing MITCHEL-7 Assessment Tool: MITCHEL-7 Assessment 22503 Review of Systems Const All systems reviewed & are unremarkable except as noted in HPI and below Card Denies chest pain at rest, Denies chest pain with activity, Denies edema, Denies irregular heart rhythm, Denies claudication, Denies dyspnea, Denies dyspnea on exertion, Denies orthopnea, Denies paroxysmal nocturnal dyspnea and Denies slow heart rate Resp Denies cough, Denies dyspnea and Denies dyspnea on exertion GI Denies abdominal pain, Denies change in bowel habits, Denies excessive flatus, Denies nausea and Denies vomiting Physical exam (Primary Care) Vital Signs: Last Vital Signs BP 128/84 08/20/24 09:16 BMI result Body Mass Index 35.1 Tobacco/Smoking Status: Tobacco use Status Tobacco use date assessed 08/20/24 08/20/24 09:23 Patient Tobacco Use Status Never used Tobacco 08/20/24 09:23 e-Cigarette/Vaping Use Never Used 08/20/24 09:23 PHQ-9: PHQ-9 Score PHQ-9: Total score 7 08/20/24 09:23 Depression Screening Interpretation: Positive Depression Screening Follow-up: Existing condition, In treatment, Community Mental Health Worker F/U and Follow- up Visit Requested Thrive Assessment: Date of Thrive Assessment Date Thrive assessed 08/20/24 08/20/24 09:23 Currently or been in a relationship where the following occur: I choose not to answer Resp Effort & Inspection: normal respiratory effort Auscultation: clear to auscultation bilaterally Cardio Jugular venous distension: no JVD Rate: regular rate Rhythm: regular rhythm Heart sounds: S1 normal heart sound present and S2 normal heart sound present Extrem General: Yes full ROM Psych Appearance: grossly normal Results AMB Hemoglobin A1c AMB Hemoglobin A1c 6.4 % Last Edit by MIKE Edwards on 08/20/24 09:2 4 Results Reviewed Results Reviewed: Laboratory Last Values Hgb A1c (Clinic) 6.4 % (4.0-6.0) H 08/20/24 09:23 Coding Level of Care Code Est Pt Level 4 (53052) Complex EM visit Add On G2211 Diagnoses Controlled type 2 diabetes mellitus with insulin therapy E11.9; Z79.4 Tubular adenoma of colon D12.6 Lumbar spondylolysis M43.06 Chronic pain syndrome G89.4 Mild recurrent major depression F33.0 Essential hypertension I10 Pure hypercholesterolemia E78.00 Lumbar degenerative disc disease M51.36 Additional Codes PHQ-9 - 12248 - PHQ-9 Billing: Yes ([id number]) MITCHEL-7 Assessment Billing - MITCHEL-7 Assessment Tool: MITCHEL-7 Assessment 94027 ([id number]) Time Spent (min) 31 Assessment & Plan Assessment & Plan (1) Controlled type 2 diabetes mellitus with insulin therapy: Code(s): E11.9 - Type 2 diabetes mellitus without complications; Z79.4 - long term care social worker (current) use of insulin Category: Medical (2) Tubular adenoma of colon: Comment: Colonoscopy 07/2022 Code(s): D12.6 - Benign neoplasm of colon, unspecified Category: Medical (3) Lumbar spondylolysis: Code(s): M43.06 - Spondylolysis, lumbar region Category: Medical (4) Chronic pain syndrome: Code(s): G89.4 - Chronic pain syndrome Category: Medical (5) Mild recurrent major depression: Code(s): F33.0 - Major depressive disorder, recurrent, mild Category: Medical (6) Essential hypertension: Code(s): I10 - Essential (primary) hypertension Category: Medical (7) Pure hypercholesterolemia: Code(s): E78.00 - Pure hypercholesterolemia, unspecified Category: Medical (8) Lumbar degenerative disc disease: Code(s): M51.36 - Other intervertebral disc degeneration, lumbar region Category: Medical Plan This visit addressed management of chronic conditions including type 2 diabetes, hypertension, hyperlipidemia, and lumbar spondylosis with a focus on ongoing medication efficacy and symptom control. The current treatment regimen demonst rated effective diabetes control. Discussion included maintaining antihypertensive and lipid-lowering therapies. Emphasis was placed on monitoring back pain related to lumbar spondylosis, revising pain management, and managing constipation associated with opioid use. The patient's continued obesity management requires dietary adjustments to supplement ongoing efforts. Stress on addressing untreated sleep apnea included the acquisition of a CPAP. Follow-up for colonoscopy is scheduled for 2024 in response to previous polyp findings. Seasonal allergy management will begin with loratadine in the spring. For psychiatric concerns, medication adherence was encouraged with scheduled follow- ups. The outlined plan aims to reassess health status while integrating prevention and wellness strategies. Patient was informed and verbally consented to the use of an ambient scribe for clinic note documentation during this visit. During this visit, I discussed the patient's chronic condition management strategies, including frequent monitoring of diabetes control through HbA1c, and hypertension management. We reviewed the benefits and potential side effects of the patient's existing medications, and discussed the importance of maintaining dietary changes for obesity. The patient was counseled on the nature of his back pain, the role of Lumbar Spondylosis, and potential future interventions. We discussed the need for periodic colonoscopy given his history of adenomatous polyps, and emphasized allergy management with loratadine. The risks of untreated sleep apnea were reiterated, and I recommended follow-up with nephrology for comprehensive kidney monitoring. We discussed his psychiatric medications and the significance of adherence. Patient education on all discussed plans, including benefits and adverse effects, was provided, and I advised close follow-ups to evaluate treatment efficacy and address emerging needs. Orders: Orders AMB Hemoglobin A1c Today E11.65 - Type 2 diabetes mellitus with hyperglycemia Lipid Panel 4 Months E78.5 - Hyperlipidemia, unspecified Microalbumin, Random (w Creat) 4 Months R80.9 - Proteinuria, unspecified Vitamin D 25-OH Total 4 Months E55.9 - Vitamin D deficiency, unspecified Comprehensive [place]. Panel Fast 4 Months E11.65 - Type 2 diabetes mellitus with hyperglycemia Referrals Gastroenterology Referral D12.6 - Benign neoplasm of colon, unspecified Medications: New oxycodone-acetaminophen 10-325 mg Partial Fill upon patient request. 1 tab PO Q6H 30 days PRN 120 tabs 0RF pain G89.4 - Chronic pain syndrome, M43.06 - Spondylolysis, lumbar region Discontinued oxycodone-acetaminophen 5-325 mg Partial Fill upon patient request. Discontinued Reason: Patient Completed Course 1 tab PO Q6H 30 days PRN 120 tabs 0RF pain (scale score 4-6) Patient Instructions: - Continue current diabetes and hypertension medication regimen. - Schedule your colonoscopy for 2024. - Take loratadine for seasonal allergies as needed. - Obtain a CPAP machine to manage sleep apnea. - Maintain dietary modifications to address obesity. - Remember to take psychiatric medications as prescribed. - Report any new symptoms or concerns promptly. - Avoid Percocet if experiencing severe constipation.
--- OUTSIDE RECORDS SUMMARY | 2024-08-20 09:40 | XMS_ITS | Clinical Summary ---
Author Organization [facility] Facility Address [address] [address] Care Team Providers Care Registered Dietetic Technician Name Role Phone Alba Khan MD Primary Care Provider [phone] Allergies No known active allergies Medications omeprazole [...] (6 to 49 Years) Discontinued 06/18/2015 Insurance [facility] ([id number]) [place] [id number] [facility] ([id number]) [place] [phone] Care Teams Registered Dietetic Technician Relationship Specialty Start Date End Date Alba Khan MD [address] [place], [place] PCP - General 05/17/20
== END 2024-08-20 09:48 | disposition home or self-care (01) ==
LOC: HO.HMCH 09:02
PROVIDERS: PCP Internal Medicine; Visit Provider Internal Medicine
DX: E11.9 Type 2 diabetes mellitus without complications (principal); Z79.4 Long term (current) use of insulin; F33.0 Major depressive disorder, recurrent, mild; E11.65 Type 2 diabetes mellitus with hyperglycemia; D12.6 Benign neoplasm of colon, unspecified; M43.06 Spondylolysis, lumbar region; G89.4 Chronic pain syndrome; I10 Essential (primary) hypertension; E78.00 Pure hypercholesterolemia, unspecified; M51.369 Other intervertebral disc degeneration, lumbar region without mention of lumbar back pain or lower extremity pain

== ENCOUNTER → 2024-08-20 09:01 | Outpatient (BNVA) | payer OTHER, SELFPAY | PROVIDERS: PCP Internal Medicine; Visit Provider Internal Medicine | DX: E11.9 Type 2 diabetes mellitus without complications (principal); M43.06 Spondylolysis, lumbar region; G89.4 Chronic pain syndrome; F33.0 Major depressive disorder, recurrent, mild; I10 Essential (primary) hypertension; E78.00 Pure hypercholesterolemia, unspecified; M51.369 Other intervertebral disc degeneration, lumbar region without mention of lumbar back pain or lower extremity pain; Z86.0101 Personal history of adenomatous and serrated colon polyps; Z79.4 Long term (current) use of insulin | CPT/HCPCS: 83036; 96127; 99212 ==

== ENCOUNTER 2024-09-09 10:23 | Outpatient (REF) | payer OTHER, SELFPAY ==
--- OUTSIDE RECORDS SUMMARY | 2024-09-09 11:55 | XMS_ITS | Clinical Summary ---
Author Organization [facility] Facility Address [address] [address] Care Team Providers Care [employer] Business Analyst Name Role Phone Alba Khan MD Primary Care Provider [phone] Allergies No known active allergies Medications omeprazole [...] (6 to 49 Years) Discontinued 06/18/2015 Insurance [facility] ([id number]) [place] [id number] [facility] ([id number]) [place] [id number] Care Teams S[employer] Business Analyst Relationship Specialty Start Date End Date Alba Khan MD [address] [place], [place] PCP - General 05/17/20
[2024-09-09 12:13] LABS: Creatinine Urine 143.62 mg/dL; Microalbum/Creatinine Ratio Ur 19.4 ug/mg cr (<30)
[2024-09-09 12:25] LABS: Vitamin D 25-OH Total 20.6 ng/mL (>30)
[2024-09-09 14:54] LABS: Alanine Aminotransferase 35 U/L (0-40); Albumin Level 4.7 g/dL (3.5-5.0); Anion Gap 14 (12-20); Aspartate Amino Transferase 29 U/L (5-37); Blood Urea Nitrogen 18 mg/dL (9-16); Calcium 9.5 mg/dL (8.4-10.2); Carbon Dioxide 27 mmol/L (22-29); Chloride 103 mmol/L (96-108); Cholesterol 166 mg/dL (<200); Estimated Glomerular Filt Rate > 60; Glucose Fasting 170 mg/dL (60-99); HDL Cholesterol 43 mg/dL (>40); LDL Cholesterol Calculated 106 mg/dL (<100); Potassium 4.7 mmol/L (3.3-5.1); Sodium 139 mmol/L (135-145); Total Protein 7.5 g/dL (6.5-8.0); Triglycerides 88 mg/dL (<150)
[2024-09-09 18:20] LABS: Alkaline Phosphatase 75 U/L (39-117)
== END 2024-09-09 10:24 | disposition home or self-care (01) ==
LOC: HO.LAB 10:23
PROVIDERS: Absent Provider Internal Medicine Hypertension Specialist; PCP Internal Medicine; Visit Provider Internal Medicine
DX: E11.9 Type 2 diabetes mellitus without complications (principal); R80.9 Proteinuria, unspecified; E55.9 Vitamin D deficiency, unspecified; E78.5 Hyperlipidemia, unspecified; Z79.4 Long term (current) use of insulin
CPT/HCPCS: 36415; 80053; 80061; 82043; 82306; 82570

== ENCOUNTER 2024-09-18 10:49 | Outpatient (AMB) | payer OTHER, SELFPAY ==
--- NOTE | 2024-09-18 10:50 | A.OFFVIS_ITS ---
Intake Visit Reasons: 8weeks/labs Intake Note: Pt presents to the office today for an 8 week follow up/Labs. PVR:30ml Allergies latex Allergy (Severe, Verified 09/18/24 10:51) rash,swelling atorvastatin Allergy (Intermediate, Verified 09/18/24 10:51) stomach upset metformin Allergy (Intermediate, Verified 09/18/24 10:51) diarrhea HPI Comments Details: Goyo is a pleasant Slovak-speaking male. He is a patient of Dr. William. Presents for the following urologic conditions - nephrolithiasis - lower urinary tract symptoms background of diabetes - insulin therapy with SGLT2 - erectile dysfunction background of diabetes Three-month follow-up Remains on alpha-diane for lower urinary tract symptoms Total testosterone low in setting of diabetes Should be restored Start testosterone gel Erectile dysfunction Background diabetes Daily tadalafil caused headache On demand sildenafil 100 mg Nephrolithiasis Prior presentation to [facility] with right-sided flank pain Imaging - 03/28 renal ultrasound right-sided low 8 mm - 05/29 CT 8 mm right UPJ - 09/26 right lower pole 7 mm - 04/28 Renal US right 4mm - 07/28 KUB question right small stone - 04/29 renal ultrasound no stones Intervention - 08/27 R ESWL, 10/28 right ESWL Background diabetic PFSH Medical History Sacroiliitis Tubular adenoma of colon FRANK (obstructive sleep apnea) Sleep apnea Mild recurrent major depression Vitamin D deficiency Neck pain Obesity due to excess calories Shortness of breath Chest pain UTI (urinary tract infection) Hematuria Renal calculi B12 deficiency due to diet Insomnia Depression with anxiety GERD (gastroesophageal reflux disease) Pure hypercholesterolemia Essential hypertension Diabetes mellitus Lumbar degenerative disc disease Surgical History H/O umbilical hernia repair (09/15/22) History of lithotripsy Hx of colonoscopy History of lumbar laminectomy Family History Father Diabetes Mother Diabetes Hypertension Son No problems noted. 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) Alcohol intake: current Alcohol intake frequency: holidays/special occasions only Alcohol type: beer Patient Tobacco Use Status: Never used Tobacco e-Cigarette/Vaping Use: Never Used Second Hand Smoke Exposure: No service: No Current occupational status: disabled Cognitive needs: No Hearing needs: No Vision needs: No Office Procedures Post Void Residual Post Residual Void Post Void Residual (PVR): 30 [id number] Void Residual by ultrasound Results AMB Urinalysis, Automated UA Leukoctes 0 Leigh Ann/uL Last Edit by Lexie Pérez CMA on 09/18/24 11:03 UA Nitrite Negative Last Edit by Lexie Pérez CMA on 09/18/24 11:03 UA Urobilinogen 0.2 mg/dL Last Edit by Lexie Pérez CMA on 09/18/24 11:03 UA Protein 0 mg/dL Last Edit by Lexie Pérez CMA on 09/18/24 11:03 UA pH 6.0 Last Edit by Lexie Pérez CMA on 09/18/24 11:03 UA Blood 0 Alan/uL Last Edit by Lexie Pérez CMA on 09/18/24 11:03 UA Specific Mcdonald 1.025 Last Edit by Lexie Pérez CMA on 09/18/24 11:03 UA Ketone Negative Last Edit by Lexie Pérez CMA on 09/18/24 11:03 UA Bilirubin 0 mg/dL Last Edit by Lexie Pérez CMA on 09/18/24 11:03 UA Glucose 250 mg/dL Last Edit by Lexie Pérez CMA on 09/18/24 11:03 Results Reviewed Results Reviewed: Laboratory Last Values Urine pH (Auto) 6.0 09/18/24 11:02 Specific Mcdonald (Auto) 1.025 09/18/24 11:02 Urine Protein (Auto) 0 mg/dL 09/18/24 11:02 Glucose (UA)(Auto) 250 mg/dL 09/18/24 11:02 Urine Ketones (Auto) Negative 09/18/24 11:02 Urine Blood (Auto) 0 Alan/uL 09/18/24 11:02 Urine Nitrite (Auto) Negative 09/18/24 11:02 Urine Bilirubin (Auto) 0 mg/dL 09/18/24 11:02 Urine Urobilinogen (Auto) 0.2 mg/dL 09/18/24 11:02 Leukocyte Esterase (Auto) 0 Leigh Ann/uL 09/18/24 11:02 Assessment & Plan Assessment & Plan (1) Hypogonadism in male: Code(s): E29.1 - Testicular hypofunction Category: Medical (2) Renal calculi: Code(s): N20.0 - Calculus of kidney Category: Medical Orders: Orders AMB Urinalysis Automated Today Z13.9 - Encounter for screening, unspecified AMB Post Void Residual by ultrasound Today N32.89 - Other specified disorders of bladder Testosterone, Total 3 Months E29.1 - Testicular hypofunction Medications: New testosterone Apply to shoulder and rub in until dry 1 packet transdermal DAILY 30 days 150 grams 5RF E29.1 - Testicular hypofunction Coding Diagnoses Hypogonadism in male E29.1 Renal calculi N20.0 CPT Codes Post Residual Void - PVR CPT Code: 82513-[id number] Void Residual by ultrasound ([id number])
--- OUTSIDE RECORDS SUMMARY | 2024-09-18 11:55 | XMS_ITS | Clinical Summary ---
Author Organization [facility] Facility Address [address] [address] Care Team Providers Care Federal Law Clerk Name Role Phone Alba Khan MD Primary Care Provider [phone] Allergies No known active allergies Medications omeprazole [...] (6 to 49 Years) Discontinued 06/18/2015 Insurance [facility] ([id number]) [place] [id number] [facility] ([id number]) [place] [id number] Care Teams Federal Law Clerk Relationship Specialty Start Date End Date Alba Khan MD [address] [place], [place] PCP - General 05/17/20
== END 2024-09-18 11:49 | disposition home or self-care (01) ==
LOC: HO.HUSH 10:49
PROVIDERS: PCP Internal Medicine; Visit Provider Urology
DX: Z13.9 Encounter for screening, unspecified (principal)

== ENCOUNTER → 2024-09-18 10:49 | Outpatient (BNVA) | payer OTHER, SELFPAY | PROVIDERS: PCP Internal Medicine; Visit Provider Urology | DX: E29.1 Testicular hypofunction (principal); N20.0 Calculus of kidney; N32.89 Other specified disorders of bladder | CPT/HCPCS: 51798; 81003; 99212 ==

== ENCOUNTER 2024-09-26 09:59 | Outpatient (AMB) | payer OTHER, MEDICAID, SELFPAY ==
[2024-09-26 10:02] VITALS: BP 112/76; PULSE 94; O2SAT 98; BMI 35.9
--- NOTE | 2024-09-26 10:02 | MHC.OFFVIS ---
Vital Signs 09/26/24 10:02 Height 5 ft 7 in Weight 229 lb 8.019 oz BMI 35.9 BP 112/76 Blood Pressure Location Rt brachial Position Sitting Pulse 94 Pulse Source Pulse Oximeter Pulse Oximetry (%) 98 Oxygen Delivery Method Room Air Intake Visit Reasons: dm Intake Note: Patient present today for Type 2 Diabetes Mellitus Last Diabetic eye exam: 05/2024 Last Podiatry Visit: Doesn't have one Random Glucose: 161 mg/dl HgA1C: 6.4% 08/20/24 Solar Consultant Required: No Accompanied by: Self / Same As Patient Allergies latex Allergy (Severe, Verified 09/26/24 10:10) rash,swelling atorvastatin Allergy (Intermediate, Verified 09/26/24 10:10) stomach upset metformin Allergy (Intermediate, Verified 09/26/24 10:10) diarrhea Medication List - Last Reconciled 09/26/24 by Birdie Duong PA-C aspirin 81 mg PO DAILY blood pressure test kit-medium As directed blood sugar diagnostic As directed blood sugar diagnostic (FreeStyle Lite Strips) As directed three times a day blood-glucose sensor (FreeStyle Shaheed 3 Plus Sensor device) Use daily As directed to monitor glucose blood-glucose,general magistrate,cont (FreeStyle Shaheed 3 [place]) As directed cholecalciferol (vitamin D3) 50 mcg PO DAILY clonazepam 1 mg PO BID PRN docusate calcium 240 mg PO BEDTIME PRN 90 days escitalopram oxalate 20 mg PO DAILY gabapentin 600 mg PO TID PRN insulin aspart U-100 (Novolog FlexPen U-100 Insulin aspart) 5 units (0.05 mL) subcut BID insulin degludec (Tresiba FlexTouch U-100 insulin) 35 units (0.35 mL) subcut BEDTIME insulin syringe-needle U-100 (BD Insulin Syringe Ultra-Fine) Use 1 pen needle once a day lancets (FreeStyle Lancets) use BID as directed to check blood glucose lidocaine 5% 1 appl topical TID PRN 30 days lidocaine 5% (Lidoderm) 1 patch topical DAILY lisinopril 5 mg PO DAILY loratadine 10 mg PO DAILY PRN 90 days meclizine 25 mg PO TID PRN 30 days omeprazole 20 mg PO DAILY oxycodone-acetaminophen 10-325 mg 1 tab PO Q6H PRN 30 days pen needle, diabetic (BD Ultra-Fine Short Pen Needle) USE 1 PEN NEEDLE ONCE A DAY phenazopyridine (Pyridium) 100 mg PO TID PRN 4 days pyridoxine (vitamin B6) 50 mg PO DAILY 90 days rosuvastatin 40 mg PO BEDTIME sumatriptan succinate 50 mg orally; only with the onset of headache, may take one additional within 2 hours of the first dose, and not to exceed 4 doses in a 24 hour period. tamsulosin 0.4 mg PO BEDTIME 90 days testosterone 1 packet transdermal DAILY 30 days tirzepatide (Mounjaro) 10 mg (0.5 mL) subcut QWEEK [wipes, aloe touch As directed] zolpidem ER 12.5 mg PO BEDTIME PRN HPI HPI dm: Details: Patient is a 49-year-old male with a significant past medical history of type 2 diabetes, hypertension, hyperlipidemia, ED, FRANK, CKD presenting today for diabetic follow-up. Endo: Last A1c was 6.4. He is currently on Tresiba 30 units nightly, novolog 4 units with meals and Mounjaro 10 mg weekly. -he states the last couple weeks his blood sugars have been elevated and he is not sure why. He states that he was eating more rice than he should have and he has recently cut that out again. He denies any hypoglycemic events. He states in the past he has had a few low blood sugars but nothing recently and he has always corrected this with chocolate. He does not have any glucose tabs at home. At our last visit I discontinued the Jardiance due to UTIs and frequent urinary symptoms. He states that resolved. Metformin caused GI upset. he has trialed Trulicity and Ozempic. freestyle 3 cgm- use age 95%, average glucose 197, 8.0%, glucose variability 20%. Very high 10%, high 52 %, in range 38 %, hypoglycemic 0% He does have peripheral neuropathy (right worse than left), nephropathy, glaucoma and ED. He is on gabapentin at night for neuropathy. 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 CV: Blood pressure today in the office is 112/76. He is on lisinopril 5 mg. Cholesterol is controlled with Crestor 40 mg. Nephro: Follows with Nephrology. He is on an EVONNE-inhibitor and mounjaro. avoids nsaids. [facility] Medical History Sacroiliitis Tubular adenoma of colon FRANK (obstructive sleep apnea) Sleep apnea Mild recurrent major depression Vitamin D deficiency Neck pain Obesity due to excess calories Shortness of breath Chest pain UTI (urinary tract infection) Hematuria Renal calculi B12 deficiency due to diet Insomnia Depression with anxiety GERD (gastroesophageal reflux disease) Pure hypercholesterolemia Essential hypertension Diabetes mellitus Lumbar degenerative disc disease Surgical History H/O umbilical hernia repair (09/15/22) History of lithotripsy Hx of colonoscopy History of lumbar laminectomy Family History Father Diabetes Mother Diabetes Hypertension Son No problems noted. 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) Alcohol intake: current Alcohol intake frequency: holidays/special occasions only Alcohol type: beer Patient Tobacco Use Status: Never used Tobacco e-Cigarette/Vaping Use: Never Used Second Hand Smoke Exposure: No service: No Current occupational status: disabled Cognitive needs: No Hearing needs: No Vision needs: No Physical Exam Const Orientation/consciousness: patient oriented x3 HEENT Ears: hearing grossly normal bilaterally Neck Thyroid: Thyroid normal Lymphatic: no lymphadenopathy noted Resp Auscultation: clear to auscultation bilaterally Cardio Rate: regular rate Rhythm: regular rhythm Heart sounds: S1 normal heart sound present and S2 normal heart sound present Skin General skin exam: no rashes or lesions noted Neuro General: patient oriented x3, gait normal and no focal motor deficits Results Reviewed Results Reviewed: Laboratory Tests 05/12/24 06/27/24 08/20/24 10:33 10:14 09:23 Sodium Potassium Chloride Carbon Dioxide Anion Gap BUN Creatinine Estimated GFR Glucose (Clinic) 155 H Fasting Glucose Hgb A1c (Clinic) 6.9 H 6.4 H Triglycerides Cholesterol LDL Cholesterol, Calc HDL Cholesterol 09/09/24 10:37 Sodium 139 Potassium 4.7 Chloride 103 Carbon Dioxide 27 Anion Gap 14 BUN 18 H Creatinine 1.01 Estimated GFR > 60 Glucose (Clinic) Fasting Glucose 170 H Hgb A1c (Clinic) Triglycerides 88 Cholesterol 166 LDL Cholesterol, Calc 106 H HDL Cholesterol 43 Assessment & Plan Assessment & Plan (1) Uncontrolled type 2 diabetes mellitus with hyperglycemia: Code(s): E11.65 - Type 2 diabetes mellitus with hyperglycemia Category: Medical Plan: Currently well-controlled with the last couple of weeks have been elevated. I have increased the Tresiba to 36 units Increase NovoLog to 6 units with meals Increase Mounjaro to 12.5 mg weekly. He will let me know if he is having any low blood sugars with this. I will have him follow up in 3 months. Sooner if needed. We will complete labs prior to appointment again. Glucose tabs and glucagon nasal spray ordered to use as needed for hypoglycemia. We reviewed how to use these and signs and symptoms of hyper and hypoglycemia that would require emergent medical treatment. (2) Pure hypercholesterolemia: Code(s): E78.00 - Pure hypercholesterolemia, unspecified Category: Medical Plan: Continue Crestor 40 mg (3) Essential hypertension: Code(s): I10 - Essential (primary) hypertension Category: Medical Plan: WNL. Continue current regimen Orders: Orders Microalbumin, Random (w Creat) Today E11.65 - Type 2 diabetes mellitus with hyperglycemia, E78.00 - Pure hypercholesterolemia, unspecified, I10 - Essential (primary) hypertension Hemoglobin A1c Today E11.65 - Type 2 diabetes mellitus with hyperglycemia, E78.00 - Pure hypercholesterolemia, unspecified, I10 - Essential (primary) hypertension, R73.01 - Impaired fasting glucose Comprehensive Met. Panel Today E11.65 - Type 2 diabetes mellitus with hyperglycemia, E78.00 - Pure hypercholesterolemia, unspecified, I10 - Essential (primary) hypertension Medications: New glucose (Dex4 Glucose) until symptoms of low blood sugar are controlled 16 grams (4 x 4 gram) PO Q15M PRN 100 tabs 0RF hypoglycemia tirzepatide (Mounjaro) 12.5 mg (0.5 mL) subcut QWEEK 2 mL 3RF glucagon 3 mg/actuation 3 mg intranasal ONCE PRN 2 ea 0RF hypoglycemia Changed From insulin degludec (Tresiba FlexTouch U-100 insulin) 35 units (0.35 mL) subcut BEDTIME 15 mL 6RF E11.9 - Type 2 diabetes mellitus without complications To insulin degludec (Tresiba FlexTouch U-100 insulin) 36 units (0.36 mL) subcut BEDTIME 15 mL 6RF E11.9 - Type 2 diabetes mellitus without complications From insulin aspart U-100 (Novolog FlexPen U-100 Insulin aspart) with meals 5 units (0.05 mL) subcut BID 15 mL 1RF To insulin aspart U-100 (Novolog FlexPen U-100 Insulin aspart) with meals 6 units (0.06 mL) subcut BID 15 mL 1RF Discontinued tirzepatide (Mounjaro) Discontinued Reason: Doctor's Order 10 mg (0.5 mL) subcut QWEEK 2 mL 4RF Coding Level of Care Code Est Pt Level 4 (94042) Complex EM visit Add On G2211 Diagnoses Uncontrolled type 2 diabetes mellitus with hyperglycemia E11.65 Pure hypercholesterolemia E78.00 Essential hypertension I10
--- OUTSIDE RECORDS SUMMARY | 2024-09-26 10:15 | XMS_ITS | Clinical Summary ---
Author Organization [facility] Facility Address [address] [address] Care Team Providers Care Boot Repairer Name Role Phone Alba Khan MD Primary Care Provider [phone] Allergies No known active allergies Medications omeprazole [...] (6 to 49 Years) Discontinued 06/18/2015 Insurance [facility] ([id number]) [place] [id number] [facility] ([id number]) [place] [id number] Care Teams Boot Repairer Relationship Specialty Start Date End Date Alba Khan MD [address] [place], [place] PCP - General 05/17/20
[2024-09-26 10:16] LABS: Glucose, Whole Blood 161 mg/dL (60-115)
== END 2024-09-26 10:36 | disposition home or self-care (01) ==
LOC: HO.ENCR 10:00
PROVIDERS: PCP Internal Medicine; Visit Provider Physician Assistant
DX: E11.65 Type 2 diabetes mellitus with hyperglycemia (principal); E78.00 Pure hypercholesterolemia, unspecified; I10 Essential (primary) hypertension

== ENCOUNTER → 2024-09-26 09:59 | Outpatient (BNVA) | payer OTHER, SELFPAY | PROVIDERS: PCP Internal Medicine; Visit Provider Physician Assistant | DX: E11.65 Type 2 diabetes mellitus with hyperglycemia (principal); E78.00 Pure hypercholesterolemia, unspecified; I12.9 Hypertensive chronic kidney disease with stage 1 through stage 4 chronic kidney disease, or unspecified chronic kidney disease; E11.22 Type 2 diabetes mellitus with diabetic chronic kidney disease; N18.9 Chronic kidney disease, unspecified; Z79.4 Long term (current) use of insulin; Z79.85 Long-term (current) use of injectable non-insulin antidiabetic drugs; Z79.899 Other long term (current) drug therapy | CPT/HCPCS: 82947; 99212 ==

== ENCOUNTER 2024-12-08 10:27 | Outpatient (AMB) | payer OTHER, MEDICAID, SELFPAY ==
--- NOTE | 2024-12-08 10:30 | MHC.OFFVIS ---
Vital Signs 12/08/24 10:37 Height 5 ft 7 in Weight 221 lb BMI 34.6 BP 134/84 Blood Pressure Location Rt brachial Position Sitting Pulse 99 Intake Visit Reasons: hernias Intake Note: Patient here for evaluation of hernias. Hx of Umbilical hernia repair 09-15-2022. Patient c/o: umbilical area pain getting worse. Feels like a burning sensation. Credit Union Examiner Required: No Accompanied by: Self / Same As Patient Allergies latex Allergy (Severe, Verified 12/08/24 10:35) rash,swelling atorvastatin Allergy (Intermediate, Verified 12/08/24 10:35) stomach upset metformin Allergy (Intermediate, Verified 12/08/24 10:35) diarrhea Medication List - Last Reconciled 12/08/24 by Yunior Jain MD aspirin 81 mg PO DAILY blood pressure test kit-medium As directed blood sugar diagnostic As directed blood sugar diagnostic (FreeStyle Lite Strips) As directed three times a day blood-glucose sensor (FreeStyle Shaheed 3 Plus Sensor device) Use daily As directed to monitor glucose blood-glucose,table games dealer,cont (FreeStyle Shaheed 3 [place]) As directed cholecalciferol (vitamin D3) 50 mcg PO DAILY clonazepam 1 mg PO BID PRN docusate calcium 240 mg PO BEDTIME PRN 90 days escitalopram oxalate 20 mg PO DAILY gabapentin 600 mg PO TID PRN glucagon 3 mg/actuation 3 mg intranasal ONCE PRN glucose (Dex4 Glucose) 16 grams (4 x 4 gram) PO Q15M PRN insulin aspart U-100 (Novolog FlexPen U-100 Insulin aspart) 6 units (0.06 mL) subcut BID insulin degludec (Tresiba FlexTouch U-100 insulin) 36 units (0.36 mL) subcut BEDTIME insulin syringe-needle U-100 (BD Insulin Syringe Ultra-Fine) Use 1 pen needle once a day lancets (FreeStyle Lancets) use BID as directed to check blood glucose lidocaine 5% 1 appl topical TID PRN 30 days lidocaine 5% (Lidoderm) 1 patch topical DAILY lisinopril 5 mg PO DAILY loratadine 10 mg PO DAILY PRN 90 days meclizine 25 mg PO TID PRN 30 days omeprazole 20 mg PO DAILY ondansetron HCl 4 mg PO Q6-8H PRN 30 days oxycodone-acetaminophen 10-325 mg 1 tab PO Q6H PRN 30 days pen needle, diabetic (BD Ultra-Fine Short Pen Needle) USE 1 PEN NEEDLE ONCE A DAY phenazopyridine (Pyridium) 100 mg PO TID PRN 4 days pyridoxine (vitamin B6) 50 mg PO DAILY 90 days rosuvastatin 40 mg PO BEDTIME sumatriptan succinate 50 - 100 mg orally at onset of headache, may repeat in 2 hrs PRN; max 2 tabs per day or 4 tabs/week (may take with Ibuprofen) 30 days tamsulosin 0.4 mg PO BEDTIME 90 days testosterone 1 packet transdermal DAILY 30 days tirzepatide (Mounjaro) 12.5 mg (0.5 mL) subcut QWEEK [wipes, aloe touch As directed] zolpidem ER 12.5 mg PO BEDTIME PRN HPI HPI hernias: Details: 49-year-old male here for seen on the umbilical hernia repair site. He had undergone repair of an umbilical hernia with mesh with Dr. Frausto in Sep, 2022. He says that he had been doing well but for the past 8 months or so, he had been noticing pain on the hernia repair site as well as to the right of this. He says that this seems to have been worsening steadily so he decided to come to be re-evaluated. He does not really notice any lump on the area. [facility] Medical History (Updated 12/08/24 @ 10:53 by Yunior Jain MD) Pain at surgical incision Sacroiliitis Tubular adenoma of colon FRANK (obstructive sleep apnea) Sleep apnea Mild recurrent major depression Vitamin D deficiency Neck pain Obesity due to excess calories Shortness of breath Chest pain UTI (urinary tract infection) Hematuria Renal calculi B12 deficiency due to diet Insomnia Depression with anxiety GERD (gastroesophageal reflux disease) Pure hypercholesterolemia Essential hypertension Diabetes mellitus Lumbar degenerative disc disease Surgical History H/O umbilical hernia repair (09/15/22) History of lithotripsy Hx of colonoscopy History of lumbar laminectomy Family History Father Diabetes Mother Diabetes Hypertension Son No problems noted. 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) Alcohol intake: current Alcohol intake frequency: holidays/special occasions only Alcohol type: beer Patient Tobacco Use Status: Never used Tobacco e-Cigarette/Vaping Use: Never Used Second Hand Smoke Exposure: No service: No Current occupational status: disabled Cognitive needs: No Hearing needs: No Vision needs: No Review of Systems Const Denies chills and Denies fever(s) Card Denies chest pain, Denies dyspnea and Denies dyspnea on exertion Resp Denies cough, Denies dyspnea and Denies dyspnea on exertion GI Denies hematochezia and Denies change in bowel habits Denies hematuria and Denies difficulty urinating Musc Reports back pain and Denies limited range of motion Neuro Denies focal weakness and Denies convulsions Psych Denies depression and Denies mood swings Physical Exam Vital Signs: Last Vital Signs Pulse 99 12/08/24 10:37 BP 134/84 12/08/24 10:37 BMI result Body Mass Index 34.6 Const General: comfortable and no acute distress Orientation/consciousness: patient oriented x3 Neck Neck: Yes no lymphadenopathy Resp Auscultation: clear to auscultation bilaterally Cardio Rhythm: regular rhythm GI Other: Examination of the umbilical hernia repair site shows no evidence of recurrence even with Valsalva maneuvers. There were no palpable masses in the area. Palpation (GI): Soft to palpation, nontender and no guarding Neuro General: patient oriented x3 Assessment & Plan Assessment & Plan (1) Pain at surgical incision: Code(s): L76.82 - Other postprocedural complications of skin and subcutaneous tissue Category: Medical Plan: He describes having worsening pain on the umbilical hernia repair site for the past 8 months. I do not feel any hernia at this time. I will see him for a CAT scan of the abdomen and pelvis to rule out any occult hernia. He looks well overall. I will see him in the office after his CAT scan to review this and discuss the next step in his care He seems to be comfortable the plan above. Coding Level of Care Code Est Pt Level 3 (15601) Diagnoses Pain at surgical incision L76.82
[2024-12-08 10:37] VITALS: BP 134/84; PULSE 99; BMI 34.6
--- OUTSIDE RECORDS SUMMARY | 2024-12-08 11:10 | XMS_ITS | Clinical Summary ---
Author Organization [facility] Facility Address [address] [address] Care Team Providers Care Engine Generator Assembler Name Role Phone Alba Khan MD Primary Care Provider [phone] Allergies No known active allergies Medications omeprazole [...] Cancer Screening: Sigmoidoscopy 2022 Influenza Vaccine (#1) 2025 Pneumococcal Vaccine: Peds ( 0 to 5 Years) and At-Risk Patients (6 to 49 Years) Discontinued 06/18/[address] [facility] ([id number]) [place] [id number] [facility] ([id number]) [place] [id number] Care Teams Engine Generator Assembler Relationship Specialty Start Date End Date Alba Khan MD [address] [place], [place] PCP - General 05/17/20
== END 2024-12-08 10:50 | disposition home or self-care (01) ==
LOC: HO.HGS 10:28
PROVIDERS: PCP Internal Medicine; Visit Provider Surgery
DX: L76.82 Other postprocedural complications of skin and subcutaneous tissue (principal)
CPT/HCPCS: 99213

== ENCOUNTER → 2024-12-08 10:27 | Outpatient (BNVA) | payer OTHER, SELFPAY | PROVIDERS: PCP Internal Medicine; Visit Provider Surgery | DX: L76.82 Other postprocedural complications of skin and subcutaneous tissue (principal) | CPT/HCPCS: 99212 ==

== ENCOUNTER 2024-12-22 09:27 | Outpatient (AMB) | payer OTHER, MEDICAID, SELFPAY ==
[2024-12-22 09:32] VITALS: BP 120/80; PULSE 85; O2SAT 95; BMI 34.2
--- NOTE | 2024-12-22 09:32 | A.OFFVIS_ITS ---
Vital Signs 12/22/24 09:32 Height 5 ft 7 in Weight 218 lb 4.122 oz BMI 34.2 BP 120/80 Blood Pressure Location Rt brachial Position Sitting Pulse 85 Pulse Source Pulse Oximeter Pulse Oximetry (%) 95 Oxygen Delivery Method Room Air Intake Visit Reasons: dm Intake Note: Patient present today for Type 2 Diabetes Mellitus Last Diabetic eye exam: 05/2024 Last Podiatry Visit: Doesn't have one Random Glucose: 136 mg/dL HgA1C: 6.4%, 12/22/2024 Tentering Machine Feeder Required: No Accompanied by: Self / Same As Patient Allergies latex Allergy (Severe, Verified 12/08/24 10:35) rash,swelling atorvastatin Allergy (Intermediate, Verified 12/08/24 10:35) stomach upset metformin Allergy (Intermediate, Verified 12/08/24 10:35) diarrhea Medication List - Last Reconciled 12/22/24 by Birdie Duong PA-C aspirin 81 mg PO DAILY blood pressure test kit-medium As directed blood sugar diagnostic As directed blood sugar diagnostic (FreeStyle Lite Strips) As directed three times a day blood-glucose sensor (FreeStyle Shaheed 3 Plus Sensor device) Use daily As directed to monitor glucose blood-glucose,fitness floor attendant,cont (FreeStyle Shaheed 3 [place]) As directed cholecalciferol (vitamin D3) 50 mcg PO DAILY clonazepam 1 mg PO BID PRN docusate calcium 240 mg PO BEDTIME PRN 90 days escitalopram oxalate 20 mg PO DAILY gabapentin 600 mg PO TID PRN glucagon 3 mg/actuation 3 mg intranasal ONCE PRN glucose (Dex4 Glucose) 16 grams (4 x 4 gram) PO Q15M PRN ibuprofen 800 mg PO Q8H PRN insulin aspart U-100 (Novolog FlexPen U-100 Insulin aspart) 4 units (0.04 mL) subcut BID insulin degludec (Tresiba FlexTouch U-100 insulin) 36 units (0.36 mL) subcut BEDTIME insulin syringe-needle U-100 (BD Insulin Syringe Ultra-Fine) Use 1 pen needle once a day lancets (FreeStyle Lancets) use BID as directed to check blood glucose lidocaine 5% 1 appl topical TID PRN 30 days lidocaine 5% (Lidoderm) 1 patch topical DAILY lisinopril 5 mg PO DAILY loratadine 10 mg PO DAILY PRN 90 days meclizine 25 mg PO TID PRN 30 days omeprazole 20 mg PO DAILY ondansetron HCl 4 mg PO Q6-8H PRN 30 days oxycodone-acetaminophen 10-325 mg 1 tab PO Q6H PRN 30 days pen needle, diabetic (BD Ultra-Fine Short Pen Needle) USE 1 PEN NEEDLE ONCE A DAY phenazopyridine (Pyridium) 100 mg PO TID PRN 4 days pyridoxine (vitamin B6) 50 mg PO DAILY 90 days rosuvastatin 40 mg PO BEDTIME sumatriptan succinate 50 - 100 mg orally at onset of headache, may repeat in 2 hrs PRN; max 2 tabs per day or 4 tabs/week (may take with Ibuprofen) 30 days sumatriptan succinate mg PO tamsulosin 0.4 mg PO BEDTIME 90 days testosterone 1 packet transdermal DAILY 30 days tirzepatide (Mounjaro) 12.5 mg (0.5 mL) subcut QWEEK [wipes, aloe touch As directed] zolpidem ER 12.5 mg PO BEDTIME PRN HPI HPI dm: Details: Patient is a 49-year-old male with a significant past medical history of type 2 diabetes, hypertension, hyperlipidemia, ED, FRANK, CKD presenting today for diabetic follow-up. Endo: A1c today is 6.4. He is currently on Tresiba 30 units nightly, novolog 3- 4 units with meals and Mounjaro 12.5 mg weekly. At our last visit I discontinued the Jardiance due to UTIs and frequent urinary symptoms. He states that resolved. Metformin caused GI upset. he has trialed Trulicity and felt it was ineffective. freestyle 3 cgm- use age 87 %, average glucose 174, 7.5 %. Very high 3 %, high 36 %, in range 61 %, hypoglycemic 0% He does have peripheral neuropathy (right worse than left), nephropathy, glaucoma and ED. He is on gabapentin at night for neuropathy. 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 CV: Blood pressure today in the office is 120/80. He is on lisinopril 5 mg. Cholesterol is controlled with Crestor 40 mg. Nephro: Follows with Nephrology. He is on an EVONNE-inhibitor and mounjaro. avoids nsaids. [facility] Medical History (Updated 12/08/24 @ 10:53 by Yunior Jain MD) Pain at surgical incision Sacroiliitis Tubular adenoma of colon FRANK (obstructive sleep apnea) Sleep apnea Mild recurrent major depression Vitamin D deficiency Neck pain Obesity due to excess calories Shortness of breath Chest pain UTI (urinary tract infection) Hematuria Renal calculi B12 deficiency due to diet Insomnia Depression with anxiety GERD (gastroesophageal reflux disease) Pure hypercholesterolemia Essential hypertension Diabetes mellitus Lumbar degenerative disc disease Surgical History H/O umbilical hernia repair (09/15/22) History of lithotripsy Hx of colonoscopy History of lumbar laminectomy Family History Father Diabetes Mother Diabetes Hypertension Son No problems noted. Social History Household Members: None Housing: Apartment Are you a primary children's zoo caretaker to a significant other at home: No Do you presently have visiting nurse or other home services: Yes (LEATHER ROLLER) Alcohol intake: current Alcohol intake frequency: holidays/special occasions only Alcohol type: beer Patient Tobacco Use Status: Never used Tobacco e-Cigarette/Vaping Use: Never Used Second Hand Smoke Exposure: No service: No Current occupational status: disabled Cognitive needs: No Hearing needs: No Vision needs: No Physical Exam Vital Signs: BMI result Body Mass Index 34.2 Const Orientation/consciousness: patient oriented x3 Neck Neck: Yes no lymphadenopathy Thyroid: Thyroid normal Carotids: no bruits Resp Auscultation: clear to auscultation bilaterally Cardio Rate: regular rate Rhythm: regular rhythm Heart sounds: S1 normal heart sound present and S2 normal heart sound present Peripheral pulses: dorsalis pedis present Neuro General: patient oriented x3, gait normal and no focal motor deficits Extrem Other: Monofilament sensation intact bilaterally (right is more diminished than left). Vibratory sensation intact bilaterally (right is more diminished than left). Skin intact. General: Yes normal to inspection Results AMB Hemoglobin A1c AMB Hemoglobin A1c 6.4 % Last Edit by MIKE Sam on 12/22/24 09:48 Results Reviewed Results Reviewed: Laboratory Tests 08/20/24 09/09/24 09/26/24 09:23 10:37 10:12 Creatinine 1.01 Estimated GFR > 60 Glucose (Clinic) 161 H Hgb A1c (Clinic) 6.4 H Triglycerides 88 Cholesterol 166 LDL Cholesterol, Calc 106 H HDL Cholesterol 43 Assessment & Plan Assessment & Plan (1) Uncontrolled type 2 diabetes mellitus with hyperglycemia: Code(s): E11.65 - Type 2 diabetes mellitus with hyperglycemia Category: Medical Plan: lower tresiba to 24 units continue novolog 4 units with meals increase mounjaro to 15 mg weekly (2) Essential hypertension: Code(s): I10 - Essential (primary) hypertension Category: Medical Plan: Continue lisinopril Orders: Orders AMB Hemoglobin A1c Today E11.9 - Type 2 diabetes mellitus without complications, Z79.4 - jail (current) use of insulin Medications: New tirzepatide (Mounjaro) 15 mg (0.5 mL) subcut QWEEK 2 mL 5RF Changed From insulin aspart U-100 (Novolog FlexPen U-100 Insulin aspart) with meals 6 units (0.06 mL) subcut BID 15 mL 1RF To insulin aspart U-100 (Novolog FlexPen U-100 Insulin aspart) with meals 4 units (0.04 mL) subcut BID 15 mL 1RF From insulin degludec (Tresiba FlexTouch U-100 insulin) 25 units (0.25 mL) subcut BEDTIME 15 mL 6RF E11.9 - Type 2 diabetes mellitus without complications To insulin degludec (Tresiba FlexTouch U-100 insulin) 24 units (0.24 mL) subcut BEDTIME 15 mL 6RF E11.9 - Type 2 diabetes mellitus without complications From insulin degludec (Tresiba FlexTouch U-100 insulin) 36 units (0.36 mL) subcut BEDTIME 15 mL 6RF E11.9 - Type 2 diabetes mellitus without complications To insulin degludec (Tresiba FlexTouch U-100 insulin) 25 units (0.25 mL) subcut BEDTIME 15 mL 6RF E11.9 - Type 2 diabetes mellitus without complications Discontinued tirzepatide (Mounjaro) Discontinued Reason: Doctor's Order 12.5 mg (0.5 mL) subcut QWEEK 2 mL 3RF Coding Level of Care Code Est Pt Level 4 (29304) Complex EM visit Add On G2211 Diagnoses Uncontrolled type 2 diabetes mellitus with hyperglycemia E11.65 Essential hypertension I10
[2024-12-22 09:42] LABS: Glucose, Whole Blood 137 mg/dL (60-115)
--- OUTSIDE RECORDS SUMMARY | 2024-12-22 10:00 | XMS_ITS | Clinical Summary ---
Author Organization [facility] Facility Address [address] [address] Care Team Providers Care Wood Drilling Machine Operator Name Role Phone Alba Khan MD Primary Care Provider [phone] Allergies No known active allergies Medications omeprazole [...] Insurance [facility] ([id number]) [place] [phone] [facility] ([id number]) [place] [id number] Care Teams Wood Drilling Machine Operator Relationship Specialty Start Date End Date Alba Khan MD [address] [place], [place] PCP - General 05/17/20
== END 2024-12-22 09:52 | disposition home or self-care (01) ==
LOC: HO.ENCR 09:28
PROVIDERS: PCP Internal Medicine; Visit Provider Physician Assistant
DX: E11.9 Type 2 diabetes mellitus without complications (principal); Z79.4 Long term (current) use of insulin; E11.65 Type 2 diabetes mellitus with hyperglycemia; I10 Essential (primary) hypertension

== ENCOUNTER 2024-12-22 09:27 | Outpatient (REF) | payer OTHER, SELFPAY ==
[2024-12-22 11:44] LABS: Alanine Aminotransferase 34 U/L (0-40); Albumin Level 4.7 g/dL (3.5-5.0); Alkaline Phosphatase 75 U/L (39-117); Anion Gap 12 (12-20); Aspartate Amino Transferase 25 U/L (5-37); Blood Urea Nitrogen 19 mg/dL (9-16); Calcium 9.3 mg/dL (8.4-10.2); Carbon Dioxide 28 mmol/L (22-29); Chloride 104 mmol/L (96-108); Cholesterol 152 mg/dL (<200); Estimated Glomerular Filt Rate > 60; HDL Cholesterol 30 mg/dL (>40); Potassium 4.5 mmol/L (3.3-5.1); Sodium 139 mmol/L (135-145); Total Protein 7.3 g/dL (6.5-8.0); Triglycerides 104 mg/dL (<150)
[2024-12-22 12:08] LABS: Microalbum/Creatinine Ratio Ur 6.3 ug/mg cr (<30)
[2024-12-22 12:10] LABS: Hemoglobin A1C 164.9848 umol/L; Total Hemoglobin (HGBA1C) 3694.0897 umol/L
== END 2024-12-22 09:28 | disposition home or self-care (01) ==
LOC: HO.LAB 09:27
PROVIDERS: Internal Medicine Hypertension Specialist; Absent Provider Urology; PCP Internal Medicine; Visit Provider Physician Assistant
DX: E11.65 Type 2 diabetes mellitus with hyperglycemia (principal); I10 Essential (primary) hypertension; E78.00 Pure hypercholesterolemia, unspecified; E55.9 Vitamin D deficiency, unspecified; E78.5 Hyperlipidemia, unspecified; R80.9 Proteinuria, unspecified; Z79.4 Long term (current) use of insulin; Z79.85 Long-term (current) use of injectable non-insulin antidiabetic drugs
CPT/HCPCS: 36415; 80053; 80061; 82043; 82306; 82570; 82947; 83036; 84403; 99212

== ENCOUNTER 2024-12-31 08:54 | Outpatient (AMB) | payer OTHER, SELFPAY ==
--- NOTE | 2024-12-31 08:56 | A.OFFVIS_ITS ---
Vital Signs 12/31/24 08:57 Height 5 ft 7 in Weight 221 lb 8 oz BMI 34.7 BP 122/80 Blood Pressure Location Rt brachial Position Sitting Pulse 83 Pulse Source Pulse Oximeter Pulse Oximetry (%) 99 Oxygen Delivery Method Room Air Intake Visit Reasons: 4 mnts f/u Intake Note: Patient presents 4 month follow up for headaches Talent Agent Required: No Accompanied by: Self / Same As Patient Allergies latex Allergy (Severe, Verified 01/08/25 10:08) rash,swelling atorvastatin Allergy (Intermediate, Verified 01/08/25 10:08) stomach upset metformin Allergy (Intermediate, Verified 01/08/25 10:08) diarrhea HPI Comments Details: Right-handed 49-year-old male presents for evaluation of headache disorder. The patient was previously seen by REI Davila, on August 18, 2024, for follow- up of sleep apnea when the patient expressed concern about recurrent headaches. Patient was started on sumatriptan 50 mg prn, which he has tried but was not sure if it was effective, as he was hesitant to take it at the 1st sign of the h eadache. He was not sure if he could take it with his PRN oxycodone. Today, we reviewed his headache history, which he states started a few years ago, and he attributes it to increased stress. A review of his typical headache characteristics is listed below. Patient endorses: history of kidney stones, history of constipation - now stable. Family history of migraine or other headache disorder: mother Lifestyle considerations: * Sleep routine: Usual bedtime: 10 pm, but not sleeping for several hours, and wake-up time: 9 am * Sleep difficulties: difficulty falling asleep, ruminating thoughts, his head feels like there is air in it, snoring, daytime sleepiness, fatigue, Restless sleep, Leg Cramps, and Legs feel restless at night. Also endorses restlessness when sitting for a longer time. * Fluid intake 6-7 16 oz water bottles per day * Caffeine use: none * Substance use: none * Exercise: not too much- tries to walk but has back issues- h/o lumbar back fusion * Employment: On disability due to a back injury. * Family planning: none, already has three boys - one has , the other two are a loading checker and an textile technical officer. Headache questionnaire: * Age/time of onset: a couple of years ago * Preceding causes: he thinks maybe stress * Previous work-up: none- states would need anti-anxiety med/sleep * Types of headache disorders: 1 Typical headache characteristics: * Prodrome symptoms: Neck or back pain * Aura: generalized tingling during headache- but has this w/o headache as well * Pain intensity: moderate-severe * Location, quality, characteristics: Right-sided or bifrontal pressure * Associated symptoms: photophobia, phonophobia, osmophobia, nausea, not right in space dizziness, lightheadedness, fatigue, cognitive difficulties, word difficulty, activity intolerance, body and heads feels warm, sometimes at night- hears the sound of the wind in his head * Postdrome: lingering dizziness * Triggers: stress, panic attacks * Time of day: No specific time of day * Duration and Frequency: 5 days a week. * Headache impact on patient's quality of life: tries to push through Current headache treatment strategies: Current acute medication use/interventions: sumatriptan- was not sure if effective but not tried at 1st sign d/t oxycodone use (typically uses 5mg bid) Current preventative medication use: gabapentin 60mg 2-3 x per day Current non-pharmacological interventions include rubbing his head with a cold, wet towel. [facility] Medical History Low vitamin B12 level Pain at surgical incision Sacroiliitis Tubular adenoma of colon FRANK (obstructive sleep apnea) Sleep apnea Mild recurrent major depression Vitamin D deficiency Neck pain Obesity due to excess calories Shortness of breath Chest pain UTI (urinary tract infection) Hematuria Renal calculi B12 deficiency due to diet Insomnia Depression with anxiety GERD (gastroesophageal reflux disease) Pure hypercholesterolemia Essential hypertension Diabetes mellitus Lumbar degenerative disc disease Surgical History H/O umbilical hernia repair (09/15/22) History of lithotripsy Hx of colonoscopy History of lumbar laminectomy Family History Father Diabetes Mother Diabetes Hypertension Son No problems noted. Social History Household Members: None Housing: Apartment Are you a primary hearing care practitioner to a significant other at home: No Do you presently have visiting nurse or other home services: Yes (LEARNING AND DEVELOPMENT DIRECTOR) Alcohol intake: current Alcohol intake frequency: holidays/special occasions only Alcohol type: beer Patient Tobacco Use Status: Never used Tobacco e-Cigarette/Vaping Use: Never Used Second Hand Smoke Exposure: No service: No Current occupational status: disabled Cognitive needs: No Hearing needs: No Vision needs: No Physical Exam Vital Signs: Last Vital Signs Pulse 83 12/31/24 08:57 BP 122/80 12/31/24 08:57 Pulse Ox 99 12/31/24 08:57 Oxygen Delivery Method Room Air 12/31/24 08:57 BMI result Body Mass Index 34.7 Const Orientation/consciousness: patient oriented x3 Resp Effort & Inspection: normal respiratory effort and able to speak in complete sentences Neuro Other: BUE muscle strength: 5/5 RLE muscle strength: 5-/5 LLE muscle strength: 5/5 Mildly antalgic gait General: patient oriented x3 Cranial nerves: Yes CN's II-XII intact bilaterally Cognition (Neuro): normal cognition Gait exam (Neuro): Normal gait present Deep tendon reflexes (DTR's): Right triceps reflex intensity grade: 2+, Left triceps reflex intensity grade: 2+, Rt Biceps (C5, C6): 2+, Left biceps reflex intensity grade: 2+, Right brachioradialis reflex intensity grade: 2+, Left brachioradialis reflex intensity grade: 2+, Right patellar reflex intensity grade: 1+ and Left patellar reflex intensity grade: 2+ Coordination: [id number] test normal Pupils: Normal pupillary reactivity/response: bilateral Psych Appearance: grossly normal Mental Status: mental status grossly normal Speech and movement: Normal speech and movement present Affect: normal affect Attitude: cooperative Thought process: Normal thought process present Assessment & Plan Assessment & Plan (1) Chronic migraine without aura: Code(s): G43.709 - Chronic migraine without aura, not intractable, without status migrainosus Category: Medical (2) Dizziness: Code(s): R42 - Dizziness and giddiness Category: Medical (3) Restless leg syndrome: Code(s): G25.81 - Restless legs syndrome Category: Medical Plan You are advised to undergo the following: Lab workup to assess for underlying etiologies of RLS, fatigue, headache symptoms Future considerations: Head imaging with claustrophobia management Headache Management Tips Combining good self-care with some helpful tools can make managing headaches much easier. Healthy Habits ? Eat a balanced diet ? Drink enough water throughout the day, typically at least 64 oz of fluid per day ? Get regular, adequate sleep consisting of 7-9 hours of sleep per night ? Stay active with routine physical activity, typically at least 30 minutes 5 days per week ? Stay connected with friends and family, enjoy meaningful activities, and take care of your mood Tracking Your Headaches ? Write down when headaches happen, what helps, and any side effects of new treatments ? Tracking is most important after changes in your treatment plan ? Options: - Apps such as Med[employer] - A simple paper calendar Non-Medication Strategies ? Light sensitivity: special glasses may help (blue-light or FL-41 filters, green lenses) or green-light therapy - Avoid wearing dark sunglasses indoors ? Sound sensitivity: noise-canceling earplugs can reduce bothersome noise ? Neuromodulation devices: certain medical devices can be used alone or with medications to lower headache frequency and severity ? Neuromodulation devices: specific medical devices can be used alone or with medications to lower headache frequency and severity These strategies may not stop every attack, but over time, they can reduce headache frequency, intensity, and impact. For acute (as needed) headache treatment: It is important to take acute medications at the first sign of headache. However, please be aware that frequently using most acute medications may increase the frequency of your headache attacks, as well as make your other treatments less effective. * Trial increasing sumatriptan order as below: * Sumatriptan 100mg tab, 1/2 - 1 tab (50-100mg) at onset of headache, may repeat in 2 hours. Max of 2 tabs (200mg) per 24 hours. * May take sumatriptan with OTC Tylenol 650-1,000mg every 4-6 hours, Ibuprofen (liquid gels) 600mg every 6 hours, or Naproxen (liquid gels) 440mg q 12 hrs prn. * Potential adverse effects of triptans, include but are not limited to nausea, fatigue, chest tightness/tingling (usually passes within a few minutes), medication overuse headaches. * Continue ondansetron 4 mg every 6-8 hours as needed for nausea Previous acute migraine medication trials: Sumatriptan 50 mg- unclear effect Acute migraine medication contraindications: None at this time For headache prevention medication: Preventative medications should be taken routinely as prescribed for best effect, it may take several weeks for full effect to take effect. * Start Riboflavin 400mg daily in the morning * This is generally well tolerated, however some people may experience mild abdominal discomfort from use. * This will cause your urine to become bright yellow or orange, which is expected and not of any concern. * Start Magnesium 400mg daily at bedtime * Magnesium comes in many subtypes, such as magnesium oxide, glycinate, citrate, and even try magnesium combinations. Additionally magnesium comes in many forms, including tablets, capsules, powders or even liquid formulations. There is not a specific magnesium subtype or form known to be significantly more effective than another. Rather, the magnesium subtype inform that you best tolerate, is the best version for you. * Possible side effects of magnesium include, but are not limited to, GI upset, abdominal cramping, loose stools, and diarrhea * Continue gabapentin 600 mg 3 times a day as needed- as ordered Previous migraine prevention medication trials: None Migraine prevention medication contraindications: All beta-blockers due to diabetes. Topiramate due to h/o kidney stones. We will follow-up upon review of above and with a follow-up clinic visit in 3-6 months or sooner as needed. Orders: Orders Ferritin 01/02/25 R79.89 - Other specified abnormal findings of blood chemistry, G25.81 - Restless legs syndrome, R53.83 - Other fatigue, E11.65 - Type 2 diabetes mellitus with hyperglycemia, E29.1 - Testicular hypofunction, E53.8 - Deficiency of other specified B group vitamins, N18.9 - Chronic kidney disease, unspecified Methylmalonic Acid 01/02/25 R79.89 - Other specified abnormal findings of blood chemistry, G25.81 - Restless legs syndrome, R53.83 - Other fatigue, E11.65 - Type 2 diabetes mellitus with hyperglycemia, E29.1 - Testicular hypofunction, E53.8 - Deficiency of other specified B group vitamins, N18.9 - Chronic kidney disease, unspecified Vitamin B1 01/02/25 E51.9 - Thiamine deficiency, unspecified, R79.89 - Other specified abnormal findings of blood chemistry, G25.81 - Restless legs syndrome, R53.83 - Other fatigue, E11.65 - Type 2 diabetes mellitus with hyperglycemia, E29.1 - Testicular hypofunction, E53.8 - Deficiency of other specified B group vitamins, N18.9 - Chronic kidney disease, unspecified Vitamin B12 and Folate 01/02/25 R79.89 - Other specified abnormal findings of blood chemistry, G25.81 - Restless legs syndrome, R53.83 - Other fatigue, E11.65 - Type 2 diabetes mellitus with hyperglycemia, E29.1 - Testicular hypofunction, E53.8 - Deficiency of other specified B group vitamins, N18.9 - Chronic kidney disease, unspecified TSH reflex Free T4 01/02/25 R79.89 - Other specified abnormal findings of blood chemistry, G25.81 - Restless legs syndrome, R53.83 - Other fatigue, E11.65 - Type 2 diabetes mellitus with hyperglycemia, E29.1 - Testicular hypofunction, E53.8 - Deficiency of other specified B group vitamins, N18.9 - Chronic kidney disease, unspecified Homocysteine 01/02/25 R79.89 - Other specified abnormal findings of blood chemistry, G25.81 - Restless legs syndrome, R53.83 - Other fatigue, E11.65 - Type 2 diabetes mellitus with hyperglycemia, E29.1 - Testicular hypofunction, E53.8 - Deficiency of other specified B group vitamins, N18.9 - Chronic kidney disease, unspecified Complete Blood Count Auto Diff 01/02/25 R79.89 - Other specified abnormal findings of blood chemistry, G25.81 - Restless legs syndrome, R53.83 - Other fatigue, E11.65 - Type 2 diabetes mellitus with hyperglycemia, E29.1 - Testicular hypofunction, E53.8 - Deficiency of other specified B group vitamins, N18.9 - Chronic kidney disease, unspecified Vitamin B6 01/02/25 D64.9 - Anemia, unspecified, R79.89 - Other specified abnormal findings of blood chemistry, G25.81 - Restless legs syndrome, R53.83 - Other fatigue, E11.65 - Type 2 diabetes mellitus with hyperglycemia, E29.1 - Testicular hypofunction, E53.8 - Deficiency of other specified B group vitamins, N18.9 - Chronic kidney disease, unspecified Lyme IgG/IgM w/reflex to WB 01/02/25 R79.89 - Other specified abnormal findings of blood chemistry, G25.81 - Restless legs syndrome, R53.83 - Other fatigue, E11.65 - Type 2 diabetes mellitus with hyperglycemia, E29.1 - Testicular hypofunction, E53.8 - Deficiency of other specified B group vitamins, N18.9 - Chronic kidney disease, unspecified IRON PROFILE 01/02/25 D64.9 - Anemia, unspecified, R79.89 - Other specified abnormal findings of blood chemistry, G25.81 - Restless legs syndrome, R53.83 - Other fatigue, E11.65 - Type 2 diabetes mellitus with hyperglycemia, E29.1 - Testicular hypofunction, E53.8 - Deficiency of other specified B group vitamins, N18.9 - Chronic kidney disease, unspecified Magnesium 01/02/25 R79.89 - Other specified abnormal findings of blood chemistry, G25.81 - Restless legs syndrome, R53.83 - Other fatigue, E11.65 - Type 2 diabetes mellitus with hyperglycemia, E29.1 - Testicular hypofunction, E53.8 - Deficiency of other specified B group vitamins, N18.9 - Chronic kidney disease, unspecified Coding Level of Care Code Est Pt Level 4 (91543) Diagnoses Chronic migraine without aura G43.709 Dizziness R42 Restless leg syndrome G25.81
[2024-12-31 08:57] VITALS: BP 122/80; PULSE 83; O2SAT 99; BMI 34.7
--- OUTSIDE RECORDS SUMMARY | 2024-12-31 09:23 | XMS_ITS | Clinical Summary ---
Author Organization [facility] Facility Address [address] [address] Care Team Providers Care Wood Preparation Supervisor Name Role Phone Alba Khan MD Primary Care Provider [phone] Allergies No known active allergies Medications omeprazole [...] (6 to 49 Years) Discontinued 06/18/2015 Insurance [facility] ([id number]) [place] [id number] [facility] ([id number]) [place] [id number] Care Teams Wood Preparation Supervisor Relationship Specialty Start Date End Date Alba Khan MD [address] [place], [place] PCP - General 05/17/20
== END 2024-12-31 10:08 | disposition home or self-care (01) ==
LOC: HO.HSMS 08:55
PROVIDERS: PCP Internal Medicine; Visit Provider Nurse Practitioner Family
DX: G43.709 Chronic migraine without aura, not intractable, without status migrainosus (principal); R42 Dizziness and giddiness; G25.81 Restless legs syndrome
CPT/HCPCS: 99214

== ENCOUNTER 2024-12-31 08:54 | Outpatient (REF) | payer OTHER, SELFPAY ==
--- OUTSIDE RECORDS SUMMARY | 2025-01-02 08:08 | XMS_ITS | Clinical Summary ---
Author Organization [facility] Facility Address [address] [address] Care Team Providers Care Carpenter Repairer Name Role Phone Alba Khan MD Primary Care Provider [phone] Allergies No known active allergies Medications omeprazole [...] (6 to 49 Years) Discontinued 06/18/2015 Insurance [facility] ([id number]) [place] [id number] [facility] ([id number]) [place] [phone] Care Teams Carpenter Repairer Relationship Specialty Start Date End Date Alba Khan MD [address] [place], [place] PCP - General 05/17/20
== END 2024-12-31 08:55 | disposition home or self-care (01) ==
LOC: HO.HKASLDS 08:54
PROVIDERS: PCP Internal Medicine; Visit Provider Nurse Practitioner Family
DX: G43.709 Chronic migraine without aura, not intractable, without status migrainosus (principal); R42 Dizziness and giddiness; G25.81 Restless legs syndrome; R79.89 Other specified abnormal findings of blood chemistry; E11.65 Type 2 diabetes mellitus with hyperglycemia; E29.1 Testicular hypofunction; E11.22 Type 2 diabetes mellitus with diabetic chronic kidney disease; N18.9 Chronic kidney disease, unspecified; E53.8 Deficiency of other specified B group vitamins; R53.83 Other fatigue
CPT/HCPCS: 99212

== ENCOUNTER 2025-01-02 08:10 | Outpatient (REF) | payer OTHER, SELFPAY ==
[2025-01-02 13:31] LABS: Hematocrit 42.9 % (42.0-52.0); Hemoglobin 13.6 g/dl (14.0-18.0); Imm Gran Abs Auto 0.04 X10*3/uL (0.00-0.03); Imm Gran Pct Auto 0.5 % (0.0-0.4); Lymphocytes Absolute Auto 3.4 X10*3/uL (1.2-4.9); MANUAL DIFF FLAG SCAN; Mean Corpuscular HGB Conc 31.7 g/dl (31.0-36.0); Mean Corpuscular Hemoglobin 26.3 pg (27.0-33.0); Mean Corpuscular Volume 82.8 fL (80.0-98.0); NRBC Abs Auto 0.000 X10*3/uL (0.0-0.012); NRBC Pct Auto 0.0 /100WBC (0.0-0.2); PLT CLUMP 1; Red Blood Count 5.18 X10*6/uL (4.60-5.80); SCAN SMEAR FLAG 1
[2025-01-02 13:32] LABS: White Blood Count 7.8 X10*3/uL (4.8-10.8)
[2025-01-02 13:46] LABS: Blood Urea Nitrogen 21 mg/dL (9-16); Estimated Glomerular Filt Rate > 60; Iron 105 mcg/dL (45-160); Magnesium 1.8 mg/dL (1.6-2.6); Percent Iron Saturation 43 % (15-50); Total Iron Binding Capacity 245 mcg/dL (228-428); Unsaturated Iron Binding 140 ug/dL
[2025-01-02 13:48] LABS: Platelet Count 248 X10*3/uL (160-400)
[2025-01-02 14:09] LABS: Ferritin 893 ng/mL (20-250)
[2025-01-02 14:22] LABS: Folate 10.8 ng/mL (> or = 4.0); Vitamin B12 325 pg/mL (200-900)
[2025-01-03 06:33] LABS: Lyme Abs Screen <0.90 index
== END 2025-01-02 08:11 | disposition home or self-care (01) ==
LOC: HO.HKASLDS 08:10
PROVIDERS: Internal Medicine Hypertension Specialist; Visit Provider Nurse Practitioner Family
DX: Z01.84 Encounter for antibody response examination (principal); E11.22 Type 2 diabetes mellitus with diabetic chronic kidney disease; N18.9 Chronic kidney disease, unspecified; E11.65 Type 2 diabetes mellitus with hyperglycemia; E53.8 Deficiency of other specified B group vitamins; E29.1 Testicular hypofunction; R79.89 Other specified abnormal findings of blood chemistry; G25.81 Restless legs syndrome; R53.83 Other fatigue; E51.9 Thiamine deficiency, unspecified; D64.9 Anemia, unspecified
CPT/HCPCS: 36415; 82565; 82607; 82728; 82746; 83090; 83540; 83735; 83921; 84207; 84425; 84443; 84520; 85025; 86617; 86618

== ENCOUNTER 2025-01-08 09:42 | Outpatient (AMB) | payer OTHER, SELFPAY ==
--- NOTE | 2025-01-08 09:45 | MHC.PC.OV ---
Vital Signs 01/08/25 09:48 Height 5 ft 7 in Weight 222 lb BMI 34.8 BP 126/70 Blood Pressure Location Lt brachial Position Sitting Pulse 88 Pulse Source Pulse Oximeter Pulse Oximetry (%) 95 Oxygen Delivery Method Room Air Intake Visit Reasons: dm Commercial Sales Specialist Required: No Accompanied by: Self / Same As Patient Allergies latex Allergy (Severe, Verified 01/08/25 10:08) rash,swelling atorvastatin Allergy (Intermediate, Verified 01/08/25 10:08) stomach upset metformin Allergy (Intermediate, Verified 01/08/25 10:08) diarrhea Medication List - Last Reconciled 01/08/25 by Alba Coley MD aspirin 81 mg PO DAILY blood pressure test kit-medium As directed blood sugar diagnostic As directed blood sugar diagnostic (FreeStyle Lite Strips) As directed three times a day blood-glucose sensor ([place] SoftwareStyle Shaheed 3 Plus Sensor device) Use daily As directed to monitor glucose blood-glucose,supervisor border department,cont (FreeStyle Shaheed 3 Felda) As directed cholecalciferol (vitamin D3) 50 mcg PO DAILY clonazepam 1 mg PO BID PRN escitalopram oxalate 20 mg PO DAILY gabapentin 600 mg PO TID PRN glucagon 3 mg/actuation 3 mg intranasal ONCE PRN glucose (Dex4 Glucose) 16 grams (4 x 4 gram) PO Q15M PRN insulin aspart U-100 (Novolog FlexPen U-100 Insulin aspart) 4 units (0.04 mL) subcut BID insulin degludec (Tresiba FlexTouch U-100 insulin) 24 units (0.24 mL) subcut BEDTIME insulin syringe-needle U-100 (BD Insulin Syringe Ultra-Fine) Use 1 pen needle once a day lancets (FreeStyle Lancets) use BID as directed to check blood glucose lidocaine 5% (Lidoderm) 1 patch topical DAILY lisinopril 5 mg PO DAILY loratadine 10 mg PO DAILY PRN 90 days meclizine 25 mg PO TID PRN 30 days omeprazole 20 mg PO DAILY ondansetron HCl 4 mg PO Q6-8H PRN 30 days oxycodone-acetaminophen 10-325 mg 1 tab PO Q6H PRN 30 days pen needle, diabetic (BD Ultra-Fine Short Pen Needle) USE 1 PEN NEEDLE ONCE A DAY phenazopyridine (Pyridium) 100 mg PO TID PRN 4 days pyridoxine (vitamin B6) 50 mg PO DAILY 90 days rosuvastatin 40 mg PO BEDTIME sumatriptan succinate mg PO tamsulosin 0.4 mg PO BEDTIME 90 days testosterone 1 packet transdermal DAILY 30 days tirzepatide (Mounjaro) 15 mg (0.5 mL) subcut QWEEK zolpidem ER 12.5 mg PO BEDTIME PRN Tobacco use date assessed: 01/08/25 Dental Screening Dental Screen Date: 01/08/25 Did you have a dental visit in the last 12 months?: Yes Did you have a dental problem in the last 6 months where you did not have access to dental care?: No Was dental information given to patient?: Patient has dentist HPI HPI Comments History of Present Illness Details The patient is a 49-year-old male presenting for follow-up on chronic conditions including diabetes, hypertension, hyperlipidemia, and chronic back pain. The patient's diabetes mellitus has shown improvement with a recent HbA1c of 5.2, down from 6.2 in December. He is currently on Mounjaro 15 mg weekly for diabetes management. Hypertension is well-controlled with recent blood pressure readings of 126/70 mmHg, within the target of less than 130/80 mmHg. The patient reports hyperlipidemia with an LDL level of 102 mg/dL, which is above the target of less than 70 mg/dL. He is not currently on rosuvastatin but will be prescribed it to manage his cholesterol levels. The patient experiences chronic back pain and is prescribed Percocet for management. He reports headaches, with a recent severe episode affecting the eye and occipital region. He has been referred to neurology and is scheduled for an MRI of the head. The patient has a history of anxiety and depression, managed by a psychiatrist with clonazepam and other medications. He denies smoking and reports minimal alcohol consumption, approximately once a year. [facility] Medical History Low vitamin B12 level Pain at surgical incision Sacroiliitis Tubular adenoma of colon FRANK (obstructive sleep apnea) Sleep apnea Mild recurrent major depression Vitamin D deficiency Neck pain Obesity due to excess calories Shortness of breath Chest pain UTI (urinary tract infection) Hematuria Renal calculi B12 deficiency due to diet Insomnia Depression with anxiety GERD (gastroesophageal reflux disease) Pure hypercholesterolemia Essential hypertension Diabetes mellitus Lumbar degenerative disc disease Surgical History H/O umbilical hernia repair (09/15/22) History of lithotripsy Hx of colonoscopy History of lumbar laminectomy Family History Father Diabetes Mother Diabetes Hypertension Son No problems noted. Social History Household Members: None Housing: Apartment Are you a primary care rep to a significant other at home: No Do you presently have visiting nurse or other home services: Yes ([employer]) Alcohol intake: current Alcohol intake frequency: holidays/special occasions only Alcohol type: beer Patient Tobacco Use Status: Never used Tobacco e-Cigarette/Vaping Use: Never Used Second Hand Smoke Exposure: No service: No Current occupational status: disabled Cognitive needs: No Hearing needs: No Vision needs: No Questionnaire PHQ-9 Over the last 2 weeks, how often have you been bothered by any of the following problems? 1. Little interest or pleasure in doing things: not at all 2. Feeling down, depressed, or hopeless: not at all 3. Trouble falling or staying asleep, or sleeping too much: several days 4. Feeling tired or having little energy: more than half the days 5. Poor appetite or overeating: several days 6. Feeling bad about yourself - or that you are a failure or have let yourself or your family down: several days 7. Trouble concentrating on things, such as reading the newspaper or watching television: several days 8. Moving or speaking so slowly that other people could have noticed. Or the opposite - being so fidgety or restless that you have been moving around a lot more than usual: several days 9. Thoughts that you would be better off or of hurting yourself in some way: not at all Total score: 7 Depression Screening Interpretation: Positive Depression Screening Follow-up: Existing condition, In treatment, Community Mental Health Worker F/U and Follow-up Visit Requested Depression Screening Done: Yes 11610 - PHQ-9 Billing: Yes Source: Developed by Drs. Anibal Singh, Ebony Liu, Gerald Moura and colleagues, with an educational ethel from [employer]. Thrive Questionnaire Date Thrive assessed: 08/20/24 I am a: Patient What is your living situation today?: I have a steady place to live Within the past 12 months, did the food you bought not last and you didn't have the money to get more?: Sometimes True Within the past 12 months, did you worry whether your food would run out before you got money to buy more?: Sometimes True Do you have trouble paying for medicines?: No Do you have trouble getting transportation to medical appointments?: No Do you have trouble paying your heating and electricity bill?: No Do you have trouble taking care of your child, family member or friend?: No Do you have trouble with day-to-day activities such as bathing, preparing meals, shopping, managing finances, etc.?: I choose not to answer this question Are you currently unemployed and looking for a job?: I choose not to answer this question Are you interested in more education?: I choose not to answer this question Please select the resources that you would like help with: None Currently or been in a relationship where the following occur: I choose not to answer THRIVE Score: 2 AUDIT C Alcohol Use Questionnaire (AUDIT-C) 1. How often do you have a drink containing alcohol?: Monthly or less 2. How many drinks containing alcohol do you have on a typical day when you are drinking?: 1 or 2 3. How often do you have six or more drinks on one occasion?: Never Total Score: 1 Score Reviewed/Action Taken: No MITCHEL-7 AMB Questionnaire MITCHEL-7 Date MITCHEL - 7 assessed: 08/20/24 Feeling nervous, anxious, or on edge: 3 = Nearly every day Not being able to stop or control worryin = More than half the days Worrying too much about different things: 2 = More than half the days Trouble relaxin = More than half the days Being so restless that it is hard to sit still: 2 = More than half the days Becoming easily annoyed or irritable: 2 = More than half the days Feeling afraid as if something awful might happen: 2 = More than half the days Total MITCHEL-7 score (0-4 normal; 5-9 mild; 10-14 moderate; 15-21 severe): 15 Source: Developed by Drs. Anibal Singh, Ebony BGerald Lloyd and colleagues, with an educational ethel from [employer]. MITCHEL-7 Assessment Billing MITCHEL-7 Assessment Tool: MITCHEL-7 Assessment 70907 Review of Systems Const All systems reviewed & are unremarkable except as noted in HPI and below Card Denies chest pain at rest, Denies chest pain with activity, Denies edema, Denies irregular heart rhythm, Denies claudication, Denies dyspnea, Denies dyspnea on exertion, Denies orthopnea, Denies paroxysmal nocturnal dyspnea and Denies slow heart rate Resp Denies cough, Denies dyspnea and Denies dyspnea on exertion GI Denies abdominal pain, Denies change in bowel habits, Denies excessive flatus, Denies nausea and Denies vomiting Neuro Denies lack of coordination Physical exam (Primary Care) Vital Signs: Last Vital Signs Pulse 88 01/08/25 09:48 BP 126/70 01/08/25 09:48 Pulse Ox 95 01/08/25 09:48 Oxygen Delivery Method Room Air 01/08/25 09:48 BMI result Body Mass Index 34.8 Tobacco/Smoking Status: Tobacco use Status Tobacco use date assessed 01/08/25 01/08/25 09:55 Patient Tobacco Use Status Never used Tobacco 01/08/25 09:46 e-Cigarette/Vaping Use Never Used 01/08/25 09:46 PHQ-9: PHQ-9 Score PHQ-9: Total score 7 01/08/25 10:13 Depression Screening Interpretation: Positive Depression Screening Follow-up: Existing condition, In treatment, Community Mental Health Worker F/U and Follow-up Visit Requested Thrive Assessment: Date of Thrive Assessment Date Thrive assessed 08/20/24 01/08/25 09:46 Currently or been in a relationship where the following occur: I choose not to answer Resp Effort & Inspection: normal respiratory effort Auscultation: clear to auscultation bilaterally Cardio Jugular venous distension: no JVD Rate: regular rate Rhythm: regular rhythm Heart sounds: S1 normal heart sound present and S2 normal heart sound present Extrem General: Yes full ROM Coding Level of Care Code Est Pt Level 4 (86469) Complex EM visit Add On G2211 Diagnoses Mild recurrent major depression F33.0 Essential hypertension I10 Pure hypercholesterolemia E78.00 Controlled type 2 diabetes mellitus with insulin therapy E11.9; Z79.4 Low testosterone in male R79.89 Lumbar radiculopathy M54.16 Additional Codes MITCHEL-7 Assessment Billing - MITCHEL-7 Assessment Tool: MITCHEL-7 Assessment 11148 ([id number]) PHQ-9 - 71415 - PHQ-9 Billing: Yes ([id number]) Time Spent (min) 24 Assessment & Plan Assessment & Plan (1) Mild recurrent major depression: Code(s): F33.0 - Major depressive disorder, recurrent, mild Category: Medical (2) Essential hypertension: Code(s): I10 - Essential (primary) hypertension Category: Medical (3) Pure hypercholesterolemia: Code(s): E78.00 - Pure hypercholesterolemia, unspecified Category: Medical (4) Controlled type 2 diabetes mellitus with insulin therapy: Code(s): E11.9 - Type 2 diabetes mellitus without complications; Z79.4 - remote computer terminal operator (current) use of insulin Category: Medical (5) Low testosterone in male: Code(s): R79.89 - Other specified abnormal findings of blood chemistry Category: Medical (6) Lumbar radiculopathy: Code(s): M54.16 - Radiculopathy, lumbar region Category: Medical Plan Plan Patient was informed and verbally consented to the use of an ambient scribe for clinic note documentation during this visit. 1. Type 2 diabetes mellitus without complications E11.9 HCC 19 The patient's diabetes is currently well-managed with an HbA1c of 5.2, improved from 6.2 in December. He is on Mounjaro 15 mg weekly. Continued monitoring of blood glucose levels and adherence to medication is advised. 2. Essential (primary) hypertension I10 Hypertension is well-controlled with current readings of 126/70 mmHg. The patient should continue current antihypertensive therapy and monitor blood pressure regularly. 3. Hyperlipidemia, unspecified E78.5 The patient's LDL cholesterol is at 102 mg/dL, above the target of less than 70 mg/dL. Initiation of rosuvastatin is recommended to achieve lipid goals. 4. Dorsalgia, unspecified M54.9 The patient continues to experience chronic back pain and is prescribed Percocet for pain management. Further evaluation and management strategies should be considered if pain persists. 5. Headache, unspecified R51.9 The patient reports severe headaches affecting the eye and occipital region. He has been referred to neurology and an MRI of the head is scheduled for further evaluation. 6. Anxiety disorder, unspecified F41.9 The patient is under psychiatric care for anxiety and depression, managed with clonazepam and other medications. Continued psychiatric follow-up is recommended. Orders: Orders Lipid Panel 4 Months E78.5 - Hyperlipidemia, unspecified Vitamin D 25-OH Total 4 Months E55.9 - Vitamin D deficiency, unspecified Vitamin B12 and Folate 4 Months E53.8 - Deficiency of other specified B group vitamins Microalbumin, Random (w Creat) 4 Months R80.9 - Proteinuria, unspecified Complete Blood Count Auto Diff 4 Months D64.9 - Anemia, unspecified IRON PROFILE 4 Months D64.9 - Anemia, unspecified Comprehensive Inez. Panel Fast 4 Months I10 - Essential (primary) hypertension
[2025-01-08 09:48] VITALS: BP 126/70; PULSE 88; O2SAT 95; BMI 34.8
--- OUTSIDE RECORDS SUMMARY | 2025-01-08 10:35 | XMS_ITS | Clinical Summary ---
Author Organization [facility] Facility Address [address] [address] Care Team Providers Care Engraver Letter Name Role Phone Alba Khan MD Primary Care Provider [phone] Allergies No known active allergies Medications omeprazole [...] (6 to 49 Years) Discontinued 06/18/2015 Insurance [facility] ([id number]) [place] [id number] [facility] ([id number]) [place] [phone] Care Teams Engraver Letter Relationship Specialty Start Date End Date Alba Khan MD [address] [place], [place] PCP - General 05/17/20
== END 2025-01-08 10:20 | disposition home or self-care (01) ==
LOC: HO.HMCH 09:43
PROVIDERS: PCP Internal Medicine; Visit Provider Internal Medicine
DX: I10 Essential (primary) hypertension (principal); E11.9 Type 2 diabetes mellitus without complications; Z79.4 Long term (current) use of insulin; Z68.34 Body mass index [BMI] 34.0-34.9, adult; F33.0 Major depressive disorder, recurrent, mild; E78.00 Pure hypercholesterolemia, unspecified; R79.89 Other specified abnormal findings of blood chemistry; M54.16 Radiculopathy, lumbar region

== ENCOUNTER → 2025-01-08 09:42 | Outpatient (BNVA) | payer OTHER, SELFPAY | PROVIDERS: PCP Internal Medicine; Visit Provider Internal Medicine | DX: E11.9 Type 2 diabetes mellitus without complications (principal); I10 Essential (primary) hypertension; E78.5 Hyperlipidemia, unspecified; R51.9 Headache, unspecified; F41.9 Anxiety disorder, unspecified; F33.0 Major depressive disorder, recurrent, mild; E78.00 Pure hypercholesterolemia, unspecified; R79.89 Other specified abnormal findings of blood chemistry; M54.16 Radiculopathy, lumbar region; Z79.4 Long term (current) use of insulin; Z79.899 Other long term (current) drug therapy | CPT/HCPCS: 96127; 99212 ==

== ENCOUNTER 2025-01-21 13:13 | Outpatient (AMB) | payer OTHER, SELFPAY ==
--- NOTE | 2025-01-21 13:14 | MHC.OFFVIS ---
Intake Visit Reasons: testosterone labs Intake Note: Pt presents to the office today for a follow up/Labs. urology meds : Testosterone, Tamsulosin, VIT-B6 Labs done : 12/22/2024 Total testosterone : 235 BT: aspirin PVR:30ml Lumite Injector Required: No Accompanied by: Self / Same As Patient Allergies latex Allergy (Severe, Verified 01/21/25 13:21) rash,swelling atorvastatin Allergy (Intermediate, Verified 01/21/25 13:21) stomach upset metformin Allergy (Intermediate, Verified 01/21/25 13:21) diarrhea HPI Comments Details: Goyo is a pleasant Austrian-speaking male. He is a patient of Dr. William. Presents for the following urologic conditions - nephrolithiasis - lower urinary tract symptoms background of diabetes - insulin therapy with SGLT2 - erectile dysfunction background of diabetes Telemedicine Evaluation 15 min Consultation DoximAnatexis Ned Video Three-month follow-up Has been on testosterone for 2 months Lab work shows minimal change Discussed application Follow-up three-month repeat lab work Low testosterone 10/29 245, 12/29 235 Erectile dysfunction Background diabetes Daily tadalafil caused headache On demand sildenafil 100 mg Nephrolithiasis Prior presentation to [facility] with right-sided flank pain Imaging - 03/28 renal ultrasound right-sided low 8 mm - 05/29 CT 8 mm right UPJ - 09/26 right lower pole 7 mm - 04/28 Renal US right 4mm - 07/28 KUB question right small stone - 04/29 renal ultrasound no stones Intervention - 08/27 R ESWL, 10/28 right ESWL Background diabetic PFSH Medical History Low vitamin B12 level Pain at surgical incision Sacroiliitis Tubular adenoma of colon FRANK (obstructive sleep apnea) Sleep apnea Mild recurrent major depression Vitamin D deficiency Neck pain Obesity due to excess calories Shortness of breath Chest pain UTI (urinary tract infection) Hematuria Renal calculi B12 deficiency due to diet Insomnia Depression with anxiety GERD (gastroesophageal reflux disease) Pure hypercholesterolemia Essential hypertension Diabetes mellitus Lumbar degenerative disc disease Surgical History H/O umbilical hernia repair (09/15/22) History of lithotripsy Hx of colonoscopy History of lumbar laminectomy Family History Father Diabetes Mother Diabetes Hypertension Son No problems noted. 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) Alcohol intake: current Alcohol intake frequency: holidays/special occasions only Alcohol type: beer Patient Tobacco Use Status: Never used Tobacco e-Cigarette/Vaping Use: Never Used Second Hand Smoke Exposure: No service: No Current occupational status: disabled Cognitive needs: No Hearing needs: No Vision needs: No Review of Systems Const All systems reviewed & are unremarkable except as noted in HPI and below Reports no additional complaints Resp Reports no additional complaints GI Reports no additional complaints Reports as per HPI Musc Reports no additional complaints Physical Exam Telemedicine evaluation Appropriate responses Regular breathing rate and rhythm HEENT Head: Yes normal to inspection Ears: hearing grossly normal bilaterally Eyes General: appearance normal, both eyes and all related structures Neck Neck: Yes normal visual inspection Chest Chest palpation & inspection: normal inspection of the chest Resp Effort & Inspection: normal respiratory effort and able to speak in complete sentences Telehealth Telehealth Telehealth Platform: Qwilr Location of provider rendering services: practice address Location of patient: address on file Patient Identification confirmed using: Name, : Yes Telehealth method: video Patient verbally consented to treatment: Yes Patient verbally consented to billing insurance company: Yes Patient informed of any privacy concerns related to visit: Yes Minutes spent on Phone/Video with Pt.: 15 Assessment & Plan Assessment & Plan (1) Hypogonadism in male: Code(s): E29.1 - Testicular hypofunction Category: Medical Plan Three-month follow-up lab work Orders: Orders Testosterone, Free/Total 2 Months E29.1 - Testicular hypofunction Medications: Refilled testosterone Apply to shoulder and rub in until dry 1 packet transdermal DAILY 150 grams 5RF 30 days E29.1 - Testicular hypofunction Patient Instructions: This note is constructed using voice recognition software. While every effort has been made to ensure accuracy diving board assembler errors may have been included. Imaging studies, laboratory and physical exam results were discussed and reviewed in detail. No major barriers to patient understanding were identified. An opportunity to ask questions regarding the treatment plan was provided. All questions were answered. The patient expressed understanding and agreement with the above treatment plan. The patient is aware they should contact our office by phone for worsening of their current condition or the appearance of new urologic symptoms. Compliance is encouraged with any medications and followup testing that is ordered. It is a privilege to participate in the urologic care of your patient. If you have any questions or concerns regarding treatment for the above conditions, or other urologic issues, please do not hesitate to contact me. The office telephone contact is [phone]. Sincerely, Dr Miguelito Yip MD, [facility] - Urology Compassionate Specialist Care for the Genitourinary System Coding Level of Care Code Tele Est Pt Level 3 (60609) Complex EM visit Add On G2211 Diagnoses Hypogonadism in male E29.1
--- OUTSIDE RECORDS SUMMARY | 2025-01-21 16:52 | XMS_ITS | Clinical Summary ---
Author Organization [facility] Facility Address [address] [address] Care Team Providers Care Construction Field Engineer Name Role Phone Alba Khan MD Primary Care Provider [phone] Allergies No known active allergies Medications omeprazole [...] (6 to 49 Years) Discontinued 06/18/2015 Insurance [facility] ([id number]) [place] [id number] [facility] ([id number]) [place] [phone] Care Teams Construction Field Engineer Relationship Specialty Start Date End Date Alba Khan MD [address] [place], [place] PCP - General 05/17/20
== END 2025-01-21 14:13 | disposition home or self-care (01) ==
LOC: HO.HUSH 13:13
PROVIDERS: PCP Internal Medicine; Visit Provider Urology
DX: E29.1 Testicular hypofunction (principal)
CPT/HCPCS: 99213; G2211

== ENCOUNTER 2025-01-28 08:48 | Outpatient (REF) | payer OTHER, SELFPAY ==
--- OUTSIDE RECORDS SUMMARY | 2025-01-28 10:05 | XMS_ITS | Clinical Summary ---
Author Organization [facility] Facility Address [address] [address] Care Team Providers Care Technology Director Name Role Phone Alba Khan MD Primary Care Provider [phone] Allergies No known active allergies Medications omeprazole [...] (6 to 49 Years) Discontinued 06/18/2015 Insurance [facility] ([id number]) [place] [id number] [facility] ([id number]) [place] [phone] Care Teams Technology Director Relationship Specialty Start Date End Date Alba Khan MD [address] [place], [place] PCP - General 05/17/20
== END 2025-01-28 08:49 | disposition home or self-care (01) ==
LOC: HO.HKASLDS 08:48
PROVIDERS: Visit Provider Nurse Practitioner Family
DX: I12.9 Hypertensive chronic kidney disease with stage 1 through stage 4 chronic kidney disease, or unspecified chronic kidney disease (principal); N18.9 Chronic kidney disease, unspecified; E11.22 Type 2 diabetes mellitus with diabetic chronic kidney disease; E78.00 Pure hypercholesterolemia, unspecified; Z79.4 Long term (current) use of insulin
CPT/HCPCS: 36415; 85652; 86140

== ENCOUNTER 2025-02-23 09:52 | Outpatient (AMB) | payer OTHER, SELFPAY ==
[2025-02-23 09:55] VITALS: BP 126/71; PULSE 88; BMI 34.2
--- NOTE | 2025-02-23 09:55 | A.OFFVIS_ITS ---
Vital Signs 02/23/25 09:55 Height 5 ft 7 in Weight 218 lb 4.122 oz BMI 34.2 BP 126/71 Blood Pressure Location Lt brachial Position Sitting Pulse 88 Intake Visit Reasons: colo rescreen Intake Note: Goyo presents in the office as a rescreening for a colonoscopy. CC: States he has been having dizziness - was told iron is too high and testosterone was too low. Per Dr. Yip. Headache, Nausea with dizziness - 6 months since it started. 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: No Allergies latex Allergy (Severe, Verified 02/23/25 09:57) rash,swelling atorvastatin Allergy (Intermediate, Verified 02/23/25 09:57) stomach upset metformin Allergy (Intermediate, Verified 02/23/25 09:57) diarrhea Medication List - Last Reconciled 02/23/25 by Sakina Barahona MD aspirin 81 mg PO DAILY blood pressure test kit-medium As directed blood sugar diagnostic As directed blood sugar diagnostic (FreeStyle Lite Strips) As directed three times a day blood-glucose sensor (FreeStyle Shaheed 3 Plus Sensor device) Use daily As directed to monitor glucose blood-glucose,fish receiver,cont (FreeStyle Shaheed 3 [place]) As directed cholecalciferol (vitamin D3) 50 mcg PO DAILY clonazepam 1 mg PO BID PRN escitalopram oxalate 20 mg PO DAILY gabapentin 600 mg PO TID PRN glucagon 3 mg/actuation 3 mg intranasal ONCE PRN glucose (Dex4 Glucose) 16 grams (4 x 4 gram) PO Q15M PRN insulin degludec (Tresiba FlexTouch U-100 insulin) 24 units (0.24 mL) subcut BEDTIME insulin lispro (Humalog KwikPen (U-100) Insulin) 1 sliding scale dose subcut USEASDIRECTD insulin syringe-needle U-100 (BD Insulin Syringe Ultra-Fine) Use 1 pen needle once a day lancets (FreeStyle Lancets) use BID as directed to check blood glucose lidocaine 5% (Lidoderm) 1 patch topical DAILY lisinopril 5 mg PO DAILY loratadine 10 mg PO DAILY PRN 90 days magnesium oxide 400 mg PO BEDTIME 90 days meclizine 25 mg PO TID PRN 30 days omeprazole 20 mg PO DAILY ondansetron HCl 4 mg PO Q6-8H PRN 30 days oxycodone-acetaminophen 10-325 mg 1 tab PO Q6H PRN 30 days pen needle, diabetic (BD Ultra-Fine Short Pen Needle) USE 1 PEN NEEDLE ONCE A DAY pyridoxine (vitamin B6) 50 mg PO DAILY 90 days riboflavin (vitamin B2) 400 mg PO DAILY 90 days rosuvastatin 40 mg PO BEDTIME sumatriptan succinate 50 - 100 mg orally at onset of headache, may repeat in 2 hrs PRN; max 2 tabs per day or 4 tabs/week 30 days tamsulosin 0.4 mg PO BEDTIME 90 days testosterone 1 packet transdermal DAILY 30 days tirzepatide (Mounjaro) 15 mg (0.5 mL) subcut QWEEK zolpidem ER 12.5 mg PO BEDTIME PRN HPI Comments Details: This is a 47 y.o M with PMH of obesity, T2DM, nephrolithiasis who is here for follow up after colonoscopy Initial visit 05/10/22 Reports chronic diarrhea ongoing for almost 10 years which he describes as loose BMs 4-5 times a day, no blood, no night time sx, no tenesmus. Otherwise, no other GI complaints to include abdominal pain, N,V. Reports FIT was done as routine screening for CRC. No fam hx of CRC in first degree relatives. No anemia in most recent labs. 07/06/22 - [facility]: Impression: 1. Normal colon mucosa 2. Total of 2 polyps removed from transverse, and sigmoid?colon. 3. Internal hemorrhoids Path: A.? Colon, transverse, polypectomy:? Tubular adenoma; negative for high-grade dysplasia or carcinoma. B.? Colon, sigmoid, polypectomy:? Fragments of tubular adenoma; negative for high-grade dysplasia or carcinoma 07/17/22: Main complaint today is intermittent heartburn postprandially that resolves by itself in a few hours or with Tums. Also takes omeprazole 10mg but uses it PRN. Pt also reports frequent BMs aaron within one hour of eating, reports BMs are soft to loose. Has known diabetes which is not optimally controlled FSG this morning was 219. As above, normal colonic mucosa noted on colonoscopy. 09/25/22: Cont to have postprandial urgency and lose BMs. BG remains very uncontrolled. Fasting BG yest was 380! Underwent umbilical hernia repair recently (Dr Frausto) so has some discomfort around incision otherwise no abd pain, N,V. Heartburn is well controlled on 20mg omeprazole. Labs reviewed. HCV Ab negative. Fib-4: 0.65, low likelihood of advanced fibrosis. 03/20/23: Here for follow up of fatty liver. Fib 4 based on Oct labs 0.73. Has not been able to make much change in terms of BMI but reports some improvement in glycemic control. A1c 6.6 per PCP's note. 02/23/25: Here for follow up to schedule for his colonoscopy. Had polyps 2022 and r ecommendation was made to repeat this year. Additionally, pt also reports fatigue and low energy. Was referred to Uro for hypoT. Getting transdermal testosterone through Urology. DM under control, on GLP1. Has also lost 12 lbs in the past 3 months. Of note - iron studies noted to be high. Potentially secondary to MAFLD but given the borderline TSAT will recheck and also get HH eval. PFSH Medical History Low vitamin B12 level Pain at surgical incision Sacroiliitis Tubular adenoma of colon FRANK (obstructive sleep apnea) Sleep apnea Mild recurrent major depression Vitamin D deficiency Neck pain Obesity due to excess calories Shortness of breath Chest pain UTI (urinary tract infection) Hematuria Renal calculi B12 deficiency due to diet Insomnia Depression with anxiety GERD (gastroesophageal reflux disease) Pure hypercholesterolemia Essential hypertension Diabetes mellitus Lumbar degenerative disc disease Surgical History H/O umbilical hernia repair (09/15/22) History of lithotripsy Hx of colonoscopy History of lumbar laminectomy Family History Father Diabetes Mother Diabetes Hypertension Son No problems noted. 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) Alcohol intake: current Alcohol intake frequency: holidays/special occasions only Alcohol type: beer Patient Tobacco Use Status: Never used Tobacco e-Cigarette/Vaping Use: Never Used Second Hand Smoke Exposure: No service: No Current occupational status: disabled Cognitive needs: No Hearing needs: No Vision needs: No Review of Systems Const All systems reviewed & are unremarkable except as noted in HPI and below Physical Exam Exam Exam: No apparent distress Nonicteric Abdomen soft, nondistended Alert and oriented x3, normal gait Vital Signs: Last Vital Signs Pulse 88 02/23/25 09:55 BP 126/71 02/23/25 09:55 BMI result Body Mass Index 34.2 Assessment & Plan Assessment & Plan (1) Elevated ferritin level: Code(s): R79.89 - Other specified abnormal findings of blood chemistry Category: Medical (2) Fatty liver: Code(s): K76.0 - Fatty (change of) liver, not elsewhere classified Category: Medical (3) Obesity due to excess calories: Code(s): E66.09 - Other obesity due to excess calories Category: Medical Qualifiers: Body mass index: BMI 36.0-36.9 Obesity classification: adult class 2 (BMI 35 - 39.9) Serious obesity comorbidity presence: with serious comorbidity Qualified Code(s): E66.01 - Morbid (severe) obesity due to excess calories; Z 68.36 - Body mass index [BMI] 36.0-36.9, adult (4) Personal history of colonic polyps: Code(s): Z86.010 - Personal history of colon polyps Category: Medical Plan: Recommend repeat colonoscopy in 2024 years due to polyp size. Plan 1. Elevated ferritin Could be secondary to known MAFLD but given borderline TSAT will recheck iron studies and also check for HH. He was also advised to get these labs done as fasting. Plan: - Iron panel - HH DNA labs 2. Hx of polyps Will book for repeat colo. Pt advised to HOLD mounjaro x1 dose. Plan: - [facility] to be booked - Instructions reviewed verbally and hand out provided - Instructions sent over the portal as well Follow up after colo Orders: Orders IRON PROFILE Today R7.89 - Other specified abnormal findings of blood chemistry Ferritin Today R79.89 - Other specified abnormal findings of blood chemistry DNA Analysis Hemochromatosis Today R7. - Other specified abnormal findings of blood chemistry Referrals GI Procedure Notification Z86.010 - Personal history of colon polyps Medications: New peg 3350-electrolytes 236-22.74-6.74 -5.86 gram (Golytely) as per split prep instructions, until fecal effluent is clear 240 mL PO Q10M 4,000 mL 0RF colonoscopy bisacodyl start 2 days before colonoscopy 10 mg (2 x 5 mg) PO BID 8 tabs 0RF 2 days Coding Level of Care Code Est Pt Level 4 (84602) Diagnoses Elevated ferritin level R79.89 Fatty liver K76.0 Class 2 severe obesity due to excess calories with serious comorbidity and body mass index (BMI) of 36.0 to 36.9 in adult E66.01; Z68.36 Body mass index: BMI 36.0-36.9 Obesity classification: adult class 2 (BMI 35 - 39.9) Serious obesity comorbidity presence: with serious comorbidity Personal history of colonic polyps Z86.010
--- OUTSIDE RECORDS SUMMARY | 2025-02-23 11:12 | XMS_ITS | Clinical Summary ---
Author Organization [facility] Facility Address [address] [address] Care Team Providers Care Forepart Reducer Name Role Phone Alba Khan MD Primary Care Provider [phone] Allergies No known active allergies Medications omeprazole [...] (6 to 49 Years) Discontinued 06/18/2015 Insurance [facility] ([id number]) [place] [id number] [facility] ([id number]) [place] [id number] Care Teams Forepart Reducer Relationship Specialty Start Date End Date Alba Khan MD [address] [place], [place] PCP - General 05/17/20
== END 2025-02-23 10:51 | disposition home or self-care (01) ==
LOC: HO.HGI 09:53
PROVIDERS: PCP Internal Medicine; Visit Provider Internal Medicine
DX: R79.89 Other specified abnormal findings of blood chemistry (principal); K76.0 Fatty (change of) liver, not elsewhere classified; E66.01 Morbid (severe) obesity due to excess calories; Z68.36 Body mass index [BMI] 36.0-36.9, adult; Z86.0100 Personal history of colon polyps, unspecified
CPT/HCPCS: 99214

== ENCOUNTER → 2025-02-23 09:52 | Outpatient (BNVA) | payer OTHER, SELFPAY | PROVIDERS: PCP Internal Medicine; Visit Provider Internal Medicine | DX: Z01.818 Encounter for other preprocedural examination (principal); E66.01 Morbid (severe) obesity due to excess calories; Z68.36 Body mass index [BMI] 36.0-36.9, adult; R79.89 Other specified abnormal findings of blood chemistry; Z86.0100 Personal history of colon polyps, unspecified; E11.9 Type 2 diabetes mellitus without complications | CPT/HCPCS: 99212 ==

== ENCOUNTER 2025-02-25 09:50 | Outpatient (REF) | payer OTHER, SELFPAY ==
[2025-02-25 11:40] LABS: Iron 124 mcg/dL (45-160); Percent Iron Saturation 47 % (15-50); Total Iron Binding Capacity 262 mcg/dL (228-428); Unsaturated Iron Binding 138 ug/dL
[2025-02-25 11:57] LABS: Ferritin 794 ng/mL (20-250)
== END 2025-02-25 09:51 | disposition home or self-care (01) ==
LOC: HO.LAB 09:50
PROVIDERS: PCP Internal Medicine; Visit Provider Internal Medicine
DX: R79.89 Other specified abnormal findings of blood chemistry (principal)
CPT/HCPCS: 36415; 81256; 82728; 83540

== ENCOUNTER 2025-03-04 07:40 | Outpatient (REF) | payer OTHER, SELFPAY ==
--- NOTE | ~2025-03-04 | CT_ITS ---
CLINICAL HISTORY: L76.82 - Other postprocedural complications of skin and subcutaneous tissue CT abdomen and pelvis without contrast Comparison: CR/SR - XR ABDOMEN 1 VIEW (KUB) - 09/19/23 07:23 EDT Findings: Limited evaluation without intravenous contrast. The lung bases are clear. Gallbladder within normal limits. No biliary ductal dilatation. Unenhanced liver, spleen, pancreas and adrenal glands are unremarkable. No renal or ureteral stones and no hydronephrosis or hydroureter. No perinephric stranding. No bowel obstruction, pneumoperitoneum, or pneumatosis. No free fluid or definite loculated fluid collection. No adenopathy. Pelvic contents unremarkable. Normal appendix. Abdominal aorta normal in size. No acute fracture. IMPRESSION: No acute findings. No renal or ureteral stones. This document has been electronically signed by: Cathy Estrada MD on 03/04/2025 17:14:35
== END 2025-03-04 07:41 | disposition home or self-care (01) ==
LOC: HO.CT 07:40
PROVIDERS: PCP Internal Medicine; Visit Provider Surgery
DX: L76.82 Other postprocedural complications of skin and subcutaneous tissue (principal)
CPT/HCPCS: 74176

== ENCOUNTER → 2025-03-04 07:42 | Outpatient (BNV) | payer OTHER, SELFPAY | PROVIDERS: PCP Internal Medicine; Visit Provider Specialist | DX: L76.82 Other postprocedural complications of skin and subcutaneous tissue (principal) | CPT/HCPCS: 74176 ==

== ENCOUNTER → 2025-03-16 14:20 | Outpatient (BNV) | payer OTHER, SELFPAY | PROVIDERS: PCP Internal Medicine; Visit Provider Nurse Practitioner Family | DX: R79.89 Other specified abnormal findings of blood chemistry (principal); Z79.890 Hormone replacement therapy | CPT/HCPCS: 99204 ==

== ENCOUNTER 2025-03-23 09:22 | Outpatient (AMB) | payer OTHER, SELFPAY ==
--- NOTE | 2025-03-23 09:25 | MHC.OFFVIS ---
Vital Signs 03/23/25 09:28 Height 5 ft 7 in Weight 222 lb 3.615 oz BMI 34.8 BP 102/76 Blood Pressure Location Rt brachial Position Sitting Pulse 87 Pulse Source Pulse Oximeter Pulse Oximetry (%) 96 Oxygen Delivery Method Room Air Intake Visit Reasons: DM Intake Note: Patient present today for Type 2 Diabetes Mellitus Last Diabetic eye exam: Last exam was on 07/30/24 by [facility] Last Podiatry Visit: Doesn't have one Random Glucose: 152 mg/dl HgA1C: 6.5% Brick Tester Required: No Accompanied by: Self / Same As Patient Allergies latex Allergy (Severe, Verified 03/23/25 09:31) rash,swelling atorvastatin Allergy (Intermediate, Verified 03/23/25 09:31) stomach upset metformin Allergy (Intermediate, Verified 03/23/25 09:31) diarrhea Medication List - Last Reconciled 03/23/25 by Birdie Duong PA-C aspirin 81 mg PO DAILY bisacodyl 10 mg (2 x 5 mg) PO BID 2 days blood pressure test kit-medium As directed blood sugar diagnostic As directed blood sugar diagnostic (FreeStyle Lite Strips) As directed three times a day blood-glucose sensor (FreeStyle Shaheed 3 Plus Sensor device) Use daily As directed to monitor glucose blood-glucose,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,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 (FreeStyle Shaheed 3 [place]) As directed cholecalciferol (vitamin D3) (Vitamin D3) 25 mcg PO DAILY clonazepam 1 mg PO BID PRN escitalopram oxalate 20 mg PO DAILY gabapentin 600 mg PO TID PRN glucagon 3 mg/actuation 3 mg intranasal ONCE PRN glucose (Dex4 Glucose) 16 grams (4 x 4 gram) PO Q15M PRN insulin degludec (Tresiba FlexTouch U-100 insulin) 24 units (0.24 mL) subcut BEDTIME insulin lispro (Humalog KwikPen (U-100) Insulin) 1 sliding scale dose subcut USEASDIRECTD insulin syringe-needle U-100 (BD Insulin Syringe Ultra-Fine) Use 1 pen needle once a day lancets (FreeStyle Lancets) use BID as directed to check blood glucose lidocaine 5% (Lidoderm) 1 patch topical DAILY lisinopril 5 mg PO DAILY loratadine 10 mg PO DAILY PRN 90 days magnesium oxide 400 mg PO BEDTIME 90 days meclizine 25 mg PO TID PRN 30 days omeprazole 20 mg PO DAILY ondansetron HCl 4 mg PO Q6-8H PRN oxycodone-acetaminophen 10-325 mg 1 tab PO Q6H PRN 30 days peg 3350-electrolytes 236-22.74-6.74 -5.86 gram (Golytely) 240 mL PO Q10M pen needle, diabetic (BD Ultra-Fine Short Pen Needle) USE 1 PEN NEEDLE ONCE A DAY pyridoxine (vitamin B6) 50 mg PO DAILY 90 days riboflavin (vitamin B2) 400 mg PO DAILY 90 days rosuvastatin 40 mg PO BEDTIME sumatriptan succinate 50 - 100 mg orally at onset of headache, may repeat in 2 hrs PRN; max 2 tabs per day or 4 tabs/week 30 days tamsulosin 0.4 mg PO BEDTIME 90 days testosterone 1 packet transdermal DAILY 30 days tirzepatide (Mounjaro) 15 mg (0.5 mL) subcut QWEEK zolpidem ER 12.5 mg PO BEDTIME PRN HPI HPI DM: Details: Patient is a 49-year-old male with a significant past medical history of type 2 diabetes, hypertension, hyperlipidemia, ED, FRANK, CKD presenting today for diabetic follow-up. Endo: A1c today is 6.5. He is currently on Tresiba 24 units nightly, humalog 2-4 units with meals and Mounjaro 15 mg weekly. At our last visit I discontinued the Jardiance due to UTIs and frequent urinary symptoms. He states that resolved. Metformin caused GI upset. he has trialed Trulicity and felt it was ineffective. freestyle 3 cgm- use age 75 %, average glucose 174, 7.2%. Very high 2 %, high 25 %, in range 73%, hypoglycemic 0% No hypogylcemia since last visit He is experiencing hyperglycemia with meals and states it is often due to a compliance issue. He has a hard time administering the Humalog due to often being out to eat. He does not bring his insulin with him. He does have peripheral neuropathy (right worse than left), nephropathy, glaucoma and ED. He is on gabapentin at night for neuropathy. 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 CV: Blood pressure today in the office is 102/76. He is on lisinopril 5 mg. Cholesterol is controlled with Crestor 40 mg. Nephro: Follows with Nephrology. He is on an EVONNE-inhibitor and mounjaro. avoids nsaids. [facility] Medical History Low vitamin B12 level Pain at surgical incision Sacroiliitis Tubular adenoma of colon FRANK (obstructive sleep apnea) Sleep apnea Mild recurrent major depression Vitamin D deficiency Neck pain Obesity due to excess calories Shortness of breath Chest pain UTI (urinary tract infection) Hematuria Renal calculi B12 deficiency due to diet Insomnia Depression with anxiety GERD (gastroesophageal reflux disease) Pure hypercholesterolemia Essential hypertension Diabetes mellitus Lumbar degenerative disc disease Surgical History H/O umbilical hernia repair (09/15/22) History of lithotripsy Hx of colonoscopy History of lumbar laminectomy Family History (Updated 03/16/25 @ 14:38 by Jayla Duffy) Father Diabetes Mother Diabetes Hypertension Son No problems noted. 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) Alcohol intake: current Alcohol intake frequency: holidays/special occasions only Alcohol type: beer Patient Tobacco Use Status: Never used Tobacco e-Cigarette/Vaping Use: Never Used Second Hand Smoke Exposure: No service: No Current occupational status: retired and disabled Cognitive needs: No Hearing needs: No Vision needs: No Physical Exam Vital Signs: Last Vital Signs Pulse 87 03/23/25 09:28 BP 102/76 03/23/25 09:28 Pulse Ox 96 03/23/25 09:28 Oxygen Delivery Method Room Air 03/23/25 09:28 BMI result Body Mass Index 34.8 Const Orientation/consciousness: patient oriented x3 HEENT Ears: hearing grossly normal bilaterally Neck Thyroid: Thyroid normal Lymphatic: no lymphadenopathy noted Resp Auscultation: clear to auscultation bilaterally Cardio Rate: regular rate Rhythm: regular rhythm Heart sounds: S1 normal heart sound present and S2 normal heart sound present Skin General skin exam: no rashes or lesions noted Neuro General: patient oriented x3, gait normal and no focal motor deficits Results AMB Hemoglobin A1c AMB Hemoglobin A1c 6.5 % Last Edit by MIKE Camarena on 03/23/25 09:43 Results Reviewed Results Reviewed: Laboratory Last Values Glucose (Clinic) 152 mg/dL (60-115) H 03/23/25 09:33 Laboratory Tests 12/22/24 12/22/24 03/16/25 09:41 10:12 14:52 Sodium 139 Potassium 4.3 Chloride 103 Carbon Dioxide 29 Anion Gap 11 L BUN 19 H Creatinine 1.11 Estim Creat Clear Calc 89.4 Estimated GFR > 60 Random Glucose 126 H Hgb A1c (Clinic) 6.4 H Hemoglobin A1c % 6.2 H Calcium 9.5 AST 28 ALT 33 Triglycerides 104 Cholesterol 152 LDL Cholesterol, Calc 102 H HDL Cholesterol 30 L Assessment & Plan Assessment & Plan (1) Uncontrolled type 2 diabetes mellitus with hyperglycemia: Code(s): E11.65 - Type 2 diabetes mellitus with hyperglycemia Category: Medical Plan: continue tresiba 24 units continue novolog 4 units with meals-encouraged compliance. Discussed the cequr as a possibility. will refer to dm education continue mounjaro to 15 mg weekly (2) Essential hypertension: Code(s): I10 - Essential (primary) hypertension Category: Medical Plan: Continue lisinopril Orders: Orders AMB Hemoglobin A1c Today E11.65 - Type 2 diabetes mellitus with hyperglycemia, Z13.9 - Encounter for screening, unspecified Referrals Diabetes Education Referral E11.9 - Type 2 diabetes mellitus without complications, Z79.4 - intermediate designer (current) use of insulin Medications: New bolus insulin pump, 200 unit (CeQur Simplicity) use every day As directed following sliding scale (up 16 units daily) 8 ea 4RF Coding Level of Care Code Est Pt Level 4 (22425) Complex EM visit Add On G2211 Diagnoses Uncontrolled type 2 diabetes mellitus with hyperglycemia E11.65 Essential hypertension I10
[2025-03-23 09:28] VITALS: BP 102/76; PULSE 87; O2SAT 96; BMI 34.8
[2025-03-23 09:38] LABS: Glucose, Whole Blood 152 mg/dL (60-115)
== END 2025-03-23 09:51 | disposition home or self-care (01) ==
LOC: HO.ENCR 09:23
PROVIDERS: PCP Internal Medicine; Visit Provider Physician Assistant
DX: E11.65 Type 2 diabetes mellitus with hyperglycemia (principal); I10 Essential (primary) hypertension; Z13.9 Encounter for screening, unspecified

== ENCOUNTER → 2025-03-23 09:22 | Outpatient (BNVA) | payer OTHER, SELFPAY | PROVIDERS: PCP Internal Medicine; Visit Provider Physician Assistant | DX: E11.65 Type 2 diabetes mellitus with hyperglycemia (principal); E11.22 Type 2 diabetes mellitus with diabetic chronic kidney disease; E11.40 Type 2 diabetes mellitus with diabetic neuropathy, unspecified; I12.9 Hypertensive chronic kidney disease with stage 1 through stage 4 chronic kidney disease, or unspecified chronic kidney disease; N18.9 Chronic kidney disease, unspecified; E78.5 Hyperlipidemia, unspecified; Z79.4 Long term (current) use of insulin | CPT/HCPCS: 82947; 83036; 99212 ==

== ENCOUNTER 2025-03-26 15:16 | Outpatient (AMB) | payer OTHER, SELFPAY ==
[2025-03-26 15:32] VITALS: BMI 34.8
--- NOTE | 2025-03-26 15:32 | MHC.OFFVIS ---
Vital Signs 03/26/25 15:32 Height 5 ft 7 in Weight 222 lb 3.615 oz BMI 34.8 Intake Visit Reasons: Ct-Scan follow-up Intake Note: Patient presents for Ct-Scan follow-up.( 03/04/2025) Pt c/o; no reports burning sensation navel, reports postprandial nausea, reports no changes in bowel habits, reports frequent urination. Photolith Operator Required: No Accompanied by: Self / Same As Patient Allergies latex Allergy (Severe, Verified 03/26/25 15:33) rash,swelling atorvastatin Allergy (Intermediate, Verified 03/26/25 15:33) stomach upset metformin Allergy (Intermediate, Verified 03/26/25 15:33) diarrhea Medication List - Last Reconciled 03/26/25 by Yunior Jain MD aspirin 81 mg PO DAILY bisacodyl 10 mg (2 x 5 mg) PO BID 2 days blood pressure test kit-medium As directed blood sugar diagnostic As directed blood sugar diagnostic (FreeStyle Lite Strips) As directed three times a day blood-glucose sensor (Stockbet.comStyle Shaheed 3 Plus Sensor device) Use daily As directed to monitor glucose blood-glucose,cast iron drain pipe layer,cont (FreeStyle Shaheed 3 [place]) As directed bolus insulin pump, 200 unit (CeQur Simplicity) use every day As directed following sliding scale (up 16 units daily) cholecalciferol (vitamin D3) (Vitamin D3) 25 mcg PO DAILY clonazepam 1 mg PO BID PRN escitalopram oxalate 20 mg PO DAILY gabapentin 600 mg PO TID PRN glucagon 3 mg/actuation 3 mg intranasal ONCE PRN glucose (Dex4 Glucose) 16 grams (4 x 4 gram) PO Q15M PRN insulin degludec (Tresiba FlexTouch U-100 insulin) 24 units (0.24 mL) subcut BEDTIME insulin lispro (Humalog KwikPen (U-100) Insulin) 1 sliding scale dose subcut USEASDIRECTD insulin syringe-needle U-100 (BD Insulin Syringe Ultra-Fine) Use 1 pen needle once a day lancets (FreeStyle Lancets) use BID as directed to check blood glucose lidocaine 5% (Lidoderm) 1 patch topical DAILY lisinopril 5 mg PO DAILY loratadine 10 mg PO DAILY PRN 90 days magnesium oxide 400 mg PO BEDTIME 90 days meclizine 25 mg PO TID PRN 30 days omeprazole 20 mg PO DAILY ondansetron HCl 4 mg PO Q6-8H PRN oxycodone-acetaminophen 10-325 mg 1 tab PO Q6H PRN 30 days peg 3350-electrolytes 236-22.74-6.74 -5.86 gram (Golytely) 240 mL PO Q10M pen needle, diabetic (BD Ultra-Fine Short Pen Needle) USE 1 PEN NEEDLE ONCE A DAY pyridoxine (vitamin B6) 50 mg PO DAILY 90 days riboflavin (vitamin B2) 400 mg PO DAILY 90 days rosuvastatin 40 mg PO BEDTIME sumatriptan succinate 50 - 100 mg orally at onset of headache, may repeat in 2 hrs PRN; max 2 tabs per day or 4 tabs/week 30 days tamsulosin 0.4 mg PO BEDTIME 90 days testosterone 1 packet transdermal DAILY 30 days tirzepatide (Mounjaro) 15 mg (0.5 mL) subcut QWEEK zolpidem ER 12.5 mg PO BEDTIME PRN HPI HPI Ct-Scan follow-up: Details: He is here for follow-up to discuss his CAT scan. I had sent him for a CAT scan because of his pain on the umbilical hernia repair site. He had this hernia repair done by Dr. Frausto in 2022 He says he occasionally has this burning pain on the incision. Denies GI complaints. Denies any palpable mass. [facility] Medical History (Updated 03/26/25 @ 15:44 by Yunior Jain MD) Umbilical pain Low vitamin B12 level Pain at surgical incision Sacroiliitis Tubular adenoma of colon FRANK (obstructive sleep apnea) Sleep apnea Mild recurrent major depression Vitamin D deficiency Neck pain Obesity due to excess calories Shortness of breath Chest pain UTI (urinary tract infection) Hematuria Renal calculi B12 deficiency due to diet Insomnia Depression with anxiety GERD (gastroesophageal reflux disease) Pure hypercholesterolemia Essential hypertension Diabetes mellitus Lumbar degenerative disc disease Surgical History H/O umbilical hernia repair (09/15/22) History of lithotripsy Hx of colonoscopy History of lumbar laminectomy Family History Father Diabetes Mother Diabetes Hypertension Son No problems noted. 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) Alcohol intake: current Alcohol intake frequency: holidays/special occasions only Alcohol type: beer Patient Tobacco Use Status: Never used Tobacco e-Cigarette/Vaping Use: Never Used Second Hand Smoke Exposure: No service: No Current occupational status: retired and disabled Cognitive needs: No Hearing needs: No Vision needs: No Review of Systems Const Denies chills and Denies fever(s) Card Denies chest pain, Denies dyspnea and Denies dyspnea on exertion Resp Denies cough, Denies dyspnea and Denies dyspnea on exertion GI Denies hematochezia and Denies change in bowel habits Denies hematuria and Denies difficulty urinating Musc Denies back pain and Denies limited range of motion Neuro Denies focal weakness and Denies convulsions Psych Denies depression and Denies mood swings Physical Exam Vital Signs: BMI result Body Mass Index 34.8 Const General: comfortable and no acute distress Resp Effort & Inspection: normal respiratory effort GI Other: No palpable umbilical hernia, no mass, no tenderness, no skin changes, incision with the hernia repair site is completely healed Assessment & Plan Assessment & Plan (1) Umbilical pain: Code(s): R10.33 - Periumbilical pain Category: Medical Plan: He had a previous umbilical hernia repair with Dr. Frausto and he was having burning pain in the incision. He was worried about another hernia. I have reviewed his CAT scan and I assured him that there was no hernia noted. There were no inflammatory changes seen. There was no identifiable pathology I assured her about the above findings. I did explain to him that often times, surgical scars can have chronic pain in view of fibrotic changes causing local irritation. I did explain to him that if he does note any mass again at some point, he can come back to the office to be re-evaluated. He was comfortable with the plan. Coding Level of Care Code Est Pt Level 3 (20450) Diagnoses Umbilical pain R10.33
--- OUTSIDE RECORDS SUMMARY | 2025-03-26 20:33 | XMS_ITS | Clinical Summary ---
Author Organization [facility] Facility Address [address] [address] Care Team Providers Care Sales Closer Name Role Phone Alba Khan MD Primary Care Provider [phone] Allergies No known active allergies Medications omeprazole [...] to 49 Years) Discontinued 06/18/2015 Insurance [facility] ([id number]) [place] [id number] [facility] ([id number]) [place] [id number] Care Teams Sales Closer Relationship Specialty Start Date End Date Alba Khan MD [address] [place], [place] PCP - General 05/17/20
== END 2025-03-26 15:54 | disposition home or self-care (01) ==
LOC: HO.HGS 15:17
PROVIDERS: PCP Internal Medicine; Visit Provider Surgery
DX: R10.33 Periumbilical pain (principal)
CPT/HCPCS: 99213

== ENCOUNTER → 2025-03-26 15:16 | Outpatient (BNVA) | payer OTHER, SELFPAY | PROVIDERS: PCP Internal Medicine; Visit Provider Surgery | DX: Z71.2 Person consulting for explanation of examination or test findings (principal); R10.33 Periumbilical pain | CPT/HCPCS: 99212 ==

== ENCOUNTER 2025-04-07 08:29 | Outpatient (REF) | payer OTHER, SELFPAY ==
--- OUTSIDE RECORDS SUMMARY | 2025-04-07 08:34 | XMS_ITS | Clinical Summary ---
Author Organization [facility] Facility Address [address] [address] Care Team Providers Care Tube Roller Name Role Phone Alba Khan MD Primary Care Provider Allergies No known active allergies Medications omeprazole [...] (6 to 49 Years) Discontinued 06/18/2015 Insurance [facility] ([id number]) [place] [id number] [facility] ([id number]) [place] [id number] Care Teams Tube Roller Relationship Specialty Start Date End Date Alba Khan MD [address] [place], [place] PCP - General 05/17/20
[2025-04-11 16:32] LABS: Testosterone, Free 72.1 pg/mL (35.0-155.0)
== END 2025-04-07 08:30 | disposition home or self-care (01) ==
LOC: HO.LAB 08:29
PROVIDERS: Visit Provider Urology
DX: E29.1 Testicular hypofunction (principal)
CPT/HCPCS: 36415; 84402; 84403

== ENCOUNTER 2025-04-09 07:57 | Outpatient (AMB) | payer OTHER, SELFPAY ==
--- OUTSIDE RECORDS SUMMARY | 2025-04-09 08:04 | XMS_ITS | Clinical Summary ---
Author Organization [facility] Facility Address [address] [address] Care Team Providers Care Phlebotomist Associate Name Role Phone Alba Khan MD Primary Care Provider [phone] Allergies No known active allergies Medications omeprazole [...] (6 to 49 Years) Discontinued 06/18/2015 Insurance [facility] ([id number]) [place] [id number] [facility] ([id number]) [place] [phone] Care Teams Phlebotomist Associate Relationship Specialty Start Date End Date Alba Khan MD [address] [place], [place] PCP - General 05/17/20
--- NOTE | 2025-04-09 08:19 | A.OFFVIS_ITS ---
Intake Intake Visit Reasons: 60 min Allergies latex Allergy (Severe, Verified 03/26/25 15:33) rash,swelling atorvastatin Allergy (Intermediate, Verified 03/26/25 15:33) stomach upset metformin Allergy (Intermediate, Verified 03/26/25 15:33) diarrhea HPI Comprehensive Diabetes Asmnt Most Recent Diabetes Results: Creatinine, (0.5-1.4) 1.11 mg/dL 03/16/25 BUN, (9-16) 19 mg/dL H 03/16/25 Sodium, (135-145) 139 mmol/L 03/16/25 Potassium, (3.3-5.1) 4.3 mmol/L 03/16/25 Chloride, (96-108) 103 mmol/L 03/16/25 Carbon Dioxide, (22-29) 29 mmol/L 03/16/25 Calcium, (8.4-10.2) 9.5 mg/dL 03/16/25 AST, (5-37) 28 U/L 03/16/25 ALT, (0-40) 33 U/L 03/16/25 Total Protein, (6.5-8.0) 7.3 g/dL 03/16/25 Albumin, (3.5-5.0) 4.8 g/dL 03/16/25 [facility] Medical History (Updated 03/26/25 @ 15:44 by Yunior Jain MD) Umbilical pain Low vitamin B12 level Pain at surgical incision Sacroiliitis Tubular adenoma of colon FRANK (obstructive sleep apnea) Sleep apnea Mild recurrent major depression Vitamin D deficiency Neck pain Obesity due to excess calories Shortness of breath Chest pain UTI (urinary tract infection) Hematuria Renal calculi B12 deficiency due to diet Insomnia Depression with anxiety GERD (gastroesophageal reflux disease) Pure hypercholesterolemia Essential hypertension Diabetes mellitus Lumbar degenerative disc disease Surgical History H/O umbilical hernia repair (09/15/22) History of lithotripsy Hx of colonoscopy History of lumbar laminectomy Family History Father Diabetes Mother Diabetes Hypertension Son No problems noted. 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) Alcohol intake: current Alcohol intake frequency: holidays/special occasions only Alcohol type: beer Patient Tobacco Use Status: Never used Tobacco e-Cigarette/Vaping Use: Never Used Second Hand Smoke Exposure: No service: No Current occupational status: retired and disabled Cognitive needs: No Hearing needs: No Vision needs: No Assessment & Plan Assessment & Plan (1) Controlled type 2 diabetes mellitus with insulin therapy: Code(s): E11.9 - Type 2 diabetes mellitus without complications; Z79.4 - intermediate accountant (current) use of insulin Plan: Pt at visit forCeQue Simplicity Training Pt brought CeQue patch, general internal medicine physician, vial of mealtime insulin and change by stickers Patient's prescription reads take Instructed patient to wash your hands Demonstrated for patient how to fill syringe from vial, and insert, needle to fill patch Lock patch by clicking buttons on each side until the will no longer click Fill syringe from vial up to 100 units. Insert, needle into blue hole to fill patch To prime patch proceed with 4 clicks Apply placed sticker, to patch, count forward 4 days Prepare site where you will place patch with either alcohol or soap and water, avoid waist band and belt line Do not insert through scar tissue, piercings and tattoos be sure to place patch at least 2 in from belly button. If you have excess body hair adhesive will attach better to clean shaven skin Instructed patient to be sure to rotate patch regularly Place patch in general internal medicine physician while holding general internal medicine physician with both hands use thumbs to push down on blue cap in on patch Push until you hear a click Instructed patient not to unlock green button until general internal medicine physician is against prepared site Squeeze at both ends a blue cap and carefully began to pull cap, this should also remove adhesive pad liner. Be cautious of exposed needle, check to make sure needle is not bent Please patch on your body, slide yellow safety and press green button down Press general internal medicine physician firmly for 10 seconds, remove general internal medicine physician by lifting it away To remove needle squeeze clear sides of dredge pipeman at the base Discard needle in sharps container Press down firmly on patch with palm of your hand for 10 seconds Patient left visit with CeQue patch in place Instructed patient on how to administer mealtime insulin, instructed patient that each click is equal to 2 units of mealtime insulin Patient will follow-up with natural resources extension educator as instructed Portions of this note were created using voice recognition software, please excuse any words or phrases that may have been misinterpreted. Patient Instructions: Instructions: Wash your hands Lock patch by clicking buttons on each side until the will no longer click Fill syringe from vial up to 100 units. Insert, needle into blue hole to fill patch To prime patch proceed with 4 clicks Apply placed sticker, to patch, count forward 4 days Prepare site where you will place patch with either alcohol or soap and water, avoid waist band and belt line Do not insert through scar tissue, piercings and tattoos be sure to place patch at least 2 in from belly button. If you have excess body hair adhesive will attach better to clean shaven skin Place patch in general internal medicine physician while holding general internal medicine physician with both hands use thumbs to push down on blue cap in on patch Squeeze at both ends a blue cap and carefully began to pull cap, this should also remove adhesive pad liner. Be cautious of exposed needle, check to make sure needle is not bent Do not to push green button until general internal medicine physician is against prepared site Place patch on your body, slide yellow safety and press green button down Push until you hear a click Press general internal medicine physician firmly for 10 seconds, remove general internal medicine physician by lifting it away To remove needle squeeze clear sides of dredge pipeman at the base Discard needle in sharps container Press down firmly on patch with palm of your hand for 10 seconds Be sure to rotate patch regularly 2 clicks before each meal which equals 4 units Coding Level of Care Code Est Pt Level 1 (25966) Diagnoses Controlled type 2 diabetes mellitus with insulin therapy E11.9; Z79.4
== END 2025-04-09 08:22 | disposition home or self-care (01) ==
LOC: HO.ENCR 07:58
PROVIDERS: PCP Internal Medicine; Visit Provider Registered Nurse Diabetes Educator
DX: E11.9 Type 2 diabetes mellitus without complications (principal); Z79.4 Long term (current) use of insulin

== ENCOUNTER → 2025-04-09 07:57 | Outpatient (BNVA) | payer OTHER, SELFPAY | PROVIDERS: PCP Internal Medicine; Visit Provider Registered Nurse Diabetes Educator | DX: E11.9 Type 2 diabetes mellitus without complications (principal); Z79.4 Long term (current) use of insulin | CPT/HCPCS: 99211 ==

== ENCOUNTER 2025-04-23 08:42 | Outpatient (AMB) | payer OTHER, SELFPAY ==
--- NOTE | 2025-04-23 08:45 | MHC.OFFVIS ---
Intake Visit Reasons: 3m/Labs SET (NOUA) Intake Note: Reason for Visit: labs follow up Urology Meds: Vitamin B6, Tamsulosin, Testosterone Blood Thinners: Aspirin Labs: Total Testo: 329 Free Testo: 72.1 (04/07/2025) Imaging: None Last PVR: None Accompanied by: Self / Same As Patient Allergies latex Allergy (Severe, Verified 04/23/25 08:49) rash,swelling atorvastatin Allergy (Intermediate, Verified 04/23/25 08:49) stomach upset metformin Allergy (Intermediate, Verified 04/23/25 08:49) diarrhea HPI Comments Details: Goyo is a pleasant Stateless-speaking male. He is a patient of Dr. William. 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 Labs - 10/29 245, 12/29 235, 04/30 329 FT 72 Erectile dysfunction Background diabetes Daily tadalafil caused headache On demand sildenafil 100 mg Nephrolithiasis Prior presentation to [facility] with right-sided flank pain Imaging - 03/28 renal ultrasound right-sided low 8 mm - 05/29 CT 8 mm right UPJ - 09/26 right lower pole 7 mm - 04/28 Renal US right 4mm - 07/28 KUB question right small stone - 04/29 renal ultrasound no stones Intervention - 08/27 R ESWL, 10/28 right ESWL Background diabetic [facility] Medical History Umbilical pain Low vitamin B12 level Pain at surgical incision Sacroiliitis Tubular adenoma of colon FRANK (obstructive sleep apnea) Sleep apnea Mild recurrent major depression Vitamin D deficiency Neck pain Obesity due to excess calories Shortness of breath Chest pain UTI (urinary tract infection) Hematuria Renal calculi B12 deficiency due to diet Insomnia Depression with anxiety GERD (gastroesophageal reflux disease) Pure hypercholesterolemia Essential hypertension Diabetes mellitus Lumbar degenerative disc disease Surgical History H/O umbilical hernia repair (09/15/22) History of lithotripsy Hx of colonoscopy History of lumbar laminectomy Family History Father Diabetes Mother Diabetes Hypertension Son No problems noted. 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) Alcohol intake: current Alcohol intake frequency: holidays/special occasions only Alcohol type: beer Patient Tobacco Use Status: Never used Tobacco e-Cigarette/Vaping Use: Never Used Second Hand Smoke Exposure: No service: No Current occupational status: retired and disabled Cognitive needs: No Hearing needs: No Vision needs: No Review of Systems Const Denies chills and Denies fever(s) Card Reports no additional complaints and Denies syncope Resp Denies cough GI Denies abdominal pain and Denies heartburn Reports as per HPI and Denies change in libido Neuro Denies syncope Psych Denies change in libido Endo Denies change in libido Physical Exam Const General: cooperative, healthy appearing, comfortable and no acute distress Orientation/consciousness: patient oriented x3 HEENT Face and sinus: Yes normal facial exam Mouth: moist mucous membranes Neck Neck: Yes normal visual inspection, Yes full ROM and Yes trachea midline Chest Chest palpation & inspection: normal inspection of the chest Resp Effort & Inspection: normal respiratory effort, able to speak in complete sentences and no respiratory distress GI Inspection: Yes normal to inspection Back/Spine/Pelvis Cervical Spine: normal cervical lordosis Thoracic/Lumbar Spine: thoracic and lumbar spine normal to inspection Skin General skin exam: no rashes or lesions noted Neuro General: patient oriented x3, gait normal, tone normal and moves all extremities Extrem General: Yes normal to inspection and Yes capillary refill normal Assessment & Plan Assessment & Plan (1) Renal calculi: Code(s): N20.0 - Calculus of kidney Category: Medical Plan Trial testosterone pellet Patient Instructions: This note is constructed using voice recognition software. While every effort has been made to ensure accuracy transcription typist errors may have been included. Imaging studies, laboratory and physical exam results were discussed and reviewed in detail. No major barriers to patient understanding were identified. An opportunity to ask questions regarding the treatment plan was provided. All questions were answered. The patient expressed understanding and agreement with the above treatment plan. The patient is aware they should contact our office by phone for worsening of their current condition or the appearance of new urologic symptoms. Compliance is encouraged with any medications and followup testing that is ordered. It is a privilege to participate in the urologic care of your patient. If you have any questions or concerns regarding treatment for the above conditions, or other urologic issues, please do not hesitate to contact me. The office telephone contact is [phone]. Sincerely, Dr Miguelito Yip MD, [facility] - Urology Compassionate Specialist Care for the Genitourinary System Coding Level of Care Code Est Pt Level 3 (25363) Add On Problem Visit Only Diagnoses Renal calculi N20.0
== END 2025-04-23 09:09 | disposition home or self-care (01) ==
LOC: HO.HUSH 08:43
PROVIDERS: PCP Internal Medicine; Visit Provider Urology
DX: N20.0 Calculus of kidney (principal)
CPT/HCPCS: 99213; G2211

== ENCOUNTER → 2025-04-23 08:42 | Outpatient (BNVA) | payer OTHER, SELFPAY | PROVIDERS: PCP Internal Medicine; Visit Provider Urology | DX: N20.0 Calculus of kidney (principal) | CPT/HCPCS: 99212 ==